=== PATIENT | male | born 1955 | race Caucasian/White ===

== ENCOUNTER → 2022-08-11 | Outpatient (CLI) | payer MEDICARE, MEDICAID, SELFPAY ==
--- NOTE | 2022-08-11 08:33 | CDU_ITS ---
Reason For Study: Bilateral carotid bruit Rt. Velocities/BP Lt. Velocities/BP Prox CCA 81.5/11.6 cm/sec. Prox CCA 86.1/15.7 cm/sec. Mid CCA 77.8/11.6 cm/sec. Mid CCA 67.4/17.9 cm/sec. Dist CCA 60.7/12.6 cm/sec. Dist CCA 61.9/14.6 cm/sec. Prox ICA 70.7/17.9 cm/sec. Prox ICA 70.4/12.6 cm/sec. Mid ICA 75.1/17.9 cm/sec. Mid ICA 70.4/15.1 cm/sec. Dist ICA 90.5/20.1 cm/sec. Dist ICA 64.2/11.4 cm/sec. Rt. ICA/CCA = 1.16. Lt. ICA/CCA = 1.04. Prox ECA 121.1/17 cm/sec. Prox ECA 315/20.8 cm/sec. Rt. Vert. 66.3/8 cm/sec. Lt. Vert. 50.9/9.1 cm/sec. Right Extracranial There is homogeneous, smooth atherosclerotic plaque noted in the right common carotid artery. There is heterogeneous, irregular atherosclerotic plaque noted in the right internal carotid artery. There is intimal thickening but no significant atherosclerotic plaque noted in the right external carotid artery. Antegrade flow is noted in the right vertebral artery. Left Extracranial There is homogeneous, smooth atherosclerotic plaque noted in the left common carotid artery. There is heterogeneous, irregular atherosclerotic plaque noted in the left internal carotid artery. There is heterogeneous, irregular atherosclerotic plaque noted in the left external carotid artery. Antegrade flow is noted in the left vertebral artery. Procedure Carotid Duplex [id number]. This is a Carotid Duplex examination using B-mode, color flow and specral Doppler. Exam performed in department. VL/Carotid Duplex Ultrasound Interpretation Summary Mild (<50%) stenosis right extracranial internal carotid. Mild (<50%) stenosis left extracranial internal carotid. Patent and antegrade vertebrals bilaterally. Ordering Physician: Didier Blake Performed By: Liliane Viveros RVT
== END | disposition home or self-care (01) ==
LOC: CVS 08:32
PROVIDERS: Visit Provider Psychiatry & Neurology Neurology
DX: R09.89 Other specified symptoms and signs involving the circulatory and respiratory systems (principal); Z86.73 Personal history of transient ischemic attack (TIA), and cerebral infarction without residual deficits
CPT/HCPCS: 93880

== ENCOUNTER → 2023-04-20 | Outpatient (CLI) | payer MEDICARE, MEDICAID, SELFPAY ==
--- OUTSIDE RECORDS SUMMARY | 2023-04-20 07:35 | XMS RPT_ITS | CCD ---
Author Name Unknown Address [address] [place] [address] Organization [facility] Care Team Providers Care [employer] Business [employer] Officer Name Role Phone Gayatri Burrell Unavailable Gayatri Burrell Unavailable Jeanna Duff Unavailable SOPHIE CUETO Unavailable JEANNA Corrales Unavailable Unavailab Jeanna Floyd Unavailable Unavailab Jeanna Floyd Unavailable Gayatri Burrell Unavailable Jeanna Duff Primary Care Provider [phone] Melquiades Tanvir Admitting Unavailabl e MelquiadesMildred greena Attending Unavailabl e Melquiades, Tanvir Admitting Unavailabl e Melquiades, Tanvir Attending UnavailElza Stanley Admitting Unavailable Elza Dietrich Attending Unavailable Lara Swan Admitting Unavailable Lara Swan Attending Unavailable Melquiades Tanvir Admitting Unavailabl e Melquiades, Tanvir Attending Unavailabl e Melquiades, Tanvir Admitting Unavailabl e Melquiades, Tanvir Attending UnavailJeanna Tan Admitting Unavailable Jeanna Duff Attending Unavailable Boyd Leonard Attending Unavailable Boyd Leonard Admitting Unavailable Gayatri Burrell Primary Care Provider Jeanna Duff Primary Care Provider [phone] Jeanna Duff Primary Care Provider Omega VARMA, [facility] Primary Care Provider Omega VARMA, [facility] Primary Care Provider Omega VARMA, [facility] Primary Care Provider MEJIA CAMPOVERDE Referring Unavailable CROUCH, [facility] Unavailab MEJIA Espinal Admitting Unavailable CROUCH, [facility] Care Unavailab le Omega VARMA, Gamaliel Primary Care Provider Omega VARMA, [facility] Primary Care Provider Omega VARMA, [facility] Primary Care Provider Mejia Campoverde MD Unavailable ARIZA, WILL Attending Unavailable ARIZA, WILL Referring Unavailable [facility], [facility] Primary Care Unavailable ARIZA, WILL Attending Unavailable ARIZA, WILL Referring Unavailable [facility], [place] Primary Care Unavailable MARSHA WEINER Attending Unavailable ARIZA, WILL Referring Unavailable [facility], [place] Primary Care Unavailable ARIZA, WILL Attending Unavailable ARIZA, WILL Referring Unavailable [facility], [place] Primary Care Unavailable ARIZA, WILL Attending Unavailable ARIZA, WILL Referring Unavailable CROUCH, [place] [facility] Primary Care Unavailable ARIZA, WILL Attending Unavailable ARIZA, WILL Referring Unavailable CROUCH, [place] Primary Care Unavailable ARIZA, WILL Attending Unavailable ARIZA, WILL Referring Unavailable CR[facility], [facility] Primary Care Unavailable ARIZA, WILL Attending Unavailable CROUCH, JEANNA Referring Unavailable CROU[facility], [place] [facility] Primary Care Unavailable MEJIA CAMPOVERDE Referring Unavailable CROUCH, [facility] Care Unavailab MEJIA Espinal Attending Unavailable MEJIA CAMPOVERDE Attending Unavailable MEJIA CAMPOVERDE Referring Unavailable CROUCH, [facility] Care Unavailab le Unavailable Primary Care Provider Unavailabl e CROUCH, [place] Primary Care Unavailable [facility], [place] Primary Care Unavailable KIRBY MARIA Attending Unavailable Charisse Painting CNP Primary Care Provider Naseem VARMA, Gayatri Primary Care Provider Mikayla Rosales Unavailable Unavailable GAYATRI BURRELL Primary Care Unavailable AMRITA OJEDA Attending Unavailable GAYATRI BURRELL Primary Care Unavailable YANG STUBBS Attending Unavailable YANG STUBBS Admitting Unavailable Eric Rosalesuin Unavailable Unavailable Painting CLINICAL AUDIOLOGIST, Charisse Torres Primary Care Provider Garima BOWEN, Charisse Torres Primary Care Provider CHARISSE PAINTING Attending Unavailab le PAINTINGCHARISSE Primary Care Unavailab le CROJEANNA BAPTISTE [facility] Care Unavailab le CROJEANNA BAPTISTE Attending Unavailab le CHARISSE PAINTING Attending Unavailab le PAINTINGCHARISSE Primary Care Unavailab le PAINTINGCHARISSE Primary Care Unavailab le MELQUIADES, TANVIR Attending Unavailabl e CHARISSE PAINTING Attending Unavailab le PAINTINGCHARISSE [facility] Care Unavailab MEJIA Espinal Admitting Unavailable MEJIA CAMPOVERDE Attending Unavailable CHARISSE PAINTING Referring Unavailab le PAINTINGCHARISSE [facility] Care Unavailab MEJIA Espinal Admitting Unavailable MEJIA CAMPOVERDE Attending Unavailable [facility] Unavailab le MELQUIADES, TANVIR Attending Unavailabl e JEANNA DUFF [facility] Unavailab le CROUCH JEANNA EMILY [facility] Unavailab le CROUCH, JEANNA DONALD Attending Unavailab le PAINTINGCHARISSE Primary Care Unavailab le [facility], TANVIR Attending Unavailabl e JEANNA DUFF [facility] Unavailab le CROUCHJEANNA Attending Unavailab le PAINTINGJC Attending Unavailable CROOLIAV [facility] Unavailab le PAINTINGCHARISSE Referring Unavailab le PAINTINGCHARISSE Admitting Unavailab le PAINTINGCHARISSE Primary Care Unavailab le CHARISSE PAINTING Referring Unavailab le PAINTINGCHARISSE Admitting Unavailab le PAINTINGCHARISSE Primary Care Unavailab CONSUELO Roger Attending Unavailable MELQUIADES, TANVIR Referring Unavailabl e MELQUIADES, TANVIR Admitting Unavailabl e CROJEANNA BAPTISTE Primary Care Unavailab le PAINTINGCHARISSE Primary Care Unavailab le MELQUIADES, TANVIR Referring Unavailabl e MELQUIADES, TANVIR Admitting Unavailabl e LAXMI WHITNEY Attending Unavailable MELQUIADES, TANVIR Referring Unavailabl e MELQUIADES, TANVIR Admitting Unavailabl e [facility]av[facility] LAXMI Barlow Attending Unavailable GARIMA [facility] Unavailab le [facility], TANVIR Admitting Unavailabl e LAXMI WHITNEY Attending Unavailable [facility], TANVIR Referring Unavailabl e G[facility]IMA [facility]availab SERGO Small Attending Unavailable LARA SWAN Referring Unavaila ble SOSA, LARA DONALD Admitting Unavaila ble CHARISSE PAINTING [facility] Unavailab le LARA SWAN Referring Unavaila ble BADDOJULIA, LARA DONALD Admitting Unavaila ble NAVEEDBRY ALCANTAR Attending Unavailable NOAH PAINTINGBETH MELISSA [facility] Unavailab LARA Beck Referring Unavaila ble BADDOLARA DUMONT Admitting Unavaila ble NAVEEDBRY Attending Unavailable GARIMA CHARISSE MELISSA [facility] Unavailab LARA Beck Referring Unavaila ble SARAH BETHDOLARA DUMONT Admitting Unavaila ble NAVEEDBRY Attending Unavailable GARIMA [facility]availab CONSUELO Roger Attending Unavailable MELQUIADES, TANVIR Admitting Unavailabl e MELQUIADES, TANVIR Referring Unavailabl e MELQUIADES, TANVIR Admitting Unavailabl e JESSE LEONG Attending Unavailable JEANNA DUFF [facility] Unavailab le [facility], TANVIR Referring Unavailabl e GARIMA [facility] Unavailab le MELQUIADES, TANVIR Admitting Unavailabl JESSE Harvey Attending Unavailable MELQUIADES, TANVIR Referring Unavailabl e JEANNA DUFF Primary Care Unavailab le [facility], TANVIR Admitting Unavailabl LAXMI Song Attending Unavailable JEANNA DUFF Primary Care Unavailab le [facility], ATNVIR Referring Unavailabl e NOAH PAINTINGBETH MELISSA Attending Unavailab CHARISSE Roger Referring Unavailab le [facility] Unavailab le MELQUIADES, TANVIR Attending Unavailabl e OMEGA [facility] Care Unavailab le [facility], TANVIR Referring Unavailabl e CHARISSE PAINTING MELISSA [facility] Care Unavailab JIN Cruz Attending Unavailable JIN SHAIKH Referring Unavailable CHARISSE PAINTING Referring Unavailab le CHARISSE PAINTING Admitting Unavailab le CHARISSE PAINTING Primary Care Unavailab le [facility], TANVIR Referring Unavailabl e GARIMA, CHARISSE MELISSA Primary Care Unavailab MEJIA Espinal Attending Unavailable MEJIA CAMPOVERDE Referring Unavailable OMEGA JEANNADORI DONALD [facility] Unavailab le CHARISSE PAINTING Referring Unavailab le CHARISSE PAINTING Admitting Unavailab le CHARISSE PAINTING Primary Care Unavailab le PAINTING, CHARISSE MELISSA [facility] Care Unavailab le MELQUIADES, TANVIR Referring Unavailabl e MELQUIADES, TANVIR Admitting Unavailabl LAXMI Song Attending Unavailable CHARISSE PAINTING Primary Care Unavailab CONSUELO Roger Attending Unavailable MELQUIADES, TANVIR Admitting Unavailabl e MELQUIADES, TANVIR Referring Unavailabl e CHARISSE PAINTING MELISSA Primary Care Unavailab LARA Beck Admitting Unavaila ble LARA SWAN Referring Unavaila ble BRY LUCIO Attending Unavailable CHARISSE PAINTING MELISSA [facility] Care Unavailab ZEE Rivas Attending Unavailable LARA SWAN Referring Unavaila ble LARA SWAN Admitting Unavaila CONSUELO Marin Attending Unavailable MELQUIADES, TANVIR Referring Unavailabl e MELQUIADES, TANVIR Admitting Unavailabl e OMEGA, JEANNA EMILY Primary Care Unavailab le [facility] Unavailab JIN Cruz Attending Unavailable Allergies Allergy Classification Reported Allergen(s) Allergy Type Date of Onset Reaction(s) Facility (16 sources) Penicillins Propensity to adverse reactions to drug 5 Unknown [facility] Work Phone: Medications Current Medications Medication Drug Class(es) Dates Sig (Normalized) Sig (Original) 8 hr acetaminophen 650 mg extended release oral tablet (2 sources) Start: 10-07-2022 End: 10-07-2022 Acetaminophen (TYLENOL) tablet 650 mg Completed/Discontinued Medications Medication Drug Class(es) Dates Sig (Normalized) Sig (Original) amoxicillin 875 mg / clavulanate 125 mg oral tablet (11 sources) Penicillin-class Antibacterial Start: 07-12-2020 End: 07-22-2020 take 1 tablet by mouth twice daily amoxicillin-clavul anate (Augmentin) 875-125 mg per tablet Take 1 (one) tablet by mouth 2 (two) times a day for 10 days . 20 tablet 0 07/12/2020 07/22/2020 aspirin 81 mg delayed release oral tablet (20 sources) Nonsteroidal Anti-inflammatory Drug End: 01-17-2023 take 1 tablet by mouth once daily aspirin, enteric coated (ASPIRIN, ENTERIC COATED) 81 mg EC tablet Take 81 mg by mouth once daily. 0 01/17/2023 Discontinued (Course of therapy completed) Problems Active Problems Problem Classification Problem Date Documented Date Episodic/Chronic Acute cerebrovascular disease (8 sources) Cerebral infarction, unspecified; Translations: [Cerebrovascular accident] Onset: 3 07-28-2022 Chronic Anal and rectal conditions (2 sources) Anal fissure, unspecified; Translations: [Anal fissure, unspecified] Onset: 8 Episodic Chronic obstructive pulmonary disease and bronchiectasis (20 sources) Pulmonary emphysema; Translations: [Emphysema, unspecified] Onset: 8 10-23-2017 Chronic Chronic obstructive pulmonary disease and bronchiectasis (1 source) Bronchitis Episodic Coagulation and hemorrhagic disorders (20 sources) Hypercoagulability state; Translations: [Other primary thrombophilia] Onset: 8 10-23-2017 Chronic Coronary atherosclerosis and other heart disease (20 sources) Coronary arteriosclerosis; Translations: [Coronary arteriosclerosis in [place] artery] Onset: 6 05-24-2015 Chronic Diabetes mellitus with complications (20 sources) Type 2 diabetes mellitus; Translations: [Type 2 diabetes mellitus with diabetic polyneuropathy] Onset: 7 06-21-2020 Chronic Diabetes mellitus without complication (20 sources) Diabetes mellitus; Translations: [Type 2 diabetes mellitus without complication] Onset: 8 10-23-2017 Chronic Disorders of lipid metabolism (20 sources) Hyperlipidemia; Translations: [Mixed hyperlipidemia] Onset: 7 05-29-2016 Chronic Essential hypertension (20 sources) Hypertensive disorder; Translations: [Essential hypertension] Onset: 7 05-29-2016 Chronic Hemorrhoids (2 sources) Unspecified hemorrhoids; Translations: [Unspecified hemorrhoids] Onset: Episodic Inflammatory conditions of male genital organs (1 source) Abscess of scrotum; Translations: [Scrotal abscess] Episodic Malaise and fatigue (5 sources) Fatigue; Translations: [Other fatigue] Onset: 3 02-06-2023 Episodic Mood disorders (2 sources) Depressive disorder; Translations: [Depression] Onset: 2 06-21-2021 Chronic Occlusion or stenosis of precerebral arteries (20 sources) Occlusion and stenosis of bilateral carotid arteries; Translations: [Carotid artery stenosis] Onset: 7 01-01-2017 Chronic Occlusion or stenosis of precerebral arteries (20 sources) Bilateral carotid artery stenosis; Translations: [Carotid stenosis, bilateral] Onset: 7 01-01-2017 Osteoarthritis (20 sources) Osteoarthritis; Translations: [Unspecified osteoarthritis, unspecified site] Onset: 2 06-01-2021 Chronic Osteoarthritis (1 source) Osteoarthritis of joint of left hand; Translations: [Primary osteoarthritis of left hand] Other aftercare (8 sources) Patient encounter status; Translations: [Encounter for therapeutic drug level monitoring] Episodic Other and ill-defined cerebrovascular disease (8 sources) Intracranial aneurysm; Translations: [Cerebral aneurysm, nonruptured] Onset: 8 01-18-2023 Chronic Other and ill-defined cerebrovascular disease (6 sources) Cerebral arterial aneurysm; Translations: [Cerebral aneurysm, nonruptured] Onset: 9 11-19-2008 Chronic Other and ill-defined cerebrovascular disease (1 source) Cerebral aneurysm, nonruptured; Translations: [Cerebral aneurysm] Onset: 8 Chronic Other bone disease and musculoskeletal deformities (1 source) Degenerative joint disease involving multiple joints; Translations: [Other hypertrophic osteoarthropathy, multiple sites] Chronic Other connective tissue disease (1 source) Myofascial pain; Translations: [Myalgia, other site] Episodic Other connective tissue disease (3 sources) Other symptoms and signs involving the musculoskeletal system; Translations: [Other musculoskeletal symptoms referable to limbs] Onset: 3 03-22-2023 Episodic Other connective tissue disease (1 source) Pain in left lower limb; Translations: [Pain in left leg] 03-22-2023 Episodic Other connective tissue disease (2 sources) Pain in left leg; Translations: [Pain in left leg] Onset: 3 Episodic Other connective tissue disease (2 sources) Pain in finger of left hand; Translations: [Finger pain, left] Other hematologic conditions (1 source) Red blood cell disorder; Translations: [Other abnormality of red blood cells] Episodic Other lower respiratory disease (7 sources) Multiple nodules of lung; Translations: [Other nonspecific abnormal finding of lung field] Episodic Other male genital disorders (20 sources) Male erectile dysfunction, unspecified; Translations: [Impotence of organic origin] Onset: 2 Chronic Other nervous system disorders (2 sources) Chronic pain syndrome; Translations: [Chronic pain syndrome] Onset: 2 Chronic Other nervous system disorders (1 source) Chronic pain syndrome; Translations: [Chronic pain syndrome] Onset: 2 Chronic Other nervous system disorders (6 sources) Vasogenic cerebral edema; Translations: [Cerebral edema] Onset: 8 06-01-2017 Chronic Other non-traumatic joint disorders (1 source) Hip pain; Translations: [Pain in left hip] 03-22-2023 Episodic Other non-traumatic joint disorders (3 sources) Pain in left knee; Translations: [Pain in joint, lower leg] Onset: 3 03-22-2023 Episodic Other non-traumatic joint disorders (2 sources) Pain in left hip; Translations: [Pain in left hip] Onset: 3 Episodic Other upper respiratory infections (2 sources) Upper respiratory infection; Translations: [Acute upper respiratory infection, unspecified] Episodic Patricia-; endo-; and myocarditis; cardiomyopathy (except that caused by tuberculosis or sexually transmitted disease) (20 sources) Heart valve disorder; Translations: [Endocarditis, valve unspecified] Onset: 2 Chronic Peripheral and visceral atherosclerosis (20 sources) Peripheral vascular disease; Translations: [Peripheral vascular disease, unspecified] Onset: 7 03-26-2017 Chronic Residual codes; unclassified (1 source) Pain; Translations: [Pain] Episodic Residual codes; unclassified (1 source) Requires vaccination; Translations: [Need for vaccination] Screening or history of mental health and substance abuse (20 sources) Tobacco user; Translations: [Nicotine dependence, unspecified, uncomplicated] Onset: 7 01-01-2017 Chronic Spondylosis; intervertebral disc disorders; other back problems (20 sources) Degeneration of lumbosacral intervertebral disc; Translations: [Other intervertebral disc degeneration, lumbosacral region] Onset: 1 06-21-2020 Chronic Spondylosis; intervertebral disc disorders; other back problems (20 sources) Lumbosacral radiculopathy; Translations: [Radiculopathy, lumbosacral region] Onset: 3 10-07-2022 Episodic Substance-related disorders (20 sources) Smoker; Translations: [Nicotine dependence, unspecified, uncomplicated] Onset: 7 06-18-2018 Chronic Substance-related disorders (7 sources) H/O: drug dependency; Translations: [Personal history of nicotine dependence] Episodic Unclassified (9 sources) Patient encounter status; Translations: [Anticoagulation management encounter] Unclassified (2 sources) Low back pain, unspecified; Translations: [Low back pain, unspecified] Onset: 3 Past or Other Problems Problem Classification Problem Date Documented Date Episodic/Chronic Immunizations and screening for infectious disease (3 sources) Immunization due; Translations: [Encounter for immunization] Onset: 11-30-2022 12-05-2022 Episodic Influenza (2 sources) Influenza due to other identified influenza virus with other respiratory manifestations; Translations: [Influenza due to other identified influenza virus with other respiratory manifestations] Onset: 04-15-2022 Episodic Other aftercare (20 sources) Long-term current use of anticoagulant; Translations: [shelter (current) use of anticoagulants] Onset: 10-18-2020 Episodic Other aftercare (2 sources) shelter (current) use of opiate analgesic; Translations: [shelter (current) use of opiate analgesic] Onset: 06-21-2021 Episodic Other aftercare (6 sources) Encounter for therapeutic drug level monitoring; Translations: [Encounter for therapeutic drug level monitoring] Onset: 06-21-2021 Episodic Other aftercare (4 sources) 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; Translations: [shelter (current) use of anticoagulants] Onset: 07-17-2022 Episodic Other and ill-defined cerebrovascular disease (20 sources) Cerebrovascular disease; Translations: [Cerebrovascular disease, unspecified] Onset: 06-19-2018 Resolved: 12-22-2020 06-19-2018 Chronic Other circulatory disease (20 sources) History of peripheral vascular angioplasty; Translations: [Peripheral vascular angioplasty status with implants and grafts] Onset: 02-08-2018 Resolved: 12-16-2018 12-16-2018 Chronic Other circulatory disease (20 sources) History of peripheral vascular angioplasty; Translations: [Peripheral vascular angioplasty status] Onset: 01-01-2017 Resolved: 06-18-2019 06-18-2019 Episodic Other circulatory disease (6 sources) History of cerebrovascular accident; Translations: [Personal history of transient ischemic attack (TIA), and cerebral infarction without residual deficits] Onset: 05-25-2017 05-25-2017 Episodic Other connective tissue disease (1 source) Rupture of extensor tendon of finger; Translations: [Rupture of extensor tendon of finger] Episodic Other connective tissue disease (2 sources) Myalgia, other site; Translations: [Myalgia, other site] Onset: 09-27-2021 Episodic Other connective tissue disease (2 sources) Cramp and spasm; Translations: [Cramp and spasm] Onset: 11-30-2022 Episodic Other ear and sense organ disorders (20 sources) Impacted cerumen in right ear; Translations: [Impacted cerumen, right ear] Onset: 11-03-2021 Resolved: 11-29-2021 Episodic Other injuries and conditions due to external causes (20 sources) Injury of left ear; Translations: [Unspecified injury of ear, initial encounter] Onset: 11-03-2021 Resolved: 11-29-2021 Episodic Other lower respiratory disease (20 sources) Paroxysmal nocturnal dyspnea; Translations: [Dyspnea, unspecified] Onset: 04-08-2021 Episodic Other lower respiratory disease (4 sources) Other nonspecific abnormal finding of lung field; Translations: [Other nonspecific abnormal finding of lung field] Onset: 07-17-2022 Episodic Other screening for suspected conditions (not mental disorders or infectious disease) (20 sources) Platelet count below reference range; Translations: [Prostate specific antigen abnormal ] Onset: 06-21-2020 Resolved: 06-01-2021 06-21-2020 Episodic Other upper respiratory disease (20 sources) Bleeding from nose; Translations: [Epistaxis] Onset: 07-12-2020 Resolved: 12-22-2020 07-12-2020 Episodic Residual codes; unclassified (20 sources) H/O: respiratory disease; Translations: [Personal history of other specified conditions] Onset: 08-26-2020 Resolved: 12-22-2020 Episodic Residual codes; unclassified (4 sources) Tobacco use and exposure - finding; Translations: [Tobacco use] Onset: 07-17-2022 Episodic Residual codes; unclassified (1 source) Tobacco use; Translations: [Tobacco use] Onset: 07-17-2022 Episodic Screening and history of mental health and substance abuse codes (5 sources) Personal history of nicotine dependence; Translations: [Personal history of tobacco use] Onset: 07-17-2022 02-06-2023 Episodic Unclassified (20 sources) History of angioplasty; Translations: [History of angioplasty of peripheral vessel] Onset: 01-01-2017 01-01-2017 Episodic Unclassified (20 sources) History of peripheral vascular angioplasty; Translations: [S/P peripheral artery angioplasty with stent placement] Onset: 01-01-2017 Resolved: 06-18-2019 02-08-2018 Unclassified (1 source) Anticoagulation management encounter Unclassified (2 sources) Low back pain, unspecified; Translations: [Low back pain, unspecified] Onset: 03-19-2023 Results Test Name Value Interpretation Reference Range Facil ity Vital Signs Date Time Vital Sign Value Performing Clinician Lani lity 03-30-2023 14:47-0500 Diastolic blood pressure 73 mm[Hg] Mejia Campoverde MD Work Phone: [facility] 03-30-2023 14:47-0500 Heart rate 68 /min Mejia Campoverde MD Work Phone: [facility] 03-30-2023 14:47-0500 Systolic blood pressure 171 mm[Hg] Mejia Campoverde MD Work Phone: [facility] 03-30-2023 14:40-0500 Body height 172.7 cm Mejia Campoverde MD Work Phone: [facility] 03-30-2023 14:40-0500 Body mass index (BMI) [Ratio] 21.74 kg/m2 Mejia Campoverde MD Work Phone: [facility] 03-30-2023 14:40-0500 Body weight 64.86 kg Mejia Campoverde MD Work Phone: [facility] 03-22-2023 13:33-0500 Body height 172.7 cm Tanvir Arnett MD Work Phone: [facility] 03-22-2023 13:33-0500 Body mass index (BMI) [Ratio] 21.76 kg/m2 Tanvir Arnett MD Work Phone: [facility] 03-22-2023 13:33-0500 Body temperature 97.39 [degF] Tanvir Arnett MD Work Phone: [facility] 03-22-2023 13:33-0500 Body weight 64.91 kg Tanvir Arnett MD Work Phone: [facility] 03-22-2023 13:33-0500 Diastolic blood pressure 70 mm[Hg] Tanvir Arnett MD Work Phone: [facility] 03-22-2023 13:33-0500 Heart rate 59 /min Tanvir Arnett MD Work Phone: [facility] 03-22-2023 13:33-0500 SaO2% (BldA) [Mass fraction] 96 % Tanvir Arnett MD Work Phone: [facility] 03-22-2023 13:33-0500 Systolic blood pressure 180 mm[Hg] Tanvir Arnett MD Work Phone: [facility] 03-22-2023 09:00-0500 Diastolic blood pressure 75 mm[Hg] Charissebry Painting CLINICAL AUDIOLOGIST Work Phone: [facility] 03-22-2023 09:00-0500 Heart rate 63 /min Charissedon Painting CLINICAL AUDIOLOGIST Work Phone: [facility] 03-22-2023 09:00-0500 Systolic blood pressure 179 mm[Hg] Charisse Painting CLINICAL AUDIOLOGIST Work Phone: [facility] 03-22-2023 08:48-0500 Body height 172.7 cm Charisse Painting CLINICAL AUDIOLOGIST Work Phone: [facility] 03-22-2023 08:48-0500 Body mass index (BMI) [Ratio] 21.9 kg/m2 Charisse Painting CLINICAL AUDIOLOGIST Work Phone: [facility] [facility] 03-22-2023 08:48-0500 Body temperature 98.1 [degF] Charisse Painting CLINICAL AUDIOLOGIST Work Phone: [facility] 03-22-2023 08:48-0500 Body weight 65.32 kg Charissebry Painting CLINICAL AUDIOLOGIST Work Phone: [facility] 03-22-2023 08:48-0500 SaO2% (BldA) [Mass fraction] 98 % Charisse Painting CLINICAL AUDIOLOGIST Work Phone: [facility] 02-06-2023 14:12-0400 Body height 172.7 cm Tanvir Arnett MD Work Phone: [facility] 02-06-2023 14:12-0400 Body mass index (BMI) [Ratio] 21.7 kg/m2 Tanvir Arnett MD Work Phone: [facility] 02-06-2023 14:12-0400 Body temperature 98.2 [degF] Tanvir Arnett MD Work Phone: [facility] 02-06-2023 14:12-0400 Body weight 64.73 kg Tanvir Arnett MD Work Phone: [facility] 02-06-2023 14:12-0400 Diastolic blood pressure 55 mm[Hg] Tanvir Arnett MD Work Phone: [facility] 02-06-2023 14:12-0400 Heart rate 71 /min Tanvir Arnett MD Work Phone: [facility] 02-06-2023 14:12-0400 SaO2% (BldA) [Mass fraction] 92 % Tanvir Arnett MD Work Phone: [facility] 02-06-2023 14:12-0400 Systolic blood pressure 147 mm[Hg] Tanvir Arnett MD Work Phone: [facility] 01-17-2023 07:53-0400 Diastolic blood pressure 70 mm[Hg] Amrita Jasmeet PA-C Work Phone: [facility] 01-17-2023 07:53-0400 Heart rate 60 /min Amrita Jasmeet PA-C Work Phone: [facility] 01-17-2023 07:53-0400 Systolic blood pressure 165 mm[Hg] Amrita Jasmeet PA-C Work Phone: [facility] 01-17-2023 07:49-0400 Body height 170.2 cm Amrita Jasmeet PA-C Work Phone: [facility] 01-17-2023 07:49-0400 Body temperature 97.5 [degF] Amrita Jasmeet PA-C Work Phone: [facility] 01-17-2023 07:49-0400 Body weight 60.01 kg Amrita Jasmeet PA-C Work Phone: [facility] 01-17-2023 07:49-0400 Respiratory rate 14 /min Amrita Jasmeet PA-C Work Phone: [facility] 01-17-2023 07:49-0400 SaO2% (BldA) [Mass fraction] 99 % Amrita Jasmeet PA-C Work Phone: [facility] 11-30-2022 09:20-0400 Diastolic blood pressure 58 mm[Hg] Charisse Painting CLINICAL AUDIOLOGIST Work Phone: [facility] 11-30-2022 09:20-0400 Heart rate 62 /min Charisse Painting CLINICAL AUDIOLOGIST Work Phone: [facility] 11-30-2022 09:20-0400 Systolic blood pressure 154 mm[Hg] Charisse Painting CLINICAL AUDIOLOGIST Work Phone: [facility] 11-30-2022 09:12-0400 Body height 172.7 cm Charisse Painting CLINICAL AUDIOLOGIST Work Phone: [facility] 11-30-2022 09:12-0400 Body mass index (BMI) [Ratio] 20.62 kg/m2 Charisse Painting CLINICAL AUDIOLOGIST Work Phone: [facility] 11-30-2022 09:12-0400 Body temperature 98.49 [degF] Charisse Painting CLINICAL AUDIOLOGIST Work Phone: [facility] 11-30-2022 09:12-0400 Body weight 61.51 kg Charisse Painting CLINICAL AUDIOLOGIST Work Phone: [facility] 11-30-2022 09:12-0400 SaO2% (BldA) [Mass fraction] 95 % Charisse Painting CLINICAL AUDIOLOGIST Work Phone: [facility] 10-18-2022 14:19-0400 Diastolic blood pressure 69 mm[Hg] Charisse Painting CLINICAL AUDIOLOGIST Work Phone: [facility] 10-18-2022 14:19-0400 Heart rate 62 /min Charisse Painting CLINICAL AUDIOLOGIST Work Phone: [facility] 10-18-2022 14:19-0400 Systolic blood pressure 158 mm[Hg] Charisse Painting CLINICAL AUDIOLOGIST Work Phone: [facility] 10-18-2022 14:14-0400 Body height 172.7 cm Charisse Painting CLINICAL AUDIOLOGIST Work Phone: [facility] 10-18-2022 14:14-0400 Body mass index (BMI) [Ratio] 21.36 kg/m2 Charisse Painting CLINICAL AUDIOLOGIST Work Phone: [facility] 10-18-2022 14:14-0400 Body temperature 98.29 [degF] Charisse Painting CLINICAL AUDIOLOGIST Work Phone: [facility] 10-18-2022 14:14-0400 Body weight 63.73 kg Charisse Painting CLINICAL AUDIOLOGIST Work Phone: [facility] 10-18-2022 14:14-0400 SaO2% (BldA) [Mass fraction] 95 % Charisse Painting CLINICAL AUDIOLOGIST Work Phone: [facility] 10-07-2022 18:46-0400 Diastolic blood pressure 52 mm[Hg] Kirby Maria MD Work Phone: [facility] 10-07-2022 18:46-0400 Heart rate 58 /min Kirby Maria MD Work Phone: [facility] 10-07-2022 18:46-0400 Respiratory rate 16 /min Kirby Maria MD Work Phone: [facility] 10-07-2022 18:46-0400 SaO2% (BldA) [Mass fraction] 99 % Kirby Maria MD Work Phone: [facility] 10-07-2022 18:46-0400 Systolic blood pressure 104 mm[Hg] Kirby Maria MD Work Phone: [facility] 10-07-2022 17:52-0400 Body height 172.7 cm Kirby Maria MD Work Phone: [facility] 10-07-2022 17:51-0400 Body temperature 98.01 [degF] Kirby Maria MD Work Phone: [facility] 07-18-2022 09:06-0400 Body height 172.7 cm Tanvir Arnett MD Work Phone: [facility] 07-18-2022 09:06-0400 Body mass index (BMI) [Ratio] 22.23 kg/m2 Tanvir Arnett MD Work Phone: [facility] 07-18-2022 09:06-0400 Body temperature 97.7 [degF] Tanvir Arnett MD Work Phone: [facility] 07-18-2022 09:06-0400 Body weight 66.32 kg Tanvir Arnett MD Work Phone: [facility] 07-18-2022 09:06-0400 Diastolic blood pressure 70 mm[Hg] Tanvir Arnett MD Work Phone: [facility] 07-18-2022 09:06-0400 Heart rate 54 /min Tanvir Arnett MD Work Phone: [facility] 07-18-2022 09:06-0400 SaO2% (BldA) [Mass fraction] 95 % Tanvir Arnett MD Work Phone: [facility] 07-18-2022 09:06-0400 Systolic blood pressure 144 mm[Hg] Tanvir Arnett MD Work Phone: [facility] 06-01-2022 09:16-0500 Body height 172.7 cm Jeanna Duff MD Work Phone: [facility] 06-01-2022 09:16-0500 Body mass index (BMI) [Ratio] 21.97 kg/m2 Jeanna Duff MD Work Phone: [facility] 06-01-2022 09:16-0500 Body temperature 98.29 [degF] Jeanna Duff MD Work Phone: [facility] 06-01-2022 09:16-0500 Body weight 65.55 kg Jeanna Duff MD Work Phone: [facility] 06-01-2022 09:16-0500 Diastolic blood pressure 64 mm[Hg] Jeanna Duff MD Work Phone: [facility] 06-01-2022 09:16-0500 Heart rate 60 /min Jeanna Duff MD Work Phone: [facility] 06-01-2022 09:16-0500 SaO2% (BldA) [Mass fraction] 94 % Jeanna Duff MD Work Phone: [facility] 06-01-2022 09:16-0500 Systolic blood pressure 137 mm[Hg] Jeanna Duff MD Work Phone: [facility] 04-27-2022 08:13-0500 Body height 172.7 cm Jeanna Duff MD Work Phone: [facility] 04-27-2022 08:13-0500 Body mass index (BMI) [Ratio] 21.62 kg/m2 Jeanna Duff MD Work Phone: [facility] 04-27-2022 08:13-0500 Body temperature 98.71 [degF] Jeanna Duff MD Work Phone: [facility] 04-27-2022 08:13-0500 Body weight 64.5 kg Jeanna Duff MD Work Phone: [facility] 04-27-2022 08:13-0500 Diastolic blood pressure 76 mm[Hg] Jeanna Duff MD Work Phone: [facility] 04-27-2022 08:13-0500 Heart rate 60 /min Jeanna Duff MD Work Phone: [facility] 04-27-2022 08:13-0500 SaO2% (BldA) [Mass fraction] 95 % Jeanna Duff MD Work Phone: [facility] 04-27-2022 08:13-0500 Systolic blood pressure 132 mm[Hg] Jeanna Duff MD Work Phone: [facility] 04-10-2022 08:37-0500 Diastolic blood pressure 72 mm[Hg] Mejia Campoverde MD Work Phone: [facility] 04-10-2022 08:37-0500 Systolic blood pressure 142 mm[Hg] Mejia Campoverde MD Work Phone: [facility] 04-10-2022 08:31-0500 Body height 172.7 cm Mejia Campoverde MD Work Phone: [facility] 04-10-2022 08:31-0500 Body mass index (BMI) [Ratio] 21.74 kg/m2 Mejia Campoverde MD Work Phone: [facility] 04-10-2022 08:31-0500 Body weight 64.86 kg Mejia Campoverde MD Work Phone: [facility] 04-10-2022 08:31-0500 Heart rate 56 /min Mejia Campoverde MD Work Phone: [facility] 04-10-2022 08:31-0500 SaO2% (BldA) [Mass fraction] 95 % Mejia Campoverde MD Work Phone: [facility] 01-17-2022 08:57-0400 Body height 172.7 cm Tanvir Arnett MD Work Phone: [facility] 01-17-2022 08:57-0400 Body mass index (BMI) [Ratio] 20.74 kg/m2 Tanvir Arnett MD Work Phone: [facility] 01-17-2022 08:57-0400 Body temperature 97.7 [degF] Tanvir Arnett MD Work Phone: [facility] 01-17-2022 08:57-0400 Body weight 61.87 kg Tanvir Arnett MD Work Phone: [facility] 01-17-2022 08:57-0400 Diastolic blood pressure 58 mm[Hg] Tanvir Arnett MD Work Phone: [facility] 01-17-2022 08:57-0400 Heart rate 57 /min Tanvir Arnett MD Work Phone: [facility] 01-17-2022 08:57-0400 SaO2% (BldA) [Mass fraction] 97 % Tanvir Arnett MD Work Phone: [facility] 01-17-2022 08:57-0400 Systolic blood pressure 168 mm[Hg] Tanvir Arnett MD Work Phone: [facility] 11-29-2021 08:51-0400 Body height 172.7 cm Jeanna Duff MD Work Phone: [facility] 11-29-2021 08:51-0400 Body mass index (BMI) [Ratio] 20.07 kg/m2 Jeanna Duff MD Work Phone: [facility] 11-29-2021 08:51-0400 Body temperature 98.6 [degF] Jeanna Duff MD Work Phone: [facility] 11-29-2021 08:51-0400 Body weight 59.88 kg Jeanna Duff MD Work Phone: [facility] 11-29-2021 08:51-0400 Diastolic blood pressure 62 mm[Hg] Jeanna Duff MD Work Phone: [facility] 11-29-2021 08:51-0400 Heart rate 64 /min Jeanna Duff MD Work Phone: [facility] 11-29-2021 08:51-0400 SaO2% (BldA) [Mass fraction] 94 % Jeanna Duff MD Work Phone: [facility] 11-29-2021 08:51-0400 Systolic blood pressure 135 mm[Hg] Jeanna Duff MD Work Phone: [facility] 11-03-2021 10:07-0400 Body height 172.7 cm Tha Long DO Work Phone: [facility] 11-03-2021 10:07-0400 Body mass index (BMI) [Ratio] 20.51 kg/m2 Tha Long DO Work Phone: [facility] 11-03-2021 10:07-0400 Body temperature 98.8 [degF] Tha Long DO Work Phone: [facility] 11-03-2021 10:07-0400 Body weight 61.19 kg Tha Long DO Work Phone: [facility] 11-03-2021 10:07-0400 Diastolic blood pressure 67 mm[Hg] Tha Long DO Work Phone: [facility] 11-03-2021 10:07-0400 Heart rate 58 /min Tha Long DO Work Phone: [facility] 11-03-2021 10:07-0400 Systolic blood pressure 129 mm[Hg] Tha Long DO Work Phone: [facility] 09-15-2021 09:07-0400 Body height 172.7 cm Tanvir Arnett MD Work Phone: [facility] 09-15-2021 09:07-0400 Body mass index (BMI) [Ratio] 20.79 kg/m2 Tanvir Arnett MD Work Phone: [facility] 09-15-2021 09:07-0400 Body temperature 97.7 [degF] Tanvir Arnett MD Work Phone: [facility] 09-15-2021 09:07-0400 Body weight 62.01 kg Tanvir Arnett MD Work Phone: [facility] 09-15-2021 09:07-0400 Diastolic blood pressure 77 mm[Hg] Tanvir Arnett MD Work Phone: [facility] 09-15-2021 09:07-0400 Heart rate 64 /min Tanvir Arnett MD Work Phone: [facility] 09-15-2021 09:07-0400 SaO2% (BldA) [Mass fraction] 95 % Tanvir Arnett MD Work Phone: [facility] 09-15-2021 09:07-0400 Systolic blood pressure 162 mm[Hg] Tanvir Arnett MD Work Phone: [facility] 08-16-2021 14:30-0400 Diastolic blood pressure 74 mm[Hg] Jeanna Duff MD Work Phone: [facility] 08-16-2021 14:30-0400 Systolic blood pressure 164 mm[Hg] Jeanna Duff MD Work Phone: [facility] 08-16-2021 14:290400 Body height 172.7 cm Jeanna Duff MD Work Phone: [facility] 08-16-2021 14:29-0400 Body mass index (BMI) [Ratio] 21.32 kg/m2 Jeanna Duff MD Work Phone: [facility] 08-16-2021 14:290400 Body temperature 97.9 [degF] Jeanna Duff MD Work Phone: [facility] 08-16-2021 14:29-0400 Body weight 63.59 kg Jeanna Duff MD Work Phone: [facility] 08-16-2021 14:29-0400 Heart rate 70 /min Jeanna Duff MD Work Phone: [facility] 08-16-2021 14:29-0400 SaO2% (BldA) [Mass fraction] 97 % Jeanna Duff MD Work Phone: [facility] 2021 10:27-0400 Diastolic blood pressure 72 mm[Hg] Charisse Painting CLINICAL AUDIOLOGIST Work Phone: [facility] 2021 10:27-0400 Heart rate 58 /min Charisse Painting CLINICAL AUDIOLOGIST Work Phone: [facility] 2021 10:27-0400 Systolic blood pressure 188 mm[Hg] Charisse Painting CLINICAL AUDIOLOGIST Work Phone: [facility] 2021 10:24-0400 Body height 172.7 cm Charisse Painting CLINICAL AUDIOLOGIST Work Phone: [facility] 2021 10:24-0400 Body mass index (BMI) [Ratio] 20.8 kg/m2 Charisse Painting CLINICAL AUDIOLOGIST Work Phone: [facility] 2021 10:24-0400 Body temperature 97.7 [degF] Charisse Painting CLINICAL AUDIOLOGIST Work Phone: [facility] 2021 10:24-0400 Body weight 62.05 kg Charisse Painting CLINICAL AUDIOLOGIST Work Phone: [facility] 2021 10:24-0400 SaO2% (BldA) [Mass fraction] 95 % Charisse Painting CLINICAL AUDIOLOGIST Work Phone: [facility] 07-21-2021 08:24-0400 Body height 170.2 cm Marsha Clinker MANAGER LAN-CLINICAL AUDIOLOGIST Work Phone: [facility] 07-21-2021 08:24-0400 Body mass index (BMI) [Ratio] 21.61 kg/m2 Marsha Clinker MANAGER LAN-CLINICAL AUDIOLOGIST Work Phone: [facility] 07-21-2021 08:24-0400 Body weight 62.6 kg Marsha Clinker MANAGER LAN-CLINICAL AUDIOLOGIST Work Phone: [facility] 07-21-2021 08:24-0400 Diastolic blood pressure 70 mm[Hg] Marsha Clinker MANAGER LAN-CLINICAL AUDIOLOGIST Work Phone: [facility] 07-21-2021 08:24-0400 Heart rate 63 /min Marsha Clinker MANAGER LAN-CLINICAL AUDIOLOGIST Work Phone: [facility] 07-21-2021 08:24-0400 Respiratory rate 20 /min Marsha Clinker MANAGER LAN-CLINICAL AUDIOLOGIST Work Phone: [facility] 07-21-2021 08:24-0400 SaO2% (BldA) [Mass fraction] 97 % Marsha Clinker MANAGER LAN-CLINICAL AUDIOLOGIST Work Phone: [facility] 07-21-2021 08:24-0400 Systolic blood pressure 163 mm[Hg] Marsha Clinker MANAGER LAN-CLINICAL AUDIOLOGIST Work Phone: [facility] 06-01-2021 08:25-0500 Body height 172.7 cm Jeanna Duff MD Work Phone: [facility] 06-01-2021 08:25-0500 Body mass index (BMI) [Ratio] 21.03 kg/m2 Jeanna Duff MD Work Phone: [facility] 06-01-2021 08:25-0500 Body temperature 98.1 [degF] Jeanna Duff MD Work Phone: [facility] 06-01-2021 08:25-0500 Body weight 62.73 kg Jeanna Duff MD Work Phone: [facility] 06-01-2021 08:25-0500 Diastolic blood pressure 80 mm[Hg] Jeanna Duff MD Work Phone: [facility] 06-01-2021 08:25-0500 Heart rate 62 /min Jeanna Duff MD Work Phone: [facility] 06-01-2021 08:25-0500 SaO2% (BldA) [Mass fraction] 95 % Jeanna Duff MD Work Phone: [facility] 06-01-2021 08:25-0500 Systolic blood pressure 129 mm[Hg] Jeanna Duff MD Work Phone: [facility] 05-19-2021 10:05-0500 Body height 172.7 cm Tanvir Arnett MD Work Phone: [facility] 05-19-2021 10:05-0500 Body mass index (BMI) [Ratio] 20.94 kg/m2 Tanvir Arnett MD Work Phone: [facility] 05-19-2021 10:05-0500 Body temperature 97.59 [degF] Tanvir Arnett MD Work Phone: [facility] 05-19-2021 10:05-0500 Body weight 62.46 kg Tanvir Arnett MD Work Phone: [facility] 05-19-2021 10:05-0500 Diastolic blood pressure 78 mm[Hg] Tanvir Arnett MD Work Phone: [facility] 05-19-2021 10:05-0500 Heart rate 49 /min Tanvir Arnett MD Work Phone: [facility] 05-19-2021 10:05-0500 SaO2% (BldA) [Mass fraction] 97 % Tanvir Arnett MD Work Phone: [facility] 05-19-2021 10:05-0500 Systolic blood pressure 194 mm[Hg] Tanvir Arnett MD Work Phone: [facility] 04-08-2021 09:14-0500 Diastolic blood pressure 69 mm[Hg] Mejia Campoverde MD Work Phone: [facility] 04-08-2021 09:14-0500 Systolic blood pressure 176 mm[Hg] Mejia Campoverde MD Work Phone: [facility] 04-08-2021 09:06-0500 Body height 172.7 cm Mejia Campoverde MD Work Phone: [facility] 04-08-2021 09:06-0500 Body mass index (BMI) [Ratio] 20.83 kg/m2 Mejia Campoverde MD Work Phone: [facility] 04-08-2021 09:06-0500 Body weight 62.14 kg Mejia Campoverde MD Work Phone: [facility] 04-08-2021 09:06-0500 Heart rate 52 /min Mejia Campoverde MD Work Phone: [facility] 12-22-2020 08:19-0400 Diastolic blood pressure 58 mm[Hg] Jeanna Duff MD Work Phone: [facility] 12-22-2020 08:19-0400 Heart rate 53 /min Jeanna Duff MD Work Phone: [facility] 12-22-2020 08:19-0400 SaO2% (BldA) [Mass fraction] 98 % Jeanna Duff MD Work Phone: [facility] 12-22-2020 08:19-0400 Systolic blood pressure 170 mm[Hg] Jeanna Duff MD Work Phone: [facility] 12-22-2020 08:15-0400 Body height 170.2 cm Jeanna Duff MD Work Phone: [facility] 12-22-2020 08:15-0400 Body mass index (BMI) [Ratio] 21.5 kg/m2 Jeanna Duff MD Work Phone: [facility] 12-22-2020 08:15-0400 Body temperature 97.59 [degF] Jeanna Duff MD Work Phone: [facility] 12-22-2020 08:15-0400 Body weight 62.28 kg Jeanna Duff MD Work Phone: [facility] 11-16-2020 10:21-0400 Body height 170.2 cm Tanvir Arnett MD Work Phone: [facility] 11-16-2020 10:21-0400 Body mass index (BMI) [Ratio] 21.14 kg/m2 Tanvir Arnett MD Work Phone: [facility] 11-16-2020 10:21-0400 Body temperature 98.01 [degF] Tanvir Arnett MD Work Phone: [facility] 11-16-2020 10:21-0400 Body weight 61.24 kg Tanvir Arnett MD Work Phone: [facility] 11-16-2020 10:21-0400 Diastolic blood pressure 73 mm[Hg] Tanvir Arnett MD Work Phone: [facility] 11-16-2020 10:21-0400 Heart rate 51 /min Tanvir Arnett MD Work Phone: [facility] 11-16-2020 10:21-0400 SaO2% (BldA) [Mass fraction] 97 % Tanvir Arnett MD Work Phone: [facility] 11-16-2020 10:21-0400 Systolic blood pressure 181 mm[Hg] Tanvir Arnett MD Work Phone: [facility] 10-18-2020 12:42-0400 Body height 170.2 cm Tha Long DO Work Phone: [facility] 10-18-2020 12:42-0400 Body mass index (BMI) [Ratio] 21.14 kg/m2 Tha Barronde DO Work Phone: [facility] 10-18-2020 12:42-0400 Body temperature 99 [degF] Tha Barronde DO Work Phone: [facility] 10-18-2020 12:42-0400 Body weight 61.24 kg Tha Barronde DO Work Phone: [facility] 10-18-2020 12:42-0400 Diastolic blood pressure 71 mm[Hg] Tha Ethan DO Work Phone: [facility] 10-18-2020 12:42-0400 Heart rate 49 /min Tha Barronde DO Work Phone: [facility] 10-18-2020 12:42-0400 Systolic blood pressure 151 mm[Hg] Tha Barronde DO Work Phone: [facility] 08-26-2020 08:24-0400 Body height 170.2 cm Tha Barronde DO Work Phone: [facility] 08-26-2020 08:24-0400 Body mass index (BMI) [Ratio] 22.16 kg/m2 Tha Barronde DO Work Phone: [facility] 08-26-2020 08:24-0400 Body temperature 98.1 [degF] Tha Barronde DO Work Phone: [facility] 08-26-2020 08:24-0400 Body weight 64.18 kg Tha Barronde DO Work Phone: [facility] 08-26-2020 08:24-0400 Diastolic blood pressure 66 mm[Hg] Tha Barronde DO Work Phone: [facility] 08-26-2020 08:24-0400 Heart rate 65 /min Tha Barronde DO Work Phone: [facility] 08-26-2020 08:24-0400 Systolic blood pressure 167 mm[Hg] Tha Barronde DO Work Phone: [facility] 07-20-2020 10:36-0400 BMI (Body Mass Index) 21.72 kg/m2 Tanvir [facility] 07-20-2020 10:36-0400 Body Temperature 97.81 [degF] [facility] 10:36-0400 Body weight 62.91 kg [facility]-20-2020 10:36-0400 BP Diastolic 69 mm[Hg] [facility]-20-2020 10:36-0400 BP Systolic 169 mm[Hg] [facility]-20-2020 10:36-0400 Height 170.2 cm Tanvir [facility] 07-20-2020 10:36-0400 Pulse (Heart Rate) 53 /min Tanvirxiao WoodsMelquiades [facility] 07-20-2020 10:36-0400 Pulse Oximetry 96 % Tanvir [facility] 07-16-2020 15:46-0400 BMI (Body Mass Index) 21.49 kg/m2 Tha [facility] 07-16-2020 15:46-0400 Body Temperature 98.8 [degF] Tha [facility] 07-16-2020 15:46-0400 Body weight 62.23 kg Tha [facility] 07-16-2020 15:46-0400 BP Diastolic 67 mm[Hg] [facility] 07-16-2020 15:46-0400 BP Systolic 135 mm[Hg] Tha [facility] 07-16-2020 15:46-0400 Height 170.2 cm [facility] 07-16-2020 15:46-0400 Pulse (Heart Rate) 90 /min Tha [facility] 07-12-2020 18:11-0400 Body Temperature 97.3 [degF] Tha [facility] 07-12-2020 18:11-0400 BP Diastolic 66 mm[Hg] Tha [facility] 07-12-2020 18:11-0400 BP Systolic 154 mm[Hg] Tha [facility] 07-12-2020 18:11-0400 Pulse Oximetry 98 % [facility] 07-12-2020 18:11-0400 Respiratory Rate 12 /min Tha Long [facility] 07-12-2020 17:40-0400 Pulse (Heart Rate) 54 /min Tha Long [facility] 07-12-2020 15:19-0400 BMI (Body Mass Index) 21.55 kg/m2 Tha Long [facility] 07-12-2020 15:19-0400 Body weight 62.4 kg Tha Long [facility] 07-12-2020 15:19-0400 Height 170.2 cm Tha Long [facility] 07-12-2020 12:59-0400 BMI (Body Mass Index) 21.75 kg/m2 Tha Long [facility] 07-12-2020 12:59-0400 Body Temperature 97.9 [degF] Tha Long [facility] 07-12-2020 12:59-0400 Body weight 63.01 kg Tha Long [facility] 07-12-2020 12:59-0400 BP Diastolic 75 mm[Hg] Tha Long [facility] 07-12-2020 12:59-0400 BP Systolic 172 mm[Hg] Tha Long [facility] 07-12-2020 12:59-0400 Height 170.2 cm Tha Long [facility] 07-12-2020 12:59-0400 Pulse (Heart Rate) 58 /min Tha Long [facility] 07-12-2020 09:08-0400 BMI (Body Mass Index) 22.55 kg/m2 [facility] 07-12-2020 09:08-0400 Body Temperature 96.91 [degF] [facility] 07-12-2020 09:08-0400 Body weight 65.32 kg [facility] 07-12-2020 09:08-0400 BP Diastolic 91 mm[Hg] [facility] 07-12-2020 09:08-0400 BP Systolic 140 mm[Hg] [facility] 07-12-2020 09:08-0400 Height 170.2 cm [facility] 07-12-2020 09:08-0400 Pulse (Heart Rate) 53 /min [facility] 07-12-2020 09:08-0400 Pulse Oximetry 97 % Bonny Camacho [facility] 07-12-2020 09:08-0400 Respiratory Rate 16 /min Bonny Camacho [facility] 06-21-2020 09:03-0500 BMI (Body Mass Index) 21.93 kg/m2 Jeanna Duff [facility] 06-21-2020 09:03-0500 Body Temperature 98.6 [degF] Jeanna Duff [facility] 06-21-2020 09:03-0500 Body weight 63.5 kg Jeannadori Duff [facility] 06-21-2020 09:03-0500 BP Diastolic 60 mm[Hg] Jeanna Duff [facility] 06-21-2020 09:03-0500 BP Systolic 144 mm[Hg] Jeanna Duff [facility] 06-21-2020 09:03-0500 Height 170.2 cm Jeanna [place] [facility] 06-21-2020 09:03-0500 Pulse (Heart Rate) 56 /min Jeanna [place] [facility] 06-21-2020 09:03-0500 Pulse Oximetry 95 % Jeanna Duff [facility] 06-21-2020 09:03-0500 Respiratory Rate 16 /min Jeannadori Duff [facility] 06-07-2020 10:16-0500 BP Diastolic 69 mm[Hg] Jeanna Duff [facility] 06-07-2020 10:16-0500 BP Systolic 163 mm[Hg] Jeanna [place] [facility] 06-07-2020 10:11-0500 BMI (Body Mass Index) 22.74 kg/m2 Jeanna [facility] 06-07-2020 10:11-0500 Body Temperature 97.39 [degF] Jeanna Duff [facility] 06-07-2020 10:11-0500 Body weight 65.86 kg Jeanna [place] [facility] 06-07-2020 10:11-0500 Height 170.2 cm Jeanna [place] [facility] 06-07-2020 10:11-0500 Pulse (Heart Rate) 59 /min Jeanna [facility] 06-07-2020 10:11-0500 Pulse Oximetry 97 % Jeanna Duff [facility] 04-05-2020 12:50-0500 BMI (Body Mass Index) 21.14 kg/m2 Mejia [facility] 04-05-2020 12:50-0500 Body weight 61.24 kg Mejia Campoverde [facility] 04-05-2020 12:50-0500 BP Diastolic 61 mm[Hg] Mejia Campoverde [facility] 04-05-2020 12:50-0500 BP Systolic 151 mm[Hg] Mejia Campoverde [facility] 04-05-2020 12:50-0500 Height 170.2 cm Mejia Campoverde [facility] 04-05-2020 12:50-0500 Pulse (Heart Rate) 54 /min Mejia Campoverde [facility] 04-05-2020 12:50-0500 Pulse Oximetry 95 % Mejia Campoverde [facility] 12-17-2019 06:59-0400 BP Diastolic 85 mm[Hg] Jeanna Duff [facility] 12-17-2019 06:59-0400 BP Systolic 149 mm[Hg] Jeanna Duff [facility] 12-17-2019 06:56-0400 BMI (Body Mass Index) 20.83 kg/m2 Jeanna Duff [facility] 12-17-2019 06:56-0400 Body Temperature 97.5 [degF] Jeanna Duff [facility] 12-17-2019 06:56-0400 Body weight 60.33 kg Jeanna Duff [facility] 12-17-2019 06:56-0400 Height 170.2 cm Jeanna Duff [facility] 12-17-2019 06:56-0400 Pulse (Heart Rate) 55 /min Jeannadori Duff [facility] 12-17-2019 06:56-0400 Pulse Oximetry 97 % Jeanna Duff [facility] 12-17-2019 06:56-0400 Respiratory Rate 16 /min Jeanna Duff [facility] 10-15-2019 15:05-0400 BMI (Body Mass Index) 20.67 kg/m2 Devyn Will [facility] 10-15-2019 15:05-0400 Body weight 59.88 kg Devyn Will [facility] 10-15-2019 15:05-0400 Height 170.2 cm Devyn Will [facility] 07-01-2019 14:55-0400 BMI (Body Mass Index) 20.8 kg/m2 Tanvir Pricenathan [facility] 07-01-2019 14:55-0400 Body Temperature 98.1 [degF] Tanvir Melquiades [facility] 07-01-2019 14:55-0400 Body weight 60.24 kg Tanvir Pricenathan [facility] 07-01-2019 14:55-0400 BP Diastolic 77 mm[Hg] Tanvir Woodswanathan [facility] 07-01-2019 14:55-0400 BP Systolic 151 mm[Hg] Tanvir Woodswanathan [facility] 07-01-2019 14:55-0400 Height 170.2 cm [facility] 07-01-2019 14:55-0400 Pulse (Heart Rate) 70 /min Tanvir Arnett [facility] 07-01-2019 14:55-0400 Pulse Oximetry 95 % Tanvir Woodswanathan [facility] 06-18-2019 07:16-0500 BP Diastolic 62 mm[Hg] Jeannadori Duff [facility] 06-18-2019 07:16-0500 BP Systolic 145 mm[Hg] Jeannadori Duff [facility] 06-18-2019 07:16-0500 Pulse (Heart Rate) 57 /min Jeanna [place] [facility] 06-18-2019 07:16-0500 Pulse Oximetry 96 % Jeannadori Duff [facility] 06-18-2019 07:16-0500 Respiratory Rate 16 /min Jeannadori Duff [facility] 06-18-2019 07:04-0500 BMI (Body Mass Index) 20.86 kg/m2 Jeannadori Duff [facility] 06-18-2019 07:04-0500 Body Temperature 98.01 [degF] Jeannadori Duff [facility] 06-18-2019 07:04-0500 Body weight 60.42 kg Jeannadori Duff [facility] 06-18-2019 07:04-0500 Height 170.2 cm Jeannadori Duff [facility] 05-12-2019 13:54-0500 BP Diastolic 69 mm[Hg] Mejia Campoverde [facility] 05-12-2019 13:54-0500 BP Systolic 148 mm[Hg] Mejia Campoverde [facility] 05-12-2019 13:51-0500 BMI (Body Mass Index) 20.91 kg/m2 Mejia Campoverde [facility] 05-12-2019 13:51-0500 Body weight 60.55 kg Mejia Campoverde [facility] 05-12-2019 13:51-0500 Height 170.2 cm Mejia Campoverde [facility] 05-12-2019 13:51-0500 Pulse (Heart Rate) 58 /min Mejia Campoverde [facility] 05-12-2019 13:51-0500 Pulse Oximetry 96 % Mejia Campoverde [facility] 04-01-2019 13:59-0500 BMI (Body Mass Index) 20.82 kg/m2 Tanvir [facility] 04-01-2019 13:59-0500 Body Temperature 98.29 [degF] Tanvir [facility] 04-01-2019 13:59-0500 Body weight 60.28 kg Tanvir [facility] 04-01-2019 13:59-0500 BP Diastolic 66 mm[Hg] Tanvir [facility] 04-01-2019 13:59-0500 BP Systolic 125 mm[Hg] Tanvir [facility] 04-01-2019 13:59-0500 Height 170.2 cm Tanvir [facility] 04-01-2019 13:59-0500 Pulse (Heart Rate) 56 /min Tanvir [facility] 04-01-2019 13:59-0500 Pulse Oximetry 94 % Tanvir [facility] 12-16-2018 10:16-0400 BMI (Body Mass Index) 21.05 kg/m2 Jeanna [facility] 12-16-2018 10:16-0400 Body Temperature 98.01 [degF] [facility] 12-16-2018 10:16-0400 Body weight 60.96 kg Jeanna [facility] 12-16-2018 10:16-0400 BP Diastolic 70 mm[Hg] [facility] 12-16-2018 10:16-0400 BP Systolic 126 mm[Hg] [facility] 12-16-2018 10:16-0400 Height 170.2 cm [facility] 12-16-2018 10:16-0400 Pulse (Heart Rate) 64 /min [facility] 12-16-2018 10:16-0400 Pulse Oximetry 96 % [facility] 11-28-2018 10:05-0400 BMI (Body Mass Index) 21.81 kg/m2 Tanvir [facility] 11-28-2018 10:05-0400 Body Temperature 97.9 [degF] [facility] [place] 11-28-2018 10:05-0400 Body weight 61.28 kg [facility] [place] 11-28-2018 10:05-0400 BP Diastolic 77 mm[Hg] Tanvir [facility] 11-28-2018 10:05-0400 BP Systolic 135 mm[Hg] Tanvir [facility] 11-28-2018 10:05-0400 Pulse (Heart Rate) 57 /min Tanvir Melquiades [facility] 11-28-2018 10:05-0400 Pulse Oximetry 97 % Tanvir [facility] 07-30-2018 09:05-0400 BMI (Body Mass Index) 22.05 kg/m2 [facility] 07-30-2018 09:05-0400 BP Diastolic 71 mm[Hg] [facility] 07-30-2018 09:05-0400 BP Systolic 136 mm[Hg] [facility] 07-30-2018 09:05-0400 Height 167.6 cm [facility] 07-30-2018 09:05-0400 Pulse (Heart Rate) 59 /min [facility] 07-30-2018 09:05-0400 Pulse Oximetry 96 % [facility] 07-30-2018 09:05-0400 Weight 61.96 kg [facility] 07-08-2018 10:01-0400 BMI (Body Mass Index) 22.56 kg/m2 [facility] 07-08-2018 10:01-0400 BP Diastolic 68 mm[Hg] [facility] 07-08-2018 10:01-0400 BP Systolic 157 mm[Hg] [facility] 07-08-2018 10:01-0400 Pulse (Heart Rate) 61 /min [facility] 07-08-2018 10:01-0400 Pulse Oximetry 94 % [facility] 07-08-2018 10:01-0400 Weight 63.41 kg [facility] 06-18-2018 08:26-0500 BP Diastolic 74 mm[Hg] Jeannadori Duff [facility] 06-18-2018 08:26-0500 BP Systolic 150 mm[Hg] [facility] 06-18-2018 08:22-0500 BMI (Body Mass Index) 22.6 kg/m2 [facility] 06-18-2018 08:22-0500 Body Temperature 98.71 [degF] [facility] 06-18-2018 08:22-0500 Body weight 63.5 kg [facility] 06-18-2018 08:22-0500 Height 167.6 cm [facility] 06-18-2018 08:22-0500 Pulse (Heart Rate) 67 /min [facility] 06-18-2018 08:22-0500 Pulse Oximetry 97 % [facility] 06-12-2018 09:05-0500 BMI (Body Mass Index) 22.27 kg/m2 [facility] 06-12-2018 09:05-0500 BP Diastolic 77 mm[Hg] [facility] 06-12-2018 09:05-0500 BP Systolic 166 mm[Hg] [facility] 06-12-2018 09:05-0500 Height 167.6 cm [facility] 06-12-2018 09:05-0500 Pulse (Heart Rate) 57 /min [facility] 06-12-2018 09:05-0500 Pulse Oximetry 97 % [facility] 06-12-2018 09:05-0500 Weight 62.6 kg [facility] 05-30-2018 12:56-0500 BMI (Body Mass Index) 22.29 kg/m2 Tanvir [facility] 05-30-2018 12:56-0500 Body Temperature 98.01 [degF] Tanvir [facility] 05-30-2018 12:56-0500 BP Diastolic 72 mm[Hg] Tanvir [facility] 05-30-2018 12:56-0500 BP Systolic 125 mm[Hg] Tanvir [facility] 05-30-2018 12:56-0500 Height 167.6 cm Tanvir [facility] 05-30-2018 12:56-0500 Pulse (Heart Rate) 66 /min [facility] 12:56-0500 Pulse Oximetry 93 % Tanvir [facility] 05-30-2018 12:56-0500 Weight 62.64 kg [facility] [place] 04-29-2018 15:17-0500 BMI (Body Mass Index) 21.95 kg/m2 [facility] 04-29-2018 15:17-0500 Body Temperature 98.01 [degF] [facility] 04-29-2018 15:17-0500 BP Diastolic 80 mm[Hg] [facility] 04-29-2018 15:17-0500 BP Systolic 161 mm[Hg] [facility] 04-29-2018 15:17-0500 Height 167.6 cm [facility] 04-29-2018 15:17-0500 Pulse (Heart Rate) 61 /min [facility] 04-29-2018 15:17-0500 Pulse Oximetry 95 % [facility] 04-29-2018 15:17-0500 Respiratory Rate 18 /min [facility] 04-29-2018 15:17-0500 Weight 61.69 kg [facility] 03-28-2018 09:49-0500 BMI (Body Mass Index) 22.81 kg/m2 Tanvir [facility] 03-28-2018 09:49-0500 BP Diastolic 79 mm[Hg] Tanvir [facility] 03-28-2018 09:49-0500 BP Systolic 140 mm[Hg] [facility] [place] 03-28-2018 09:49-0500 Height 167.6 cm Tanvir [facility] 03-28-2018 09:49-0500 Pulse (Heart Rate) 62 /min Tanvir [facility] 03-28-2018 09:49-0500 Pulse Oximetry 96 % Tanvir [facility] 03-28-2018 09:49-0500 Weight 64.09 kg Tanvir [facility] 02-18-2018 13:09-0400 BMI (Body Mass Index) 21.98 kg/m2 [facility] 02-18-2018 13:09-0400 Body Temperature 97.81 [degF] Charisse [facility] 02-18-2018 13:09-0400 BP Diastolic 78 mm[Hg] Charisse [facility] 02-18-2018 13:09-0400 BP Systolic 159 mm[Hg] Charisse [facility] 02-18-2018 13:09-0400 Height 167.6 cm Charisse [facility] 02-18-2018 13:09-0400 Pulse (Heart Rate) 56 /min [facility] 02-18-2018 13:09-0400 Pulse Oximetry 98 % [facility] 02-18-2018 13:09-0400 Respiratory Rate 16 /min [facility] 02-18-2018 13:09-0400 Weight 61.78 kg Charisse [facility] 10-23-2017 08:54-0400 BMI (Body Mass Index) 20.44 kg/m2 [facility] 10-23-2017 08:54-0400 Body Temperature 98.1 [degF] Jeanna [facility] 10-23-2017 08:54-0400 BP Diastolic 62 mm[Hg] [facility] 10-23-2017 08:54-0400 BP Systolic 170 mm[Hg] [facility] 10-23-2017 08:54-0400 Height 172.7 cm [facility] 10-23-2017 08:54-0400 Pulse (Heart Rate) 70 /min [facility] 10-23-2017 08:54-0400 Respiratory Rate 16 /min [facility] 10-23-2017 08:54-0400 Weight 60.96 kg [facility] 07-12-2017 10:35-0400 BMI (Body Mass Index) 20.92 kg/m2 [facility] 10:35-0400 Body Temperature 98.2 [degF] [facility]-12[facility] 10:35-0400 BP Diastolic 70 mm[Hg] [facility] 07-12-2017 10:35-0400 BP Systolic 130 mm[Hg] [facility] 07-12-2017 10:35-0400 Height 172.7 cm Tanvir Arnett [facility] 07-12-2017 10:35-0400 Pulse (Heart Rate) 71 /min Tanvir Arnett [facility] 07-12-2017 10:35-0400 Pulse Oximetry 89 % Tanvirxiao Pricenathan [facility] 07-12-2017 10:35-0400 Weight 62.41 kg Tanvirxiao Pricenathan [facility] 05-16-2017 09:33-0500 BMI (Body Mass Index) 23.42 kg/m2 [facility] 05-16-2017 09:33-0500 BP Diastolic 70 mm[Hg] [facility] 05-16-2017 09:33-0500 BP Systolic 137 mm[Hg] [facility] [place] Work Phone: 05-16-2017 09:33-0500 Height 167.6 cm [facility] [place] Work Phone: 05-16-2017 09:33-0500 Pulse (Heart Rate) 100 /min Tanvirxiao Arnett [facility] Work Phone: 05-16-2017 09:33-0500 Weight 65.82 kg [facility] [place] Work Phone: 05-07-2017 09:47-0500 BMI (Body Mass Index) 22.87 kg/m2 [facility]: 05-07-2017 09:47-0500 BP Diastolic 63 mm[Hg] [facility] [place] Work Phone: 05-07-2017 09:47-0500 BP Systolic 120 mm[Hg] [facility] [place] Work Phone: 05-07-2017 09:47-0500 Height 170.2 cm Tanvir Arnett [facility] Work Phone: 05-07-2017 09:47-0500 Pulse (Heart Rate) 60 /min Tanvir Arnett [facility] Work Phone: 05-07-2017 09:47-0500 Pulse Oximetry 95 % Tanvir Arnett [facility] Work Phone: 05-07-2017 09:47-0500 Weight 66.22 kg Tanvir Arnett [facility] Work Phone: 04-30-2017 09:31-0500 BMI (Body Mass Index) 22.65 kg/m2 Tanvir Arnett [facility] Work Phone: 04-30-2017 09:31-0500 BP Diastolic 72 mm[Hg] Tanvir Arnett [facility] Work Phone: 04-30-2017 09:31-0500 BP Systolic 130 mm[Hg] Tanvir Arnett [facility] Work Phone: 04-30-2017 09:31-0500 Height 170.2 cm Tanvir Arnett [facility] Work Phone: 04-30-2017 09:31-0500 Pulse (Heart Rate) 57 /min Tanvir Arnett [facility] Work Phone: 04-30-2017 09:31-0500 Pulse Oximetry 98 % Tanvir Arnett [facility] Work Phone: 04-30-2017 09:31-0500 Weight 65.59 kg Tanvir Arnett [facility] Work Phone: 03-26-2017 09:41-0500 BMI (Body Mass Index) 22.4 kg/m2 Mejia Campoverde [facility] Work Phone: 03-26-2017 09:41-0500 BP Diastolic 77 mm[Hg] Mejia Campoverde [facility] Work Phone: 03-26-2017 09:41-0500 BP Systolic 184 mm[Hg] Mejia Campoverde [facility] Work Phone: 03-26-2017 09:41-0500 Height 170.2 cm Mejia Campoverde [facility] Work Phone: 03-26-2017 09:41-0500 Pulse (Heart Rate) 61 /min Mejia Campoverde [facility] Work Phone: 03-26-2017 09:41-0500 Weight 64.86 kg Mejia Campoverde [facility] Work Phone: 02-09-2017 10:17-0400 BMI (Body Mass Index) 21.63 kg/m2 Tanvir Pricenathan [facility] Work Phone: 02-09-2017 10:17-0400 BP Diastolic 70 mm[Hg] [facility] [place] Work Phone: 02-09-2017 10:17-0400 BP Systolic 148 mm[Hg] [facility] [place] Work Phone: 02-09-2017 10:17-0400 Height 170.2 cm [facility] [place] Work Phone: 02-09-2017 10:17-0400 Pulse (Heart Rate) 57 /min [facility] Work [facility] 02-09-2017 10:17-0400 Weight 62.64 kg Tanvir Woodswanathan [facility] Work Phone: 01-01-2017 13:50-0400 BP Diastolic 75 mm[Hg] Elza Dietrich [facility] Work Phone: 01-01-2017 13:50-0400 BP Systolic 138 mm[Hg] Elza Dietrich [facility] Work Phone: 01-01-2017 13:49-0400 BMI (Body Mass Index) 21.14 kg/m2 Elzamounika Dietrich [facility] Work Phone: 01-01-2017 [id number] Pulse (Heart Rate) 56 /min Elza Dietrich [facility] Work Phone: 01-01-2017 13:49-0400 Respiratory Rate 16 /min Elza Dietrich [facility] Work Phone: 01-01-2017 13:49-0400 Weight 61.24 kg Elza Dietrich [facility] Work Phone: Encounters Encounter Date Encounter Type Care Provider Facility Start: 04-19-2023 Refill Maria L Gregory [facility] Procedures Date Procedure Procedure Detail Performing Clinician Start: 04-18-2023 Prothrombin time Donald Arnett MD Work Phone: Start: 03-07-2023 Prothrombin time Donald Arnett MD Work Phone: Start: 02-21-2023 Prothrombin time Donald Arnett MD Work Phone: Start: 01-31-2023 Prothrombin time Donald Arnett MD Work Phone: Start: 01-15-2023 Prothrombin time Donald Arnett MD Work Phone: Start: 12-20-2022 Prothrombin time Donald Arnett MD Work Phone: Start: 11-08-2022 Prothrombin time Donald Arnett MD Work Phone: Start: 10-07-2022 Radex spine lumbosac ral 2/3 views Janna Cox PA-C Work Phone: Start: 09-27-2022 Prothrombin time Donald Arnett MD Work Phone: Start: 08-16-2022 Prothrombin time Donald Arnett MD Work Phone: Start: 06-01-2022 3 comp foot exam completed Jeanna Duff MD Work Phone: Start: 06-01-2022 Microalbumin [Mass/v olume] in Urine by Test strip Maria L Gregory [facility] Start: 05-24-2022 Prothrombin time Donald Arnett MD Work Phone: Start: 04-27-2022 Adult depression scr eening assessment Jeanna Duff MD Work Phone: Start: 04-12-2022 Prothrombin time Donald Arnett MD Work Phone: Start: 04-10-2022 Ecg routine ecg w/le ast 12 lds w/i&r Mejia Campoverde MD Work Phone: Start: 03-03-2022 Prothrombin time Donald Arnett MD Work Phone: Start: 01-20-2022 Prothrombin time Donald Arnett MD Work Phone: Start: 12-09-2021 Prothrombin time Donald Arnett MD Work Phone: Start: 11-18-2021 Prothrombin time Donald Arnett MD Work Phone: Start: 11-03-2021 EAR CERUMEN REMOVAL Alexander iel Earnest Ethan DO Work Phone: Start: 10-31-2021 Prothrombin time Donald Arnett MD Work Phone: Start: 08-26-2021 Prothrombin time Donald Arnett MD Work Phone: Start: 07-26-2021 Ophthalmic examinati on and evaluation Jeanna Duff MD Work Phone: Start: 07-15-2021 Prothrombin time Donald Arnett MD Work Phone: Start: 06-20-2021 Prothrombin time Donald Arnett MD Work Phone: Start: 06-01-2021 Hemoglobin glycosyla carlitos a1c Jeanna Duff MD Work Phone: Start: 02-09-2022 Adult depression scr eening assessment Jeanna Duff MD Work Phone: Start: 04-14-2021 Prothrombin time Donald Arnett MD Work Phone: Start: 04-08-2021 Ecg routine ecg w/le ast 12 lds w/i&r Mejia Campoverde MD Work Phone: Start: 03-03-2021 Prothrombin time Donald Arnett MD Work Phone: Start: 12-22-2020 3 comp foot exam completed Jeanna Duff MD Work Phone: Start: 12-14-2020 Microalbumin [Mass/v olume] in Urine by Test strip Jeanna Duff MD Work Phone: Start: 12-09-2020 Prothrombin time Donald Arnett MD Work Phone: Start: 10-28-2020 Prothrombin time Donald Arnett MD Work Phone: Start: 09-16-2020 Prothrombin time Donald Arnett MD Work Phone: Start: 08-05-2020 INR in Blood by Coagulation assay Tanvir Arnett Work Phone: Start: 07-16-2020 Nasal endoscopy diag nostic uni/bi spx Tha Long Work Phone: Start: 07-15-2020 INR in Blood by Coagulation assay Tanvir Arnett Work Phone: Start: 07-14-2020 Carotid artery doppl er assessment Lara Mosqureamyron Work Phone: Start: 07-12-2020 Glucose [Mass/volume ] in Blood Tha Long Work Phone: Start: 07-12-2020 COVID-19/INFLUENZA A ,B MOLECULAR Tha Long Work Phone: Start: 07-12-2020 Control nasal hemorr octavia anterior simple Tha Long Work Phone: Start: 07-12-2020 Basic metabolic 1998 panel - Serum or Plasma Bonny Camacho Work Phone: Start: 07-12-2020 Complete blood count with white cell differential, automated Bonny Camacho Work Phone: Start: 07-12-2020 Complete blood count with white cell differential, manual Bonny Camacho Work Phone: Start: 07-12-2020 INR in Platelet poor plasma by Coagulation assay Bonny Camacho Work Phone: Start: 06-21-2020 Hemoglobin A1c/Hemoglobin.total in Blood Jeanna Duff Work Phone: Start: 06-21-2020 Adult depression scr eening assessment Jeanna Duff Start: 06-03-2020 INR in Blood by Coagulation assay Tanvirnorma Arnett Work Phone: Start: 04-22-2020 INR in Blood by Coagulation assay Tanvirnorma Arnett Work Phone: Start: 04-05-2020 12 lead ECG Mejia colorado Work Phone: Start: 03-11-2020 INR in Blood by Coagulation assay Tanvirnorma Arnett Work Phone: Start: 12-25-2019 INR in Blood by Coagulation assay Tanvirnorma Arnett Work Phone: Start: 12-17-2019 Hemoglobin A1c/Hemoglobin.total in Blood Jeanna Duff Work Phone: Start: 12-17-2019 Adult depression scr eening assessment Jeanna Duff Start: 12-17-2019 Microalbumin [Mass/v olume] in Urine by Test strip Laxmi Whitney Start: 11-13-2019 INR in Blood by Coagulation assay Tanvir Arnett Work Phone: Start: 10-02-2019 INR in Blood by Coagulation assay Tanvirnorma Arnett Work Phone: Start: 08-21-2019 INR in Blood by Coagulation assay Tanvir Arnett Work Phone: Start: 07-10-2019 INR in Blood by Coagulation assay Tanvir Arnett Work Phone: Start: 06-25-2019 Carotid artery doppl er assessment Elza Dietrich Work Phone: Start: 06-18-2019 Hemoglobin A1c/Hemoglobin.total in Blood Jeanna Duff Work Phone: Start: 05-29-2019 INR in Blood by Coagulation assay Tanvir Arnett Work Phone: Start: 05-22-2019 Radex hand minimum 3 views Lara Swan Work Phone: Start: 05-12-2019 12 lead ECG Mejia [place] Work Phone: Start: 04-17-2019 INR in Blood by Coagulation assay Tanvir Arnett Work Phone: Start: 03-06-2019 INR in Blood by Coagulation assay Tanvir Arnett Work Phone: Start: 02-28-2019 Low dose computed tomography of thorax Tanvir Arnett Work Phone: Start: 01-23-2019 INR in Blood by Coagulation assay Tanvir Arnett Work Phone: Start: 12-30-2018 Microalbumin [Mass/v olume] in Urine by Test strip Laxmi Whitney Start: 12-16-2018 Hemoglobin A1c/Hemoglobin.total in Blood Jeanna Duff Work Phone: Start: 12-12-2018 INR in Blood by Coagulation assay Tanvir Melquiades Work Phone: Start: 10-31-2018 INR in Blood by Coagulation assay Tanvir Melquiades Work Phone: Start: 09-12-2018 INR in Blood by Coagulation assay Tanvir Melquiades Work Phone: Start: 08-01-2018 INR in Blood by Coagulation assay Tanvir Arnett Work Phone: Start: 06-18-2018 Hemoglobin A1c/Hemoglobin.total in Blood Jeanna Duff Work Phone: Start: 05-30-2018 Complete blood count with white cell differential, manual Tanvir Arnett Work Phone: Start: 05-30-2018 Ferritin [Mass/volum e] in Serum or Plasma Tanvir Arnett Work Phone: Start: 05-30-2018 Lactate dehydrogenas e [Enzymatic activity/volume] in Serum or Plasma by Lactate to pyruvate reaction Tanvir Arnett Work Phone: Start: 05-30-2018 Reticulocytes panel - Blood Tanvir Arnett Work Phone: Start: 05-08-2018 MHS - PROTHROMBIN TI ME (POC) Tanvir Arnett Work Phone: Start: 04-12-2018 End: 04-12-2018 Carotid artery doppler assessment External Transcribed Start: 12-27-2017 End: 12-27-2017 Blood count complete auto&auto difrntl wbc Tanvir Arnett Work Phone: Start: 12-27-2017 End: 12-27-2017 Comprehensive metabolic 2000 panel - Serum or Plasma Tanvir Arnett Work Phone: Start: 12-27-2017 End: 12-27-2017 INR in Platelet poor plasma by Coagulation assay Tanvir Arnett Work Phone: Start: 01-12-2017 Microalbumin [Mass/v olume] in Urine by Test strip Tanvir Pricenathan Start: 11-18-2015 Jesika frankel Plan of Treatment Date Care Activity Detail Author Start: 12-16-2029 Tetanus vaccination [facility] Start: 12-16-2029 Urine microalbumin profile DTaP,Tdap,Td Vaccine (2 - Td or Tdap) [facility] Start: 11-30-2025 Diabetes Screening Diabetes Screening [facility] Start: 11-17-2025 Screening for malignant neoplasm of colon [facility] Start: 06-01-2024 Prostate specific antigen measurement PSA Level [facility] Start: 12-01-2023 Fall risk assessment Falls Risk Assessment [facility] Start: 10-19-2023 Fall risk assessment Falls Risk Assessment [facility] Start: 07-24-2023 End: 07-24-2023 Patient encounter procedure 07/24/2023 1:30 PM EDT Office Visit [facility] [address] [place] [id number] Tanvir Arnett MD [address] [place] [id number] [facility] Start: 07-21-2023 End: 03-22-2024 Complete blood count with white cell differential, manual CBC and Differential Lab Routine Anticoagulation management encounter Pulmonary nodules Expected: 07/21/2023 (Approximate), Expires: 03/22/2024 [facility] Work Phone: Immunizations Immunization Date Immunization Notes Care Provider [facility] 11-30-2022 Pneumococcal Conjuga te 20-Valent (Prevnar 20) Charisse Painting CNP Work Phone: [facility] 11-30-2022 pneumococcal conj. 20-valent (PREVNAR 20) 0.5 mL vaccine Charisse Painting CNP Work Phone: [facility] 01-09-2022 Influenza, injectabl e, Madin Aleyda Canine Kidney, preservative free, quadrivalent Jeanna Duff MD Work Phone: [facility] 01-09-2022 influenza virus vaccine, unspecified formulation Amrita Ojeda PA-C Work Phone: [facility] 08-12-2021 Moderna SARS-CoV-2 Vaccination Jeanna Duff MD Work Phone: [facility] 12-18-2020 Seasonal, quadrivale nt, recombinant, injectable influenza vaccine, preservative free Jeanna Duff MD Work Phone: [facility] 06-28-2020 COVID-19 vaccine, AD 26, Jennifer 0.5 ML Marsha Clinker MANAGER LAN-CLINICAL AUDIOLOGIST Work Phone: [facility] 12-18-2019 influenza, injectabl e, quadrivalent, preservative free Laxmi Whitney [facility] 12-17-2019 diphtheria, tetanus toxoids and acellular pertussis vaccine, unspecified formulation Jeanna Duff [facility] 12-17-2019 tetanus toxoid, redu candy diphtheria toxoid, and acellular pertussis vaccine, adsorbed [facility] 05-19-2019 zoster vaccine recombinant [facility] 01-09-2019 influenza, injectabl e, quadrivalent, preservative free [facility] 01-09-2019 zoster vaccine recombinant [facility] 11-14-2018 hepatitis A and hepatitis B vaccine [facility] 08-15-2018 hepatitis A and hepatitis B vaccine [facility] 06-18-2018 HEMOGLOBIN A1C Danielle [facility] 01-09-2018 pneumococcal conjuga te vaccine, 13 valent [facility] 01-06-2018 influenza, seasonal, injectable, preservative free [facility] 12-06-2017 Influenza, Injectabl e, Quadrivalent, Preservative Free; Translations: [INFLUENZA IIV4 3YO OR > FLUARIX/FLUZONE/AFLURIA 50124] [facility] 10-23-2017 HEMOGLOBIN A1C [facility] 12-07-2016 influenza, seasonal, injectable, preservative free [facility] 01-05-2016 pneumococcal polysaccharide vaccine, 23 valent [facility] 01-04-2016 influenza, seasonal, injectable, preservative free [facility] 12-11-2014 influenza, seasonal, injectable, preservative free [facility] Payers Date Payer Category Payer Unknown [id number] 2022 Medicare [id number] 2020 Medicaid [id number] [id number] .[id number] 2019 Medicaid [id number] [id number] .2.7.3.312146.315 2019 Medicaid [id number] 1.2.840.715251.1.13.385 .2.7.3.228170.315 2018 Medicare UHC MANAGED MEDI CARE [employer] DUAL COMPLETE (O SNP) xxxxxxxxx 2018-Present xxxxxxxxx 1.2.840.073838.1.13.385 .2.7.3.898291.315 2018 Medicare [id number] 1.2.840.808956.1.13.385 .2.7.3.838588.315 2018 Medicare UHC MANAGED MEDI CARE [employer] DUAL COMPLETE (O SNP) [id number] 2018-Present [id number] 1.2.840.540121.1.13.385 .2.7.3.539487.315 2018 Medicare 1.2.840.549182. 1.13.385 .2.7.3.119717.315 2018 Medicare [id number] 2018 Private Health Insurance [id number] 2015 Unknown 2014 Medicaid [id number] 2010 Medicare [id number] 2.16.840.1.753493.3.249 .13 2010 Medicare [id number] 1957 Unknown [id number] 2.16.840.1.113141.3.579 .2.900 1957 Unknown [id number] 2.16.840.1.429072.3.579 .2.900 1957 Unknown [id number] 2.16.840.1.951582.3.579 .2.983 1957 Unknown [id number] 2.16.840.1.878380.3.579 .2.983 1957 Unknown [id number] 2.16.840.1.788835.3.579 .2.983 1957 Unknown [id number] 2.16.840.1.377961.3.579 .2.98 1957 Unknown [id number] 2.16.840.1.409624.3.579 .2.98 1957 Unknown [id number] 2.16.840.1.706142.3.579 .2.98 1957 Unknown [id number] 2.16840.1.867976.3.579 .2.98 1957 Unknown [id number] 2.16840.1.763530.3.579 .2. 1957 Unknown [id number] 2.16840.1.628688.3.579 .2.2 1957 Unknown [id number] 2.840.1.931008.3.579 .2. 1957 Unknown [id number] 2.16840.1.074989.3.579 .2.98 1957 Unknown [id number] 2.840.1.709677.3.579 .2. 1957 Unknown [id number] 2.16840.1.107101.3.579 .2. 1957 Unknown [id number] 2.840.1.870719.3.579 .2. 1957 Unknown [id number] 2.16840.1.718003.3.579 .2.903 1957 Unknown [id number] 2.16840.1.114096.3.579 .2. 1957 Unknown [id number] 2.16840.1.513145.3.579 .2.90 1957 Unknown [id number] 2.16840.1.020012.3.579 .2. 1957 Unknown [id number] 2.16.840.1.706172.3.579 .2. 1957 Unknown [id number] 2.840.1.462522.3.579 .2 1957 Unknown [id number] 2.840.1.859796.3.579 .2 1957 Unknown [id number] 2.840.1.680582.3.579 .2 1957 Unknown [id number] 2.840.1.480002.3.579 .2 1957 Unknown [id number] 2.840.1.794358.3.579 .2 1957 Unknown [id number] 2.0.1.723213.3.579 .2 1957 Unknown [id number] 2.840.1.560574.3.579 .2 1957 Unknown [id number] 2.840.1.238871.3.579 .2 1957 Unknown [id number] 2.840.1.231359.3.579 .2 1957 Unknown [id number] 2.840.1.708827.3.579 .2 1957 Unknown [id number] 2.840.1.777602.3.579 .2 1957 Unknown [id number] 2.840.1.913323.3.579 .2 1957 Unknown [id number] 2.840.1.962718.3.579 .2 1957 Unknown [id number] 2.840.1.249359.3.579 .2 1957 Unknown [id number] 2.16.840.1.504300.3.579 .2. 1957 Unknown [id number] 2.16.840.1.521500.3.579 .2. 1957 Unknown [id number] 2.16.840.1.938972.3.579 .2. 1957 Unknown [id number] 2.16.840.1.110397.3.579 .2 1957 Unknown [id number] 2.16.840.1.600403.3.579 .2 1957 Unknown [id number] 2.16840.1.966308.3.579 .2 1957 Unknown [id number] 2.840.1.439647.3.579 .2 1957 Unknown [id number] 2.16840.1.527323.3.579 .2 1957 Unknown [id number] 2.840.1.205135.3.579 .2 1957 Unknown [id number] 2.16840.1.770001.3.579 .2 1957 Unknown [id number] 2.840.1.431038.3.579 .2 1957 Unknown [id number] 2.16840.1.800558.3.579 .2 1957 Unknown [id number] 2.16.840.1.314508.3.579 .2 1957 Unknown [id number] 2.16.840.1.125115.3.579 .2 1957 Unknown [id number] 2.16.840.1.428016.3.579 .2 1957 Unknown [id number] 2.16.840.1.089215.3.579 .2.903 1957 Unknown [id number] 2.16.840.1.304913.3.579 .2.903 1957 Unknown [id number] 2.16.840.1.956094.3.579 .2.903 Medicare xxxxxxxxxx 2.16.840.1.295340.3.249 .13 Unknown [id number] 2.16.840.1.863829.3.579 .2.903 Worker's Compensation [phone] 2.16.840.1.825727.3.249 .13 Worker's Compensation 1.2.84 0.411414.1.13.385 .2.7.3.453211.315 Worker's Compensation [employer] [id number] Effective for all dates [id number] 1.2.840.480087.1.13.385 .2.7.3.861862.315 Social History Date Type Detail Facility Start: 07-12-2017 End: 11-30-2022 Tobacco smoking status SDIS Current every day smoker [facility] Start: 07-12-2017 End: 11-30-2022 Cigarettes smoked current (pack per day) - Reported [facility] Start: 1955 Sex Assigned At Not on file [facility] Work Phone: History of tobacco use Cigarette Smoker [facility] Start: 02-18-2018 Tobacco smoking status SDIS Former smoker [facility] Start: 03-25-2018 End: 03-28-2018 Tobacco smoking status NHIS Current some day smoker [facility] Start: 02-18-2018 Tobacco Comment a couple of months now [facility] Start: 11-29-2018 End: 03-30-2023 Alcohol intake Current non-drinker of alcohol (finding) [facility] Start: 05-02-2021 End: 10-07-2022 Exposure to SARS-CoV-2 (event) Not sure [facility] Start: 12-17-2019 End: 11-30-2022 Tobacco use and exposure Never used [facility] Start: 06-21-2020 End: 08-26-2020 History SDOH Social Connections Living 3 [facility] Start: 06-21-2020 End: 08-26-2020 History SDOH Physical Activity DPW 7 [facility] Start: 06-21-2020 End: 08-26-2020 History SDOH Stress 1 [facility] Start: 06-21-2020 History SDOH Education 10 [facility] Start: 06-21-2020 End: 08-26-2020 History SDOH Financial 5 [facility] Start: 06-21-2020 End: 08-26-2020 History SDOH IPV Fear 2 [facility] Start: 09-10-2008 End: 04-15-2022 Tobacco Comment Highest 3 [facility] Start: 07-22-2021 End: 08-01-2021 Exposure to SARS-CoV-2 (event) Unable to assess [facility] Start: 08-26-2020 End: 11-30-2022 Humiliation, Afraid, Rape, and Kick questionnaire [HARK] [facility] Within the last year , have you been afraid of your partner or ex-partner? No [facility] Frequency of Communication with Friends and Family Not on file [facility] Are you now , , , , never or living with a partner? [facility] Do you feel stress - tense, restless, nervous, or anxious, or unable to sleep at night because your mind is troubled all the time - these days [OSQ] Not at all [facility] (I/We) worried wheth er (my/our) food would run out before (I/we) got money to buy more. Never true [facility] Start: 03-28-2018 Gender identity Identifies as male gender (finding) [facility] Start: 03-28-2018 Sexual orientation Heterosexual (finding) [facility] Medical Equipment Procedure Code Equipment Code Equipment Origin al Text Equipment Identifier Dates USE TO CHECK FOR BLOOD SUGAR 2 TIMES A DAY [id number] Start: 03-15-2018 USE TO CHECK FOR BLOOD SUGAR 2 TIMES A DAY [id number] Start: 03-15-2018 Sealant 5ml Hemostatic Matrix Fast Prep Floseal - [id number] Start: 07-12-2020 Clip - Implant-12/30/2008 [id number] Start: 12-30-2008 Clinical Notes 12-30-2019 to 04-19-2023 Telephone Encounter - Gregory, Maria L, RENEWABLE ENERGY ENGINEER - 04/19/2023 12:49 PM ESTTelephone Encounter - Maria L Gregory LPN - 04/19/2023 12:49 PM Jesse Gutierrez [facility],PharmD - 04/18/2023 7:39 AM EST Note Date & Type Note Facility 04-19-2023 Telephone encounter Note ----- Message from Yaima Mann sent at 04/19/2023 12:48 PM EST ----- Regarding: Rx Refill Contact: self MEDICATION REFILL REQUEST: PCP: Charisse Painting CNP Patient called 04/19/23 and is requesting a medication refill for tadalafiL 10 MG tablet This was confirmed from the current medication list found in the patients chart. Supply Requested: # of days: 30 days w/ refills Method of receiving: Send to pharmacy Last set of flowsheet rows for OARRS report: OARRS/NARxCHECK Report Received and Assessed: 04/29/2018 Date controlled substance agreement signed: No data found Date of last drug screen: No data found Functional Assessment: No data found Will this refill be sent to the preferred pharmacy listed below? Yes Preferred pharmacies: [facility] [phone] [place] [phone] Pt Call Back Number Patient call back message sent to the primary care clinical pool. Yaima Mann [facility] 04-19-2023 Miscellaneous Notes ----- Message from Yaima Mann sent at 04/19/2023 12:48 PM EST ----- Regarding: Rx Refill Contact: self MEDICATION REFILL REQUEST: PCP: Charisse Painting CNP Patient called 04/19/23 and is requesting a medication refill for tadalafiL 10 MG tablet This was confirmed from the current medication list found in the patients chart. Supply Requested: # of days: 30 days w/ refills Method of receiving: Send to pharmacy Last set of flowsheet rows for OARRS report: OARRS/ShaiCK Report Received and Assessed: 04/29/2018 Date controlled substance agreement signed: No data found Date of last drug screen: No data found Functional Assessment: No data found Will this refill be sent to the preferred pharmacy listed below? Yes [facility]ies[facility] [phone] [place] [phone] Pt Call Back Number Patient call back message sent to the primary care clinical pool. Yaima Mann documented in this encounter [facility] 04-18-2023 History of Present illness Narrative Images from the original note were not included. Anticoagulation Progress Note Date of Visit: April 18, 2023 Patient Name: Mata Betts : 1955 Age: 67 y.o. Mata Betts is here for an anticoagulation follow-up visit. INR obtained via POC finger stick device. Anticoagulation Summary As of 04/18/2023 INR goal: 2.0-3.0 TTR: 80.2 % (4.7 y) INR used for dosin.1 (04/18/2023) Warfarin maintenance plan: 2.5 mg (5 mg x 0.5) every Tue, Shruti, Sat; 5 mg (5 mg x 1) all other days Weekly warfarin total: 27.5 mg Plan last modified: Laxmi Whitney, MARY LOU,PharmD (11/18/2021) Next INR check: 05/09/2023 Priority: Maintenance Target end date: Indefinite Indications Cerebrovascular disease (Resolved) [I67.9] PAD (peripheral artery disease) (HCC) [I73.9] Lab Results Component Value Date WBC 4.56 02/06/2023 HGB 14.6 02/06/2023 HCT 43.5 02/06/2023 MCV 101.4 (H) 02/06/2023 EXTMCV 100.2 (H) 05/30/2018 PLT 111 (L) 02/06/2023 RBC 4.29 (L) 02/06/2023 Lab Results Component Value Date CREATININE 0.86 02/06/2023 CREATININE 0.73 12/27/2017 Wt Readings from Last 3 Encounters: 03/30/23 64.9 kg (143 lb) 03/22/23 64.9 kg (143 lb 1.6 oz) 03/22/23 65.3 kg (144 lb) Ht Readings from Last 1 Encounters: 03/30/23 5' 8 Encounter Summary: ASSESSMENT: Patient Findings Positives: Change in health (significant back pain for the past 1 month), Change in activity (less active due to back pain), Emergency department visit (03/19 for back/leg pain; INR=1.5), Change in medications (03/22 prednisone taper; taking Flexeril prn, Tylenol 1-2x daily) Negatives: Patient Reported Falls, Signs/symptoms of thrombosis, Signs/symptoms of bleeding, Laboratory test error suspected, Change in alcohol use, Upcoming invasive procedure, Upcoming dental procedure, Missed doses, Extra doses, Change in diet/appetite, Hospital admission, Bruising, Other complaints .Today Mata Betts a 67 y.o. male was seen at the [facility]. He says he is doing well today, though walking with a crutch due to back/leg pain he has had for the past month. He is able to correctly confirm the dose of warfarin, and denies any missed or extra doses. He was in the ED 03/19 for his back pain and INR was 1.5. He was instructed to take 5 mg instead of 2.5 mg the next day which he did. He is taking Tylenol for pain but not more than 1 tablet twice a day. Flexeril as needed for pain. He was on a prednisone taper but that was about a month ago. Warfarin taken in the previous 7 days: 27.5 mg INR is supratherapeutic today at 4.1. This is likely secondary to changes in activity, changes in health. Tylenol could be contributing some but should not be significant at the level he says he is taking. Diet is still the same, no decrease in salads/greens. No alcohol, cranberries or antibiotics. He has been stable on this dose for 1.5 years now. INR was below range last month in the ED. PLAN: Will give a onetime dose of 0 mg today and then continue weekly warfarin dose of 27.5 mg/week. Will check next INR in 3 weeks instead of the usual 6 weeks unless there are any changes before then. Encouraged patient to contact clinic with any changes. Patient was counseled on high INR precautions: Patient was provided written instructions on the AVS and was counseled on the following topics: limit ETOH use, call with medication changes, use a soft toothbrush and electric razor, avoid risky activities to minimize injury, watch for unusual bruising or bleeding, black tarry stools, blood in the urine, vomit or sputum, and if bleeding does not stop, call 911 or go to the nearest ED. Jesse Leong RPh,PharmD [facility] Dept: [phone] documented in this encounter [facility] 04-18-2023 Instructions Jesse Leong RPh,PharmD - 04/18/2023 7:11 AM EST HIGH INR Precautions-Patient Instructions Necessary Precautions: Avoid activities that may cause injury Limit alcohol use Use a soft toothbrush and electric razor Call with any medication changes Keep diet and activity consistent What to look for: Unusual bruising or bleeding such as nosebleeds you cannot stop Red or rust colored urine Red or black tarry stools Blood in spit or vomit Unusual pain or swelling Severe headache or dizziness What to do: Stop bleeding by applying pressure and ice If bleeding is excessive or does not stop, call 911 or go to the nearest ED documented in this encounter [facility] 04-17-2023 Telephone encounter Note Received refill request for furosemide (Lasix) 20 MG tablet . Pt's last OV was 03/30/2023. Follow up is due 1 yr. [facility] 04-17-2023 Miscellaneous Notes Received refill request for furosemide (Lasix) 20 MG tablet . Pt's last OV was 03/30/2023. Follow up is due 1 yr. documented in this encounter [facility] 04-13-2023 History of Present illness Narrative [facility] DAILY TREATMENT NOTE Today's Date 04/13/2023 Patient Name: Mata Betts Date of : 1955 Current Visit #: 6 Authorized Visits: [id number] Case Name: Lumbar radiculopathy History: Pre-Treatment Pain Scale: 5-6 Symptoms: stabilized Functional Diagnosis: 1. Lumbar radiculopathy, chronic Clinical Information: Subjective: Patient reports he is feeling same. Still unable to walk without the crutch but still only using 1 crutch. Pain in same locations and same intensity. Objective Reviewed HEP. Patient to complete without cues from therapist. States he completes at home. No new exercises added today. Patient has made no change in motion or symptoms. Has been instructed to follow up with MD for possible MRI. Patient in agreement. Treatments: Physical Therapy Exercise Log - 04/13/23 [id number] OTHER Notes Lumbar radiculopathy Therapeutic Exercise (86169) Intervention seated forward flexion with saudi arabian ball 10 times - to side 5 times each side Parameters standing back ext at counter x 5 - held Intervention seated back ext with towel roll x 10 (attempted today but increased pain down L LE) Parameters seated HS stretch 5-10 x 5 each side Intervention seated hip abd/add BTB x 10 Parameters seated core brace pushing into ball, 5 x10 Intervention seated SKTC 5 x 5; seated HS stretch nerve glide 5 x 5; seated piriformis stretch 5 x 5 Parameters supine hips 90/90 decompression RSB x 2 min Manual Therapy (01888) Intervention manual distraction with legs on RSB Parameters 5 min - NT PT Treatment Times Therex Total Time 35 Direct Treatment Time 35 Total Treatment Time 35 Goals: Physical Therapy Ortho Goals: The patient will be able to walk without crutches without left leg pain within 2 weeks. The patient will reduce pain with standing by 80% in 2 weeks. The patient will return to normal ADL without pain in 2 weeks. The patient will demonstrate good understanding of home program. Patient Education: Verbal HEP with patient demonstrated understanding. Post-Treatment Pain Scale: no change Assessment: Patient had an expected response to treatment. Skilled Intervention demonstrated by modifications of treatment per exercise log including assessment of patient's response and safety interventions per exercise log. Progress towards goals as expected. Plan for Next Visit: Discharge to [facility]. Patient to follow up with . Bry Lucio PTA STATE LICENSE, [id number] documented in this encounter [facility] 04-11-2023 History of Present illness Narrative [facility] DAILY TREATMENT NOTE Today's Date 04/11/2023 Patient Name: Mata Betts Date of : 1955 Current Visit #: 5 Authorized Visits: 199 Case Name: Lumbar radiculopathy History: Pre-Treatment Pain Scale: 5-6 Symptoms: no change Functional Diagnosis: 1. Lumbar radiculopathy, chronic Clinical Information: Subjective: Patient came today with 1 crutch. States he took a couple steps at home without crutches. Feels he may be a little better today. Objective Patient ambulated in to therapy today with 1 crutch. Had crutch on left side. Adjusted crutch height and instructed in proper use of 1 crutch for improved gait pattern. Continued with exercises as charted. Added decompression with feet on SB followed by distraction for symptom reduction. Treatments: Physical Therapy Exercise Log - 04/11/23 [id number] OTHER Notes Lumbar radiculopathy Therapeutic Exercise (77538) Intervention seated forward flexion with saudi arabian ball 10 times - to side 5 times each side Parameters standing back ext at counter x 5 - held Intervention seated back ext with towel roll x 10 (attempted today but increased pain down L LE) Parameters seated HS stretch 5-10 x 5 each side Intervention seated hip abd/add BTB x 10 Parameters seated core brace pushing into ball, 5 x10 Intervention seated SKTC 5 x 5; seated HS stretch nerve glide 5 x 5; seated piriformis stretch 5 x 5 Parameters supine hips 90/90 decompression RSB x 2 min Manual Therapy (32922) Intervention manual distraction with legs on RSB Parameters 5 min PT Treatment Times Therex Total Time 38 Manual Therapy Total Time 5 Direct Treatment Time 43 Total Treatment Time 43 Goals: Physical Therapy Ortho Goals: The patient will be able to walk without crutches without left leg pain within 2 weeks. The patient will reduce pain with standing by 80% in 2 weeks. The patient will return to normal ADL without pain in 2 weeks. The patient will demonstrate good understanding of home program. Patient Education: Verbal HEP with patient demonstrated understanding. Post-Treatment Pain Scale: better Assessment: Patient had an expected response to treatment. Skilled Intervention demonstrated by modifications of treatment per exercise log including assessment of patient's response and safety interventions per exercise log. Progress towards goals as expected. Plan for Next Visit: Treatment Visit with focus on lumbar stability. Bry Lucio PTA STATE LICENSE, [id number] documented in this encounter [facility] 04-09-2023 History of Present illness Narrative [facility] DAILY TREATMENT NOTE Today's Date 04/09/2023 Patient Name: Mata Betts Date of : 1955 Current Visit #: 4 Authorized Visits: [id number] Case Name: Lumbar radiculopathy History: Pre-Treatment Pain Scale: 6 Symptoms: stabilized Functional Diagnosis: 1. Lumbar radiculopathy, chronic Clinical Information: Subjective: Patient reports he is about the same. Rates his pain today at a 6 or better. States none of the exercises are making this worse and none of them make it feel any better. Any movement of left leg causes pain. Objective Modified program to seated single knee to chest, piriformis stretch and HS stretch with ankle pumps for nerve glide. Also added lateral SB roll outs to go in combination with forward flexion. No change reported in symptoms throughout session. Patient has 2 sessions left. Treatments: Physical Therapy Exercise Log - 04/09/23 3356 OTHER Notes Lumbar radiculopathy [id number] Therapeutic Exercise (57214) Intervention seated forward flexion with sa[place] ball 10 times - to side 5 times each side Parameters standing back ext at counter x 5 - held Intervention seated back ext with towel roll x 10 (attempted today but increased pain down L LE) Parameters seated HS stretch 5-10 x 5 each side Intervention seated hip abd/add BTB x 10 Parameters seated core brace pushing into ball, 5 x10 Intervention seated SKTC 5 x 5; seated HS stretch nerve glide 5 x 5; seated piriformis stretch 5 x 5 PT Treatment Times Therex Total Time 30 Direct Treatment Time 30 Total Treatment Time 30 Goals: Physical Therapy Ortho Goals: The patient will be able to walk without crutches without left leg pain within 2 weeks. The patient will reduce pain with standing by 80% in 2 weeks. The patient will return to normal ADL without pain in 2 weeks. The patient will demonstrate good understanding of home program. Patient Education: Written HEP with patient demonstrated understanding. Post-Treatment Pain Scale: no change Assessment: Patient had an expected response to treatment. Skilled Intervention demonstrated by modifications of treatment per exercise log including assessment of patient's response and safety interventions per exercise log. Progress towards goals as expected. Plan for Next Visit: Treatment Visit with focus on range of motion for symptom reduction. Bry Lucio PTA STATE LICENSE, [id number] documented in this encounter [facility] 04-05-2023 History of Present illness Narrative [facility] DAILY TREATMENT NOTE Today's Date 04/05/2023 Patient Name: Mata Betts Date of : 1955 Current Visit #: 3 Authorized Visits: [id number] Case Name: Lumbar radiculopathy History: Pre-Treatment Pain Scale: 5-6 Symptoms: stabilized Functional Diagnosis: 1. Lumbar radiculopathy, chronic Clinical Information: Subjective: Pt reports he didn't have any increased pain after last visit but states pain is pretty constant. He states sometimes it gets worse and causes pain into leg. Objective Continued exercises per log for improved mobility and hip/core strength. Initiated seated abdominal brace today. Treatments: Physical Therapy Exercise Log - 04/05/23 0815 OTHER Notes Lumbar radiculopathy [id number] Therapeutic Exercise (58825) Intervention seated forward flexion with saudi arab[place] ball 10 times Parameters standing back ext at counter x 5 Intervention seated back ext with towel roll x 10 (attempted today but increased pain down L LE) Parameters seated HS stretch 5-10 x 5 each side Intervention seated hip abd/add BTB x 10 Parameters seated core brace pushing into ball, 5 x10 PT Treatment Times Therex Total Time 28 Direct Treatment Time 28 Total Treatment Time 28 Goals: Physical Therapy Ortho Goals: The patient will be able to walk without crutches without left leg pain within 2 weeks. The patient will reduce pain with standing by 80% in 2 weeks. The patient will return to normal ADL without pain in 2 weeks. The patient will demonstrate good understanding of home program. Patient Education: Quality of movement, Verbal HEP, and HEP Adherence with patient demonstrated understanding and verbalized understanding. Post-Treatment Pain Scale: 7-8 Assessment: Patient had an expected response to treatment. Attempted seated and standing lumbar extension today with pt reporting significant increase in radiating pain down L LE. He presents with fwd flexed posture when ambulating and limited ext throughout session. Pain into L LE with transfers. Skilled Intervention demonstrated by modifications of treatment per exercise log including increased mobility and assessment of patient's response and safety interventions per exercise log. Progress towards goals as expected. Plan for Next Visit: Treatment Visit with focus on improved mobility and hip/core strength. Zee Root PTA STATE LICENSE, [id number] documented in this encounter [facility] 04-02-2023 History of Present illness Narrative [facility] Evaluation Today's Date 04/02/2023 Patient Name: Mata Betts Date of : 1955 Case Name: Lumbar radiculopathy Functional Diagnosis: 1. Lumbar radiculopathy, chronic 2. Low back pain, unspecified back pain laterality, unspecified chronicity, unspecified whether sciatica present 3. Lumbar radiculopathy Clinical Information: Subjective Referring Diagnosis: Lumbar radiculopathy Patient accompanied by: unaccompanied History of Present Illness Date of Onset: 04/02/2020 Subjective History: Patient reports he has been having back and leg pain for 15 days. He was loading sand bags and felt something pop in his left thigh. The next day he went to the ER and had xrays done that didn't show anything. He is hoping to get an MRI of his spine in order to show what the problem is. He is now walking with crutches due to leg pain. He doesn't have any numbness in is leg, just pain. He is unable to sleep in bed due to pain and is sitting on edge of love seat with pillows in front of him. He has less pain when he is leaning forward. Previous Treatment for this condition: No Previous Imaging: X-ray Hand dominance: right Overall rating of health: Good Pain Scale Pain location: lumbar spine Average Pain: 6/10 Pain at highest: 10/10 Aggravating factors: standing, lying down Personal Goals: Reduce back pain or get approved for MRI. Social Support: Anabaptism, social, or cultural considerations to be made aware of before starting treatment: No Home Environment Current Home Environment: unchanged Setup: multi-level house Anticipated Home Environment at Discharge: unchanged Red Flags: None Comments: Barriers to Care: None Fall risk screening Fallen 2 or more times in the last 12 months: No Injured as a result of a fall in the last 12 months: No Anabaptism, social, or cultural considerations to be made aware of before starting treatment: No Lumbar Spine General Observations: Agitated Gait: antalgic Comments: Walking with slow gait pattern with crutches due to left leg giving out on him. Posture: cervical forward head, thoracic kyphosis and reduced lordosis Trunk AROM: Movement Loss % of Loss Description Flexion 0% Extension 50% Side Gliding R Side Gliding L Increase pain with all movements. Unable to get into prone position due to increase pain. Pain with right side lying and SI glide due to possible herniated disc. Dermatomes Sensation: decreased Muscle Strength: Hip Flexion Left: 3+ Knee extension Left: 3+ Ankle DF Left: 3+ Hallux ext Left: 3+ Special Tests Slump Left: no Slump L SIJ dysfunction: SIJ Dysfunction Left SI glide causes increase lumbar pain. Treatments: Physical Therapy Exercise Log - 04/02/23 0738 OTHER Notes Lumbar radiculopathy Therapeutic Exercise (77913) Intervention seated forward flexion 10 times PT Treatment Times Therex Total Time 15 Direct Treatment Time 15 Total Treatment Time 45 Treatment Plan: Frequency of Visits: 3 times per week Duration: 2 weeks Interventions: Therapeutic Exercise (83732), Manual Therapy (61055), and Gait Training (66828) Rehab Potential: good Goals: Physical Therapy Ortho Goals: The patient will be able to walk without crutches without left leg pain within 2 weeks. The patient will reduce pain with standing by 80% in 2 weeks. The patient will return to normal ADL without pain in 2 weeks. The patient will demonstrate good understanding of home program. Patient Education provided: Patient given home program. Clinical Impression: Pt is a 67 y.o. male who presents to PT services with c/o lumbar radiculopathy. Upon assessment, pt has been found with the following impairments: decreased ROM, decreased strength, antalgic gait and swelling. The documented impairments result in the following functional limitations: ADLs/IADLs, functional mobility, walking and quality of life. The pt would benefit from skilled PT services focused on the above listed impairments and limitations in order to safely progress pt to their desired level of function. Pt to be discharged from OP PT services if/when goals are met, if they fail to make progress with conservative management in PT, if their level of progress plateaus, or if they do not maintain compliance with attendance or HEP. At this time, it is my clinical judgment that services are medically necessary. Hollie Kwon, PT State License, [id number] documented in this encounter [facility] 03-30-2023 History of Present illness Narrative Patient Name: Mata Betts [facility] MR #: [id number] General Cardiology Mejia Campoverde MD, [facility] 03/30/23 Dear Charisse Painting, CLINICAL AUDIOLOGIST, Mata Betts was seen in follow up for : Problem Pad (Peripheral Artery Disease) (Hcc) [place] [facility] [place]otids- 1-39% 01/2017--Occluded vertebrals with rodrigue has cerebral aneurysm-- [facility]- carotids-ok vertebral ok also Coronary Artery Disease Involving [place] [facility] Without Angina Pectoris 1987-CABG x 2-[place] and SVG to OM 1987,,,1999 caths ok 2000 stent to SVG-om, later it thrombosed and PTCA,2001 cath ok 2002-proximall svg-om stent, and l main stent 2003- distal svg-om stent 2006-Occluded SVG to om, 2011 cath stable 03/2021 no ischemia on stress Medical Decision Making Coronary artery disease involving [place]-apache heart without angina pectoris No angina, Doing well, Medications reviewed and recommended to continue asa, plavix,atorvastatin Followup 1 year PAD (peripheral artery disease) ([facility]) Reeval of vertebrals were stable-- up at [place] Thank you or allowing me to participate in the care of your patients. No orders of the defined types were placed in this encounter. Return in about 1 year (around 03/30/2024). EKG:not done Subjective: Mata Betts is a 67 y.o. y/o male : hurt his back while carrying a sandbag and is currently on crutches Denies chest discomfort, sob, palpitations, pnd, orthopnea,edema or syncope. Past History and Exam PMH: Past Medical History: Diagnosis Date Aneurysm ([facility]) brain x2 Arteriosclerotic cardiovascular disease direct coronary bypass x 2, 06/23/86 CAD (coronary artery disease) Cerebral aneurysm Cerebral aneurysm Cerebral vascular disease Chronic lung disease Deep vein thrombosis (DVT) ([facility]) leg, date unknown Diabetes mellitus ([facility]) Dyslipidemia Hyperlipidemia Hypertension Ischemic cardiomyopathy Myocardial infarction ([facility]) PAD (peripheral artery disease) ([facility]) PAD (peripheral artery disease) ([facility]) PVD (peripheral vascular disease) ([facility]) Stroke ([facility]) Physical exam: BP (!) 171/73 Pulse 68 Ht 5' 8 Wt 64.9 kg (143 lb) BMI 21.74 kg/m NSR on rhythm strip General: No acute distress, alert, and oriented x3. Cardiovascular: regular rate and rhythm. no murmurs, .No JVD, eriberto Carotid Bruits, no LE edema :Respiratory: Clear to auscultation bilaterally without wheezes, rhonchi, or rales Abdominal: soft, nontender, nondistended,no gross HSM or masses noted. Home Medications: Patient's Medications New Prescriptions No medications on file Previous Medications ALBUTEROL SULFATE (PROAIR RESPICLICK) 90 MCG/ACTUATION AEPB Inhale 1 (one) puff (90 mcg total) every 4 (four) hours as needed (SOB/Wheezing) . AMITRIPTYLINE (ELAVIL) 25 MG TABLET Take 1 (one) tablet (25 mg total) by mouth nightly . ATORVASTATIN (LIPITOR) 40 MG TABLET Take 1 (one) tablet (40 mg total) by mouth daily . CLOPIDOGREL (PLAVIX) 75 MG TABLET Take 1 (one) tablet (75 mg total) by mouth daily . CYCLOBENZAPRINE (FLEXERIL) 10 MG TABLET Take 1 (one) tablet (10 mg total) by mouth 3 (three) times a day . FLUTICASONE PROPION-SALMETEROL (ADVAIR DISKUS) 250-50 MCG/DOSE DISKUS INHALER Inhale 1 (one) puff 2 (two) times a day . FUROSEMIDE (LASIX) 20 MG TABLET Take 1 (one) tablet (20 mg total) by mouth daily . LISINOPRIL (PRINIVIL,ZESTRIL) 20 MG TABLET Take 1 (one) tablet (20 mg total) by mouth daily . MAGNESIUM 30 MG TABLET Take 1 (one) tablet (30 mg total) by mouth 2 (two) times a day . METOPROLOL SUCCINATE (TOPROL-XL) 50 MG 24 HR TABLET Take 1 (one) tablet (50 mg total) by mouth daily . NITROGLYCERIN (NITROSTAT) 0.[address] 1 (one) tablet (0.4 mg total) under the tongue every 5 (five) minutes as needed for chest pain , if no relief after 3 doses call 911 . ONETOUCH DELICA LANCETS 33 GAUGE MISC USE TO CHECK FOR BLOOD SUGAR 2 TIMES A DAY ONETOUCH VERIO FLEX MISC 2 (two) times a day as directed . ONETOUCH VERIO STRIPS USE TO CHECK FOR BLOOD SUGAR 2 TIMES A DAY PREDNISONE (DELTASONE) 10 MG TABLET 60mg PO x3 day, 40mg PO x3 days, 20mg PO x3 days, 10mg Po x3 days. . SODIUM CHLORIDE-ALOE VERA (AYR SALINE) GEL Apply a pea sized amount to both nostrils at bedtime and in a.m. You can use it more often. . TADALAFIL 10 MG TABLET Take 1 (one) tablet (10 mg total) by mouth daily Take prior to sexual activity . TIZANIDINE (ZANAFLEX) 4 MG CAPSULE Take 1 (one) capsule (4 mg total) by mouth 3 (three) times a day . WARFARIN (COUMADIN) 5 MG TABLET Take 1 (one) tablet (5 mg total) by mouth daily On 5 days, and 2.5 mg (0.5 tablet) on 2 days. . Modified Medications No medications on file Discontinued Medications No medications on file documented in this encounter [facility] 03-30-2023 Evaluation + Plan note Associated Problem(s): PAD (peripheral artery disease) (HCC) Reeval of vertebrals were stable-- up at [place] [facility] 03-30-2023 Miscellaneous Notes Associated Problem(s): PAD (peripheral artery disease) (HCC) Reeval of vertebrals were stable-- up at [place] Associated Problem(s): Coronary artery disease involving [place] heart without angina pectoris No angina, Doing well, Medications reviewed and recommended to continue asa, plavix,atorvastatin Followup 1 year documented in this encounter [facility] 03-30-2023 Evaluation + Plan note Associated Problem(s): Coronary artery disease involving [place] heart without angina pectoris No angina, Doing well, Medications reviewed and recommended to continue asa, plavix,atorvastatin Followup 1 year [facility] 03-22-2023 Instructions Brittni Quan RN - 03/22/2023 1:45 PM EST Thank You For Trusting us with your care! The associates caring for you today were: Clinical Team Card Setter: Renetta Liriano MA Clinical Team Nurse, Brittni Liriano RN OCN Our goal is to provide you with exceptional patient care, and we strive to do this for every patient, every visit. Since we are about you and your experience, you can receive a patient satisfaction survey from Dhruv Hernandez. We truly welcome your feedback and ask that you complete the survey to let us know how we are doing. Important Numbers: Dr. Arnett's Nurse: [phone] Infusion Center: [phone] Central [phone] Billing Questions: [phone] Manage your healthcare 13/11 with [employer]. To activate your account, visit [email or web address] documented in this encounter [facility] History of Present illness Narrative Clinic follow up note PATIENT: Mata Betts : 1955 AGE: 67 y.o. SEX: male RACE: [1] PCP: Charisse Painting CNP REFERRAL: No ref. provider found HPI Presents in f/u. Is in a wheelchair today. Reports loading sandbags on Sunday to his truck and suddenly felt discomfort in the his left thigh and has not been able to bear weight since then. Has had falls previously secondary to the left leg giving out. No sphincter incontinence. HEMATOLOGIC HX Pt has a h/o WA at age 31 , CABG at 31 yrs of age, several ministrokes, stroke post aneurysm clipping in 2008 while on aspirin and plavix. Patient has h/o severe PAD. Is a chronic smoker. Admitted to the hospital in August 2011 with symptoms suggestive of subacute cerebrovascular ischemic accident. 09/10/2011, CT of the brain without contrast demonstrates an area along the right posterior parietal lobe that exhibits loss of gonzalez-white matter differentiation, concerning for acute to subacute infarct, left frontal and temporal postsurgical changes without evidence of acute intracranial hemorrhage. Was initially evaluated in 2011 in the hematology clinic and hypercoagulable work up that was negative .prothrombin gene mutation and factor V Leiden mutation was negative on 09/03/2011, protein C,S and lupus anticoagulant testing was negative. Antithrombin level was slightly lower than normal. Given the history, was placed on coumadin in late 2011, since being on coumadin ,has not had any neurologic or cardiovascular event. 04/30/2017 completely normal total white cell count, H&H, MCV is 100.6, platelet count is 106k. Vitamin B12 and folate within normal limits, peripheral smear evaluation demonstrates granulocytes with pelgeroid changes. 05/08/17- Bone marrow biopsy and aspiration -Normocellular marrow (35%) with trilineage hematopoiesis and neutrophils with Pelgeroid change. Thrombocytopenia and macrocytic RBCs. Cytogenetics demonstrates loss of Y chromosome. No clear evidence of MDS at this time. 03/25/18- Low dose ct scan- 1. Stable bilateral solid lung nodules measuring up to 4 mm in mean diameter. No new or enlarging lung nodules. 2. Mild emphysema. 3. Status post coronary artery bypass grafting. 02/28/19- Low dose ct chest- 1. No new or enlarging pulmonary nodules are present. Stable subcentimeter pulmonary nodules are again identified. 2. Mild emphysema. Lung-RADs 2 11/18/2015- Colonoscopy- Diverticulosis and external hemorrhoids. 05/08/2017- Bone marrow biopsy - Normocellular marrow (35%) with trilineage hematopoiesis and neutrophils with Pelgeroid change. Thrombocytopenia and macrocytic RBCs. Note: Other morphologic features of myelodysplasia are not appreciated. Flow cytometric analysis did not detect an abnormal population of cells. The patient has a 45,X,-Y[3]/46,XY[17] karyotype, which is not considered clinically significant. The differential diagnosis includes infection, drug/toxin exposure, reactive/systemic disorders (i.e. enteritis, hypothyroidism, SLE), and Pelger-Huet anomaly. Diagnosis A. Normocellular marrow (35%) with trilineage hematopoiesis. Decreased iron stores. B. Marrow with trilineage hematopoiesis and neutrophils with Pelgeroid change. Decreased iron stores. C. Adequate leukocyte count. Neutrophils with Pelgeroid changes present. Otherwise unremarkable leukocyte morphology. Macrocytic RBCs with 1+ anisocytosis.Thrombocytopenia. Unremarkable platelet morphology. ALLERGIES No Known Allergies MEDS has a current medication list which includes the following prescription(s): proair respiclick, amitriptyline, atorvastatin, clopidogrel, fluticasone propion-salmeterol, furosemide, lisinopril, magnesium, metoprolol succinate, nitroglycerin, onetouch delica lancets, onetouch verio flex meter, onetouch verio test strips, prednisone, ayr saline, tadalafil, tizanidine, and warfarin. PMH/PSH Past Medical History: Diagnosis Date Aneurysm (HCC) brain x2 Arteriosclerotic cardiovascular disease direct coronary bypass x 2, 06/23/86 CAD (coronary artery disease) Cerebral aneurysm Cerebral aneurysm Cerebral vascular disease Chronic lung disease Deep vein thrombosis (DVT) (HCC) leg, date unknown Diabetes mellitus (HCC) Dyslipidemia Hyperlipidemia Hypertension Ischemic cardiomyopathy Myocardial infarction (HCC) PAD (peripheral artery disease) ([facility]) PAD (peripheral artery disease) ([facility]) PVD (peripheral vascular disease) ([facility]) Stroke ([facility]) Past Surgical History: Procedure Laterality Date abd angio r/o eriberto newborn hearing screener 2006 L common & external iliac art abd angio r/o newborn hearing screener stent eriberto iliac art 2006 ARTERIAL ANEURYSM REPAIR Lt sideof brain CARDIAC CATHETERIZATION 07/20/2010 EF 35% CARDIAC CATHETERIZATION 11/22/2006 EF 45% CARDIAC CATHETERIZATION 05/11/2004 EF 55% CARDIAC CATHETERIZATION 08/14/2003 EF 55% CARDIAC CATHETERIZATION 07/09/2003 CARDIAC CATHETERIZATION 02/16/2003 CARDIAC CATHETERIZATION 10/03/2002 CARDIAC CATHETERIZATION 11/05/2001 CARDIAC CATHETERIZATION 07/04/2001 CARDIAC CATHETERIZATION 09/19/2000 CARDIAC CATHETERIZATION 05/10/2000 CARDIAC CATHETERIZATION 12/23/1999 CARDIAC CATHETERIZATION 12/06/1995 CARDIAC CATHETERIZATION 12/27/1990 CARDIAC CATHETERIZATION 04/27/1987 CARDIAC CATHETERIZATION 06/16/1986 CARDIAC CATHETERIZATION 11/13/2002 CATARACT EXTRACTION, BILATERAL Bilateral CEREBRAL ANEURYSM REPAIR 2017 bilateral CEREBRAL ANGIOGRAM CORONARY ANGIOPLASTY 02/16/2003 SVG to Marginal Proximal CORONARY ANGIOPLASTY 08/23/2000 SVG to Proximal CX CORONARY ANGIOPLASTY 05/10/2000 Proximal SVG to CX-OM CORONARY ANGIOPLASTY WITH STENT PLACEMENT 05/11/2004 RACHELL SVG to CX-OM, SVG to SHARAN, Ostial SVG to OM CORONARY ANGIOPLASTY WITH STENT PLACEMENT 07/09/2003 RACHELL SVG to OM, SVG to CX-OM CORONARY ANGIOPLASTY WITH STENT PLACEMENT 11/13/2002 PTCA/Stent of SVG TO CX Proximal CORONARY ANGIOPLASTY WITH STENT PLACEMENT 10/03/2002 RACHELL Distal LMCA CORONARY ARTERY BYPASS GRAFT 06/23/1986 x2 EPISTAXIS N/A 07/12/2020 Procedure: CONTROL OF EPISTAXIS; Surgeon: Tha Long DO; Location: Main OR; Service: Otolaryngology HEMORRHOIDECTOMY HERNIA REPAIR 1977 ROTATOR CUFF REPAIR Left 2002 Family History Problem Relation Age of Onset Heart disease Mother Stroke Mother Hyperlipidemia Mother Hypertension Mother Coronary artery disease Mother Heart attack Father Stroke Father Heart disease Father Coronary artery disease Father Hyperlipidemia Father Hypertension Father Heart disease Sister 8 sisters Coronary artery disease Sister Heart disease Brother 4 brothers Cancer Brother lung 1 brother COPD Brother Heart disease Son Cancer Brother Cancer Brother Lug Early Brother Early Brother Mental illness Son SH Social History Socioeconomic History Marital status: Spouse name: [place] Number of children: 5 Highest education level: 10th grade Occupational History Employer: DISABLED Tobacco Use Smoking status: Every Day Packs/day: 0.50 Years: 45.00 Additional pack years: 0.00 Total pack years: 22.50 Types: Cigarettes Smokeless tobacco: Never Vaping Use Vaping Use: Never used Substance and Sexual Activity Alcohol use: No Drug use: No Sexual activity: Not Currently Partners: Female Social Determinants of Health Financial Resource Strain: Low Risk (11/30/2022) Overall Financial Resource Strain (CARDIA) Difficulty of Paying Living Expenses: Not hard at all Food Insecurity: No Food Insecurity (11/30/2022) Hunger Vital Sign Worried About Running Out of Food in the Last Year: Never true Ran Out of Food in the Last Year: Never true Transportation Needs: No Transportation Needs (11/30/2022) PRAPARE - Transportation Lack of Transportation (Medical): No Lack of Transportation (Non-Medical): No Physical Activity: Sufficiently Active (08/26/2020) Exercise Vital Sign Days of Exercise per Week: 7 days Minutes of Exercise per Session: 30 min Stress: No Stress Concern Present (08/26/2020) [employer] [place] [employer] - Occupational Stress Questionnaire Feeling of Stress : Not at all Social Connections: Unknown (08/26/2020) Social Connection and Isolation Panel [NHANES] Marital Status: Housing Stability: Unknown (11/30/2022) Housing Stability Vital Sign Unable to Pay for Housing in the Last Year: No Unstable Housing in the Last Year: No ROS Review of Systems Constitutional: Negative. HENT: Negative. Eyes: Negative. Respiratory: Negative. Cardiovascular: Negative. Gastrointestinal: Negative. Endocrine: Negative. Genitourinary: Negative. Musculoskeletal: Negative. Skin: Negative. Neurological: Negative. Severe left leg pain. Unable to ambulate. Hematological: Negative. Psychiatric/Behavioral: Negative. EXAM BP (!) 180/70 (BP Location: Right arm) Pulse (!) 59 Temp 97.4 F (36.3 C) (Oral) Ht 5' 8 Wt 64.9 kg (143 lb 1.6 oz) SpO2 96% BMI 21.76 kg/m Physical Exam Constitutional: Appearance: He is well-developed. Comments: Does not able to lift the left leg. He experiences severe pain in the left thigh, radiating to the knee. There is no spine tenderness. Unable to test strength, he was seated in a field wheelchair hence unable to perform straight leg raising test however even raising the left leg seated in the wheelchair elicited severe pain along the left lower extremity. HENT: Head: Normocephalic and atraumatic. Eyes: Conjunctiva/sclera: Conjunctivae normal. Pupils: Pupils are equal, round, and reactive to light. Cardiovascular: Rate and Rhythm: Normal rate and regular rhythm. Pulmonary: Effort: Pulmonary effort is normal. Breath sounds: Normal breath sounds. Abdominal: General: Bowel sounds are normal. Palpations: Abdomen is soft. Musculoskeletal: General: Normal range of motion. Cervical back: Normal range of motion and neck supple. Skin: General: Skin is warm and dry. Neurological: Mental Status: He is alert and oriented to person, place, and time. Deep Tendon Reflexes: Reflexes are normal and symmetric. Psychiatric: Behavior: Behavior normal. Thought Content: Thought content normal. Judgment: Judgment normal. 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 02/06/2023 - Patient is scheduled for diagnostic cerebral angiogram on 02/16/2023 at [facility]. May hold coumadin from 02/11/2023, reinitiate coumadin with lovenox bridging post procedure , at the clearance from proceduralist 2. Thrombocytopenia and macrocytosis -MDs ruled out , prior bone marrow biopsy in 2018 , discussed the findings, potential evolution in future, obtained after the visit demonstrate resolution of the macrocytosis, mild improvement in platelet count, will reevaluate with counts in 6 months. 05/19/2021 - Reviewed recent counts - h&h improved, mild macrocytosis , iron stores much improved. May discontinue iron supplementation 09/15/2021 noted the hematologic abnormalities of macrocytic features with leukopenia and thrombocytopenia, H&H is within normal limits, patient is a chronic smoker, suspect the hematologic abnormalities to be secondary to medications versus evolving bone marrow disorder. Since patient continues to be asymptomatic, recommend ongoing monitoring of blood counts. 01/17/2022 - Noted the hematologic abnormalities of macrocytosis and thrombocytopenia. Reviewed work up - no evidence of nutritional deficiencies, denies use of alcohol. D.d includes MDS . However given normal h&h , recommend monitoring counts and if progressive cytopenias are noted , consider BM biopsy. 07/18/2022 - Chronic hematologic abnormalities , stable findings. 3. Tobacco use disorder- continues to smoke few cigarettes a day, completed low dose ct chest on 07/16/2020 - noted stability in the pulmonary nodules 05/19/2021 - Low dose ct due in june 2021, continues to make efforts at smoking cessation 09/15/2021, reviewed CT imaging from June 2021, noted stability in the nodules, encourage smoking cessation, reevaluate with low-dose CT in June 2022. 01/17/2022 return to clinic in 6 months with low-dose CT in June 2022 07/18/2022 - Low dose ct completed on 07/17/2022, also obtained after the visit demonstrate bilateral noncalcified stable pulmonary nodules 02/06/2023 -macrocytosis without anemia , thrombocytopenia, reviewed prior work-up as noted above-no evidence of obvious nutritional deficiencies, thyroid stimulating hormone within normal limits. Reviewed plan for angiogram on 02/16/2023, may follow directions per [facility] for foundation to hold anticoagulation for 5 days prior to procedure, may reinitiate therapy with Lovenox at 1 mg/kg body weight twice daily while awaiting therapeutic anticoagulation with warfarin. To follow-up with anticoagulation clinic closely History of chronic smoking, due for annual low-dose CT lung imaging in June 2023. 03/22/2023 history of recurrent thrombosis, leading to multiple episodes of stroke, on chronic anticoagulation Thrombocytopenia and macrocytosis, rule out drug-induced thrombocytopenia, etiology of macrocytosis is unclear reviewed all the prior workup that has ruled out reversible causes, rule out evolving myelodysplastic syndrome, will continue to monitor. Acute onset left lower extremity pain, impairing mobility, reviewed Doppler to be negative for thrombosis, is undergoing further evaluation through primary care physician with x-rays of the left hip and knee, x-ray of the lumbar spine performed on 03 19 2023 was 6 significant for mild degenerative disc disease otherwise unremarkable. He has been prescribed a dose of steroids. Advised to keep us updated on status, he would need further imaging with MRI of the lumbar spine if symptoms do not resolve. Thank you for the privilege of allowing me to participate in the care of Mata Betts. TANVIR ARNETT MD Template Design P[place] documented in this encounter [facility] 03-22-2023 Instructions Charisse Painting CNP - 03/22/2023 1:02 PM EST 1. Weakness of left lower extremity XR Hip Left With Pelvis 2-3 Views (Routine) XR Knee Left 2 Views (Standard) Ambulatory referral to Neurology Ambulatory Ref to Uli/Wilda (PT/OT/ST) complete EMG and xrays 2. Pain of left hip XR Hip Left With Pelvis 2-3 Views (Routine) Ambulatory referral to Neurology Ambulatory Ref to Uli/Wilda (PT/OT/ST) start muscle relaxer as needed for spasms. complete xray 3. Acute pain of left knee XR Knee Left 2 Views (Standard) Ambulatory referral to Neurology Ambulatory Ref to Uli/Wilda (PT/OT/ST) start prednisone taper dose as prescribed. complete xray documented in this encounter [facility] 03-22-2023 History of Present illness Narrative OFFICE VISIT PROGRESS NOTE HPI Back pain/leg weakness/knee pain- started Sunday in the morning after loading sand bags in the back of his truck. He states lifting the last back caused a pop in the thigh. Weakness and leg will give out at times. He reports severe pain in his LT thigh- he reports pain is the worse to anterior mid thigh. Can not lay flat , or roll to left leg. ER completed doppler US to R/O DVT- blood thinners daily. Lumbar back pain as well. Patient was taking aleve for pain - patient instructed to not take medication while on blood thinner. Tylenol only for pain Pain control- patient requested a pain medication shot in office and to be put on Soma daily. Declined request at this time. The following portions of the patient's history were reviewed and updated as appropriate: allergies, current medications and problem list. Family History Problem Relation Age of Onset Heart disease Mother Stroke Mother Hyperlipidemia Mother Hypertension Mother Coronary artery disease Mother Heart attack Father Stroke Father Heart disease Father Coronary artery disease Father Hyperlipidemia Father Hypertension Father Heart disease Sister 8 sisters Coronary artery disease Sister Heart disease Brother 4 brothers Cancer Brother lung 1 brother COPD Brother Heart disease Son Cancer Brother Cancer Brother Lug Early Brother Early Brother Mental illness Son Social History Socioeconomic History Marital status: Spouse name: [place] Number of children: 5 Highest education level: 10th grade Occupational History Employer: [employer] Tobacco Use Smoking status: Every Day Packs/day: 0.50 Years: 45.00 Additional pack years: 0.00 Total pack years: 22.50 Types: Cigarettes Smokeless tobacco: Never Vaping Use Vaping Use: Never used Substance and Sexual Activity Alcohol use: No Drug use: No Sexual activity: Not Currently Partners: Female Social Determinants of Health Financial Resource Strain: Low Risk (11/30/2022) Overall Financial Resource Strain (CARDIA) Difficulty of Paying Living Expenses: Not hard at all Food Insecurity: No Food Insecurity (11/30/2022) Hunger Vital Sign Worried About Running Out of Food in the Last Year: Never true Ran Out of Food in the Last Year: Never true Transportation Needs: No Transportation Needs (11/30/2022) PRAPARE - Transportation Lack of Transportation (Medical): No Lack of Transportation (Non-Medical): No Physical Activity: Sufficiently Active (08/26/2020) Exercise Vital Sign Days of Exercise per Week: 7 days Minutes of Exercise per Session: 30 min Stress: No Stress Concern Present (08/26/2020) [employer] [place] [employer] - Occupational Stress Questionnaire Feeling of Stress : Not at all Social Connections: Unknown (08/26/2020) Social Connection and Isolation Panel [NHANES] Marital Status: Housing Stability: Unknown (11/30/2022) Housing Stability Vital Sign Unable to Pay for Housing in the Last Year: No Unstable Housing in the Last Year: No Past Surgical History: Procedure Laterality Date abd angio r/o eriberto newborn hearing screener 2007 L common & external iliac art abd angio r/o newborn hearing screener stent eriberto iliac art 2006 ARTERIAL ANEURYSM REPAIR Lt sideof brain CARDIAC CATHETERIZATION 07/20/2010 EF 35% CARDIAC CATHETERIZATION 11/22/2006 EF 45% CARDIAC CATHETERIZATION 05/11/2004 EF 55% CARDIAC CATHETERIZATION 08/14/2003 EF 55% CARDIAC CATHETERIZATION 07/09/2003 CARDIAC CATHETERIZATION 02/16/2003 CARDIAC CATHETERIZATION 10/03/2002 CARDIAC CATHETERIZATION 11/05/2001 CARDIAC CATHETERIZATION 07/04/2001 CARDIAC CATHETERIZATION 09/19/2000 CARDIAC CATHETERIZATION 05/10/2000 CARDIAC CATHETERIZATION 12/23/1999 CARDIAC CATHETERIZATION 12/06/1995 CARDIAC CATHETERIZATION 12/27/1990 CARDIAC CATHETERIZATION 04/27/1987 CARDIAC CATHETERIZATION 06/16/1986 CARDIAC CATHETERIZATION 11/13/2002 CATARACT EXTRACTION, BILATERAL Bilateral CEREBRAL ANEURYSM REPAIR 2008, 2017 bilateral CEREBRAL ANGIOGRAM CORONARY ANGIOPLASTY 02/16/2003 SVG to Marginal Proximal CORONARY ANGIOPLASTY 08/23/2000 SVG to Proximal CX CORONARY ANGIOPLASTY 05/10/2000 Proximal SVG to CX-OM CORONARY ANGIOPLASTY WITH STENT PLACEMENT 05/11/2004 RACHELL SVG to CX-OM, SVG to SHARAN, Ostial SVG to OM CORONARY ANGIOPLASTY WITH STENT PLACEMENT 07/09/2003 RACHELL SVG to OM, SVG to CX-OM CORONARY ANGIOPLASTY WITH STENT PLACEMENT 11/13/2002 PTCA/Stent of SVG TO CX Proximal CORONARY ANGIOPLASTY WITH STENT PLACEMENT 10/03/2002 RACHELL Distal LMCA CORONARY ARTERY BYPASS GRAFT 06/23/1986 x2 EPISTAXIS N/A 07/12/2020 Procedure: CONTROL OF EPISTAXIS; Surgeon: Tha Long DO; Location: Main OR; Service: Otolaryngology HEMORRHOIDECTOMY HERNIA REPAIR 1978 ROTATOR CUFF REPAIR Left 2002 No Known Allergies Review of Systems Review of Systems Constitutional: Negative. HENT: Negative. Eyes: Negative. Respiratory: Negative. Cardiovascular: Negative. Gastrointestinal: Negative. Endocrine: Negative. Genitourinary: Negative. Musculoskeletal: Positive for arthralgias, gait problem and myalgias. Skin: Negative. Neurological: Positive for weakness. Psychiatric/Behavioral: Negative. Vitals: 03/22/23 0848 03/22/23 0900 BP: (!) 178/73 (!) 179/75 BP Location: Left arm Patient Position: Sitting BP Cuff Size: Adult Pulse: 63 63 Temp: 98.1 F (36.7 C) TempSrc: Temporal SpO2: 98% Weight: 65.3 kg (144 lb) Height: 5' 8 Body mass index is 21.9 kg/m . Physical Exam Physical Exam Vitals and nursing note reviewed. Constitutional: General: He is not in acute distress. Appearance: Normal appearance. He is not ill-appearing. HENT: Head: Normocephalic. Cardiovascular: Rate and Rhythm: Normal rate and regular rhythm. Pulses: Normal pulses. Heart sounds: Normal heart sounds. No murmur heard. Pulmonary: Effort: Pulmonary effort is normal. No respiratory distress. Breath sounds: Normal breath sounds. Abdominal: General: Bowel sounds are normal. There is no distension. Palpations: Abdomen is soft. There is no mass. Tenderness: There is no abdominal tenderness. Hernia: No hernia is present. Musculoskeletal: General: Tenderness and signs of injury present. Normal range of motion. Cervical back: Normal range of motion. Skin: General: Skin is warm. Capillary Refill: Capillary refill takes less than 2 seconds. Neurological: General: No focal deficit present. Mental Status: He is alert and oriented to person, place, and time. Cranial Nerves: No cranial nerve deficit. Sensory: Sensory deficit present. Motor: Weakness present. Coordination: Coordination normal. Gait: Gait abnormal. Psychiatric: Mood and Affect: Mood normal. Behavior: Behavior normal. Thought Content: Thought content normal. Judgment: Judgment normal. OARRS/NARxCHECK Report Received and Assessed: 04/29/2018 Date controlled substance agreement signed: No data found Date of last drug screen: No data found Functional Assessment: No data found Assessment/Plan Problem List Items Addressed This Visit None Visit Diagnoses Weakness of left lower extremity - Primary Relevant Orders XR Hip Left With Pelvis 2-3 Views (Routine) XR Knee Left 2 Views (Standard) Pain of left hip Relevant Orders XR Hip Left With Pelvis 2-3 Views (Routine) Acute pain of left knee Relevant Orders XR Knee Left 2 Views (Standard) Goals None If any referrals were placed at today's visit the patient was instructed to call the office if they havn't heard anything about the referral within 2 weeks of today's visit. For any new medications prescribed today, patient was educated about indications for the medication, how to take the medication and potential side effects of the medications. documented in this encounter [facility] 03-07-2023 History of Present illness Narrative Anticoagulation Progress Note Date of Visit: March 07, 2023 Patient Name: Mata Betts : 1955 Age: 67 y.o. Mata Betts is here for an anticoagulation follow-up visit. INR obtained via POC finger stick device. Anticoagulation Summary As of 03/07/2023 INR goal: 2.0-3.0 TTR: 81.2 % (4.6 y) INR used for dosin.3 (03/07/2023) Warfarin maintenance plan: 2.5 mg (5 mg x 0.5) every Tue, Shruti, Sat; 5 mg (5 mg x 1) all other days Weekly warfarin total: 27.5 mg Plan last modified: Laxmi Whitney, [facility],PharmD (11/18/2021) Next INR check: 04/18/2023 Priority: Maintenance Target end date: Indefinite Indications Cerebrovascular disease (Resolved) [I67.9] PAD (peripheral artery disease) (HCC) [I73.9] Lab Results Component Value Date WBC 4.56 02/06/2023 HGB 14.6 02/06/2023 HCT 43.5 02/06/2023 MCV 101.4 (H) 02/06/2023 EXTMCV 100.2 (H) 05/30/2018 PLT 111 (L) 02/06/2023 RBC 4.29 (L) 02/06/2023 Lab Results Component Value Date CREATININE 0.86 02/06/2023 CREATININE 0.73 12/27/2017 Wt Readings from Last 3 Encounters: 02/06/23 64.7 kg (142 lb 11.2 oz) 11/30/22 61.5 kg (135 lb 9.6 oz) 10/18/22 63.7 kg (140 lb 8 oz) Ht Readings from Last 1 Encounters: 02/06/23 5' 8 Encounter Summary: ASSESSMENT: Patient Findings Negatives: Patient Reported Falls, Signs/symptoms of thrombosis, Signs/symptoms of bleeding, Laboratory test error suspected, Change in health, Change in alcohol use, Change in activity, Upcoming invasive procedure, Emergency department visit, Upcoming dental procedure, Missed doses, Extra doses, Change in medications, Change in diet/appetite, Hospital admission, Bruising, Other complaints Warfarin taken in the previous 7 days: 27.5 mg INR is therapeutic today. Patient is feeling well today. He denies any changes or concerns at this time. The patient recites the correct warfarin doses and denies any missed or extra warfarin doses. The patient denies any medication changes, diet changes, health changes, or activity level changes. There are no noted changes in clinical status or labs or any known procedures or hospitalizations. The patient denies any alcohol, Tylenol, or cranberry intake. Therefore I recommend no change to the patient's current warfarin dosing regimen. PLAN: Will continue weekly warfarin dose of 27.5 mg/week. Will check next INR in 6+ weeks unless there are any changes before then. Encouraged patient to contact clinic with any changes. Laxmi Whitney RPh,PharmD [facility] Dept: [phone] documented in this encounter [facility] 02-26-2023 Miscellaneous Notes Spoke with patient re: angio results with Dr. Gillis's recommendations. Dr. Gillis recommends patient should establish with stroke neurology now and have CTA brain in 5 years. Will pend consult order for stroke neurology and have scheduling reach out to help schedule. Pt. Verbalized understanding and agrees with plan. documented in this encounter [facility] 02-21-2023 History of Present illness Narrative Images from the original note were not included. Anticoagulation Progress Note Date of Visit: February 21, 2023 Patient Name: Mata Betts : 1955 Age: 67 y.o. Mata Betts is here for an anticoagulation follow-up visit. INR obtained via POC finger stick device. Anticoagulation Summary As of 02/21/2023 INR goal: 2.0-3.0 TTR: 81.6 % (4.6 y) INR used for dosin.4 (02/21/2023) Warfarin maintenance plan: 2.5 mg (5 mg x 0.5) every Tue, Shruti, Sat; 5 mg (5 mg x 1) all other days Weekly warfarin total: 27.5 mg Plan last modified: Laxmi Whitney RPh,PharmD (11/18/2021) Next INR check: 03/07/2023 Priority: Maintenance Target end date: Indefinite Indications Cerebrovascular disease (Resolved) [I67.9] PAD (peripheral artery disease) (HCC) [I73.9] Lab Results Component Value Date WBC 4.56 02/06/2023 HGB 14.6 02/06/2023 HCT 43.5 02/06/2023 MCV 101.4 (H) 02/06/2023 EXTMCV 100.2 (H) 05/30/2018 PLT 111 (L) 02/06/2023 RBC 4.29 (L) 02/06/2023 Lab Results Component Value Date CREATININE 0.86 02/06/2023 CREATININE 0.73 12/27/2017 Wt Readings from Last 3 Encounters: 02/06/23 64.7 kg (142 lb 11.2 oz) 11/30/22 61.5 kg (135 lb 9.6 oz) 10/18/22 63.7 kg (140 lb 8 oz) Ht Readings from Last 1 Encounters: 02/06/23 5' 8 Encounter Summary: ASSESSMENT: Patient Findings Positives: Missed doses (held for surgery last week) Negatives: Patient Reported Falls, Signs/symptoms of thrombosis, Signs/symptoms of bleeding, Laboratory test error suspected, Change in health, Change in alcohol use, Change in activity, Upcoming invasive procedure, Emergency department visit, Upcoming dental procedure, Extra doses, Change in medications, Change in diet/appetite, Hospital admission, Bruising, Other complaints Warfarin taken in the previous 7 days: 17.5 mg. Patient usually takes 27.5 mg/week, but held warfarin for a total of 6 days last week for a procedure. He restarted warfarin on Sunday, and boosted his dose to 5 mg that night as instructed. He did not boost any other doses. He used Lovenox for a total of [address] Hernandez's instructions. INR is subtherapeutic today. This is secondary to recently restarting warfarin post procedure. PLAN: Will boost today's dose to 7.5 mg and tomorrow's dose to 5 mg, then resume usual dosing regimen. Will check next INR in 2 weeks unless there are any changes before then. Encouraged patient to contact clinic with any changes. Laxmi Whitney RPh,PharmD [facility] Dept: [phone] documented in this encounter [facility] 02-06-2023 Instructions Brittni Quan RN - 02/06/2023 2:45 PM EDT Thank You For Trusting us with your care! The associates caring for you today were: Clinical Team Card Setter: Renetta Liriano MA Clinical Team Nurse, Brittni Liriano RN OCN Our goal is to provide you with exceptional patient care, and we strive to do this for every patient, every visit. Since we are about you and your experience, you can receive a patient satisfaction survey from [employer]. We truly welcome your feedback and ask that you complete the survey to let us know how we are doing. Important Numbers: Dr. Arnett's Nurse: [phone] Infusion Center: [phone] Central [phone] Billing Questions: [phone] Manage your healthcare 13/11 with [employer]. To activate your account, visit [email or web address] The following attachments cannot be sent through Care Everywhere.Enoxaparin (Lovenox) (Bulgarian)documented in this encounter [facility] 02-06-2023 History of Present illness Narrative Clinic follow up note PATIENT: Mata Betts : 1955 AGE: 67 y.o. SEX: male RACE: [1] PCP: Charisse Painting CNP REFERRAL: No ref. provider found HPI Presents in f/u. Reports feeling exhausted, for months now. Has not contracted covid recently. No headaches. Has chronic shortness of breath and intermittent cough , productive at time. Is scheduled for cerebral angiogram on February 16 HEMATOLOGIC HX Pt has a h/o [place] at age 31 , CABG at 31 yrs of age, several ministrokes, stroke post aneurysm clipping in 2008 while on aspirin and plavix. Patient has h/o severe PAD. Is a chronic smoker. Admitted to the hospital in August 2011 with symptoms suggestive of subacute cerebrovascular ischemic accident. 09/10/2011, CT of the brain without contrast demonstrates an area along the right posterior parietal lobe that exhibits loss of gonzalez-white matter differentiation, concerning for acute to subacute infarct, left frontal and temporal postsurgical changes without evidence of acute intracranial hemorrhage. Was initially evaluated in 2011 in the hematology clinic and hypercoagulable work up that was negative .prothrombin gene mutation and factor V Leiden mutation was negative on 09/03/2011, protein C,S and lupus anticoagulant testing was negative. Antithrombin level was slightly lower than normal. Given the history, was placed on coumadin in late 2011, since being on coumadin ,has not had any neurologic or cardiovascular event. 04/30/2017 completely normal total white cell count, H&H, MCV is 100.6, platelet count is 106k. Vitamin B12 and folate within normal limits, peripheral smear evaluation demonstrates granulocytes with pelgeroid changes. 05/08/17- Bone marrow biopsy and aspiration -Normocellular marrow (35%) with trilineage hematopoiesis and neutrophils with Pelgeroid change. Thrombocytopenia and macrocytic RBCs. Cytogenetics demonstrates loss of Y chromosome. No clear evidence of MDS at this time. 03/25/18- Low dose ct scan- 1. Stable bilateral solid lung nodules measuring up to 4 mm in mean diameter. No new or enlarging lung nodules. 2. Mild emphysema. 3. Status post coronary artery bypass grafting. 02/28/19- Low dose ct chest- 1. No new or enlarging pulmonary nodules are present. Stable subcentimeter pulmonary nodules are again identified. 2. Mild emphysema. Lung-RADs 2 11/18/2015- Colonoscopy- Diverticulosis and external hemorrhoids. 05/08/2017- Bone marrow biopsy - Normocellular marrow (35%) with trilineage hematopoiesis and neutrophils with Pelgeroid change. Thrombocytopenia and macrocytic RBCs. Note: Other morphologic features of myelodysplasia are not appreciated. Flow cytometric analysis did not detect an abnormal population of cells. The patient has a 45,X,-Y[3]/46,XY[17] karyotype, which is not considered clinically significant. The differential diagnosis includes infection, drug/toxin exposure, reactive/systemic disorders (i.e. enteritis, hypothyroidism, SLE), and Pelger-Huet anomaly. Diagnosis A. Normocellular marrow (35%) with trilineage hematopoiesis. Decreased iron stores. B. Marrow with trilineage hematopoiesis and neutrophils with Pelgeroid change. Decreased iron stores. C. Adequate leukocyte count. Neutrophils with Pelgeroid changes present. Otherwise unremarkable leukocyte morphology. Macrocytic RBCs with 1+ anisocytosis.Thrombocytopenia. Unremarkable platelet morphology. ALLERGIES No Known Allergies MEDS has a current medication list which includes the following prescription(s): proair respiclick, amitriptyline, atorvastatin, clopidogrel, fluticasone propion-salmeterol, furosemide, lisinopril, magnesium, metoprolol succinate, nitroglycerin, onetouch delica lancets, onetouch verio flex meter, onetouch verio test strips, ayr saline, tadalafil, warfarin, and prednisone. PMH/PSH Past Medical History: Diagnosis Date Aneurysm (HCC) brain x2 Arteriosclerotic cardiovascular disease direct coronary bypass x 2, 06/23/86 CAD (coronary artery disease) Cerebral aneurysm Cerebral aneurysm Cerebral vascular disease Chronic lung disease Deep vein thrombosis (DVT) ([facility]) leg, date unknown Diabetes mellitus ([facility]) Dyslipidemia Hyperlipidemia Hypertension Ischemic cardiomyopathy Myocardial infarction ([facility]) PAD (peripheral artery disease) ([facility]) PAD (peripheral artery disease) ([facility]) PVD (peripheral vascular disease) ([facility]) Stroke ([facility]) Past Surgical History: Procedure Laterality Date abd angio r/o eriberto newborn hearing screener 2006 L common & external iliac art abd angio r/o newborn hearing screener stent eriberto iliac art 2005 ARTERIAL ANEURYSM REPAIR Lt sideof brain CARDIAC CATHETERIZATION 07/20/2010 EF 35% CARDIAC CATHETERIZATION 11/22/2006 EF 45% CARDIAC CATHETERIZATION 05/11/2004 EF 55% CARDIAC CATHETERIZATION 08/14/2003 EF 55% CARDIAC CATHETERIZATION 07/09/2003 CARDIAC CATHETERIZATION 02/16/2003 CARDIAC CATHETERIZATION 10/03/2002 CARDIAC CATHETERIZATION 11/05/2001 CARDIAC CATHETERIZATION 07/04/2001 CARDIAC CATHETERIZATION 09/19/2000 CARDIAC CATHETERIZATION 05/10/2000 CARDIAC CATHETERIZATION 12/23/1999 CARDIAC CATHETERIZATION 12/06/1995 CARDIAC CATHETERIZATION 12/27/1990 CARDIAC CATHETERIZATION 04/27/1987 CARDIAC CATHETERIZATION 06/16/1986 CARDIAC CATHETERIZATION 11/13/2002 CATARACT EXTRACTION, BILATERAL Bilateral CEREBRAL ANEURYSM REPAIR 2017 bilateral CEREBRAL ANGIOGRAM CORONARY ANGIOPLASTY 02/16/2003 SVG to Marginal Proximal CORONARY ANGIOPLASTY 08/23/2000 SVG to Proximal CX CORONARY ANGIOPLASTY 05/10/2000 Proximal SVG to CX-OM CORONARY ANGIOPLASTY WITH STENT PLACEMENT 05/11/2004 RACHELL SVG to CX-OM, SVG to SHARAN, Ostial SVG to OM CORONARY ANGIOPLASTY WITH STENT PLACEMENT 07/09/2003 RACHELL SVG to OM, SVG to CX-OM CORONARY ANGIOPLASTY WITH STENT PLACEMENT 11/13/2002 PTCA/Stent of SVG TO CX Proximal CORONARY ANGIOPLASTY WITH STENT PLACEMENT 10/03/2002 RACHELL Distal LMCA CORONARY ARTERY BYPASS GRAFT 06/23/1986 x2 EPISTAXIS N/A 07/12/2020 Procedure: CONTROL OF EPISTAXIS; Surgeon: Tha Long DO; Location: Main OR; Service: Otolaryngology HEMORRHOIDECTOMY HERNIA REPAIR 1977 ROTATOR CUFF REPAIR Left 2002 FH Family History Problem Relation Age of Onset Heart disease Mother Stroke Mother Hyperlipidemia Mother Hypertension Mother Coronary artery disease Mother Heart attack Father Stroke Father Heart disease Father Coronary artery disease Father Hyperlipidemia Father Hypertension Father Heart disease Sister 8 sisters Coronary artery disease Sister Heart disease Brother 4 brothers Cancer Brother lung 1 brother COPD Brother Heart disease Son Cancer Brother Cancer Brother Lug Early Brother Early Brother Mental illness Son SH Social History Socioeconomic History Marital status: Spouse name: [place] Number of children: 5 Highest education level: 10th grade Occupational History Employer: [employer] Tobacco Use Smoking status: Every Day Packs/day: 0.50 Years: 45.00 Additional pack years: 0.00 Total pack years: 22.50 Types: Cigarettes Smokeless tobacco: Never Vaping Use Vaping Use: Never used Substance and Sexual Activity Alcohol use: No Drug use: No Sexual activity: Not Currently Partners: Female Social Determinants of Health Financial Resource Strain: Low Risk (11/30/2022) Overall Financial Resource Strain (CARDIA) Difficulty of Paying Living Expenses: Not hard at all Food Insecurity: No Food Insecurity (11/30/2022) Hunger Vital Sign Worried About Running Out of Food in the Last Year: Never true Ran Out of Food in the Last Year: Never true Transportation Needs: No Transportation Needs (11/30/2022) PRAPARE - Transportation Lack of Transportation (Medical): No Lack of Transportation (Non-Medical): No Physical Activity: Sufficiently Active (08/26/2020) Exercise Vital Sign Days of Exercise per Week: 7 days Minutes of Exercise per Session: 30 min Stress: No Stress Concern Present (08/26/2020) [employer] [place] [employer] - Occupational Stress Questionnaire Feeling of Stress : Not at all Social Connections: Unknown (08/26/2020) Social Connection and Isolation Panel [NHANES] Marital Status: Housing Stability: Unknown (11/30/2022) Housing Stability Vital Sign Unable to Pay for Housing in the Last Year: No Unstable Housing in the Last Year: No ROS Review of Systems Constitutional: Negative. HENT: Negative. Eyes: Negative. Respiratory: Negative. Cardiovascular: Negative. Gastrointestinal: Negative. Endocrine: Negative. Genitourinary: Negative. Musculoskeletal: Negative. Skin: Negative. Neurological: Negative. Hematological: Negative. Psychiatric/Behavioral: Negative. EXAM BP (!) 147/55 (BP Location: Right arm) Pulse 71 Temp 98.2 F (36.8 C) (Oral) Ht 5' 8 Wt 64.7 kg (142 lb 11.2 oz) SpO2 92% BMI 21.70 kg/m Physical Exam Constitutional: Appearance: He is well-developed. HENT: Head: Normocephalic and atraumatic. Eyes: Conjunctiva/sclera: Conjunctivae normal. Pupils: Pupils are equal, round, and reactive to light. Cardiovascular: Rate and Rhythm: Normal rate and regular rhythm. Pulmonary: Effort: Pulmonary effort is normal. Breath sounds: Normal breath sounds. Abdominal: General: Bowel sounds are normal. Palpations: Abdomen is soft. Musculoskeletal: General: Normal range of motion. Cervical back: Normal range of motion and neck supple. Skin: General: Skin is warm and dry. Neurological: Mental Status: He is alert and oriented to person, place, and time. Deep Tendon Reflexes: Reflexes are normal and symmetric. Psychiatric: Behavior: Behavior normal. Thought Content: Thought content normal. Judgment: Judgment normal. 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 Hypercoagulable condition with recurrent episodes of cva, on halfway anticoagulation, continue Coumadin. 02/06/2023 - Patient is scheduled for diagnostic cerebral angiogram on 02/16/2023 at [facility]. May hold coumadin from 02/11/2023, reinitiate coumadin with lovenox bridging post procedure , at the clearance from proceduralist 2. Thrombocytopenia and macrocytosis -MDs ruled out , prior bone marrow biopsy in 2017 , discussed the findings, potential evolution in future, obtained after the visit demonstrate resolution of the macrocytosis, mild improvement in platelet count, will reevaluate with counts in 6 months. 05/19/2021 - Reviewed recent counts - h&h improved, mild macrocytosis , iron stores much improved. May discontinue iron supplementation 09/15/2021 noted the hematologic abnormalities of macrocytic features with leukopenia and thrombocytopenia, H&H is within normal limits, patient is a chronic smoker, suspect the hematologic abnormalities to be secondary to medications versus evolving bone marrow disorder. Since patient continues to be asymptomatic, recommend ongoing monitoring of blood counts. 01/17/2022 - Noted the hematologic abnormalities of macrocytosis and thrombocytopenia. Reviewed work up - no evidence of nutritional deficiencies, denies use of alcohol. D.d includes MDS . However given normal h&h , recommend monitoring counts and if progressive cytopenias are noted , consider BM biopsy. 07/18/2022 - Chronic hematologic abnormalities , stable findings. 3. Tobacco use disorder- continues to smoke few cigarettes a day, completed low dose ct chest on 07/16/2020 - noted stability in the pulmonary nodules 05/19/2021 - Low dose ct due in june 2021, continues to make efforts at smoking cessation 09/15/2021, reviewed CT imaging from June 2021, noted stability in the nodules, encourage smoking cessation, reevaluate with low-dose CT in June 2022. 01/17/2022 return to clinic in 6 months with low-dose CT in June 2022 07/18/2022 - Low dose ct completed on 07/17/2022, also obtained after the visit demonstrate bilateral noncalcified stable pulmonary nodules 02/06/2023 -macrocytosis without anemia , thrombocytopenia, reviewed prior work-up as noted above-no evidence of obvious nutritional deficiencies, thyroid stimulating hormone within normal limits. Reviewed plan for angiogram on 02/16/2023, may follow directions per [facility] for foundation to hold anticoagulation for 5 days prior to procedure, may reinitiate therapy with Lovenox at 1 mg/kg body weight twice daily while awaiting therapeutic anticoagulation with warfarin. To follow-up with anticoagulation clinic closely History of chronic smoking, due for annual low-dose CT lung imaging in June 2023. Thank you for the privilege of allowing me to participate in the care of Mata Mary AlstonBetts. TANVIR ARNETT MD Template Design [employer] documented in this encounter [facility] 02-05-2023 Note HNO ID: [id number] Author: Estella Crawford, DRACI Service: ? Author Type: Registered Nurse Type: Progress Notes Filed: 02/05/2023 1:04 PM Note Text: Overnight mailed general angiogram information with instructions specific to pt: Patient Angiogram Instructions 02/16/23 Dr. Stubbs You will be called with arrival time Procedure will be completed at desk [address] ([facility]) [facility]. Feel free to dairy worker or park at the [address] located on the corner of [facility] in between [address] and [address] Prior to Procedure Complete Labs as ordered-CBC, BMP, PT, PTT (faxed to Dr. Purcell [phone]) - You do not need to fast before your labs --if completed outside [facility], results to be faxed to [phone] Set-up a reliable bulk driver to bring you and take you home after your procedure. No eating any solid food after midnight - This includes gum, mints, or smoking Morning of Procedure Do not wear any jewelry, fake nails, hair extensions, or makeup If you have inhalers for a respiratory condition, please bring them with you to your appointment Avoid applying any hair products What you should bring to the hospital - ID, Insurance Card You may drink up to 12oz or 1 ? cups of water up to 2 hours prior to your scheduled arrival time. Medications If you are are taking anticoagulation (blood thinners) please consult with your doctor prior to angiogram. You may take your Plavix as ordered including on day of procedure ? Please HOLD Coumadin starting on 02/11-lovenox bridging to be discussed with ? Please Hold Lisinopril and Lasix on the morning of procedure(you may take these after procedure) ? Please Hold Cialis prior to procedure Estella Crawford RN [facility] 02-05-2023 Miscellaneous Notes Images from the original note were not included. Fed-X patient instructions to patient. documented in this encounter [facility] 02-05-2023 Note Education ([facility]) MATA BETTS ([id number]) 1955 M Date Time Provider Department 02/05/23 HUMA GILLIS [facility] Reason for Visit: Procedure [88] Cmt: Dx angiogram instructions During your visit today, we recorded the following information about you: Allergies As of Date: 02/05/2023 (No Known Allergies) Date Reviewed: 02/05/2023 Reviewed by: Estella Crawford, DARCI - Fully Assessed Prescriptions as of 02/07/2023 - furosemide (LASIX) 20 mg tablet - metoprolol succinate ER (TOPROL XL) 50 mg 24 hr tablet - Tadalafil (CIALIS) 10 mg tablet Take 10 mg by mouth. - warfarin (COUMADIN) 5 mg tablet Take 1 tablet by mouth daily as directed. Takes 5mg Mon-Sat. Takes 2.5mg Sunday - docusate sodium (COLACE) 100 mg capsule Take 1 capsule by mouth twice daily as needed. - clopidogrel (PLAVIX) 75 mg tablet Take 1 tablet by mouth once daily. - lidocaine-prilocaine (EMLA) cream Apply as directed then remove after four(4) hours. Apply around the incisoin and not directly on the incision. - albuterol sulfate 90 mcg/actuation aepb Inhale 2 Puffs as instructed every 6 hours as needed. - prazosin (MINIPRESS) 1 mg cap Take 1 mg by mouth daily at bedtime. - lisinopril (ZESTRIL, PRINIVIL) 10 mg tablet Take 10 mg by mouth once daily. - ferrous sulfate 325 mg (65 mg iron) tablet Take 325 mg by mouth daily with breakfast. - pregabalin (LYRICA) 75 mg capsule Take 75 mg by mouth once daily. - Diclofenac Sodium (VOLTAREN) 1 % gel Apply to affected area. - fluticasone-salmeterol (ADVAIR DISKUS) 250-50 mcg/dose DsDv Inhale 1 Puff as instructed twice daily as needed. Rinse and gargle mouth with water after each use. - ATENOLOL 50 MG TAB Take one(1) tablet daily. - atorvastatin calcium(LIPITOR 80 MG TAB) Take 40 mg by mouth once daily. Encounter Status:Closed by ESTELLA CRAWFORD on 02/05/23 [facility] 02-05-2023 Note HNO ID: [id number] Author: Estella Crawford RN Service: ? Author Type: Registered Nurse Type: Progress Notes Filed: 02/05/2023 11:58 AM Note Text: Called pt to schedule 5 year follow-up angiogram. He has had many angiograms and is reluctant, but did talk this through with Amrita Ojeda. He states in past they have had some difficulty with Right femoral access. He is on Coumadin. Instructed to hold Coumadin starting 02/11. He has an appointment with tomorrow. He will discuss bridging with Georgina and have all bloodwork drawn tomorrow. Fax # provided, but labs are also viewable in care everywhere. Instructed to take plavix as ordered including on day of procedure. Instructed to hold lasix, lisinopril and cialis on morning of procedure(he may take lasix and lisinopril after procedure) and to bring inhaler with him to procedure. Will overnight mail written instructions. Estella Crawford RN [facility] 02-05-2023 History of Present illness Narrative Overnight mailed general angiogram information with instructions specific to pt: Patient Angiogram Instructions 02/16/23 Dr. Stubbs You will be called with arrival time Procedure will be completed at desk [address] ([facility]) [facility]. Feel free to dairy worker or park at the [address] located on the corner of [address] [facility] [address] in between [address] and [address] Prior to Procedure Complete Labs as ordered-CBC, BMP, PT, PTT (faxed to Dr. Mary henley [phone]) - You do not need to fast before your labs --if completed outside [facility], results to be faxed to [phone] Set-up a reliable bulk driver to bring you and take you home after your procedure. No eating any solid food after midnight - This includes gum, mints, or smoking Morning of Procedure Do not wear any jewelry, fake nails, hair extensions, or makeup If you have inhalers for a respiratory condition, please bring them with you to your appointment Avoid applying any hair products What you should bring to the hospital - ID, Insurance Card You may drink up to 12oz or 1 cups of water up to 2 hours prior to your scheduled arrival time. Medications If you are are taking anticoagulation (blood thinners) please consult with your doctor prior to angiogram. You may take your Plavix as ordered including on day of procedure Please HOLD Coumadin starting on 02/11-lovenox bridging to be discussed with Please Hold Lisinopril and Lasix on the morning of procedure(you may take these after procedure) Please Hold Cialis prior to procedure Estella Crawford RN documented in this encounter [facility] 02-05-2023 History of Present illness Narrative Called pt to schedule 5 year follow-up angiogram. He has had many angiograms and is reluctant, but did talk this through with Amrita Ojeda. He states in past they have had some difficulty with Right femoral access. He is on Coumadin. Instructed to hold Coumadin starting 02/11. He has an appointment with tomorrow. He will discuss bridging with Lovenox and have all bloodwork drawn tomorrow. Fax # provided, but labs are also viewable in care everywhere. Instructed to take plavix as ordered including on day of procedure. Instructed to hold lasix, lisinopril and cialis on morning of procedure(he may take lasix and lisinopril after procedure) and to bring inhaler with him to procedure. Will overnight mail written instructions. Estella Crawford RN documented in this encounter [facility] 01-31-2023 History of Present illness Narrative Anticoagulation Progress Note Date of Visit: January 31, 2023 Patient Name: Mata Betts : 1955 Age: 67 y.o. Mata Betts is here for an anticoagulation follow-up visit. INR obtained via POC finger stick device. Anticoagulation Summary As of 01/31/2023 INR goal: 2.0-3.0 TTR: 82.2 % (4.5 y) INR used for dosin.3 (01/31/2023) Warfarin maintenance plan: 2.5 mg (5 mg x 0.5) every e, Shruti, Sat; 5 mg (5 mg x 1) all other days Weekly warfarin total: 27.5 mg Plan last modified: Laxmi Whitney, [facility],PharmD (11/18/2021) Next INR check: 02/28/2023 Priority: Maintenance Target end date: Indefinite Indications Cerebrovascular disease (Resolved) [I67.9] PAD (peripheral artery disease) (HCC) [I73.9] Lab Results Component Value Date WBC 5.21 01/29/2023 HGB 15.4 01/29/2023 HCT 46.4 01/29/2023 MCV 101.3 (H) 01/29/2023 EXTMCV 100.2 (H) 05/30/2018 PLT 107 (L) 01/29/2023 RBC 4.58 01/29/2023 Lab Results Component Value Date CREATININE 0.80 11/30/2022 CREATININE 0.73 12/27/2017 Wt Readings from Last 3 Encounters: 11/30/22 61.5 kg (135 lb 9.6 oz) 10/18/22 63.7 kg (140 lb 8 oz) 07/19/22 66 kg (145 lb 8.1 oz) Ht Readings from Last 1 Encounters: 11/30/22 5' 8 Encounter Summary: ASSESSMENT: Patient Findings Positives: Upcoming invasive procedure (a procedure to check his head - no details are known yet. Will be bridging with Lovenox) Negatives: Patient Reported Falls, Signs/symptoms of thrombosis, Signs/symptoms of bleeding, Laboratory test error suspected, Change in health, Change in alcohol use, Change in activity, Emergency department visit, Upcoming dental procedure, Missed doses, Extra doses, Change in medications, Change in diet/appetite, Hospital admission, Bruising, Other complaints Comments: It should be noted that patient has used Lovenox in the past and is familiar with it. Today Mata Betts a 67 y.o. male was seen at the [facility]. Patient is able to correctly confirm the dose of warfarin, and denies any changes in medication,diet,or lifestyle. Warfarin taken in the previous 7 days: 27.5 mg INR is therapeutic today at 2.3. Patient reports upcoming procedure to check his head , but is unsure of date of procedure. Patient was instructed to contact our office prior to procedure to formulate a plan for bridging before procedure.Patient agreed to this request. PLAN: Will continue weekly warfarin dose of 27.5 mg/week. Will check next INR in 4 weeks unless there are any changes before then. Increased dosing interval appropriate due to patient's level in therapeutic range, and establishment on this dose. Encouraged patient to contact clinic with any changes. [facility] Dept: [phone] Associated attestation - Consuelo Painting RPh,PharmD - 01/31/2023 7:26 AM EDT I, Consuelo Painting, attest that I was present during the patient encounter. I agree with the documentation, assessment, and plan outlined in the below documentation. documented in this encounter [facility] 01-31-2023 Instructions Consuelo Painting RPh,Neda - 01/31/2023 7:07 AM EDT If you experience any of the following symptoms within 24 hours of your next appointment, or you have been in close contact with anyone confirmed or suspected to have coronavirus/COVID-19 in the past 10 days please call us to reschedule at Dept: [phone]. Fever Cough Shortness of breath Difficulty breathing Chills Repeated shaking with chills Muscle pain Headache Sore throat Any loss of taste or smell Nausea, vomiting or diarrhea If you are screened positive for any of the above upon entering the building, please call us at Dept: [phone] for further instructions before you proceed to the clinic. Thank you for adhering to our precautions to keep our patients and providers safe! documented in this encounter [facility] 01-17-2023 Note HNO ID: [id number] Author: Amrita Ojeda PA-C Service: ? Author Type: Physician [employer] Type: Progress Notes Filed: 01/18/2023 4:06 PM Note Text: [facility] Established Visit Mata Betts [facility]#: [id number] Date of Service: 01/17/2023 Primary Care Provider: Gayatri Burrell MD FOLLOW UP VISIT Mata Betts is a 67 year old male, who presents for neurologic evaluation following RIGHT craniotomy for clipping of RIGHT MCA aneurysm 05/31/[address] Gillis This is 5 year PCP: Gayatri Burrell MD Collaborating Physician: Dr. Gillis Reason for visit: History of Event: Mr. Betts is a very nice 67M, PMH significant for cardiac disease, PAD, DM controlled by diet, who presents today in follow up regarding RIGHT MCA aneurysm s/p clipping 05/31/[address] Gillis. This was preceded by LEFT MCA aneurysm clipping in 2007 (OSH). The patient presents today to discuss his 5 year follow up angiogram. LUIS: 06/28/17 with Bry Restrepo CNP. Symptoms: -The patient relays he is doing well - Notes, DM is controlled by diet. He has discontinued his Metformin and Insulin. Additionally, no longer take ASA. -Continues to smoke 1/2 ppd -Significant family history of cerebral aneurysms. Mother- due to ruptured aneurysm Brother-treated aneurysm, non-rupture Niece (sister daughter)- treated aneurysm, non-rupture -Coumadin and Plavix managed by Dr. Arnett. Will need to confirm lovenox bridge and approval to hold coumadin prior to procedure. BP-Well controlled on medication, did not take this morning, BP today 165/70 AP/AC-Coumadin and Plavix Tobacco-1/2 ppd Family history Aneurysms: mother-ruptured, brother-surgical treatement , sister daughter -treatment Hypertension Y Coronary Artery Disease Y Diabetes Y Obesity NA Dyslipidemia NA Tobacco Use (Please Update Smoking History) Y Stroke Y Intracranial Aneurysm Y Past Medical History: ACTIVE PROBLEM LIST Cerebral Aneurysm, Nonruptured Thrombocytopenia (Hcc) Pvd (Peripheral Vascular Disease) (Hcc) Coronary Artery Disease Involving [place] Heart Without Angina Pectoris Essential Hypertension History of Cva (Cerebrovascular Accident) Pulmonary Emphysema (Hcc) Cerebral Aneurysm Vasogenic Cerebral Edema (Hcc) PAST SURGICAL HISTORY Procedure Laterality Date PAST SURGICAL HISTORY OF angioplasty - 3/4 stents PAST SURGICAL HISTORY OF 1986 cabg- 2 vessels PAST SURGICAL HISTORY OF 2004 stent on legs PAST SURGICAL HISTORY OF left rotator cuff PAST SURGICAL HISTORY OF 2008 left MCA aneurysm repair Allergies: Patient has no known allergies. Medications: Current Outpatient Medications Medication Sig furosemide (LASIX) 20 mg tablet Tadalafil (CIALIS) 10 mg tablet Take 10 mg by mouth. warfarin (COUMADIN) 5 mg tablet Take 1 tablet by mouth daily as directed. Takes 5mg Sun-Sun. Takes 2.5mg Sunday docusate sodium (COLACE) 100 mg capsule Take 1 capsule by mouth twice daily as needed. clopidogrel (PLAVIX) 75 mg tablet Take 1 tablet by mouth once daily. lidocaine-prilocaine (EMLA) cream Apply as directed then remove after four(4) hours. Apply around the incisoin and not directly on the incision. albuterol sulfate 90 mcg/actuation aepb Inhale 2 Puffs as instructed every 6 hours as needed. prazosin (MINIPRESS) 1 mg cap Take 1 mg by mouth daily at bedtime. lisinopril (ZESTRIL, PRINIVIL) 10 mg tablet Take 10 mg by mouth once daily. ferrous sulfate 325 mg (65 mg iron) tablet Take 325 mg by mouth daily with breakfast. Diclofenac Sodium (VOLTAREN) 1 % gel Apply to affected area. fluticasone-salmeterol (ADVAIR DISKUS) 250-50 mcg/dose DsDv Inhale 1 Puff as instructed twice daily as needed. Rinse and gargle mouth with water after each use. ATENOLOL 50 MG TAB Take one(1) tablet daily. atorvastatin calcium(LIPITOR 80 MG TAB) Take 40 mg by mouth once daily. metoprolol succinate ER (TOPROL XL) 50 mg 24 hr tablet aspirin, enteric coated (ASPIRIN, ENTERIC COATED) 81 mg EC tablet Take 81 mg by mouth once daily. insulin detemir (LEVEMIR) 100 unit/mL (3 mL) inpn injection Inject 35 Units subcutaneously twice daily as needed. As needed when sugar not controlled metFORMIN (GLUCOPHAGE) 500 mg tablet Take 1 tablet by mouth twice daily. pregabalin (LYRICA) 75 mg capsule Take 75 mg by mouth once daily. No current facility-administered medications for this visit. Social History Tobacco Use Smoking status: Every Day Packs/day: 1.00 Years: 45.00 Additional pack years: 0.00 Total pack years: 45.00 Types: Cigarettes Smokeless tobacco: Never Substance Use Topics Alcohol use: No Drug use: No Review of Systems Eyes: Negative for blurred vision, double vision and vision loss. Neurological: Negative for aphasia, dizziness, headaches, memory difficulty, numbness/tingling, slurred speech and weakness. See HPI. Patient Entered Questionnaires PROMIS/NeuroQoL Score (more content not included)... [facility] 01-17-2023 History of Present illness Narrative [facility] Established Visit Mata Betts [facility]#: [id number] Date of Service: 01/17/2023 Primary Care Provider: Gayatri Burrell MD FOLLOW UP VISIT Mata Betts is a 67 year old male, who presents for neurologic evaluation following RIGHT craniotomy for clipping of RIGHT MCA aneurysm 05/31/[address] Gillis This is 5 year PCP: Gayatri Burrell MD Collaborating Physician: Dr. Gillis Reason for visit: History of Event: Mr. Betts is a very nice 67M, PMH significant for cardiac disease, PAD, DM controlled by diet, who presents today in follow up regarding RIGHT MCA aneurysm s/p clipping 05/31/[address] Gillis. This was preceded by LEFT MCA aneurysm clipping in 2007 (OSH). The patient presents today to discuss his 5 year follow up angiogram. LUIS: 06/28/17 with Bry Restrepo CNP. Symptoms: -The patient relays he is doing well - Notes, DM is controlled by diet. He has discontinued his Metformin and Insulin. Additionally, no longer take ASA. -Continues to smoke 1/2 ppd -Significant family history of cerebral aneurysms. Mother- due to ruptured aneurysm Brother-treated aneurysm, non-rupture Niece (sister daughter)- treated aneurysm, non-rupture -Coumadin and Plavix managed by Dr. Arnett. Will need to confirm lovenox bridge and approval to hold coumadin prior to procedure. BP-Well controlled on medication, did not take this morning, BP today 165/70 AP/AC-Coumadin and Plavix Tobacco-1/2 ppd Family history Aneurysms: mother-ruptured, brother-surgical treatement , sister daughter -treatment Hypertension Y Coronary Artery Disease Y Diabetes Y Obesity NA Dyslipidemia NA Tobacco Use (Please Update Smoking History) Y Stroke Y Intracranial Aneurysm Y Past Medical History: ACTIVE PROBLEM LIST Cerebral Aneurysm, Nonruptured Thrombocytopenia (Hcc) Pvd (Peripheral Vascular Disease) (Hcc) Coronary Artery Disease Involving [place] Heart Without Angina Pectoris Essential Hypertension History of Cva (Cerebrovascular Accident) Pulmonary Emphysema (Hcc) Cerebral Aneurysm Vasogenic Cerebral Edema (Hcc) PAST SURGICAL HISTORY Procedure Laterality Date PAST SURGICAL HISTORY OF angioplasty - 3/4 stents PAST SURGICAL HISTORY OF 1986 cabg- 2 vessels PAST SURGICAL HISTORY OF 2004 stent on legs PAST SURGICAL HISTORY OF left rotator cuff PAST SURGICAL HISTORY OF 2008 left MCA aneurysm repair Allergies: Patient has no known allergies. Medications: Current Outpatient Medications Medication Sig furosemide (LASIX) 20 mg tablet Tadalafil (CIALIS) 10 mg tablet Take 10 mg by mouth. warfarin (COUMADIN) 5 mg tablet Take 1 tablet by mouth daily as directed. Takes 5mg Sun-Sun. Takes 2.5mg Sunday docusate sodium (COLACE) 100 mg capsule Take 1 capsule by mouth twice daily as needed. clopidogrel (PLAVIX) 75 mg tablet Take 1 tablet by mouth once daily. lidocaine-prilocaine (EMLA) cream Apply as directed then remove after four(4) hours. Apply around the incisoin and not directly on the incision. albuterol sulfate 90 mcg/actuation aepb Inhale 2 Puffs as instructed every 6 hours as needed. prazosin (MINIPRESS) 1 mg cap Take 1 mg by mouth daily at bedtime. lisinopril (ZESTRIL, PRINIVIL) 10 mg tablet Take 10 mg by mouth once daily. ferrous sulfate 325 mg (65 mg iron) tablet Take 325 mg by mouth daily with breakfast. Diclofenac Sodium (VOLTAREN) 1 % gel Apply to affected area. fluticasone-salmeterol (ADVAIR DISKUS) 250-50 mcg/dose DsDv Inhale 1 Puff as instructed twice daily as needed. Rinse and gargle mouth with water after each use. ATENOLOL 50 MG TAB Take one(1) tablet daily. atorvastatin calcium(LIPITOR 80 MG TAB) Take 40 mg by mouth once daily. metoprolol succinate ER (TOPROL XL) 50 mg 24 hr tablet aspirin, enteric coated (ASPIRIN, ENTERIC COATED) 81 mg EC tablet Take 81 mg by mouth once daily. insulin detemir (LEVEMIR) 100 unit/mL (3 mL) inpn injection Inject 35 Units subcutaneously twice daily as needed. As needed when sugar not controlled metFORMIN (GLUCOPHAGE) 500 mg tablet Take 1 tablet by mouth twice daily. pregabalin (LYRICA) 75 mg capsule Take 75 mg by mouth once daily. No current facility-administered medications for this visit. Social History Tobacco Use Smoking status: Every Day Packs/day: 1.00 Years: 45.00 Additional pack years: 0.00 Total pack years: 45.00 Types: Cigarettes Smokeless tobacco: Never Substance Use Topics Alcohol use: No Drug use: No Review of Systems Eyes: Negative for blurred vision, double vision and vision loss. Neurological: Negative for aphasia, dizziness, headaches, memory difficulty, numbness/tingling, slurred speech and weakness. See HPI. Patient Entered Questionnaires PROMIS/NeuroQoL Score Percentiles PROMIS Global Health Scale 02/07/2017 Physical Health Percentile 22* Mental Health Percentile 43 Percentiles provide an indication of how a patient's score ranks in relation to the [place] general population. > 31st percentile is within normal limits or better * < 31st percentile is at least SD worse than population, which may be clinically relevant < 16th percentile is at least 1 SD worse than population and warrants attention Depression Screening: PHQ-9 04/11/2017 02/07/2017 11/18/2008 Score 15 5 25 Self-Harm Response 0 Not at all 2 PHQ-9 Scores: PHQ-9 Self-Harm (Item 9) Response: 0 - 9 No to Mild depression 0 - Not at all 10 - 14 Moderate depression 1 - Several Days > 15 Severe depression 2 - More than half the days 3 - Nearly every day PHYSICAL EXAMINATION BP 165/70 (BP Site: Left Arm, BP Position: Sitting, BP Cuff Size: Regular Adult) Pulse 60 Temp 36.4 C (97.5 F) (Temporal) Resp 14 Ht 170.2 cm (5' 7 ) Wt 60 kg (132 lb 4.8 oz) SpO2 99% BMI 20.72 kg/m General: Well-developed, well-nourished, in no acute distress. HEENT: Normocephalic, atraumatic. Sclerae anicteric. Lungs: Respirations even and unlabored, on room air. Extremities: No edema, cyanosis, or clubbing. Skin: No rash or ecchymoses. Neurological: Awake, alert, oriented to person, place, and time. Speech fluent, no dysarthria. Good attention and insight into illness. Cranial Nerves: PERRL, extraocular movements intact without nystagmus. Visual carter grossly intact. Facial sensation and movements normal and symmetric. Tongue midline. Shoulder shrug symmetric. Motor: Normal bulk and tone. Strength 5/5 throughout. No pronator drift or tremor. Sensation: Grossly intact light touch. Coordination: [id number] and [id number] without dysmetria bilaterally. Gait: Ambulates easily into the office without assistance. IMAGING No up to date imaging to review today LABS N/A IMPRESSION This is a very nice 67M who underwent RIGHT craniotomy for RIGHT MCA aneurysm clipping 05/31/[address] Gillis.This was preceded by LEFT MCA aneurysm clipping in 2007 (OSH). The patient is doing well with no new neurologic s/s. PLAN - Discussed 5 year follow up angiogram. Reviewed the risks and benefits of the procedure. After careful consideration, the patient wishes to proceed. -Will request clearance for Lovenox bridge for Coumadin -Discussed importance of smoking cessation as well as good BP control Goal blood pressure is less than 140/90. Notify your PCP with any elevated blood pressure readings. -Reviewed s/s for which to present to the ED All questions/concerns addressed and patient is agreeable to this plan. I spent a total of 20 minutes on the date of the service which included preparing to see the patient, [id number] patient care, completing clinical documentation, obtaining and/or reviewing separately obtained history, performing a medically appropriate examination, counseling and educating the patient/family/caregiver, ordering medications, tests, or procedures, communicating with other HCPs (not separately reported), and care coordination (not separately reported). SIGNATURE Amrita Ojeda PA-C January 18, 2023 documented in this encounter [facility] 01-15-2023 History of Present illness Narrative Images from the original note were not included. Anticoagulation Progress Note Date of Visit: January 15, 2023 Patient Name: Mata Betts : 1955 Age: 67 y.o. Mata Betts is here for an anticoagulation follow-up visit. INR obtained via POC finger stick device. Anticoagulation Summary As of 01/15/2023 INR goal: 2.0-3.0 TTR: 82.2 % (4.5 y) INR used for dosin.9 (01/15/2023) Warfarin maintenance plan: 2.5 mg (5 mg x 0.5) every Tue, Shruti, Sat; 5 mg (5 mg x 1) all other days Weekly warfarin total: 27.5 mg Plan last modified: Laxmi Whitney, [facility],PharmD (11/18/2021) Next INR check: 01/31/2023 Priority: Maintenance Target end date: Indefinite Indications Cerebrovascular disease (Resolved) [I67.9] PAD (peripheral artery disease) (HCC) [I73.9] Lab Results Component Value Date WBC 6.17 11/30/2022 HGB 15.4 11/30/2022 HCT 45.5 11/30/2022 MCV 101.3 (H) 11/30/2022 EXTMCV 100.2 (H) 05/30/2018 PLT 132 (L) 11/30/2022 RBC 4.49 (L) 11/30/2022 Lab Results Component Value Date CREATININE 0.80 11/30/2022 CREATININE 0.73 12/27/2017 Wt Readings from Last 3 Encounters: 11/30/22 61.5 kg (135 lb 9.6 oz) 10/18/22 63.7 kg (140 lb 8 oz) 07/19/22 66 kg (145 lb 8.1 oz) Ht Readings from Last 1 Encounters: 11/30/22 5' 8 Encounter Summary: ASSESSMENT: Patient Findings Negatives: Patient Reported Falls, Signs/symptoms of thrombosis, Signs/symptoms of bleeding, Laboratory test error suspected, Change in health, Change in alcohol use, Change in activity, Upcoming invasive procedure, Emergency department visit, Upcoming dental procedure, Missed doses, Extra doses, Change in medications, Change in diet/appetite, Hospital admission, Bruising, Other complaints Comments: Patient denies any changes or concerns. Warfarin taken in the previous 7 days: 27.5 mg INR has increased and is slightly subtherapeutic at 1.9 today. There is no clear reason why INR is below the range. He denies any missed doses, changes in vitamin K intake, changes in MVI, or start of any protein or nutrition shakes such as Boost or Ensure. Today Mata Betts a 67 y.o. male was seen at the [facility]. He is able to correctly confirm the dose of warfarin, and denies any changes or concerns. INR has increased and is just slightly below the range. Hesitant to increase the dose of warfarin as patient has been stable on this dose for over a year. Patient is due for higher dose today. Will continue with the same dose of warfarin. Will recheck in 2 weeks, instead of 4, to ensure INR continues to increase into range. PLAN: Will continue weekly warfarin dose of 27.5 mg/week. Will check next INR in 2 weeks unless there are any changes before then. Encouraged patient to contact clinic with any changes. Consuelo Painting RPh,PharmD [facility] Dept: [phone] documented in this encounter [facility] 01-15-2023 Instructions Consuelo Painting RPh,PharmD - 01/15/2023 7:08 AM EDT If you experience any of the following symptoms within 24 hours of your next appointment, or you have been in close contact with anyone confirmed or suspected to have coronavirus/COVID-19 in the past 10 days please call us to reschedule at Dept: [phone]. Fever Cough Shortness of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 hyperlipidemia associated with type 2 diabetes mellitus (HCC) Chronic, stable, Continue meds as prescribed, watch diet, and increase activity as able to tolerate. Relevant Orders Lipid Panel Diabetic peripheral neuropathy (HCC) Chronic, stable, will monitor and follow. Diabetes mellitus (HCC) - Primary Chronic, Stable, continue meds, watch diet, increase activity as can tolerate. Monitor BS as instructed. Bring blood sugar log to next visit. Get A1C drawn today. Relevant Orders Lipid Panel Hemoglobin A1c Microalbumin/Creatinine Ratio, UR Random Cardiovascular and Mediastinum Benign essential hypertension Chronic, Stable, continue meds, increase activity as can tolerate, limit salt, and watch diet. Continue to monitor BP at home as instructed. Bring blood pressure log and cuff to next visit. Relevant Orders CBC and Differential Comprehensive Metabolic Panel TSH with Reflex Free T4 Microalbumin/Creatinine Ratio, UR Random PAD (peripheral artery disease) (HCC) Chronic, stable, continue work-up with Dr. Sim, will follow. Other Visit Diagnoses Abnormal PSA Relevant Orders PSA, Total and Free If any referrals were placed at the time of your visit please allow 2 weeks for processing. If you haven't heard from anyone within 2 weeks please contact my office so we can look into the status of your referral. If you were given any labs today please ensure they are completed according to the directions given. Once labs are completed please allow 1-2 weeks for us to receive the results, review them, and let you know what steps, if any, are needed next. If you haven't heard from us after that please call to inquire. If labs were ordered to be done PRIOR to your next visit we will discuss the results at the time of your office visit. If any procedures or imaging studies were ordered that must be prior authorized please give us 2 weeks to get them approved. Once approved someone should call you to schedule them or give you a date and time that they were scheduled for. If you haven't heard anything within 2 weeks of the office visit please call the office so we can look into their status. documented in this encounter [facility] 06-01-2022 Evaluation + Plan note Associated Problem(s): Diabetic peripheral neuropathy (HCC) Chronic, stable, will monitor and follow. [facility] 06-01-2022 Miscellaneous Notes Associated Problem(s): Diabetic peripheral neuropathy (HCC) Chronic, stable, will monitor and follow. Associated Problem(s): PAD (peripheral artery disease) (HCC) Chronic, stable, continue work-up with Dr. Sim, will follow. Associated Problem(s): Benign essential hypertension Chronic, Stable, continue meds, increase activity as can tolerate, limit salt, and watch diet. Continue to monitor BP at home as instructed. Bring blood pressure log and cuff to next visit. Associated Problem(s): Mixed diabetic hyperlipidemia associated with type 2 diabetes mellitus (HCC) Chronic, stable, Continue meds as prescribed, watch diet, and increase activity as able to tolerate. Associated Problem(s): Diabetes mellitus (HCC) Chronic, Stable, continue meds, watch diet, increase activity as can tolerate. Monitor BS as instructed. Bring blood sugar log to next visit. Get A1C drawn today. documented in this encounter [facility] 06-01-2022 Evaluation + Plan note Associated Problem(s): PAD (peripheral artery disease) (HCC) Chronic, stable, continue work-up with Dr. Sim, will follow. [facility] 06-01-2022 Evaluation + Plan note Associated Problem(s): Benign essential hypertension Chronic, Stable, continue meds, increase activity as can tolerate, limit salt, and watch diet. Continue to monitor BP at home as instructed. Bring blood pressure log and cuff to next visit. [facility] 06-01-2022 Evaluation + Plan note Associated Problem(s): Mixed diabetic hyperlipidemia associated with type 2 diabetes mellitus (HCC) Chronic, stable, Continue meds as prescribed, watch diet, and increase activity as able to tolerate. [facility] 06-01-2022 Evaluation + Plan note Associated Problem(s): Diabetes mellitus (HCC) Chronic, Stable, continue meds, watch diet, increase activity as can tolerate. Monitor BS as instructed. Bring blood sugar log to next visit. Get A1C drawn today. [facility] 06-01-2022 History of Present illness Narrative OFFICE VISIT PROGRESS NOTE HPI HTN - No log, but says BP around 120-130 over 70-75 range. Taking meds, seeing Cardio, no new issues or concerns. DM/HLD/Neuropathy - BS says around 100-120, no log, taking and tolerating meds. PAD - Says that seeing Dr. Hsieh, says not sure if this is related to blood flow or not. Says intrudes on sleep and activity. Has caused him to change QOL. No change to meds, no new injuries. The following portions of the patient's history were reviewed and updated as appropriate: allergies, current medications and problem list. The patient's surgical, family, and social history was reviewed and updated as appropriate. Review of Systems Review of Systems Constitutional: Negative for activity change and fatigue. Respiratory: Negative for chest tightness, shortness of breath and wheezing. Cardiovascular: Negative for chest pain and palpitations. Psychiatric/Behavioral: Negative for agitation and dysphoric mood. Vitals: 06/01/22 0916 BP: 137/64 BP Location: Right arm Patient Position: Sitting BP Cuff Size: Adult Pulse: 60 Temp: 98.3 F (36.8 C) TempSrc: Temporal SpO2: 94% Weight: 65.5 kg (144 lb 8 oz) Height: 5' 8 Body mass index is 21.97 kg/m . Physical Exam Physical Exam Vitals and nursing note reviewed. Constitutional: Appearance: Normal appearance. He is well-developed. HENT: Head: Normocephalic and atraumatic. Cardiovascular: Rate and Rhythm: Normal rate and regular rhythm. Heart sounds: No murmur heard. Pulmonary: Effort: Pulmonary effort is normal. No respiratory distress. Breath sounds: Normal breath sounds. No wheezing. Skin: General: Skin is warm and dry. Neurological: Mental Status: He is alert and oriented to person, place, and time. Cranial Nerves: No cranial nerve deficit. Psychiatric: Mood and Affect: Mood normal. Behavior: Behavior normal. OARRS/NARxCHECK Report Received and Assessed: 04/29/2018 Date controlled substance agreement signed: No data found Date of last drug screen: No data found Functional Assessment: No data found Assessment/Plan Problem List Items Addressed This Visit Endocrine Mixed diabetic hyperlipidemia associated with type 2 diabetes mellitus (HCC) Chronic, stable, Continue meds as prescribed, watch diet, and increase activity as able to tolerate. Relevant Orders Lipid Panel Diabetic peripheral neuropathy (HCC) Chronic, stable, will monitor and follow. Diabetes mellitus (HCC) - Primary Chronic, Stable, continue meds, watch diet, increase activity as can tolerate. Monitor BS as instructed. Bring blood sugar log to next visit. Get A1C drawn today. Relevant Orders Lipid Panel Hemoglobin A1c Microalbumin/Creatinine Ratio, UR Random Cardiovascular and Mediastinum Benign essential hypertension Chronic, Stable, continue meds, increase activity as can tolerate, limit salt, and watch diet. Continue to monitor BP at home as instructed. Bring blood pressure log and cuff to next visit. Relevant Orders CBC and Differential Comprehensive Metabolic Panel TSH with Reflex Free T4 Microalbumin/Creatinine Ratio, UR Random PAD (peripheral artery disease) (HCC) Chronic, stable, continue work-up with Dr. Sim, will follow. Other Visit Diagnoses Abnormal PSA Relevant Orders PSA, Total and Free Goals None If any referrals were placed at today's visit the patient was instructed to call the office if they havn't heard anything about the referral within 2 weeks of today's visit. For any new medications prescribed today, patient was educated about indications for the medication, how to take the medication and potential side effects of the medications. documented in this encounter [facility] 05-24-2022 History of Present illness Narrative Anticoagulation Progress Note Date of Visit: May 24, 2022 Patient Name: Maat Betts : 1955 Age: 66 y.o. Mata Betts is here for an anticoagulation follow-up visit. INR obtained via POC finger stick device. Anticoagulation Summary As of 05/24/2022 INR goal: 2.0-3.0 TTR: 82.5 % (3.8 y) INR used for dosin.0 (05/24/2022) Warfarin maintenance plan: 2.5 mg (5 mg x 0.5) every Tue, Shruti, Sat; 5 mg (5 mg x 1) all other days; Starting 05/24/2022 Weekly warfarin total: 27.5 mg Plan last modified: Laxmi Whitney RPh,PharmD (11/18/2021) Next INR check: 07/05/2022 Priority: Maintenance Target end date: Indefinite Indications Cerebrovascular disease (Resolved) [I67.9] PAD (peripheral artery disease) (HCC) [I73.9] Lab Results Component Value Date WBC 5.49 01/09/2022 HGB 15.4 01/09/2022 HCT 45.7 01/09/2022 MCV 102.0 (H) 01/09/2022 EXTMCV 100.2 (H) 05/30/2018 PLT 119 (L) 01/09/2022 RBC 4.48 (L) 01/09/2022 Lab Results Component Value Date CREATININE 0.84 01/09/2022 CREATININE 0.73 12/27/2017 Wt Readings from Last 3 Encounters: 04/27/22 64.5 kg (142 lb 3.2 oz) 04/10/22 64.9 kg (143 lb) 01/17/22 61.9 kg (136 lb 6.4 oz) Ht Readings from Last 1 Encounters: 04/27/22 5' 8 Encounter Summary: ASSESSMENT: Patient Findings Positives: Change in health (influenza, COPD exacerbation about a month ago), Emergency department visit (04/15 at [facility] for influenza), Missed doses (missed 2.5 mg dose 8 days ago on 05/16), Change in medications (04/27 Z-pack, prednisone taper x 12 days), Change in diet/appetite (eating less while sick, back to normal now) Negatives: Patient Reported Falls, Signs/symptoms of thrombosis, Signs/symptoms of bleeding, Laboratory test error suspected, Change in alcohol use, Change in activity, Upcoming invasive procedure, Upcoming dental procedure, Extra doses, Hospital admission, Bruising, Other complaints Patient is doing well today, has recovered from illness last month. Confirmed dose, missed 2.5 mg dose just over a week ago. Was on a Z=pack and prednisone taper early last month, finished about 2 weeks ago. Eating less during that time but back to normal now. Warfarin taken in the previous 7 days: 27.5 mg INR is therapeutic today, at low end of range likely due to missed dose just over a week ago. Has been very stable on this dose. PLAN: Will continue weekly warfarin dose of 27.5 mg/week. Will check next INR in 6 weeks again unless there are any changes before then. Encouraged patient to contact clinic with any changes. Jesse Leong RPh,PharmD [facility] Dept: [phone] documented in this encounter [facility] 05-11-2022 Telephone encounter Note Pharmacy also requesting Atorvastatin 80 mg daily, also for 90 days with 3 refills. [facility] 05-11-2022 Miscellaneous Notes Pharmacy also requesting Atorvastatin 80 mg daily, also for 90 days with 3 refills. Received fax from [facility] for refill on Clopidogrel 75 mg daily qty of 90 with 3 refills. Patient was last seen 04/10/22 and is on recall for follow up. documented in this encounter [facility] 05-11-2022 Telephone encounter Note Received fax from [facility] for refill on Clopidogrel 75 mg daily qty of 90 with 3 refills. Patient was last seen 04/10/22 and is on recall for follow up. [facility] 04-27-2022 Instructions Jeanna Duff MD - 04/27/2022 8:20 AM EST Problem List Items Addressed This Visit Other Erectile dysfunction Relevant Medications tadalafiL 10 MG tablet Other Visit Diagnoses Acute exacerbation of chronic obstructive pulmonary disease (COPD) (HCC) - Primary Acute, worsening, will do steroids and antibiotic, f/u as scheduled. Relevant Medications predniSONE (DELTASONE) 10 MG tablet azithromycin (Z-WENDY) 5 day dose pack If any referrals were placed at the time of your visit please allow 2 weeks for processing. If you haven't heard from anyone within 2 weeks please contact my office so we can look into the status of your referral. If you were given any labs today please ensure they are completed according to the directions given. Once labs are completed please allow 1-2 weeks for us to receive the results, review them, and let you know what steps, if any, are needed next. If you haven't heard from us after that please call to inquire. If labs were ordered to be done PRIOR to your next visit we will discuss the results at the time of your office visit. If any procedures or imaging studies were ordered that must be prior authorized please give us 2 weeks to get them approved. Once approved someone should call you to schedule them or give you a date and time that they were scheduled for. If you haven't heard anything within 2 weeks of the office visit please call the office so we can look into their status. documented in this encounter [facility] 04-27-2022 History of Present illness Narrative OFFICE VISIT PROGRESS NOTE HPI ER f/u Flu - Went to [facility] and was diagnosed with Flu. Says now on going for 1 month. Says had been sick since early March. Still having problems with cough, mucus, phlegm, and drainage. Worse with laying down. No treatment from ER. Some SOB with doing activity, worse than normal. Using rescue inhaler and other treatments more often. The following portions of the patient's history were reviewed and updated as appropriate: allergies, current medications and problem list. The patient's surgical, family, and social history was reviewed and updated as appropriate. Review of Systems Review of Systems Constitutional: Positive for activity change and chills. Negative for fatigue. Respiratory: Positive for cough, shortness of breath and wheezing. Negative for chest tightness. Cardiovascular: Negative for chest pain and palpitations. Psychiatric/Behavioral: Negative for agitation and dysphoric mood. Vitals: 04/27/22 0813 BP: 132/76 BP Location: Right arm Patient Position: Sitting BP Cuff Size: Adult Pulse: 60 Temp: 98.7 F (37.1 C) TempSrc: Temporal SpO2: 95% Weight: 64.5 kg (142 lb 3.2 oz) Height: 5' 8 Body mass index is 21.62 kg/m . Physical Exam Physical Exam Vitals and nursing note reviewed. Constitutional: Appearance: Normal appearance. He is well-developed. HENT: Head: Normocephalic and atraumatic. Cardiovascular: Rate and Rhythm: Normal rate and regular rhythm. Heart sounds: No murmur heard. Pulmonary: Effort: Pulmonary effort is normal. No respiratory distress. Breath sounds: Wheezing and rhonchi present. Skin: General: Skin is warm and dry. Neurological: Mental Status: He is alert and oriented to person, place, and time. Cranial Nerves: No cranial nerve deficit. Psychiatric: Mood and Affect: Mood normal. Behavior: Behavior normal. OARRS/NARxCHECK Report Received and Assessed: 04/29/2018 Date controlled substance agreement signed: No data found Date of last drug screen: No data found Functional Assessment: No data found Assessment/Plan Problem List Items Addressed This Visit Other Erectile dysfunction Relevant Medications tadalafiL 10 MG tablet Other Visit Diagnoses Acute exacerbation of chronic obstructive pulmonary disease (COPD) ([facility]) - Primary Acute, worsening, will do steroids and antibiotic, f/u as scheduled. Relevant Medications predniSONE (DELTASONE) 10 MG tablet azithromycin (Z-WENDY) 5 day dose pack Goals None If any referrals were placed at today's visit the patient was instructed to call the office if they havn't heard anything about the referral within 2 weeks of today's visit. For any new medications prescribed today, patient was educated about indications for the medication, how to take the medication and potential side effects of the medications. Depression Screening 12/17/2019 06/21/2020 06/01/2021 04/27/2022 Little interest or pleasure in doing things 0 0 0 0 Feeling down, depressed, or hopeless 0 0 0 0 PHQ-2 Total Score 0 0 0 0 Trouble falling or staying asleep, or sleeping too much 0 0 - - Feeling tired or having little energy 0 3 - - Poor appetite or overeating 0 0 - - Feeling bad about yourself - or that you are a failure or have let yourself or your family down 0 0 - - Trouble concentrating on things, such as reading the newspaper or watching television 0 0 - - Moving or speaking so slowly that other people could have noticed. Or the opposite - being so fidgety or restless that you have been moving around a lot more than usual 0 0 - - Thoughts that you would be better off , or of hurting yourself in some way 0 0 - - PHQ-9 Total Score 0 3 - - If you checked off any problems, how difficult have these problems made it for you to do your work, take care of things at home, or get along with other people? Not difficult at all Not difficult at all - - documented in this encounter [facility] 04-25-2022 Telephone encounter Note Mata Hernandez Betts called LM on VM asking for a refill. [facility] 04-25-2022 Miscellaneous Notes Mata V Alpesh called LM on VM asking for a refill. documented in this encounter [facility] 04-12-2022 History of Present illness Narrative Anticoagulation Progress Note Date of Visit: April 12, 2022 Patient Name: Mata Betts : 1955 Age: 66 y.o. Mata Betts is here for an anticoagulation follow-up visit. INR obtained via POC finger stick device. Anticoagulation Summary As of 04/12/2022 INR goal: 2.0-3.0 TTR: 81.9 % (3.7 y) INR used for dosin.6 (04/12/2022) Warfarin maintenance plan: 2.5 mg (5 mg x 0.5) every Tue, Shruti, Sat; 5 mg (5 mg x 1) all other days; Starting 04/12/2022 Weekly warfarin total: 27.5 mg Plan last modified: Laxmi Whitney RPh,PharmD (11/18/2021) Next INR check: 05/24/2022 Priority: Maintenance Target end date: Indefinite Indications Cerebrovascular disease (Resolved) [I67.9] PAD (peripheral artery disease) (HCC) [I73.9] Lab Results Component Value Date WBC 5.49 01/09/2022 HGB 15.4 01/09/2022 HCT 45.7 01/09/2022 MCV 102.0 (H) 01/09/2022 EXTMCV 100.2 (H) 05/30/2018 PLT 119 (L) 01/09/2022 RBC 4.48 (L) 01/09/2022 Lab Results Component Value Date CREATININE 0.84 01/09/2022 CREATININE 0.73 12/27/2017 Wt Readings from Last 3 Encounters: 04/10/22 64.9 kg (143 lb) 01/17/22 61.9 kg (136 lb 6.4 oz) 11/29/21 59.9 kg (132 lb) Ht Readings from Last 1 Encounters: 04/10/22 5' 8 Encounter Summary: ASSESSMENT: Patient Findings Negatives: Patient Reported Falls, Signs/symptoms of thrombosis, Signs/symptoms of bleeding, Laboratory test error suspected, Change in health, Change in alcohol use, Change in activity, Upcoming invasive procedure, Emergency department visit, Upcoming dental procedure, Missed doses, Extra doses, Change in medications, Change in diet/appetite, Hospital admission, Bruising, Other complaints Warfarin taken in the previous 7 days: 27.5 mg INR is therapeutic today. PLAN: Will continue weekly warfarin dose of 27.5 mg/week. Will check next INR in 6+ weeks unless there are any changes before then. Encouraged patient to contact clinic with any changes. Laxmi Whitney RPh,PharmD [facility] Dept: [phone] documented in this encounter [facility] 04-10-2022 History of Present illness Narrative Patient Name: Mata Betts MR #: [id number] Interventional Cardiology Mejia Campoverde MD, [facility] 04/10/22 Dear Jeanna Duff MD, Mata Betts was seen in follow up for : Problem Ischemic Cardiomyopathy 03/2021 - 40 % ef Valvular Heart Disease March 2021 echo showed moderate aortic insufficiency and moderate to severe mitral regurgitation Coronary Artery Disease Involving [place] Heart Without Angina Pectoris 1987-CABG x 2-[place] and SVG to OM 1987,,,1999 caths ok 2000 stent to SVG-om, later it thrombosed and PTCA,2001 cath ok 2002-proximall svg-om stent, and l main stent 2003- distal svg-om stent 2006-Occluded SVG to om, 2010 cath stable 03/2021 no ischemia on stree Assessment and Plan Coronary artery disease involving [place] heart without angina pectoris Doing well, Medications reviewed and recommended to continue plavix, atorvastin Followup 1 year Ischemic cardiomyopathy Doing well, Medications reviewed and recommended to continue lisinopril/toprol Followup 1 year C/o sleepy tired-- may need a sleep study per pcp Valvular heart disease Testing then on physical examination I can hear no cardiac murmurs. We will repeat an echo this year and see Thank you or allowing me to participate in the care of your patients. Orders Placed This Encounter Procedures Echocardiogram complete Return in about 1 year (around 04/10/2023). EKG:Normal sinus rhythm., Old ASMI, LVH, and Non specific st-t wave changes Subjective: Mata Betts is a 66 y.o. y/o male : Does complain of having to take sleeping breaks during the day but otherwise no PND orthopnea fatigue. 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 CAD (coronary artery disease) Cerebral aneurysm Cerebral aneurysm Cerebral vascular disease Chronic lung disease Deep vein thrombosis (DVT) ([facility]) leg, date unknown Diabetes mellitus (HCC) Dyslipidemia Hyperlipidemia Hypertension Ischemic cardiomyopathy Myocardial infarction (HCC) PAD (peripheral artery disease) ([facility]) PAD (peripheral artery disease) ([facility]) PVD (peripheral vascular disease) (HCC) Stroke (HCC) Physical exam: BP (!) 142/72 Pulse (!) 56 Ht 5' 8 Wt 64.9 kg (143 lb) SpO2 95% BMI 21.74 kg/m General: No acute distress, alert, and oriented x3. HEENT: Normocephalic, Neck: Supple, no gross thyromegaly,no palpable neck adenopathy Cardiovascular: regular rate and rhythm. no murmurs, .No JVD, No Carotid Bruits, no LE edema :Respiratory: Clear to auscultation bilaterally without wheezes, rhonchi, or rales Abdominal: soft, nontender, nondistended,no gross HSM or masses noted. Home Medications: Patient's Medications New Prescriptions No medications on file Previous Medications ALBUTEROL SULFATE (PROAIR RESPICLICK) 90 MCG/ACTUATION AEPB Inhale 1 (one) puff (90 mcg total) every 4 (four) hours as needed (SOB/Wheezing) . AMITRIPTYLINE (ELAVIL) 25 MG TABLET Take 1 (one) tablet (25 mg total) by mouth nightly . ATORVASTATIN (LIPITOR) 80 MG TABLET TAKE ONE TABLET BY MOUTH DAILY CLOPIDOGREL (PLAVIX) 75 MG TABLET TAKE ONE TABLET BY MOUTH DAILY FLUTICASONE PROPION-SALMETEROL (ADVAIR DISKUS) 250-50 MCG/DOSE DISKUS INHALER Inhale 1 (one) puff 2 (two) times a day . FUROSEMIDE (LASIX) 20 MG TABLET Take 1 (one) tablet (20 mg total) by mouth daily . LISINOPRIL (PRINIVIL,ZESTRIL) 20 MG TABLET Take 1 (one) tablet (20 mg total) by mouth daily . METOPROLOL SUCCINATE (TOPROL XL) 50 MG 24 HR TABLET Take 1 (one) tablet (50 mg total) by mouth daily . NITROGLYCERIN (NITROSTAT) 0.[address] 1 (one) tablet (0.4 mg total) under the tongue every 5 (five) minutes as needed for chest pain , if no relief after 3 doses call 911 . [employer] DELICA LANCETS 33 GAUGE MISC USE TO CHECK FOR BLOOD SUGAR 2 TIMES A DAY ONETOUCH VERIO FLEX MISC 2 (two) times a day as directed . ONETOUCH VERIO STRIPS USE TO CHECK FOR BLOOD SUGAR 2 TIMES A DAY SODIUM CHLORIDE-ALOE VERA (AYR SALINE) GEL Apply a pea sized amount to both nostrils at bedtime and in a.m. You can use it more often. . TADALAFIL 10 MG TABLET Take 1 (one) tablet (10 mg total) by mouth daily Take prior to sexual activity . WARFARIN (COUMADIN) 5 MG TABLET Take 1 (one) tablet (5 mg total) by mouth daily On 5 days, and 2.5 mg (0.5 tablet) on 2 days. . Modified Medications No medications on file Discontinued Medications No medications on file documented in this encounter [facility] 04-10-2022 Evaluation + Plan note Associated Problem(s): Valvular heart disease Testing then on physical examination I can hear no cardiac murmurs. We will repeat an echo this year and see [facility] 04-10-2022 Miscellaneous Notes Associated Problem(s): Valvular heart disease Testing then on physical examination I can hear no cardiac murmurs. We will repeat an echo this year and see Associated Problem(s): Ischemic cardiomyopathy Doing well, Medications reviewed and recommended to continue lisinopril/toprol Followup 1 year C/o sleepy tired-- may need a sleep study per pcp Associated Problem(s): Coronary artery disease involving [place] heart without angina pectoris Doing well, Medications reviewed and recommended to continue plavix, atorvastin Followup 1 year documented in this encounter [facility] 04-10-2022 Evaluation + Plan note Associated Problem(s): Ischemic cardiomyopathy Doing well, Medications reviewed and recommended to continue lisinopril/toprol Followup 1 year C/o sleepy tired-- may need a sleep study per pcp [facility] 04-10-2022 Evaluation + Plan note Associated Problem(s): Coronary artery disease involving [place] heart without angina pectoris Doing well, Medications reviewed and recommended to continue plavix, atorvastin Followup 1 year [facility] 03-03-2022 History of Present illness Narrative Anticoagulation Progress Note Date of Visit: March 03, 2022 Patient Name: Mata Betts : 1955 Age: 66 y.o. Mata Betts is here for an anticoagulation follow-up visit. INR obtained via POC finger stick device. Anticoagulation Summary As of 03/03/2022 INR goal: 2.0-3.0 TTR: 81.4 % (3.6 y) INR used for dosin.9 (03/03/2022) Warfarin maintenance plan: 2.5 mg (5 mg x 0.5) every Tue, Shruti, Sat; 5 mg (5 mg x 1) all other days Weekly warfarin total: 27.5 mg Plan last modified: Laxmi Whitney [facility],PharmD (11/18/2021) Next INR check: 04/14/2022 Priority: Maintenance Target end date: Indefinite Indications Cerebrovascular disease (Resolved) [I67.9] PAD (peripheral artery disease) (HCC) [I73.9] Lab Results Component Value Date WBC 5.49 01/09/2022 HGB 15.4 01/09/2022 HCT 45.7 01/09/2022 MCV 102.0 (H) 01/09/2022 EXTMCV 100.2 (H) 05/30/2018 PLT 119 (L) 01/09/2022 RBC 4.48 (L) 01/09/2022 Lab Results Component Value Date CREATININE 0.84 01/09/2022 CREATININE 0.73 12/27/2017 Wt Readings from Last 3 Encounters: 01/17/22 61.9 kg (136 lb 6.4 oz) 11/29/21 59.9 kg (132 lb) 11/03/21 61.2 kg (134 lb 14.4 oz) Ht Readings from Last 1 Encounters: 01/17/22 5' 8 Encounter Summary: ASSESSMENT: Patient Findings Positives: Change in medications (steroid injection on Sunday. Started Magnesium OTC) Negatives: Patient Reported Falls, Signs/symptoms of thrombosis, Signs/symptoms of bleeding, Laboratory test error suspected, Change in health, Change in alcohol use, Change in activity, Upcoming invasive procedure, Emergency department visit, Upcoming dental procedure, Missed doses, Extra doses, Change in diet/appetite, Hospital admission, Bruising, Other complaints Warfarin taken in the previous 7 days: 27.5 mg INR is therapeutic at 2.9 today. Today Mata Betts a 66 y.o. male was seen at the [facility]. He confirmed the dose of warfarin. He did received 1 steroid injection in his back. He has also started Magnesium. Both should be ok with warfarin. INR is in range. Will continue with the same dose of warfarin for now. PLAN: Will continue weekly warfarin dose of 27.5 mg/week. Will check next INR in 6+ weeks unless there are any changes before then. Encouraged patient to contact clinic with any changes. Consuelo Painting RPh,PharmD [facility] Dept: [phone] documented in this encounter [facility] 03-03-2022 Instructions Consuelo Painting RPh,PharmD - 03/03/2022 7:42 AM EST If you experience any of the following symptoms within 24 hours of your next appointment, or you have been in close contact with anyone confirmed or suspected to have coronavirus/COVID-19 in the past 10 days please call us to reschedule at Dept: [phone]. Fever Cough Shortness of breath Difficulty breathing Chills Repeated shaking with chills Muscle pain Headache Sore throat Any loss of taste or smell Nausea, vomiting or diarrhea If you are screened positive for any of the above upon entering the building, please call us at Dept: [phone] for further instructions before you proceed to the clinic. Thank you for adhering to our precautions to keep our patients and providers safe! documented in this encounter [facility] 01-20-2022 History of Present illness Narrative Anticoagulation Progress Note Date of Visit: January 20, 2022 Patient Name: Mata Betts : 1955 Age: 66 y.o. Mata Betts is here for an anticoagulation follow-up visit. INR obtained via POC finger stick device. Anticoagulation Summary As of 01/20/2022 INR goal: 2.0-3.0 TTR: 80.8 % (3.5 y) INR used for dosin.3 (01/20/2022) Warfarin maintenance plan: 2.5 mg (5 mg x 0.5) every Tue, Shruti, Sat; 5 mg (5 mg x 1) all other days Weekly warfarin total: 27.5 mg Plan last modified: Laxmi Whitney RPh,PharmD (11/18/2021) Next INR check: 03/03/2022 Priority: Maintenance Target end date: Indefinite Indications Cerebrovascular disease (Resolved) [I67.9] PAD (peripheral artery disease) (HCC) [I73.9] Lab Results Component Value Date WBC 5.49 01/09/2022 HGB 15.4 01/09/2022 HCT 45.7 01/09/2022 MCV 102.0 (H) 01/09/2022 EXTMCV 100.2 (H) 05/30/2018 PLT 119 (L) 01/09/2022 RBC 4.48 (L) 01/09/2022 Lab Results Component Value Date CREATININE 0.84 01/09/2022 CREATININE 0.73 12/27/2017 Wt Readings from Last 3 Encounters: 01/17/22 61.9 kg (136 lb 6.4 oz) 11/29/21 59.9 kg (132 lb) 11/03/21 61.2 kg (134 lb 14.4 oz) Ht Readings from Last 1 Encounters: 01/17/22 5' 8 Encounter Summary: ASSESSMENT: Patient Findings Negatives: Patient Reported Falls, Signs/symptoms of thrombosis, Signs/symptoms of bleeding, Laboratory test error suspected, Change in health, Change in alcohol use, Change in activity, Upcoming invasive procedure, Emergency department visit, Upcoming dental procedure, Missed doses, Extra doses, Change in medications, Change in diet/appetite, Hospital admission, Bruising, Other complaints Confirmed dose. No changes in medication or diet. Warfarin taken in the previous 7 days: 27.5 mg INR is therapeutic today. PLAN: Will continue weekly warfarin dose of 27.5 mg/week. Will check next INR in 6 weeks again unless there are any changes before then. Encouraged patient to contact clinic with any changes. Jesse Leong RPh,PharmD [facility] Dept: [phone] documented in this encounter [facility] 01-17-2022 History of Present illness Narrative Clinic follow up note PATIENT: Mata Betts : 1955 AGE: 66 y.o. SEX: male RACE: [1] PCP: Jeanna Duff MD REFERRAL: No ref. provider found HPI Presents in f/u. Has not had any major nosebleed since October. Feels well for the most part. Bp reading noted to be elevated this morning, attributed to coffee and smoking. Has chronic pain in the left shoulder and lower back, no worsening - has been off pain meds and shots. HEMATOLOGIC HX Pt has a h/o [place] at age 31 , CABG at 31 yrs of age, several ministrokes, stroke post aneurysm clipping in 2008 while on aspirin and plavix. Patient has h/o severe PAD. Is a chronic smoker. Admitted to the hospital in August 2011 with symptoms suggestive of subacute cerebrovascular ischemic accident. 09/10/2011, CT of the brain without contrast demonstrates an area along the right posterior parietal lobe that exhibits loss of gonzalez-white matter differentiation, concerning for acute to subacute infarct, left frontal and temporal postsurgical changes without evidence of acute intracranial hemorrhage. Was initially evaluated in 2011 in the hematology clinic and hypercoagulable work up that was negative .prothrombin gene mutation and factor V Leiden mutation was negative on 09/03/2011, protein C,S and lupus anticoagulant testing was negative. Antithrombin level was slightly lower than normal. Given the history, was placed on coumadin in late 2011, since being on coumadin ,has not had any neurologic or cardiovascular event. 04/30/2017 completely normal total white cell count, H&H, MCV is 100.6, platelet count is 106k. Vitamin B12 and folate within normal limits, peripheral smear evaluation demonstrates granulocytes with pelgeroid changes. 05/08/17- Bone marrow biopsy and aspiration -Normocellular marrow (35%) with trilineage hematopoiesis and neutrophils with Pelgeroid change. Thrombocytopenia and macrocytic RBCs. Cytogenetics demonstrates loss of Y chromosome. No clear evidence of MDS at this time. 03/25/18- Low dose ct scan- 1. Stable bilateral solid lung nodules measuring up to 4 mm in mean diameter. No new or enlarging lung nodules. 2. Mild emphysema. 3. Status post coronary artery bypass grafting. 02/28/19- Low dose ct chest- 1. No new or enlarging pulmonary nodules are present. Stable subcentimeter pulmonary nodules are again identified. 2. Mild emphysema. Lung-RADs 2 11/18/2015- Colonoscopy- Diverticulosis and external hemorrhoids. 05/08/2017- Bone marrow biopsy - Normocellular marrow (35%) with trilineage hematopoiesis and neutrophils with Pelgeroid change. Thrombocytopenia and macrocytic RBCs. Note: Other morphologic features of myelodysplasia are not appreciated. Flow cytometric analysis did not detect an abnormal population of cells. The patient has a 45,X,-Y[3]/46,XY[17] karyotype, which is not considered clinically significant. The differential diagnosis includes infection, drug/toxin exposure, reactive/systemic disorders (i.e. enteritis, hypothyroidism, SLE), and Pelger-Huet anomaly. Diagnosis A. Normocellular marrow (35%) with trilineage hematopoiesis. Decreased iron stores. B. Marrow with trilineage hematopoiesis and neutrophils with Pelgeroid change. Decreased iron stores. C. Adequate leukocyte count. Neutrophils with Pelgeroid changes present. Otherwise unremarkable leukocyte morphology. Macrocytic RBCs with 1+ anisocytosis.Thrombocytopenia. Unremarkable platelet morphology. ALLERGIES No Known Allergies [facility] has a current medication list which includes the following prescription(s): proair respiclick, amitriptyline, atorvastatin, clopidogrel, fluticasone propion-salmeterol, furosemide, lisinopril, metoprolol succinate, nitroglycerin, onetouch delica lancets, onetouch verio flex meter, onetouch verio test strips, ayr saline, tadalafil, and warfarin. PMH/PSH Past Medical History: Diagnosis Date Aneurysm (HCC) brain x2 Arteriosclerotic cardiovascular disease direct coronary bypass x 2, 06/23/86 CAD (coronary artery disease) Cerebral aneurysm Cerebral aneurysm Cerebral vascular disease Chronic lung disease Deep vein thrombosis (DVT) (HCC) leg, date unknown Diabetes mellitus (HCC) Dyslipidemia Hyperlipidemia Hypertension Ischemic cardiomyopathy Myocardial infarction (HCC) PAD (peripheral artery disease) (HCC) PAD (peripheral artery disease) (HCC) PVD (peripheral vascular disease) (HCC) Stroke (HCC) Past Surgical History: Procedure Laterality Date abd angio r/o eriberto newborn hearing screener 2006 L common & external iliac art abd angio r/o newborn hearing screener stent eriberto iliac art 2005 ARTERIAL ANEURYSM REPAIR Lt sideof brain CARDIAC CATHETERIZATION 07/20/2010 EF 35% CARDIAC CATHETERIZATION 11/22/2006 EF 45% CARDIAC CATHETERIZATION 05/11/2004 EF 55% CARDIAC CATHETERIZATION 08/14/2003 EF 55% CARDIAC CATHETERIZATION 07/09/2003 CARDIAC CATHETERIZATION 02/16/2003 CARDIAC CATHETERIZATION 10/03/2002 CARDIAC CATHETERIZATION 11/05/2001 CARDIAC CATHETERIZATION 07/04/2001 CARDIAC CATHETERIZATION 09/19/2000 CARDIAC CATHETERIZATION 05/10/2000 CARDIAC CATHETERIZATION 12/23/1999 CARDIAC CATHETERIZATION 12/06/1995 CARDIAC CATHETERIZATION 12/27/1990 CARDIAC CATHETERIZATION 04/27/1987 CARDIAC CATHETERIZATION 06/16/1986 CARDIAC CATHETERIZATION 11/13/2002 CATARACT EXTRACTION, BILATERAL Bilateral CEREBRAL ANEURYSM REPAIR 2017 bilateral CEREBRAL ANGIOGRAM CORONARY ANGIOPLASTY 02/16/2003 SVG to Marginal Proximal CORONARY ANGIOPLASTY 08/23/2000 SVG to Proximal CX CORONARY ANGIOPLASTY 05/10/2000 Proximal SVG to CX-OM CORONARY ANGIOPLASTY WITH STENT PLACEMENT 05/11/2004 RACHELL SVG to CX-OM, SVG to SHARAN, Ostial SVG to OM CORONARY ANGIOPLASTY WITH STENT PLACEMENT 07/09/2003 RACHELL SVG to OM, SVG to CX-OM CORONARY ANGIOPLASTY WITH STENT PLACEMENT 11/13/2002 PTCA/Stent of SVG TO CX Proximal CORONARY ANGIOPLASTY WITH STENT PLACEMENT 10/03/2002 RACHELL Distal LMCA CORONARY ARTERY BYPASS GRAFT 06/23/1986 x2 EPISTAXIS N/A 07/12/2020 Procedure: CONTROL OF EPISTAXIS; Surgeon: Tha Long DO; Location: Main OR; Service: Otolaryngology HEMORRHOIDECTOMY HERNIA REPAIR 1978 ROTATOR CUFF REPAIR Left 2002 FH Family History Problem Relation Age of Onset Heart disease Mother Stroke Mother Hyperlipidemia Mother Hypertension Mother Coronary artery disease Mother Heart attack Father Stroke Father Heart disease Father Coronary artery disease Father Hyperlipidemia Father Hypertension Father Heart disease Sister 8 sisters Coronary artery disease Sister Heart disease Brother 4 brothers Cancer Brother lung 1 brother COPD Brother Heart disease Son Cancer Brother Cancer Brother Lug Early Brother Early Brother Mental illness Son SH Social History Socioeconomic History Marital status: Spouse name: [place] Number of children: 5 Highest education level: 10th grade Occupational History Employer: [employer] Tobacco Use Smoking status: Every Day Packs/day: 0.25 Years: 45.00 Pack years: 11.25 Types: Cigarettes Smokeless tobacco: Never Vaping Use Vaping Use: Never used Substance and Sexual Activity Alcohol use: No Drug use: No Sexual activity: Not Currently Partners: Female ROS Review of Systems Constitutional: Negative. HENT: Negative. Eyes: Negative. Respiratory: Negative. Cardiovascular: Negative. Gastrointestinal: Negative. Endocrine: Negative. Genitourinary: Negative. Musculoskeletal: Negative. Skin: Negative. Neurological: Negative. Hematological: Negative. Psychiatric/Behavioral: Negative. EXAM BP (!) 168/58 (BP Location: Right arm) Pulse (!) 57 Temp 97.7 F (36.5 C) (Oral) Ht 5' 8 Wt 61.9 kg (136 lb 6.4 oz) SpO2 97% BMI 20.74 kg/m Physical Exam Constitutional: Appearance: He is well-developed. HENT: Head: Normocephalic and atraumatic. Eyes: Conjunctiva/sclera: Conjunctivae normal. Pupils: Pupils are equal, round, and reactive to light. Cardiovascular: Rate and Rhythm: Normal rate and regular rhythm. Pulmonary: Effort: Pulmonary effort is normal. Breath sounds: Normal breath sounds. Abdominal: General: Bowel sounds are normal. Palpations: Abdomen is soft. Musculoskeletal: General: Normal range of motion. Cervical back: Normal range of motion and neck supple. Skin: General: Skin is warm and dry. Neurological: Mental Status: He is alert and oriented to person, place, and time. Deep Tendon Reflexes: Reflexes are normal and symmetric. Psychiatric: Behavior: Behavior normal. Thought Content: Thought content normal. Judgment: Judgment normal. 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 Hypercoagulable condition with recurrent episodes of cva, on halfway anticoagulation, continue Coumadin. 2. Thrombocytopenia and macrocytosis -MDs ruled out , prior bone marrow biopsy in 2018 , discussed the findings, potential evolution in future, obtained after the visit demonstrate resolution of the macrocytosis, mild improvement in platelet count, will reevaluate with counts in 6 months. 05/19/2021 - Reviewed recent counts - h&h improved, mild macrocytosis , iron stores much improved. May discontinue iron supplementation 09/15/2021 noted the hematologic abnormalities of macrocytic features with leukopenia and thrombocytopenia, H&H is within normal limits, patient is a chronic smoker, suspect the hematologic abnormalities to be secondary to medications versus evolving bone marrow disorder. Since patient continues to be asymptomatic, recommend ongoing monitoring of blood counts. 01/17/2022 - Noted the hematologic abnormalities of macrocytosis and thrombocytopenia. Reviewed work up - no evidence of nutritional deficiencies, denies use of alcohol. D.d includes MDS . However given normal h&h , recommend monitoring counts and if progressive cytopenias are noted , consider BM biopsy. 3. Tobacco use disorder- continues to smoke few cigarettes a day, completed low dose ct chest on 07/16/2020 - noted stability in the pulmonary nodules 05/19/2021 - Low dose ct due in june 2021, continues to make efforts at smoking cessation 09/15/2021, reviewed CT imaging from June 2021, noted stability in the nodules, encourage smoking cessation, reevaluate with low-dose CT in June 2022. 01/17/2022 return to clinic in 6 months with low-dose CT in June 2022 Thank you for the privilege of allowing me to participate in the care of Mata Betts. TANVIR ARNETT MD [employer] [place] documented in this encounter [facility] 12-09-2021 History of Present illness Narrative Anticoagulation Progress Note Date of Visit: December 09, 2021 Patient Name: Mata Betts : 1955 Age: 66 y.o. Mata Betts is here for an anticoagulation follow-up visit. INR obtained via POC finger stick device. Anticoagulation Summary As of 12/09/2021 INR goal: 2.0-3.0 TTR: 80.1 % (3.4 y) INR used for dosin.7 (12/09/2021) Warfarin maintenance plan: 2.5 mg (5 mg x 0.5) every e, Shruti, Sat; 5 mg (5 mg x 1) all other days Weekly warfarin total: 27.5 mg Plan last modified: Laxmi Whitney RPh,PharmD (11/18/2021) Next INR check: 01/20/2022 Priority: Maintenance Target end date: Indefinite Indications Cerebrovascular disease (Resolved) [I67.9] PAD (peripheral artery disease) (HCC) [I73.9] Lab Results Component Value Date WBC 4.00 (L) 09/13/2021 HGB 15.1 09/13/2021 HCT 45.5 09/13/2021 MCV 102.9 (H) 09/13/2021 EXTMCV 100.2 (H) 05/30/2018 PLT 127 (L) 09/13/2021 RBC 4.42 (L) 09/13/2021 Lab Results Component Value Date CREATININE 0.85 05/16/2021 CREATININE 0.73 12/27/2017 Wt Readings from Last 3 Encounters: 11/29/21 59.9 kg (132 lb) 11/03/21 61.2 kg (134 lb 14.4 oz) 10/29/21 63.5 kg (140 lb) Ht Readings from Last 1 Encounters: 11/29/21 5' 8 Encounter Summary: ASSESSMENT: Patient Findings Negatives: Patient Reported Falls, Signs/symptoms of thrombosis, Signs/symptoms of bleeding, Laboratory test error suspected, Change in health, Change in alcohol use, Change in activity, Upcoming invasive procedure, Emergency department visit, Upcoming dental procedure, Missed doses, Extra doses, Change in medications, Change in diet/appetite, Hospital admission, Bruising, Other complaints Warfarin taken in the previous 7 days: 27.5 mg INR is therapeutic today. PLAN: Will continue weekly warfarin dose of 27.5 mg/week. Will check next INR in 6+ weeks unless there are any changes before then. Encouraged patient to contact clinic with any changes. Laxmi Whitney RPh,PharmD [facility] Dept: [phone] documented in this encounter [facility] 11-29-2021 Instructions Jeanna Duff MD - 11/29/2021 9:14 AM EDT Problem List Items Addressed This Visit Endocrine Mixed diabetic hyperlipidemia associated with type 2 diabetes mellitus (HCC) Chronic, stable, Continue meds as prescribed, watch diet, and increase activity as able to tolerate. Diabetes mellitus (HCC) - Primary Chronic, Stable, continue meds, watch diet, increase activity as can tolerate. Monitor BS as instructed. Bring blood sugar log to next visit. Get A1C drawn today. Relevant Orders Hemoglobin A1c Respiratory Pulmonary emphysema (HCC) Relevant Medications fluticasone propion-salmeteroL (ADVAIR DISKUS) 250-50 mcg/dose diskus inhaler albuterol sulfate (ProAir RespiClick) 90 mcg/actuation AePB Cardiovascular and Mediastinum Benign essential hypertension Chronic, Stable, continue meds, increase activity as can tolerate, limit salt, and watch diet. Continue to monitor BP at home as instructed. Bring blood pressure log and cuff to next visit. PAD (peripheral artery disease) (HCC) Chronic, stable, asymptomatic, see Vascular as prescribed. Musculoskeletal and Integument DDD (degenerative disc disease), lumbosacral Chronic, stable, off meds, monitor condition, if worsens let me know. Other Erectile dysfunction Chronic, will have call [facility] to find out the dosing and what he is getting. If any referrals were placed at the time of your visit please allow 2 weeks for processing. If you haven't heard from anyone within 2 weeks please contact my office so we can look into the status of your referral. If you were given any labs today please ensure they are completed according to the directions given. Once labs are completed please allow 1-2 weeks for us to receive the results, review them, and let you know what steps, if any, are needed next. If you haven't heard from us after that please call to inquire. If labs were ordered to be done PRIOR to your next visit we will discuss the results at the time of your office visit. If any procedures or imaging studies were ordered that must be prior authorized please give us 2 weeks to get them approved. Once approved someone should call you to schedule them or give you a date and time that they were scheduled for. If you haven't heard anything within 2 weeks of the office visit please call the office so we can look into their status. documented in this encounter [facility] 11-29-2021 Evaluation + Plan note Associated Problem(s): Erectile dysfunction Chronic, will have call [facility] to find out the dosing and what he is getting. [facility] 11-29-2021 Miscellaneous Notes Associated Problem(s): Erectile dysfunction Chronic, will have call [employer] to find out the dosing and what he is getting. Associated Problem(s): DDD (degenerative disc disease), lumbosacral Chronic, stable, off meds, monitor condition, if worsens let me know. Associated Problem(s): PAD (peripheral artery disease) (HCC) Chronic, stable, asymptomatic, see Vascular as prescribed. Associated Problem(s): Benign essential hypertension Chronic, Stable, continue meds, increase activity as can tolerate, limit salt, and watch diet. Continue to monitor BP at home as instructed. Bring blood pressure log and cuff to next visit. Associated Problem(s): Mixed diabetic hyperlipidemia associated with type 2 diabetes mellitus (HCC) Chronic, stable, Continue meds as prescribed, watch diet, and increase activity as able to tolerate. Associated Problem(s): Diabetes mellitus (HCC) Chronic, Stable, continue meds, watch diet, increase activity as can tolerate. Monitor BS as instructed. Bring blood sugar log to next visit. Get A1C drawn today. documented in this encounter [facility] 11-29-2021 Evaluation + Plan note Associated Problem(s): DDD (degenerative disc disease), lumbosacral Chronic, stable, off meds, monitor condition, if worsens let me know. [facility] 11-29-2021 Evaluation + Plan note Associated Problem(s): PAD (peripheral artery disease) ([facility]) Chronic, stable, asymptomatic, see Vascular as prescribed. [facility] 11-29-2021 Evaluation + Plan note Associated Problem(s): Benign essential hypertension Chronic, Stable, continue meds, increase activity as can tolerate, limit salt, and watch diet. Continue to monitor BP at home as instructed. Bring blood pressure log and cuff to next visit. [facility] 11-29-2021 Evaluation + Plan note Associated Problem(s): Mixed diabetic hyperlipidemia associated with type 2 diabetes mellitus (HCC) Chronic, stable, Continue meds as prescribed, watch diet, and increase activity as able to tolerate. [facility] 11-29-2021 Evaluation + Plan note Associated Problem(s): Diabetes mellitus (HCC) Chronic, Stable, continue meds, watch diet, increase activity as can tolerate. Monitor BS as instructed. Bring blood sugar log to next visit. Get A1C drawn today. [facility] 11-29-2021 History of Present illness Narrative OFFICE VISIT PROGRESS NOTE HPI DM/HLD - Says at home Bs in the 95-110 range, Taking meds, no complaints, tolerating well. Says doing activity as tolerates. HTN/PAD - Says not watching BP regularly, says does fluctuate, but usually returns to normal with rest. Tolerating meds. Back Pain - Says that off the pain meds, just decided to quit. Says is seeing pain management. Back hurts but its tolerable. Says trying to moderate his activity. The following portions of the patient's history were reviewed and updated as appropriate: allergies, current medications and problem list. The patient's surgical, family, and social history was reviewed and updated as appropriate. Review of Systems Review of Systems Constitutional: Negative for activity change and fatigue. Respiratory: Negative for chest tightness, shortness of breath and wheezing. Cardiovascular: Negative for chest pain and palpitations. Musculoskeletal: Positive for arthralgias, back pain and myalgias. Psychiatric/Behavioral: Negative for agitation and dysphoric mood. Vitals: 11/29/21 0851 BP: 135/62 BP Location: Left arm Patient Position: Sitting BP Cuff Size: Adult Pulse: 64 Temp: 98.6 F (37 C) TempSrc: Oral SpO2: 94% Weight: 59.9 kg (132 lb) Height: 5' 8 Body mass index is 20.07 kg/m . Physical Exam Physical Exam Vitals and nursing note reviewed. Constitutional: Appearance: Normal appearance. He is well-developed. HENT: Head: Normocephalic and atraumatic. Cardiovascular: Rate and Rhythm: Normal rate and regular rhythm. Heart sounds: No murmur heard. Pulmonary: Effort: Pulmonary effort is normal. No respiratory distress. Breath sounds: Normal breath sounds. No wheezing. Skin: General: Skin is warm and dry. Neurological: Mental Status: He is alert and oriented to person, place, and time. Cranial Nerves: No cranial nerve deficit. Psychiatric: Mood and Affect: Mood normal. Behavior: Behavior normal. OARRS/NARxCHECK Report Received and Assessed: 04/29/2018 Date controlled substance agreement signed: No data found Date of last drug screen: No data found Functional Assessment: No data found Assessment/Plan Problem List Items Addressed This Visit Endocrine Mixed diabetic hyperlipidemia associated with type 2 diabetes mellitus (HCC) Chronic, stable, Continue meds as prescribed, watch diet, and increase activity as able to tolerate. Diabetes mellitus (HCC) - Primary Chronic, Stable, continue meds, watch diet, increase activity as can tolerate. Monitor BS as instructed. Bring blood sugar log to next visit. Get A1C drawn today. Relevant Orders Hemoglobin A1c Respiratory Pulmonary emphysema ([facility]) Relevant Medications fluticasone propion-salmeteroL (ADVAIR DISKUS) 250-50 mcg/dose diskus inhaler albuterol sulfate (ProAir RespiClick) 90 mcg/actuation AePB Cardiovascular and Mediastinum Benign essential hypertension Chronic, Stable, continue meds, increase activity as can tolerate, limit salt, and watch diet. Continue to monitor BP at home as instructed. Bring blood pressure log and cuff to next visit. PAD (peripheral artery disease) ([facility]) Chronic, stable, asymptomatic, see Vascular as prescribed. Musculoskeletal and Integument DDD (degenerative disc disease), lumbosacral Chronic, stable, off meds, monitor condition, if worsens let me know. Other Erectile dysfunction Chronic, will have call [facility] to find out the dosing and what he is getting. Goals None If any referrals were placed at today's visit the patient was instructed to call the office if they havn't heard anything about the referral within 2 weeks of today's visit. For any new medications prescribed today, patient was educated about indications for the medication, how to take the medication and potential side effects of the medications. documented in this encounter [facility] 11-18-2021 History of Present illness Narrative Images from the original note were not included. Anticoagulation Progress Note Date of Visit: November 18, 2021 Patient Name: Mata Betts : 1955 Age: 66 y.o. Mata Betts is here for an anticoagulation follow-up visit. INR obtained via POC finger stick device. Anticoagulation Summary As of 11/18/2021 INR goal: 2.0-3.0 TTR: 80.5 % (3.3 y) INR used for dosin.2 (11/18/2021) Warfarin maintenance plan: 2.5 mg (5 mg x 0.5) every e, Shruti, Sat; 5 mg (5 mg x 1) all other days Weekly warfarin total: 27.5 mg Plan last modified: Laxmi Whitney RPh,PharmD (11/18/2021) Next INR check: 12/09/2021 Priority: Maintenance Target end date: Indefinite Indications Cerebrovascular disease (Resolved) [I67.9] PAD (peripheral artery disease) (HCC) [I73.9] Lab Results Component Value Date WBC 4.00 (L) 09/13/2021 HGB 15.1 09/13/2021 HCT 45.5 09/13/2021 MCV 102.9 (H) 09/13/2021 EXTMCV 100.2 (H) 05/30/2018 PLT 127 (L) 09/13/2021 RBC 4.42 (L) 09/13/2021 Lab Results Component Value Date CREATININE 0.85 05/16/2021 CREATININE 0.73 12/27/2017 Wt Readings from Last 3 Encounters: 11/03/21 61.2 kg (134 lb 14.4 oz) 10/29/21 63.5 kg (140 lb) 09/15/21 62 kg (136 lb 11.2 oz) Ht Readings from Last 1 Encounters: 11/03/21 5' 8 Encounter Summary: ASSESSMENT: Patient Findings Positives: Other complaints (cutting back on smoking) Negatives: Patient Reported Falls, Signs/symptoms of thrombosis, Signs/symptoms of bleeding, Laboratory test error suspected, Change in health, Change in alcohol use, Change in activity, Upcoming invasive procedure, Emergency department visit, Upcoming dental procedure, Missed doses, Extra doses, Change in medications, Change in diet/appetite, Hospital admission, Bruising Warfarin taken in the previous 7 days: 30 mg INR is supratherapeutic today. This is secondary to changes in smoking. Patient reports that he is currently trying to cut back on smoking, which could explain the recent high INR's. PLAN: Will decrease weekly warfarin dose to 27.5 mg/week. This is an approximate 8% change from previous maintenance dosing regimen. Will check next INR in 3 weeks instead of usual 6 weeks unless there are any changes before then. Encouraged patient to contact clinic with any changes. Laxmi Whitney RPh,PharmD [facility] Dept: [phone] documented in this encounter [facility] 11-03-2021 History of Present illness Narrative Associated Order(s): Ear cerumen removal Post-Procedure Diagnose(s): Impacted cerumen of right ear Ear cerumen removal Date/Time: 11/03/2021 10:33 AM Performed by: Tha Long DO Authorized by: Tha Long DO Verbal consent: obtained Consent given by: patient Anesthesia: Local Anesthetic: none Location details: right ear Procedure Type: curette no residual material in ear post cerumen removal Patient sedated: no Patient tolerance: patient tolerated the procedure well with no immediate complications Comments: Patient required cerumen disimpaction by physician due to the consistency of the wax and external ear canal shape. With the patient in a slightly reclained position and head steady on the chair rest, utilizing the microscope, cerumen was found to be completely blocking the external earcanal and obscuring the tympanic membrane. Impacted cerumen then was removed from the ear canal on right using ear loop, alligator forceps and #5 suction tip. The canals and tympanic membranes then were visualized and found to be without acute/chronic pathology, laceration, ear drum perforation, or translucent middle ear pathology. Patient tolerated procedure well. Images from the original note were not included. Subjective Patient ID: Mata Betts is a 66 y.o. male. Patient is here for 10/29/2021 ED follow up of left ear bleeding. He reports it started on Sunday10/28/21. Pt reports no bleeding for the last two days. No pain. He illness or injury at onset. He is on Coumadin and Plavix. He states they noticed an abrasion in the ED. He does use q-tips. The following portions of the patient's history were reviewed and updated as appropriate: allergies, current medications, past family history, past medical history, past social history, past surgical history, and problem list. Review of Systems Constitutional: Negative for chills and diaphoresis. HENT: Negative for ear discharge and ear pain. Ear bleeding Eyes: Negative for discharge and redness. Respiratory: Negative for apnea and cough. Cardiovascular: Negative for chest pain and palpitations. Musculoskeletal: Negative for neck pain and neck stiffness. Skin: Negative for color change and pallor. Allergic/Immunologic: Negative for immunocompromised state. Neurological: Negative for facial asymmetry and numbness. Hematological: Does not bruise/bleed easily. Psychiatric/Behavioral: Negative for agitation and confusion. Objective Physical Exam Vitals and nursing note reviewed. Constitutional: Appearance: Normal appearance. He is well-developed. He is not ill-appearing. HENT: Head: Normocephalic and atraumatic. Right Ear: Tympanic membrane, ear canal and external ear normal. No drainage or swelling. Left Ear: Tympanic membrane, ear canal and external ear normal. No drainage or swelling. Ears: Comments: 4o'clock position left with cue tip use. Nose: Nose normal. No mucosal edema. Mouth/Throat: Lips: [place]. Mouth: Mucous membranes are moist. Dentition: Normal dentition. Pharynx: Uvula midline. No oropharyngeal exudate or posterior oropharyngeal erythema. Eyes: General: Lids are normal. Left eye: No discharge. Conjunctiva/sclera: Conjunctivae normal. Left eye: No chemosis. Pupils: Pupils are equal, round, and reactive to light. Neck: Thyroid: No thyroid mass or thyromegaly. Pulmonary: Breath sounds: No stridor. Musculoskeletal: Cervical back: Normal range of motion and neck supple. No edema. Normal range of motion. Neurological: Mental Status: He is alert. Psychiatric: Behavior: Behavior is cooperative. Assessment/Plan: Diagnoses and all orders for this visit: Anticoagulant long-term use Injury of left ear, initial encounter Discussed with patient the effects of using cue tips in their ears as it relates to itching and the purpose of wax in the canals. I have encourage the patient to stop using cue tips in their ear canals and, to help with ear canal itch, to use sweet oil (extra virgin olive oil) to the opening of the ear canals. This will help condition the ear canal skin and decrease the itch response. Cerumen impaction right I debrided the patient ear on right using the microscope and instrumentation including but not limited to alligator forceps, angled pick, and suction. The patient was in a reclined seated position and a #3 speculum was inserted in the external auditory canal to both protect the canal and provide visualization. The microcope was then utilized to provide visualization of the impaction and aid in removal. The patient tolerated the procedure well without injury to the external auditory canal or tympanic membrane. I will see them back as needed. documented in this encounter [facility] 11-03-2021 Instructions Tha Long DO - 11/03/2021 10:32 AM EDT Assessment/Plan: Diagnoses and all orders for this visit: Anticoagulant long-term use Injury of left ear, initial encounter Discussed with patient the effects of using cue tips in their ears as it relates to itching and the purpose of wax in the canals. I have encourage the patient to stop using cue tips in their ear canals and, to help with ear canal itch, to use sweet oil (extra virgin olive oil) to the opening of the ear canals. This will help condition the ear canal skin and decrease the itch response. Cerumen impaction right I debrided the patient ear on right using the microscope and instrumentation including but not limited to alligator forceps, angled pick, and suction. The patient was in a reclined seated position and a #3 speculum was inserted in the external auditory canal to both protect the canal and provide visualization. The microcope was then utilized to provide visualization of the impaction and aid in removal. The patient tolerated the procedure well without injury to the external auditory canal or tympanic membrane. I will see them back as needed. documented in this encounter [facility] 10-31-2021 History of Present illness Narrative Images from the original note were not included. Anticoagulation Progress Note Date of Visit: October 31, 2021 Patient Name: Mata Betts : 1955 Age: 66 y.o. Mata Betts is here for an anticoagulation follow-up visit. INR obtained via POC finger stick device. Anticoagulation Summary As of 10/31/2021 INR goal: 2.0-3.0 TTR: 81.7 % (3.3 y) INR used for dosin.2 (10/31/2021) Warfarin maintenance plan: 2.5 mg (5 mg x 0.5) every Tue, Sat; 5 mg (5 mg x 1) all other days Weekly warfarin total: 30 mg Plan last modified: Laxmi Whitney RPh,PharmD (08/01/2018) Next INR check: 11/18/2021 Priority: Maintenance Target end date: Indefinite Indications Cerebrovascular disease (Resolved) [I67.9] PAD (peripheral artery disease) (HCC) [I73.9] Lab Results Component Value Date WBC 4.00 (L) 09/13/2021 HGB 15.1 09/13/2021 HCT 45.5 09/13/2021 MCV 102.9 (H) 09/13/2021 EXTMCV 100.2 (H) 05/30/2018 PLT 127 (L) 09/13/2021 RBC 4.42 (L) 09/13/2021 Lab Results Component Value Date CREATININE 0.85 05/16/2021 CREATININE 0.73 12/27/2017 Wt Readings from Last 3 Encounters: 10/29/21 63.5 kg (140 lb) 09/15/21 62 kg (136 lb 11.2 oz) 08/16/21 63.6 kg (140 lb 3.2 oz) Ht Readings from Last 1 Encounters: 10/29/21 5' 8 Encounter Summary: ASSESSMENT: Patient Findings Positives: Signs/symptoms of bleeding (slight bleeding from ear for past few days), Emergency department visit (10/29 for bleeding from ear) Negatives: Patient Reported Falls, Signs/symptoms of thrombosis, Laboratory test error suspected, Change in health, Change in alcohol use, Change in activity, Upcoming invasive procedure, Upcoming dental procedure, Missed doses, Extra doses, Change in medications, Change in diet/appetite, Hospital admission, Bruising, Other complaints Patient in a few weeks early due to bleeding from his ear. Was seen in the ED 10/29 but no INR done. Sees ENT Dr. Long later this week. Warfarin taken in the previous 7 days: 30 mg INR is supratherapeutic today, slightly above range at 3.2 for no apparent reason. No changes in medication or diet. No alcohol. Has been stable on this dose with occasional fluctuations. PLAN: Will give a onetime dose of 0 mg today and then continue weekly warfarin dose of 30 mg/week. Will check next INR in 2.5 weeks at his previously scheduled appt unless there are any changes before then. Encouraged patient to contact clinic with any changes. Jesse Leong RPh,PharmD [facility] Dept: [phone] documented in this encounter [facility] 09-15-2021 History of Present illness Narrative Clinic follow up note PATIENT: Mata Betts : 1955 AGE: 66 y.o. SEX: male RACE: [1] PCP: Jeanna Duff MD REFERRAL: No ref. provider found HPI Presents in f/u. Has not had any major nosebleed since October. Feels well for the most part. Anti hypetensives have been adjusted recently. HEMATOLOGIC HX Pt has a h/o WA at age 31 , CABG at 31 yrs of age, several ministrokes, stroke post aneurysm clipping in 2008 while on aspirin and plavix. Patient has h/o severe PAD. Is a chronic smoker. Admitted to the hospital in August 2011 with symptoms suggestive of subacute cerebrovascular ischemic accident. 09/10/2011, CT of the brain without contrast demonstrates an area along the right posterior parietal lobe that exhibits loss of gonzalez-white matter differentiation, concerning for acute to subacute infarct, left frontal and temporal postsurgical changes without evidence of acute intracranial hemorrhage. Was initially evaluated in 2011 in the hematology clinic and hypercoagulable work up that was negative .prothrombin gene mutation and factor V Leiden mutation was negative on 09/03/2011, protein C,S and lupus anticoagulant testing was negative. Antithrombin level was slightly lower than normal. Given the history, was placed on coumadin in late 2011, since being on coumadin ,has not had any neurologic or cardiovascular event. 04/30/2017 completely normal total white cell count, H&H, MCV is 100.6, platelet count is 106k. Vitamin B12 and folate within normal limits, peripheral smear evaluation demonstrates granulocytes with pelgeroid changes. 05/08/17- Bone marrow biopsy and aspiration -Normocellular marrow (35%) with trilineage hematopoiesis and neutrophils with Pelgeroid change. Thrombocytopenia and macrocytic RBCs. Cytogenetics demonstrates loss of Y chromosome. No clear evidence of MDS at this time. 03/25/18- Low dose ct scan- 1. Stable bilateral solid lung nodules measuring up to 4 mm in mean diameter. No new or enlarging lung nodules. 2. Mild emphysema. 3. Status post coronary artery bypass grafting. 02/28/19- Low dose ct chest- 1. No new or enlarging pulmonary nodules are present. Stable subcentimeter pulmonary nodules are again identified. 2. Mild emphysema. Lung-RADs 2 11/18/2015- Colonoscopy- Diverticulosis and external hemorrhoids. ALLERGIES No Known Allergies [facility] has a current medication list which includes the following prescription(s): amitriptyline, atorvastatin, breo ellipta, clopidogrel, fluticasone propion-salmeterol, furosemide, lisinopril, metoprolol succinate, naloxone, nitroglycerin, onetouch delica lancets, onetouch verio flex meter, onetouch verio test strips, oxycodone, ayr saline, tadalafil, ventolin hfa, and warfarin. PMH/PSH Past Medical History: Diagnosis Date Aneurysm (HCC) brain x2 Arteriosclerotic cardiovascular disease direct coronary bypass x 2, 06/23/86 CAD (coronary artery disease) Cerebral aneurysm Cerebral aneurysm Cerebral vascular disease Chronic lung disease Deep vein thrombosis (DVT) (HCC) leg, date unknown Diabetes mellitus (HCC) Dyslipidemia Hyperlipidemia Hypertension Ischemic cardiomyopathy Myocardial infarction (HCC) PAD (peripheral artery disease) (HCC) PAD (peripheral artery disease) (HCC) PVD (peripheral vascular disease) ([facility]) Stroke ([facility]) Past Surgical History: Procedure Laterality Date abd angio r/o eriberto newborn hearing screener 2006 L common & external iliac art abd angio r/o newborn hearing screener stent eriberto iliac art 2006 ARTERIAL ANEURYSM REPAIR Lt sideof brain CARDIAC CATHETERIZATION 07/20/2010 EF 35% CARDIAC CATHETERIZATION 11/22/2006 EF 45% CARDIAC CATHETERIZATION 05/11/2004 EF 55% CARDIAC CATHETERIZATION 08/14/2003 EF 55% CARDIAC CATHETERIZATION 07/09/2003 CARDIAC CATHETERIZATION 02/16/2003 CARDIAC CATHETERIZATION 10/03/2002 CARDIAC CATHETERIZATION 11/05/2001 CARDIAC CATHETERIZATION 07/04/2001 CARDIAC CATHETERIZATION 09/19/2000 CARDIAC CATHETERIZATION 05/10/2000 CARDIAC CATHETERIZATION 12/23/1999 CARDIAC CATHETERIZATION 12/06/1995 CARDIAC CATHETERIZATION 12/27/1990 CARDIAC CATHETERIZATION 04/27/1987 CARDIAC CATHETERIZATION 06/16/1986 CARDIAC CATHETERIZATION 11/13/2002 CATARACT EXTRACTION, BILATERAL Bilateral CEREBRAL ANEURYSM REPAIR 2017 bilateral CEREBRAL ANGIOGRAM CORONARY ANGIOPLASTY 02/16/2003 SVG to Marginal Proximal CORONARY ANGIOPLASTY 08/23/2000 SVG to Proximal CX CORONARY ANGIOPLASTY 05/10/2000 Proximal SVG to CX-OM CORONARY ANGIOPLASTY WITH STENT PLACEMENT 05/11/2004 RACHELL SVG to CX-OM, SVG to SHARAN, Ostial SVG to OM CORONARY ANGIOPLASTY WITH STENT PLACEMENT 07/09/2003 RACHELL SVG to OM, SVG to CX-OM CORONARY ANGIOPLASTY WITH STENT PLACEMENT 11/13/2002 PTCA/Stent of SVG TO CX Proximal CORONARY ANGIOPLASTY WITH STENT PLACEMENT 10/03/2002 RACHELL Distal LMCA CORONARY ARTERY BYPASS GRAFT 06/23/1986 x2 EPISTAXIS N/A 07/12/2020 Procedure: CONTROL OF EPISTAXIS; Surgeon: Tha Long DO; Location: Main OR; Service: Otolaryngology HEMORRHOIDECTOMY HERNIA REPAIR 1977 ROTATOR CUFF REPAIR Left 2002 Family History Problem Relation Age of Onset Heart disease Mother Stroke Mother Hyperlipidemia Mother Hypertension Mother Coronary artery disease Mother Heart attack Father Stroke Father Heart disease Father Coronary artery disease Father Hyperlipidemia Father Hypertension Father Heart disease Sister 8 sisters Coronary artery disease Sister Heart disease Brother 4 brothers Cancer Brother lung 1 brother COPD Brother Heart disease Son Cancer Brother Cancer Brother Lug Early Brother Early Brother Mental illness Son SH Social History Socioeconomic History Marital status: Spouse name: [place] Number of children: 5 Highest education level: 10th grade Occupational History Employer: [employer] Tobacco Use Smoking status: Every Day Packs/day: 0.25 Years: 45.00 Pack years: 11.25 Types: Cigarettes Smokeless tobacco: Never Vaping Use Vaping Use: Never used Substance and Sexual Activity Alcohol use: No Drug use: No Sexual activity: Not Currently Partners: Female ROS Review of Systems Constitutional: Negative. HENT: Negative. Eyes: Negative. Respiratory: Negative. Cardiovascular: Negative. Gastrointestinal: Negative. Endocrine: Negative. Genitourinary: Negative. Musculoskeletal: Negative. Skin: Negative. Neurological: Negative. Hematological: Negative. Psychiatric/Behavioral: Negative. EXAM BP (!) 162/77 (BP Location: Right arm) Pulse 64 Temp 97.7 F (36.5 C) (Oral) Ht 5' 8 Wt 62 kg (136 lb 11.2 oz) SpO2 95% BMI 20.79 kg/m Physical Exam Constitutional: Appearance: He is well-developed. HENT: Head: Normocephalic and atraumatic. Eyes: Conjunctiva/sclera: Conjunctivae normal. Pupils: Pupils are equal, round, and reactive to light. Cardiovascular: Rate and Rhythm: Normal rate and regular rhythm. Pulmonary: Effort: Pulmonary effort is normal. Breath sounds: Normal breath sounds. Abdominal: General: Bowel sounds are normal. Palpations: Abdomen is soft. Musculoskeletal: General: Normal range of motion. Cervical back: Normal range of motion and neck supple. Skin: General: Skin is warm and dry. Neurological: Mental Status: He is alert and oriented to person, place, and time. Deep Tendon Reflexes: Reflexes are normal and symmetric. Psychiatric: Behavior: Behavior normal. Thought Content: Thought content normal. Judgment: Judgment normal. LABS / IMAGING Reviewed prior labs IMPRESSION 65 year-old chronic smoker, history of cerebral aneurysm status post clipping in 2008, with recent increase in size of the aneurysm, plan for an angiogram, on chronic anticoagulation secondary to history of recurrent stroke, felt to be embolic , noted to have chronic thrombocytopenia with pelgeroid changes in the granulocytes, bm biopsy and aspiration unremarkable ,s/p aneurysmal clipping, on halfway anticoagulation ASSESSMENT / PLAN 1. Hypercoagulable condition with recurrent episodes of cva, on halfway anticoagulation, continue Coumadin. 2. Thrombocytopenia and macrocytosis -MDs ruled out , prior bone marrow biopsy in 2018 , discussed the findings, potential evolution in future, obtained after the visit demonstrate resolution of the macrocytosis, mild improvement in platelet count, will reevaluate with counts in 6 months. 05/19/2021 - Reviewed recent counts - h&h improved, mild macrocytosis , iron stores much improved. May discontinue iron supplementation 09/15/2021 noted the hematologic abnormalities of macrocytic features with leukopenia and thrombocytopenia, H&H is within normal limits, patient is a chronic smoker, suspect the hematologic abnormalities to be secondary to medications versus evolving bone marrow disorder. Since patient continues to be asymptomatic, recommend ongoing monitoring of blood counts. 3. Tobacco use disorder- continues to smoke few cigarettes a day, completed low dose ct chest on 07/16/2020 - noted stability in the pulmonary nodules 05/19/2021 - Low dose ct due in june 2021, continues to make efforts at smoking cessation 09/15/2021, reviewed CT imaging from June 2021, noted stability in the nodules, encourage smoking cessation, reevaluate with low-dose CT in June 2022. Thank you for the privilege of allowing me to participate in the care of Mata Betts. TANVIR ARNETT MD [employer] [place] documented in this encounter [facility] 08-26-2021 History of Present illness Narrative Anticoagulation Progress Note Date of Visit: August 26, 2021 Patient Name: Mata Betts : 1955 Age: 66 y.o. Mata Betts is here for an anticoagulation follow-up visit. INR obtained via POC finger stick device. Anticoagulation Summary As of 08/26/2021 INR goal: 2.0-3.0 TTR: 81.1 % (3.1 y) INR used for dosin.0 (08/26/2021) Warfarin maintenance plan: 2.5 mg (5 mg x 0.5) every Tue, Sat; 5 mg (5 mg x 1) all other days Weekly warfarin total: 30 mg Plan last modified: Laxmi Whitney [facility],PharmD (08/01/2018) Next INR check: 10/07/2021 Priority: Maintenance Target end date: Indefinite Indications Cerebrovascular disease (Resolved) [I67.9] PAD (peripheral artery disease) (HCC) [I73.9] Lab Results Component Value Date WBC 6.43 05/16/2021 HGB 16.6 05/16/2021 HCT 49.0 05/16/2021 MCV 100.2 (H) 05/16/2021 EXTMCV 100.2 (H) 05/30/2018 PLT 120 (L) 05/16/2021 RBC 4.89 05/16/2021 Lab Results Component Value Date CREATININE 0.85 05/16/2021 CREATININE 0.73 12/27/2017 Wt Readings from Last 3 Encounters: 08/16/21 63.6 kg (140 lb 3.2 oz) 07/25/21 62.1 kg (136 lb 12.8 oz) 06/01/21 62.7 kg (138 lb 4.8 oz) Ht Readings from Last 1 Encounters: 08/16/21 5' 8 Encounter Summary: ASSESSMENT: Patient Findings Positives: Change in medications (antibiotics and steroids - guessing levaquin and prednisone) Negatives: Patient Reported Falls, Signs/symptoms of thrombosis, Signs/symptoms of bleeding, Laboratory test error suspected, Change in health, Change in alcohol use, Change in activity, Upcoming invasive procedure, Emergency department visit, Upcoming dental procedure, Missed doses, Extra doses, Change in diet/appetite, Hospital admission, Bruising, Other complaints Warfarin taken in the previous 7 days: 30 mg INR is therapeutic at 3 today. Today Mata Betts a 66 y.o. male was seen at the [facility]. He confirmed the dose of warfarin. He said since 08/16 he has been taking an antibiotic and a steroid. He has 2 more days remaining on them. He was unsure of the antibiotic, but looking in his chart, it appears that he was taking Levaquin and a prednisone taper. INR is in range. Will continue with the same dose of warfarin for now. Patient has stable on this dose since July 2018. PLAN: 1. Will continue weekly warfarin dose of 30 mg/week. 2. Will check next INR in another 6+ weeks unless there are any changes before then. 3. Encouraged patient to contact clinic with any changes. Consuelo Painting RPh,PharmD [facility] Dept: [phone] documented in this encounter [facility] 08-26-2021 Instructions Consuelo Painting RPh,PharmD - 08/26/2021 7:44 AM EDT If you experience any of the following symptoms within 24 hours of your next appointment, or you have been in close contact with anyone confirmed or suspected to have coronavirus/COVID-19 in the past 10 days please call us to reschedule at Dept: [phone]. Fever Cough Shortness of breath Difficulty breathing Chills Repeated shaking with chills Muscle pain Headache Sore throat Any loss of taste or smell Nausea, vomiting or diarrhea If you are screened positive for any of the above upon entering the building, please call us at Dept: [phone] for further instructions before you proceed to the clinic. Thank you for adhering to our precautions to keep our patients and providers safe! documented in this encounter [facility] 08-16-2021 Instructions Jeanna Duff MD - 08/16/2021 2:34 PM EDT Problem List Items Addressed This Visit None Visit Diagnoses COPD with acute exacerbation (HCC) - Primary Acute flare, take steroids and levaquin, if not ebtter let me know. Relevant Medications Breo Ellipta 100-25 mcg/dose DsDv predniSONE (DELTASONE) 10 MG tablet levoFLOXacin (LEVAQUIN) 500 MG tablet If any referrals were placed at the time of your visit please allow 2 weeks for processing. If you haven't heard from anyone within 2 weeks please contact my office so we can look into the status of your referral. If you were given any labs today please ensure they are completed according to the directions given. Once labs are completed please allow 1-2 weeks for us to receive the results, review them, and let you know what steps, if any, are needed next. If you haven't heard from us after that please call to inquire. If labs were ordered to be done PRIOR to your next visit we will discuss the results at the time of your office visit. If any procedures or imaging studies were ordered that must be prior authorized please give us 2 weeks to get them approved. Once approved someone should call you to schedule them or give you a date and time that they were scheduled for. If you haven't heard anything within 2 weeks of the office visit please call the office so we can look into their status. documented in this encounter [facility] 08-16-2021 History of Present illness Narrative OFFICE VISIT PROGRESS NOTE HPI Cough - Says tried z-wendy as of 07/25, says still with issues around SOB, mucus production, cough. No fevers, chills, nausea or vomiting. Using neb and rescue inhaler 4x daily which is abnormal. The following portions of the patient's history were reviewed and updated as appropriate: allergies, current medications and problem list. The patient's surgical, family, and social history was reviewed and updated as appropriate. Review of Systems Review of Systems Constitutional: Negative for activity change and fatigue. Respiratory: Negative for chest tightness, shortness of breath and wheezing. Cardiovascular: Negative for chest pain and palpitations. Psychiatric/Behavioral: Negative for agitation and dysphoric mood. Vitals: 08/16/21 1429 08/16/21 1430 BP: (!) 154/72 (!) 164/74 BP Location: Right arm Left arm Patient Position: Sitting Sitting BP Cuff Size: Adult Adult Pulse: 70 Temp: 97.9 F (36.6 C) TempSrc: Oral SpO2: 97% Weight: 63.6 kg (140 lb 3.2 oz) Height: 5' 8 Body mass index is 21.32 kg/m . Physical Exam Physical Exam Vitals and nursing note reviewed. Constitutional: Appearance: He is well-developed. HENT: Head: Normocephalic and atraumatic. Cardiovascular: Rate and Rhythm: Normal rate and regular rhythm. Heart sounds: No murmur heard. Pulmonary: Effort: Pulmonary effort is normal. No respiratory distress. Breath sounds: Normal breath sounds. No wheezing. Skin: General: Skin is warm and dry. Neurological: Mental Status: He is alert and oriented to person, place, and time. Cranial Nerves: No cranial nerve deficit. Psychiatric: Behavior: Behavior normal. OARRS/NARxCHECK Report Received and Assessed: 04/29/2018 Date controlled substance agreement signed: No data found Date of last drug screen: No data found Functional Assessment: No data found Assessment/Plan Problem List Items Addressed This Visit None Visit Diagnoses COPD with acute exacerbation (HCC) - Primary Acute flare, take steroids and levaquin, if not ebtter let me know. Relevant Medications Breo Ellipta 100-25 mcg/dose DsDv predniSONE (DELTASONE) 10 MG tablet levoFLOXacin (LEVAQUIN) 500 MG tablet Goals None If any referrals were placed at today's visit the patient was instructed to call the office if they havn't heard anything about the referral within 2 weeks of today's visit. For any new medications prescribed today, patient was educated about indications for the medication, how to take the medication and potential side effects of the medications. documented in this encounter [facility] 08-01-2021 Instructions Charisse Painting CNP - 08/01/2021 12:02 PM EDT 1. Upper respiratory tract infection, unspecified type azithromycin (Z-WENDY) 5 day dose pack predniSONE (DELTASONE) 20 MG tablet stop cold medication. Start Z Wendy x5 days. Start claritin or steven and flonase OTC to help with congestions. The following attachments cannot be sent through Care Everywhere.URI (Upper Respiratory Infection) (Bulgarian)Hypertension: General Info (Bulgarian)documented in this encounter [facility] 2021 History of Present illness Narrative OFFICE VISIT PROGRESS NOTE HPI Sinus congestion- 4-5 days of symptoms. No fever. Post nasal drainage . Clear sputum HTN- he reports his BP is always all over place. He states he has not had his BP medication yet today. He takes medication when he eats- usually at lunch. The following portions of the patient's history were reviewed and updated as appropriate: allergies, current medications and problem list. Family History Problem Relation Age of Onset Heart disease Mother Stroke Mother Hyperlipidemia Mother Hypertension Mother Coronary artery disease Mother Heart attack Father Stroke Father Heart disease Father Coronary artery disease Father Hyperlipidemia Father Hypertension Father Heart disease Sister 8 sisters Coronary artery disease Sister Heart disease Brother 4 brothers Cancer Brother lung 1 brother COPD Brother Heart disease Son Cancer Brother Cancer Brother Lug Early Brother Early Brother Mental illness Son Social History Socioeconomic History Marital status: Spouse name: [place] Number of children: 5 Highest education level: 10th grade Occupational History Employer: [employer] Tobacco Use Smoking status: Current Every Day Smoker Packs/day: 0.25 Years: 45.00 Pack years: 11.25 Types: Cigarettes Smokeless tobacco: Never Used Vaping Use Vaping Use: Never used Substance and Sexual Activity Alcohol use: No Drug use: No Sexual activity: Not Currently Partners: Female Social Determinants of Health Financial Resource Strain: Low Risk Difficulty of Paying Living Expenses: Not hard at all Food Insecurity: No Food Insecurity Worried About Running Out of Food in the Last Year: Never true Ran Out of Food in the Last Year: Never true Transportation Needs: No Transportation Needs Lack of Transportation (Medical): No Lack of Transportation (Non-Medical): No Physical Activity: Sufficiently Active Days of Exercise per Week: 7 days Minutes of Exercise per Session: 30 min Stress: No Stress Concern Present Feeling of Stress : Not at all Social Connections: Unknown Marital Status: Past Surgical History: Procedure Laterality Date abd angio r/o eriberto newborn hearing screener 2007 L common & external iliac art abd angio r/o newborn hearing screener stent eriberto iliac art 2006 ARTERIAL ANEURYSM REPAIR Lt sideof brain CARDIAC CATHETERIZATION 07/20/2010 EF 35% CARDIAC CATHETERIZATION 11/22/2006 EF 45% CARDIAC CATHETERIZATION 05/11/2004 EF 55% CARDIAC CATHETERIZATION 08/14/2003 EF 55% CARDIAC CATHETERIZATION 07/09/2003 CARDIAC CATHETERIZATION 02/16/2003 CARDIAC CATHETERIZATION 10/03/2002 CARDIAC CATHETERIZATION 11/05/2001 CARDIAC CATHETERIZATION 07/04/2001 CARDIAC CATHETERIZATION 09/19/2000 CARDIAC CATHETERIZATION 05/10/2000 CARDIAC CATHETERIZATION 12/23/1999 CARDIAC CATHETERIZATION 12/06/1995 CARDIAC CATHETERIZATION 12/27/1990 CARDIAC CATHETERIZATION 04/27/1987 CARDIAC CATHETERIZATION 06/16/1986 CARDIAC CATHETERIZATION 11/13/2002 CATARACT EXTRACTION, BILATERAL Bilateral CEREBRAL ANEURYSM REPAIR 2017 bilateral CEREBRAL ANGIOGRAM CORONARY ANGIOPLASTY 02/16/2003 SVG to Marginal Proximal CORONARY ANGIOPLASTY 08/23/2000 SVG to Proximal CX CORONARY ANGIOPLASTY 05/10/2000 Proximal SVG to CX-OM CORONARY ANGIOPLASTY WITH STENT PLACEMENT 05/11/2004 RACHELL SVG to CX-OM, SVG to SHARAN, Ostial SVG to OM CORONARY ANGIOPLASTY WITH STENT PLACEMENT 07/09/2003 RACHELL SVG to OM, SVG to CX-OM CORONARY ANGIOPLASTY WITH STENT PLACEMENT 11/13/2002 PTCA/Stent of SVG TO CX Proximal CORONARY ANGIOPLASTY WITH STENT PLACEMENT 10/03/2002 RACHELL Distal LMCA CORONARY ARTERY BYPASS GRAFT 06/23/1986 x2 EPISTAXIS N/A 07/12/2020 Procedure: CONTROL OF EPISTAXIS; Surgeon: Tha Long DO; Location: Main OR; Service: Otolaryngology HEMORRHOIDECTOMY HERNIA REPAIR 1977 ROTATOR CUFF REPAIR Left 2002 No Known Allergies Review of Systems Review of Systems Constitutional: Negative. HENT: Positive for congestion, postnasal drip and rhinorrhea. Respiratory: Negative. Cardiovascular: Negative. Gastrointestinal: Negative. Genitourinary: Negative. Musculoskeletal: Negative. Skin: Negative. Psychiatric/Behavioral: Negative. Vitals: 07/25/21 1024 07/25/21 1027 BP: (!) 170/71 (!) 188/72 BP Location: Left arm Left arm Patient Position: Sitting Sitting BP Cuff Size: Adult Adult Pulse: (!) 52 (!) 58 Temp: 97.7 F (36.5 C) TempSrc: Oral SpO2: 95% Weight: 62.1 kg (136 lb 12.8 oz) Height: 5' 8 Body mass index is 20.8 kg/m . Physical Exam Physical Exam Vitals and nursing note reviewed. Constitutional: General: He is not in acute distress. Appearance: Normal appearance. He is not ill-appearing. HENT: Head: Normocephalic. Right Ear: Ear canal and external ear normal. A middle ear effusion is present. Left Ear: Ear canal and external ear normal. A middle ear effusion is present. Nose: Mucosal edema, congestion and rhinorrhea present. Mouth/Throat: Mouth: Mucous membranes are moist. Pharynx: Oropharynx is clear. Eyes: Extraocular Movements: Extraocular movements intact. Conjunctiva/sclera: Conjunctivae normal. Pupils: Pupils are equal, round, and reactive to light. Cardiovascular: Rate and Rhythm: Normal rate and regular rhythm. Pulses: Normal pulses. Heart sounds: Normal heart sounds. Pulmonary: Effort: Pulmonary effort is normal. No respiratory distress. Breath sounds: Normal breath sounds. Abdominal: General: Bowel sounds are normal. There is no distension. Palpations: Abdomen is soft. There is no mass. Tenderness: There is no abdominal tenderness. Hernia: No hernia is present. Musculoskeletal: General: Normal range of motion. Cervical back: Normal range of motion. Skin: General: Skin is warm and dry. Capillary Refill: Capillary refill takes less than 2 seconds. Neurological: General: No focal deficit present. Mental Status: He is alert and oriented to person, place, and time. Cranial Nerves: No cranial nerve deficit. Sensory: No sensory deficit. Motor: No weakness. Coordination: Coordination normal. Gait: Gait normal. Psychiatric: Mood and Affect: Mood normal. Behavior: Behavior normal. Thought Content: Thought content normal. Judgment: Judgment normal. OARRS/NARxCHECK Report Received and Assessed: 04/29/2018 Date controlled substance agreement signed: No data found Date of last drug screen: No data found Functional Assessment: No data found Assessment/Plan Problem List Items Addressed This Visit None Visit Diagnoses Upper respiratory tract infection, unspecified type - Primary stop cold medication. Start Z Wendy x5 days. Start claritin or steven and flonase OTC to help with congestions. Relevant Medications azithromycin (Z-WENDY) 5 day dose pack Goals None If any referrals were placed at today's visit the patient was instructed to call the office if they havn't heard anything about the referral within 2 weeks of today's visit. For any new medications prescribed today, patient was educated about indications for the medication, how to take the medication and potential side effects of the medications. PHQ-9: HARPREET-7: SDoH: [place]: Colonoscopy: Mammo: PAP: COVID Vaccine: Done Flu Vaccine: Done documented in this encounter [facility] 07-21-2021 History of Present illness Narrative HPI: Mata V Betts Presents for evaluation and treatment of low back pain. Pain is described as Aching, Throbbing, Shooting and Stabbing and is rated 5/10. Pain is increased with walking and lifting and is relieved by pain medication, ice, lying down, heating pad and TENS unit. The patient denies numbness/tingling . he denies weakness . The patient denies bowel/bladder incontinence. The patient has not had Bilateral L4-5 L5-S1 FB #1 patient is scheduled on 08/01/21. Patient admits to having tobacco use. Audit-C Questionnaire 1. How often do you have a drink containing alcohol? (0) never 2. How many standard drinks containing alcohol do you have on a typical day? (0) 1 or 2 3. How often do you have six or more drinks on one occasion? (0) never *A score of 3 or more in women or 4 or more in men is a positive score that requires education. Current Outpatient Medications Medication Sig albuterol (PROAIR HFA) 108 (90 BASE) MCG/ACT IN AERS take 1 Puff by inhalation As needed for Wheezing. amitriptyline 25 MG tablet Take 25 mg by mouth Every night. atorvastatin 40 MG tablet Take 40 mg by mouth daily. clopidogrel (PLAVIX) 75 MG PO TABS take 1 Tab by mouth Every morning. furOSEmide 20 MG tablet Take 20 mg by mouth daily. lisinopril 20 MG tablet Take 20 mg by mouth daily. metoprolol succinate 50 MG tablet XL Take 50 mg by mouth daily. oxycodone (PERCOLONE) 5 MG PO TABS take 1 Tab by mouth 2 times daily. oxyCODONE 5 MG tablet Take 1 tablet by mouth 4 times daily as needed. tadalafil 10 MG tablet Take 10 mg by mouth Twice daily. warfarin 5 MG tablet Take 5 mg by mouth daily. Review of Systems: General: Denies fevers, chills, or night sweats Abdominal: Denies nausea, vomiting, diarrhea Respiratory: Denies cough, sputum production Genitourinary: Denies dysuria or frequency HPI: Mata Mary Betts Presents for evaluation and treatment of low back pain. Pain is described as Aching, Throbbing, Shooting and Stabbing and is rated 5/10. Pain is increased with walking and lifting and is relieved by pain medication, ice, lying down, heating pad and TENS unit. The patient denies numbness/tingling . he denies weakness . The patient denies bowel/bladder incontinence. The patient has not had Bilateral L4-5 L5-S1 FB #1 patient is scheduled on 08/01/21. Patient admits to having tobacco use. Audit-C Questionnaire 1. How often do you have a drink containing alcohol? (0) never 2. How many standard drinks containing alcohol do you have on a typical day? (0) 1 or 2 3. How often do you have six or more drinks on one occasion? (0) never *A score of 3 or more in women or 4 or more in men is a positive score that requires education. Current Outpatient Medications Medication Sig albuterol (PROAIR HFA) 108 (90 BASE) MCG/ACT IN AERS take 1 Puff by inhalation As needed for Wheezing. amitriptyline 25 MG tablet Take 25 mg by mouth Every night. atorvastatin 40 MG tablet Take 40 mg by mouth daily. clopidogrel (PLAVIX) 75 MG PO TABS take 1 Tab by mouth Every morning. furOSEmide 20 MG tablet Take 20 mg by mouth daily. lisinopril 20 MG tablet Take 20 mg by mouth daily. metoprolol succinate 50 MG tablet XL Take 50 mg by mouth daily. oxycodone (PERCOLONE) 5 MG PO TABS take 1 Tab by mouth 2 times daily. oxyCODONE 5 MG tablet Take 1 tablet by mouth 4 times daily as needed. tadalafil 10 MG tablet Take 10 mg by mouth Twice daily. warfarin 5 MG tablet Take 5 mg by mouth daily. 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 Has had multipe ANGIOPLASTY stent lower extremities HERNIA REPAIR ROTATOR CUFF REPAIR Psychological/Psychiatric History: The patient has not been evaluated by a psychiatrist or psychologist. Social History: Social History Socioeconomic History Marital status: Tobacco Use Smoking status: Current Every Day Smoker Packs/day: 0.50 Years: 35.00 Pack years: 17.50 Types: Cigarettes Tobacco comment: Highest 3 ppd Substance and Sexual Activity Alcohol use: No Drug use: No Family History: The patient denies any family history of autoimmune or connective tissue disorders. Physical Examination: Vitals: 07/21/21823 BP: 163/70 Pulse: 63 Resp: 20 Physical exam: Vitals: 07/21/21823 BP: 163/70 Pulse: 63 Resp: 20 Constitutional The patient is awake, alert, well developed, well nourished and well groomed. The patient is pleasant and cooperative. The patient is a good historian and is very helpful with the history and physical examination. Head The skull is normocephalic, atraumatic and without masses. The patient's facial expression and facial contours are normal; the parotid glands are not enlarged. The sinuses are non-tender. Palpation of the temporal and masseter muscles reveals normal strength of muscle contraction. There is symmetry of the nasolabial folds. There is no facial droop. Eyes The eyelids are without lesions. The sclera is white and the conjunctiva pink. No tearing noted at baseline. No scarring noted. ENT External inspection of ears and nose is without scars, lesions or masses. Hearing appears to be grossly intact. The nasal mucosa is pink and without discharge. The septum is midline. The turbinates are not enlarged. The buccal mucosa is pink; there is no cyanosis. The lips are normal color; there are no ulcers, masses or lesions. The mucosa of the oropharynx is moist, The tongue is midline, The pharynx is without exudates. The tonsils are not enlarged. Neck The neck is supple and the trachea is midline. No masses palpable. No erythema or visible venous distension. No scaring noted. Respiratory The patient is relaxed and breathes without effort. The patient is not cyanotic and does not use the accessory muscles of respiration. The chest expands symmetrically upon inspiration. Upon palpation of the chest wall there is no tenderness or masses. Cardiovascular Upon palpation of the chest wall there are no heaves, lifts, or thrills. There is no pitting edema of the lower extremities. There are no bruits. The peripheral artery pulses are equal and brisk. Extremities are warm Gastrointestinal The abdomen is soft and nontender; there is no guarding or rigidity. There are no palpable masses. There is no hepatosplenomegaly. There is no costovertebral angle (CVA) tenderness. Neurologic Cranial Nerves 2-12 are grossly intact. The deep tendon reflexes of the in bilateral lower extremities are symmetrical;. Plantar reflexes (Babinski): toes are downgoing. Cerebellar function is normal; Romberg's test is negative. The gait is normal. Sensory testing for pain (pinprick), light touch, and proprioception is diminished in L lower extremities in medial ankle. No ankle or wrist clonus present. Negative Varghese's sign. Motor in bilateral lower extremities is 5/5. Psychiatric The patient is oriented to person, place, and time. Speech is fluent and words are clear. Thought processes are coherent, insight is good. There are no obsessive, compulsive, phobic or delusional thoughts; there are no illusions or hallucinations. The patient's fund of knowledge: awareness of current events and past history is appropriate for age. The patient's higher cognitive functions are intact. The patient's mood is neutral and the affect appropriate MSK The patient has moderate difficulty transitioning from sitting to standing. The patient has a(n) antalgic gait. The lumbar spine demonstrates a flexion biased curve. There is no deformity to the lumbar spine. There is no abnormality in muscle tone in the lumbar spine. There is limitation with range of motion in the lumbar spine. Extension, rotation, and lateral bending are moderate limited. bilateral lumbar paraspinal tenderness, ESHA, thigh thrust, Gaenslen's, and Shamika's positive bilaterally, Tender to palpation over PSIS bilaterally and trigger points were noted in lumbar erector spinae muscles. Lumbar facet loading positive bilaterally, tender to palpation over bilateral facet joints. Empty can, lift off, and resistance to external rotation positive on left and cross arm test negative. Assessment: ICD-10-CM 1. Lumbar spondylosis M47.816 2. Sacroiliitis, not elsewhere classified M46.1 3. Myofascial pain M79.18 65 y/o M w/ PMHx of COPD, DM II with neuropathy, CAD and carotid stenosis on coumadin who presents for evaluation of whole body pain. We focused on his low back and left shoulder today. Previous patient of Dr. Swan, and I reviewed the notes from 2019 to 2020 today. Meds: oxycodone 5mg PO QID, has tried gabapentin, Lyrica, cymbalta, methocarbamol, NSAIDs (PO contrainidicated on plavix and coumadin), tizanidine, chlorzoxazone, doxepin Imaging: none recently PT: patient has tried in the past and refuses to do more now. The patient has had over 3 months of moderate to severe low back and left shoulder pain with functional impairment and inadequate response to conservative care including NSAIDS and home exercise program/physical therapy. Plan: 1. He is scheduled for bilateral lumbar facet blocks. He had to cancel the injections which are now rescheduled 2. They deny any new medical conditions or new medical diagnoses. They deny any side effects of their medication as in nausea, vomiting, constipation, injuries, or falls. Denies any loss of bowel or bladder. 3. If he does not have relief after the lumbar blocks and RFA, we may look to do bilateral SI joint injections/TPI's 4. Lumbar x-rays reviewed 5. The patient is using their controlled substance medication appropriately to increase activity and functional capacity. There are no signs of addiction or diversion. There are no significant side effects reported. OARRS report was reviewed and no abnormalities were identified. Medications were refilled as below: Requested Prescriptions Pending Prescriptions Disp Refills naloxone (Narcan) 4 MG/0.1ML 1 Each 0 Si spray by Nasal route once for 1 dose. 1 spray in nostril for opioid overdose. May repeat every 2-3 minutes as needed. oxyCODONE 5 MG tablet 120 tablet 0 Sig: Take 1 tablet by mouth 4 times daily as needed. oxyCODONE 5 MG tablet 120 tablet 0 Sig: Take 1 tablet by mouth 4 times daily as needed. I have discussed with the patient the risks of opioid pain medication including, respiratory depression, dependence, tolerance, addiction, brain dysfunction, immune dysfunction, increased risk of cancer, decreased steroid hormone production, and depression among others. The patient voices understanding. OARRS - The patient has been advised of the risks and benefits of these medications. OARRS report was reviewed with no advert or drug-seeking behaviors. Medication effectiveness and an evaluation of possible addiction are assessed on a regular basis by this provider. Pt denies any side effects of the medication. COMM, SOAPP, pain agreement, UDS, and Depression score are all available in Epic for review and are updated yearly. This medication affords the patient the ability to perform ADL's and recreational activities with less pain. 6. The patients narcan medication was sent to the pharmacy. The patient was prescribed Narcan due to combination of sedating medications with opioid medication. The patient was educated on the narcan medication and has no questions. 7. The patient identified through screening process as a tobacco user, this generated a brief counseling of less than 3 minutes between the provider and the patient about the benefits of ceasing tobacco use. Educational handout was provided following discussion 8. RTC for injections documented in this encounter [facility] 07-15-2021 History of Present illness Narrative Anticoagulation Progress Note Date of Visit: July 15, 2021 Patient Name: Mata Betts : 1955 Age: 65 y.o. Mata Betts is here for an anticoagulation follow-up visit. INR obtained via POC finger stick device. Anticoagulation Summary As of 07/15/2021 INR goal: 2.0-3.0 TTR: 80.3 % (3 y) INR used for dosin.8 (07/15/2021) Warfarin maintenance plan: 2.5 mg (5 mg x 0.5) every Tu, Sat; 5 mg (5 mg x 1) all other days Weekly warfarin total: 30 mg Plan last modified: Laxmi Whitney RPh,PharmD (08/01/2018) Next INR check: 08/26/2021 Priority: Maintenance Target end date: Indefinite Indications Cerebrovascular disease (Resolved) [I67.9] PAD (peripheral artery disease) (HCC) [I73.9] Lab Results Component Value Date WBC 6.43 05/16/2021 HGB 16.6 05/16/2021 HCT 49.0 05/16/2021 MCV 100.2 (H) 05/16/2021 EXTMCV 100.2 (H) 05/30/2018 PLT 120 (L) 05/16/2021 RBC 4.89 05/16/2021 Lab Results Component Value Date CREATININE 0.85 05/16/2021 CREATININE 0.73 12/27/2017 Wt Readings from Last 3 Encounters: 06/01/21 62.7 kg (138 lb 4.8 oz) 05/19/21 62.5 kg (137 lb 11.2 oz) 05/13/21 64.4 kg (142 lb) Ht Readings from Last 1 Encounters: 06/01/21 5' 8 Encounter Summary: ASSESSMENT: Patient Findings Positives: Upcoming invasive procedure (cataract surgery on 07/18) Negatives: Patient Reported Falls, Signs/symptoms of thrombosis, Signs/symptoms of bleeding, Laboratory test error suspected, Change in health, Change in alcohol use, Change in activity, Emergency department visit, Upcoming dental procedure, Missed doses, Extra doses, Change in medications, Change in diet/appetite, Hospital admission, Bruising, Other complaints Mata Betts is doing well today. Patient denies any changes in Medications or diet. Patient denies any bleeding or bruising issues. Patient denies any missed/extra doses. Patient is able to state his warfarin dosing regimen. Patient is having cataract surgery on 07/08/2021 but no warfarin therapy interruption is needed. Patient's INR is therapeutic today at 2.8 . We will have patient continue his current regimen of warfarin which is 5 mg everyday, except 2.5 mg on Tuesdays and Saturdays . Patient will return to clinic in 6 weeks to ensure INR is in therapeutic range. PLAN: 1. Will continue weekly warfarin dose of 30 mg/week. 2. Will check next INR in 6+ weeks unless there are any changes before then. 3. Encouraged patient to contact clinic with any changes. Deya Spicer RPh,PharmD [facility] Dept: [phone] documented in this encounter [facility] 07-01-2021 Telephone encounter Note Received refill request for atorvastatin 80 mg every day 90/3 plavix 75 mg every day /3. Pt's last OV was 04/08/21. Follow up is due yearly . [facility] 07-01-2021 Miscellaneous Notes Received refill request for atorvastatin 80 mg every day 90/3 plavix 75 mg every day 90/3. Pt's last OV was 04/08/21. Follow up is due yearly . documented in this encounter [facility] 06-20-2021 History of Present illness Narrative Anticoagulation Progress Note Date of Visit: June 20, 2021 Patient Name: Mata Betts : 1955 Age: 65 y.o. Mata Betts is here for an anticoagulation follow-up visit. INR obtained via POC finger stick device. Anticoagulation Summary As of 06/20/2021 INR goal: 2.0-3.0 TTR: 79.9 % (2.9 y) INR used for dosin.1 (06/20/2021) Warfarin maintenance plan: 2.5 mg (5 mg x 0.5) every Tue, Sat; 5 mg (5 mg x 1) all other days Weekly warfarin total: 30 mg Plan last modified: Laxmi Whitney [facility],PharmD (08/01/2018) Next INR check: 08/01/2021 Priority: Maintenance Target end date: Indefinite Indications Cerebrovascular disease (Resolved) [I67.9] PAD (peripheral artery disease) (HCC) [I73.9] Lab Results Component Value Date WBC 6.43 05/16/2021 HGB 16.6 05/16/2021 HCT 49.0 05/16/2021 MCV 100.2 (H) 05/16/2021 EXTMCV 100.2 (H) 05/30/2018 PLT 120 (L) 05/16/2021 RBC 4.89 05/16/2021 Lab Results Component Value Date CREATININE 0.85 05/16/2021 CREATININE 0.73 12/27/2017 Wt Readings from Last 3 Encounters: 06/01/21 62.7 kg (138 lb 4.8 oz) 05/19/21 62.5 kg (137 lb 11.2 oz) 05/13/21 64.4 kg (142 lb) Ht Readings from Last 1 Encounters: 06/01/21 5' 8 Encounter Summary: ASSESSMENT: Patient Findings Positives: Upcoming invasive procedure (cataract surgery 06/22, needs INR today) Negatives: Patient Reported Falls, Signs/symptoms of thrombosis, Signs/symptoms of bleeding, Laboratory test error suspected, Change in health, Change in alcohol use, Change in activity, Emergency department visit, Upcoming dental procedure, Missed doses, Extra doses, Change in medications, Change in diet/appetite, Hospital admission, Bruising, Other complaints Warfarin taken in the previous 7 days: 30 mg INR is therapeutic today. Patient having cataract procedure on one eye this week 06/[address] Cee at [facility], needed INR checked today. Did not have to stop warfarin. Likely will have procedure on other eye in several weeks but nothing scheduled yet. PLAN: 1. Will continue weekly warfarin dose of 30 mg/week. 2. Will check next INR in 6 weeks unless there are any changes before then. Has been very stable on this this dose. Patient will call for earlier appointment if needs INR checked just prior to next procedure. 3. Encouraged patient to contact clinic with any changes. Jesse Leong RPh,PharmD [facility] Dept: [phone] documented in this encounter [facility] 06-14-2021 Telephone encounter Note Patient states breathing meds need sent to [facility] of [facility]. Mata called for a refill Pending Prescriptions: Disp Refills Ventolin HFA 90 mcg/actuation inhaler 18 g 11 Sig: Inhale 2 (two) puffs every 6 (six) hours as needed for wheezing . fluticasone propion-salmeteroL (ADVAIR DI*60 each11 Sig: Inhale 1 (one) puff 2 (two) times a day . Last refill was 12/22/20 Last appt 12/22/20 Upcoming appt 11/29/21 Please send to [facility] [place] [phone] Please advise [facility] 06-14-2021 Miscellaneous Notes Patient states breathing meds need sent to [facility] of [facility]. Mata called for a refill Pending Prescriptions: Disp Refills Ventolin HFA 90 mcg/actuation inhaler 18 g 11 Sig: Inhale 2 (two) puffs every 6 (six) hours as needed for wheezing . fluticasone propion-salmeteroL (ADVAIR DI*60 each11 Sig: Inhale 1 (one) puff 2 (two) times a day . Last refill was 12/22/20 Last appt 12/22/20 Upcoming appt 11/29/21 Please send to [facility] [place] [phone] Please advise documented in this encounter [facility] 06-01-2021 Miscellaneous Notes Associated Problem(s): Osteoarthritis Chronic, stable, due to taking Percocet 3-4x daily and needing new doctor will send to pain management for further care and evaluation. Associated Problem(s): Pulmonary emphysema (HCC) Chronic, stable, continue inhalers, will monitor and follow, no exacerbation today. Associated Problem(s): Thrombocytopenia (HCC) Chronic, stable, asymptomatic, will monitor and follow. Associated Problem(s): PAD (peripheral artery disease) (HCC) Chronic, stable, asymptomatic, no new issues, continue meds, will monitor and follow. Associated Problem(s): Benign essential hypertension Chronic, Stable, continue meds, increase activity as can tolerate, limit salt, and watch diet. Continue to monitor BP at home as instructed. Bring blood pressure log and cuff to next visit. Associated Problem(s): Diabetes mellitus (HCC) Chronic, Stable, continue meds, watch diet, increase activity as can tolerate. Monitor BS as instructed. Bring blood sugar log to next visit. Get A1C drawn 1 week prior to next visit. Associated Problem(s): Type 2 diabetes mellitus with diabetic polyneuropathy, without long-term current use of insulin (HCC) Chronic, stable, controlled, continue meds, will monitor and follow. Associated Problem(s): Mixed diabetic hyperlipidemia associated with type 2 diabetes mellitus (HCC) Chronic, stable, Continue meds as prescribed, watch diet, and increase activity as able to tolerate. documented in this encounter [facility] 06-01-2021 Instructions Jeanna Duff MD - 06/01/2021 8:27 AM EST Problem List Items Addressed This Visit Endocrine Mixed diabetic hyperlipidemia associated with type 2 diabetes mellitus (HCC) Chronic, stable, Continue meds as prescribed, watch diet, and increase activity as able to tolerate. Type 2 diabetes mellitus with diabetic polyneuropathy, without long-term current use of insulin (HCC) Chronic, stable, controlled, continue meds, will monitor and follow. Relevant Orders POC Glycosylated Hemoglobin (Hb A1C) (Completed) Diabetes mellitus (HCC) Chronic, Stable, continue meds, watch diet, increase activity as can tolerate. Monitor BS as instructed. Bring blood sugar log to next visit. Get A1C drawn 1 week prior to next visit. Relevant Orders POC Glycosylated Hemoglobin (Hb A1C) (Completed) Hemoglobin A1c Respiratory Pulmonary emphysema (HCC) Chronic, stable, continue inhalers, will monitor and follow, no exacerbation today. Cardiovascular and Mediastinum Benign essential hypertension Chronic, Stable, continue meds, increase activity as can tolerate, limit salt, and watch diet. Continue to monitor BP at home as instructed. Bring blood pressure log and cuff to next visit. Relevant Orders CBC and Differential Comprehensive Metabolic Panel Lipid Panel Microalbumin/Creatinine Ratio, UR Random TSH with Reflex Free T4 PAD (peripheral artery disease) (HCC) Chronic, stable, asymptomatic, no new issues, continue meds, will monitor and follow. Musculoskeletal and Integument Osteoarthritis Chronic, stable, due to taking Percocet 3-4x daily and needing new doctor will send to pain management for further care and evaluation. Relevant Orders Ambulatory referral to Pain Medicine Other Thrombocytopenia (HCC) Chronic, stable, asymptomatic, will monitor and follow. Other Visit Diagnoses General medical exam - Primary Relevant Orders PSA, Total and Free Erectile dysfunction, unspecified erectile dysfunction type Relevant Medications tadalafiL (CIALIS) 10 MG tablet If any referrals were placed at the time of your visit please allow 2 weeks for processing. If you haven't heard from anyone within 2 weeks please contact my office so we can look into the status of your referral. If you were given any labs today please ensure they are completed according to the directions given. Once labs are completed please allow 1-2 weeks for us to receive the results, review them, and let you know what steps, if any, are needed next. If you haven't heard from us after that please call to inquire. If labs were ordered to be done PRIOR to your next visit we will discuss the results at the time of your office visit. If any procedures or imaging studies were ordered that must be prior authorized please give us 2 weeks to get them approved. Once approved someone should call you to schedule them or give you a date and time that they were scheduled for. If you haven't heard anything within 2 weeks of the office visit please call the office so we can look into their status. documented in this encounter [facility] 06-01-2021 History of Present illness Narrative OFFICE VISIT PROGRESS NOTE HPI HTN/PAD - Says not really checking at home. A little more stress due to getting twin grand-daughters custody. Intermittently checks BP. Still smoking. Says BP does go up and down. Sees Cardio regularly. Recent testing was ok. DM/HLD/Neuropathy - Not checking at home, taking nomeds, no new issues or concerns. Trying to watch diet. Some increase in stress. Sees [facility]. COPD - Using inhalers, no complaints, no new cough or SOB. Still smoking. Trouble to quit. OA - Says that has various aches and pains in his shoulder, ankle, back, and has been doing the injections and imaging to monitor those over the years with Dr. Swan. Says that he gets 3-4 pills of Oxycodone 5 daily. The following portions of the patient's history were reviewed and updated as appropriate: allergies, current medications and problem list. The patient's surgical, family, and social history was reviewed and updated as appropriate. Review of Systems Review of Systems Constitutional: Negative for activity change and fatigue. Respiratory: Negative for chest tightness, shortness of breath and wheezing. Cardiovascular: Negative for chest pain and palpitations. Genitourinary: ED Musculoskeletal: Positive for arthralgias and myalgias. Psychiatric/Behavioral: Negative for agitation and dysphoric mood. Vitals: 06/01/21 0825 BP: 129/80 BP Location: Left arm Patient Position: Sitting BP Cuff Size: Adult Pulse: 62 Temp: 98.1 F (36.7 C) TempSrc: Oral SpO2: 95% Weight: 62.7 kg (138 lb 4.8 oz) Height: 5' 8 Body mass index is 21.03 kg/m . Physical Exam Physical Exam Vitals and nursing note reviewed. Constitutional: Appearance: He is well-developed and well-nourished. HENT: Head: Normocephalic and atraumatic. Cardiovascular: Rate and Rhythm: Normal rate and regular rhythm. Pulses: Intact distal pulses. Heart sounds: No murmur heard. Pulmonary: Effort: Pulmonary effort is normal. No respiratory distress. Breath sounds: Normal breath sounds. No wheezing. Skin: General: Skin is warm and dry. Neurological: Mental Status: He is alert and oriented to person, place, and time. Cranial Nerves: No cranial nerve deficit. Psychiatric: Mood and Affect: Mood and affect normal. Behavior: Behavior normal. OARRS/NARxCHECK Report Received and Assessed: 04/29/2018 Date controlled substance agreement signed: No data found Date of last drug screen: No data found Functional Assessment: No data found Assessment/Plan Problem List Items Addressed This Visit Endocrine Mixed diabetic hyperlipidemia associated with type 2 diabetes mellitus ([facility]) Chronic, stable, Continue meds as prescribed, watch diet, and increase activity as able to tolerate. Type 2 diabetes mellitus with diabetic polyneuropathy, without long-term current use of insulin ([facility]) Chronic, stable, controlled, continue meds, will monitor and follow. Relevant Orders POC Glycosylated Hemoglobin (Hb A1C) (Completed) Diabetes mellitus ([facility]) Chronic, Stable, continue meds, watch diet, increase activity as can tolerate. Monitor BS as instructed. Bring blood sugar log to next visit. Get A1C drawn 1 week prior to next visit. Relevant Orders POC Glycosylated Hemoglobin (Hb A1C) (Completed) Hemoglobin A1c Respiratory Pulmonary emphysema ([facility]) Chronic, stable, continue inhalers, will monitor and follow, no exacerbation today. Cardiovascular and Mediastinum Benign essential hypertension Chronic, Stable, continue meds, increase activity as can tolerate, limit salt, and watch diet. Continue to monitor BP at home as instructed. Bring blood pressure log and cuff to next visit. Relevant Orders CBC and Differential Comprehensive Metabolic Panel Lipid Panel Microalbumin/Creatinine Ratio, UR Random TSH with Reflex Free T4 PAD (peripheral artery disease) ([facility]) Chronic, stable, asymptomatic, no new issues, continue meds, will monitor and follow. Musculoskeletal and Integument Osteoarthritis Chronic, stable, due to taking Percocet 3-4x daily and needing new doctor will send to pain management for further care and evaluation. Relevant Orders Ambulatory referral to Pain Medicine Other Thrombocytopenia ([facility]) Chronic, stable, asymptomatic, will monitor and follow. Other Visit Diagnoses General medical exam - Primary Relevant Orders PSA, Total and Free Erectile dysfunction, unspecified erectile dysfunction type Relevant Medications tadalafiL (CIALIS) 10 MG tablet Goals None If any referrals were placed at today's visit the patient was instructed to call the office if they havn't heard anything about the referral within 2 weeks of today's visit. For any new medications prescribed today, patient was educated about indications for the medication, how to take the medication and potential side effects of the medications. Depression Screening 12/17/2019 06/21/2020 06/01/2021 Little interest or pleasure in doing things 0 0 0 Feeling down, depressed, or hopeless 0 0 0 PHQ-2 Total Score 0 0 0 Trouble falling or staying asleep, or sleeping too much 0 0 - Feeling tired or having little energy 0 3 - Poor appetite or overeating 0 0 - Feeling bad about yourself - or that you are a failure or have let yourself or your family down 0 0 - Trouble concentrating on things, such as reading the newspaper or watching television 0 0 - Moving or speaking so slowly that other people could have noticed. Or the opposite - being so fidgety or restless that you have been moving around a lot more than usual 0 0 - Thoughts that you would be better off , or of hurting yourself in some way 0 0 - PHQ-9 Total Score 0 3 - If you checked off any problems, how difficult have these problems made it for you to do your work, take care of things at home, or get along with other people? Not difficult at all Not difficult at all - Yo Betts is a 65 y.o. male who presents for a Medicare Wellness Visit. Medicare Risk Assessment Do you have an Advanced Directive (Living Will and/or Durable Power of Hse Manager for Health Care)?: No - I would like more info What is your exercise level?: Occasional What is your diet?: Regular Can you prepare your own meals?: Yes Do you have trouble with finding transportation?: No Because of any health problems, do you need the help of another person with your personal care needs? (For example, eating, bathing, dressing, or getting around the house.): No Does your home have throw rugs, poor lighting or slippery bathtub or shower?: No Does your home have grab bars in bathrooms or handrails on stairs and steps?: Yes During the past four weeks, how would you rate your health in general?: Good Whether or not you use a hearing aid, do you think you have a hearing problem or do others think you have a hearing problem?: No Whether or not you use glasses or contacts, do you have difficulty driving, watching television, reading, or doing any of your daily activities because of your eyesight?: No In the past six months, have you had an unexplained weight loss of 10 pounds or more?: No How often do you have trouble taking medicines the way you have been told to take them?: I always take as prescribed During the past four weeks, how much have you been bothered by emotional problems such as feeling anxious, depressed, irritable, sad, or downhearted and blue?: Not at all During the past four weeks, has your physical and emotional health limited your social activites with family, friends, neighbors, or groups? : Not at all Provider/Supplier Name and Specialty: [employer]. Falls Risk Assessment Is Patient Ambulatory?: Yes Fell in past year: No How many falls in the past year?: 0 Did any of these falls result in an injury?: No Unsteady when walks: No Worried about falling: No Advised to use cane/walker?: No Holds onto furniture/solano: No Uses hands to stand up from a chair: No Trouble stepping onto curb: No Rushes to toilet: No Lost feeling in feet: No Medicine makes me light-headed: No Medicine for sleep or mood: No Often feel sad/depressed: No Patient Self Risk Assessment Score: 0 Medicare Mini Cog Step 1: Three Word Registration Version Used: Version 1: Scotty Vela Chair Step 2: Clock Drawing Step 2 score: (!) Inability or refusal to draw a clock - 0 points Step 3: Three Word Recall Say: What were the three words I asked you to remember? : scotty vela chair Record patient's answers to the right: chair dane Step 3: Three Word Recall Score: 2 Words Recalled Total score = Word Recall score + Clock Draw score A cut point of <3 on the Mini-Cog has been validated for dementia screening, but many individuals with clinically meaningful cognitive impairment will score higher. A cut point of <4 may indicate a need for further evaluation of cognitive status.: (!) 2 Comprehensive Medical and Social History: Patient Active Problem List Diagnosis Coronary artery disease involving [place] heart without angina pectoris Benign essential hypertension PAD (peripheral artery disease) ([facility]) Mixed diabetic hyperlipidemia associated with type 2 diabetes mellitus ([facility]) Current smoker Carotid stenosis, bilateral Pulmonary emphysema ([facility]) Hypercoagulable state ([facility]) Type 2 diabetes mellitus with diabetic polyneuropathy, without long-term current use of insulin ([facility]) DDD (degenerative disc disease), lumbosacral Thrombocytopenia ([facility]) Anticoagulant long-term use Diabetes mellitus ([facility]) PND (paroxysmal nocturnal dyspnea) Past Medical History: Diagnosis Date Aneurysm ([facility]) brain x2 Arteriosclerotic cardiovascular disease direct coronary bypass x 2, 06/23/86 CAD (coronary artery disease) Cerebral aneurysm Cerebral aneurysm Cerebral vascular disease Chronic lung disease Deep vein thrombosis (DVT) ([facility]) leg, date unknown Diabetes mellitus ([facility]) Dyslipidemia Hyperlipidemia Hypertension Ischemic cardiomyopathy Myocardial infarction ([facility]) PAD (peripheral artery disease) ([facility]) PAD (peripheral artery disease) ([facility]) PVD (peripheral vascular disease) ([facility]) Stroke ([facility]) Past Surgical History: Procedure Laterality Date abd angio r/o eriberto newborn hearing screener 2006 L common & external iliac art abd angio r/o newborn hearing screener stent eriberto iliac art 2006 ARTERIAL ANEURYSM REPAIR Lt sideof brain CARDIAC CATHETERIZATION 07/20/2010 EF 35% CARDIAC CATHETERIZATION 11/22/2006 EF 45% CARDIAC CATHETERIZATION 05/11/2004 EF 55% CARDIAC CATHETERIZATION 08/14/2003 EF 55% CARDIAC CATHETERIZATION 07/09/2003 CARDIAC CATHETERIZATION 02/16/2003 CARDIAC CATHETERIZATION 10/03/2002 CARDIAC CATHETERIZATION 11/05/2001 CARDIAC CATHETERIZATION 07/04/2001 CARDIAC CATHETERIZATION 09/19/2000 CARDIAC CATHETERIZATION 05/10/2000 CARDIAC CATHETERIZATION 12/23/1999 CARDIAC CATHETERIZATION 12/06/1995 CARDIAC CATHETERIZATION 12/27/1990 CARDIAC CATHETERIZATION 04/27/1987 CARDIAC CATHETERIZATION 06/16/1986 CARDIAC CATHETERIZATION 11/13/2002 CEREBRAL ANEURYSM REPAIR 2008, 2018 bilateral CEREBRAL ANGIOGRAM CORONARY ANGIOPLASTY 02/16/2003 SVG to Marginal Proximal CORONARY ANGIOPLASTY 08/23/2000 SVG to Proximal CX CORONARY ANGIOPLASTY 05/10/2000 Proximal SVG to CX-OM CORONARY ANGIOPLASTY WITH STENT PLACEMENT 05/11/2004 RACHELL SVG to CX-OM, SVG to SHARAN, Ostial SVG to OM CORONARY ANGIOPLASTY WITH STENT PLACEMENT 07/09/2003 RACHELL SVG to OM, SVG to CX-OM CORONARY ANGIOPLASTY WITH STENT PLACEMENT 11/13/02 PTCA/Stent of SVG TO CX Proximal CORONARY ANGIOPLASTY WITH STENT PLACEMENT 10/03/2002 RACHELL Distal LMCA CORONARY ARTERY BYPASS GRAFT 06/23/1986 x2 EPISTAXIS N/A 07/12/2020 Procedure: CONTROL OF EPISTAXIS; Surgeon: Tha Long DO; Location: Main OR; Service: Otolaryngology HEMORRHOIDECTOMY HERNIA REPAIR 1977 ROTATOR CUFF REPAIR Left 2002 Current Outpatient Medications Medication Sig Dispense Refill amitriptyline (ELAVIL) 25 MG tablet Take 25 mg by mouth nightly . atorvastatin (LIPITOR) 80 MG tablet Take 1 (one) tablet (80 mg total) by mouth daily . 90 tablet 3 clopidogreL (PLAVIX) 75 mg tablet Take 1 (one) tablet (75 mg total) by mouth daily . 90 tablet 3 fluticasone furoate-vilanteroL (Breo Ellipta) 100-25 mcg/dose DsDv 1 (one) puff by Oral Inhalation route daily . 30 each 11 fluticasone propion-salmeteroL (ADVAIR DISKUS) 250-50 mcg/dose diskus inhaler Inhale 1 (one) puff 2 (two) times a day . 60 each 11 furosemide (Lasix) 20 MG tablet Take 1 (one) tablet (20 mg total) by mouth daily . 30 tablet 11 lisinopriL (PRINIVIL,ZESTRIL) 20 MG tablet Take 1 (one) tablet (20 mg total) by mouth daily . 90 tablet 3 metoprolol succinate (Toprol XL) 50 MG 24 hr tablet Take 1 (one) tablet (50 mg total) by mouth daily . 30 tablet 11 nitroGLYCERIN (Nitrostat) 0.[address] 1 (one) tablet (0.4 mg total) under the tongue every 5 (five) minutes as needed for chest pain , if no relief after 3 doses call 911 . 25 tablet 3 ONETOUCH DELICA LANCETS 33 gauge Misc USE TO CHECK FOR BLOOD SUGAR 2 TIMES A DAY 0 ONETOUCH VERIO FLEX Misc 2 (two) times a day as directed . 0 ONETOUCH VERIO strips USE TO CHECK FOR BLOOD SUGAR 2 TIMES A DAY 0 oxyCODONE (ROXICODONE) 5 MG immediate release tablet take 1 and 1/2 tablets by mouth three times a day if needed 0 sodium chloride (Saline Mist) 0.65 % nasal spray Instill 1 (one) spray into each nostril as needed for congestion . 15 mL 12 sodium chloride-aloe vera (Bybee Saline) Gel Apply a pea sized amount to both nostrils at bedtime and in a.m. You can use it more often. . 1 g 12 tadalafiL (CIALIS) 10 MG tablet Take 10 mg by mouth 2 (two) times a day . Ventolin HFA 90 mcg/actuation inhaler Inhale 2 (two) puffs every 6 (six) hours as needed for wheezing . 18 g 11 warfarin (COUMADIN) 5 MG tablet Take 1 (one) tablet (5 mg total) by mouth daily On 5 days, and 2.5 mg (0.5 tablet) on 2 days. . 30 tablet 6 No current facility-administered medications for this visit. Social History Socioeconomic History Marital status: Spouse name: [place] Number of children: 5 Highest education level: 10th grade Occupational History Employer: [employer] Tobacco Use Smoking status: Current Every Day Smoker Packs/day: 0.25 Years: 45.00 Pack years: 11.25 Types: Cigarettes Smokeless tobacco: Never Used Vaping Use Vaping Use: Never used Substance and Sexual Activity Alcohol use: No Drug use: No Sexual activity: Not Currently Partners: Female Social Determinants of Health Financial Resource Strain: Low Risk Difficulty of Paying Living Expenses: Not hard at all Food Insecurity: No Food Insecurity Worried About Running Out of Food in the Last Year: Never true Ran Out of Food in the Last Year: Never true Transportation Needs: No Transportation Needs Lack of Transportation (Medical): No Lack of Transportation (Non-Medical): No Physical Activity: Sufficiently Active Days of Exercise per Week: 7 days Minutes of Exercise per Session: 30 min Stress: No Stress Concern Present Feeling of Stress : Not at all Social Connections: Unknown Marital Status: Allergies: No Known Allergies Care Team Patient Care Team: Jeanna Duff MD as PCP - General (Family Medicine) Pharmacy [facility] Equipment [facility] (DME) [facility] [address] [address] Objective Blood pressure 129/80, pulse 62, temperature 98.1 F (36.7 C), temperature source Oral, height 5' 8 , weight 62.7 kg (138 lb 4.8 oz), SpO2 95 %. Body mass index is 21.03 kg/m . Vitals: PACU Vitals 06/01/21 0825 BP: 129/80 Pulse: 62 Temp: 98.1 F (36.7 C) SpO2: 95% PainSc: 0-No pain Vision and Hearing Screen: No exam data present Assessment: The primary encounter diagnosis was General medical exam. Diagnoses of Benign essential hypertension, PAD (peripheral artery disease) (HCC), Type 2 diabetes mellitus with other specified complication, without long-term current use of insulin (HCC), Type 2 diabetes mellitus with diabetic polyneuropathy, without long-term current use of insulin (HCC), Panlobular emphysema (HCC), Mixed diabetic hyperlipidemia associated with type 2 diabetes mellitus (HCC), and Thrombocytopenia (HCC) were also pertinent to this visit. Plan: During the course of the visit the patient was educated and counseled about appropriate screening and preventive services includin-Year Plan: Health Maintenance Topic Date Due Ophthalmology Exam Never done Wellness Visit 06/21/2021 A1C 11/29/2021 Urine Microalbumin 12/14/2021 Foot Exam 12/22/2021 Depression Screening (PHQ-2/9) 06/01/2022 PSA Level 12/14/2022 Pneumococcal Vaccine: Ped or At-Risk (2 of 2 - PPSV23) 01/09/2023 Colorectal Cancer Screening 11/17/2025 Tetanus: Every 10yrs 12/16/2029 Hepatitis C Screening Completed Zoster Vaccines Completed Sequential Influenza Vaccine Completed COVID-19 Vaccine Completed HIV Screening Discontinued Patient Instructions (the written plan) was given to the patient. PHQ-9: 0 HARPREET-7: SDoH: [place]: 0 Colonoscopy: Mammo: PAP: COVID Vaccine: fully vaccinated Flu Vaccine: 12/18/20 documented in this encounter [facility] 05-19-2021 History of Present illness Narrative Clinic follow up note PATIENT: Mata Betts : 1955 AGE: 65 y.o. SEX: male RACE: [1] PCP: Jeanna Duff MD REFERRAL: No ref. provider found HPI Presents in f/u. Has not had any major nosebleed since October. Feels well for the most part. Anti hypetensives have been adjusted recently. HEMATOLOGIC HX Pt has a h/o [place] at age 31 , CABG at 31 yrs of age, several ministrokes, stroke post aneurysm clipping in 2008 while on aspirin and plavix. Patient has h/o severe PAD. Is a chronic smoker. Admitted to the hospital in August 2011 with symptoms suggestive of subacute cerebrovascular ischemic accident. 09/10/2011, CT of the brain without contrast demonstrates an area along the right posterior parietal lobe that exhibits loss of gonzalez-white matter differentiation, concerning for acute to subacute infarct, left frontal and temporal postsurgical changes without evidence of acute intracranial hemorrhage. Was initially evaluated in 2011 in the hematology clinic and hypercoagulable work up that was negative .prothrombin gene mutation and factor V Leiden mutation was negative on 09/03/2011, protein C,S and lupus anticoagulant testing was negative. Antithrombin level was slightly lower than normal. Given the history, was placed on coumadin in late 2011, since being on coumadin ,has not had any neurologic or cardiovascular event. 04/30/2017 completely normal total white cell count, H&H, MCV is 100.6, platelet count is 106k. Vitamin B12 and folate within normal limits, peripheral smear evaluation demonstrates granulocytes with pelgeroid changes. 05/08/17- Bone marrow biopsy and aspiration -Normocellular marrow (35%) with trilineage hematopoiesis and neutrophils with Pelgeroid change. Thrombocytopenia and macrocytic RBCs. Cytogenetics demonstrates loss of Y chromosome. No clear evidence of MDS at this time. 03/25/18- Low dose ct scan- 1. Stable bilateral solid lung nodules measuring up to 4 mm in mean diameter. No new or enlarging lung nodules. 2. Mild emphysema. 3. Status post coronary artery bypass grafting. 02/28/19- Low dose ct chest- 1. No new or enlarging pulmonary nodules are present. Stable subcentimeter pulmonary nodules are again identified. 2. Mild emphysema. Lung-RADs 2 11/18/2015- Colonoscopy- Diverticulosis and external hemorrhoids. ALLERGIES No Known Allergies [facility] has a current medication list which includes the following prescription(s): amitriptyline, atorvastatin, clopidogrel, ferrous sulfate, breo ellipta, fluticasone propion-salmeterol, furosemide, lisinopril, metoprolol succinate, nitroglycerin, onetouch delica lancets, onetouch verio flex meter, onetouch verio test strips, oxycodone, saline mist, ayr saline, tadalafil, ventolin hfa, and warfarin. PMH/PSH Past Medical History: Diagnosis Date Aneurysm ([facility]) brain x2 Arteriosclerotic cardiovascular disease direct coronary bypass x 2, 06/23/86 CAD (coronary artery disease) Cerebral aneurysm Cerebral aneurysm Cerebral vascular disease Chronic lung disease Deep vein thrombosis (DVT) ([facility]) leg, date unknown Diabetes mellitus ([facility]) Dyslipidemia Hyperlipidemia Hypertension Ischemic cardiomyopathy Myocardial infarction ([facility]) PAD (peripheral artery disease) ([facility]) PAD (peripheral artery disease) ([facility]) PVD (peripheral vascular disease) ([facility]) Stroke ([facility]) Past Surgical History: Procedure Laterality Date abd angio r/o eriberto newborn hearing screener 2006 L common & external iliac art abd angio r/o newborn hearing screener stent eriberto iliac art 2006 ARTERIAL ANEURYSM REPAIR Lt sideof brain CARDIAC CATHETERIZATION 07/20/2010 EF 35% CARDIAC CATHETERIZATION 11/22/2006 EF 45% CARDIAC CATHETERIZATION 05/11/2004 EF 55% CARDIAC CATHETERIZATION 08/14/2003 EF 55% CARDIAC CATHETERIZATION 07/09/2003 CARDIAC CATHETERIZATION 02/16/2003 CARDIAC CATHETERIZATION 10/03/2002 CARDIAC CATHETERIZATION 11/05/2001 CARDIAC CATHETERIZATION 07/04/2001 CARDIAC CATHETERIZATION 09/19/2000 CARDIAC CATHETERIZATION 05/10/2000 CARDIAC CATHETERIZATION 12/23/1999 CARDIAC CATHETERIZATION 12/06/1995 CARDIAC CATHETERIZATION 12/27/1990 CARDIAC CATHETERIZATION 04/27/1987 CARDIAC CATHETERIZATION 06/16/1986 CARDIAC CATHETERIZATION 11/13/2002 CEREBRAL ANEURYSM REPAIR 2008, 2018 bilateral CEREBRAL ANGIOGRAM CORONARY ANGIOPLASTY 02/16/2003 SVG to Marginal Proximal CORONARY ANGIOPLASTY 08/23/2000 SVG to Proximal CX CORONARY ANGIOPLASTY 05/10/2000 Proximal SVG to CX-OM CORONARY ANGIOPLASTY WITH STENT PLACEMENT 05/11/2004 RACHELL SVG to CX-OM, SVG to SHARAN, Ostial SVG to OM CORONARY ANGIOPLASTY WITH STENT PLACEMENT 07/09/2003 RACHELL SVG to OM, SVG to CX-OM CORONARY ANGIOPLASTY WITH STENT PLACEMENT 11/13/02 PTCA/Stent of SVG TO CX Proximal CORONARY ANGIOPLASTY WITH STENT PLACEMENT 10/03/2002 RACHELL Distal LMCA CORONARY ARTERY BYPASS GRAFT 06/23/1986 x2 EPISTAXIS N/A 07/12/2020 Procedure: CONTROL OF EPISTAXIS; Surgeon: Tha Long DO; Location: Main OR; Service: Otolaryngology HEMORRHOIDECTOMY HERNIA REPAIR 1977 ROTATOR CUFF REPAIR Left 2002 FH Family History Problem Relation Age of Onset Heart disease Mother Stroke Mother Hyperlipidemia Mother Hypertension Mother Coronary artery disease Mother Heart attack Father Stroke Father Heart disease Father Coronary artery disease Father Hyperlipidemia Father Hypertension Father Heart disease Sister 8 sisters Coronary artery disease Sister Heart disease Brother 4 brothers Cancer Brother lung 1 brother COPD Brother Heart disease Son Cancer Brother Cancer Brother Lug Early Brother Early Brother Mental illness Son SH Social History Socioeconomic History Marital status: Spouse name: [place] Number of children: 5 Highest education level: 10th grade Occupational History Employer: [employer] Tobacco Use Smoking status: Current Every Day Smoker Packs/day: 0.25 Years: 45.00 Pack years: 11.25 Types: Cigarettes Smokeless tobacco: Never Used Vaping Use Vaping Use: Never used Substance and Sexual Activity Alcohol use: No Drug use: No Sexual activity: Not Currently Partners: Female Social Determinants of Health Financial Resource Strain: Low Risk Difficulty of Paying Living Expenses: Not hard at all Food Insecurity: No Food Insecurity Worried About Running Out of Food in the Last Year: Never true Ran Out of Food in the Last Year: Never true Transportation Needs: No Transportation Needs Lack of Transportation (Medical): No Lack of Transportation (Non-Medical): No Physical Activity: Sufficiently Active Days of Exercise per Week: 7 days Minutes of Exercise per Session: 30 min Stress: No Stress Concern Present Feeling of Stress : Not at all Social Connections: Unknown Marital Status: ROS Review of Systems Constitutional: Negative. HENT: Negative. Eyes: Negative. Respiratory: Negative. Cardiovascular: Negative. Gastrointestinal: Negative. Endocrine: Negative. Genitourinary: Negative. Musculoskeletal: Negative. Skin: Negative. Neurological: Negative. Hematological: Negative. Psychiatric/Behavioral: Negative. EXAM BP (!) 194/78 (BP Location: Right arm) Pulse (!) 49 Temp 97.6 F (36.4 C) (Oral) Ht 5' 8 Wt 62.5 kg (137 lb 11.2 oz) SpO2 97% BMI 20.94 kg/m Physical Exam Constitutional: Appearance: He is well-developed. HENT: Head: Normocephalic and atraumatic. Eyes: Conjunctiva/sclera: Conjunctivae normal. Pupils: Pupils are equal, round, and reactive to light. Cardiovascular: Rate and Rhythm: Normal rate and regular rhythm. Pulmonary: Effort: Pulmonary effort is normal. Breath sounds: Normal breath sounds. Abdominal: General: Bowel sounds are normal. Palpations: Abdomen is soft. Musculoskeletal: General: Normal range of motion. Cervical back: Normal range of motion and neck supple. Skin: General: Skin is warm and dry. Neurological: Mental Status: He is alert and oriented to person, place, and time. Deep Tendon Reflexes: Reflexes are normal and symmetric. Psychiatric: Behavior: Behavior normal. Thought Content: Thought content normal. Judgment: Judgment normal. 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 Hypercoagulable condition with recurrent episodes of cva, on halfway anticoagulation, continue Coumadin. 2. Thrombocytopenia and macrocytosis -MDs ruled out , prior bone marrow biopsy in 2018 , discussed the findings, potential evolution in future, obtained after the visit demonstrate resolution of the macrocytosis, mild improvement in platelet count, will reevaluate with counts in 6 months. 05/19/2021 - Reviewed recent counts - h&h improved, mild macrocytosis , iron stores much improved. May discontinue iron supplementation 3. Tobacco use disorder- continues to smoke few cigarettes a day, completed low dose ct chest on 07/16/2020 - noted stability in the pulmonary nodules 05/19/2021 - Low dose ct due in june 2021, continues to make efforts at smoking cessation Thank you for the privilege of allowing me to participate in the care of Mata Betts. TANVIR ARNETT MD [employer] [place] documented in this encounter [facility] 04-14-2021 History of Present illness Narrative Anticoagulation Progress Note Date of Visit: April 14, 2021 Patient Name: Mata Betts : 1955 Age: 65 y.o. Mata Betts is here for an anticoagulation follow-up visit. INR obtained via POC finger stick device. Anticoagulation Summary As of 04/14/2021 INR goal: 2.0-3.0 TTR: 78.5 % (2.7 y) INR used for dosin.5 (04/14/2021) Warfarin maintenance plan: 2.5 mg (5 mg x 0.5) every Tue, Sat; 5 mg (5 mg x 1) all other days Weekly warfarin total: 30 mg Plan last modified: Laxmi Whitney RPh,PharmD (08/01/2018) Next INR check: 05/26/2021 Priority: Maintenance Target end date: Indefinite Indications Cerebrovascular disease (Resolved) [I67.9] PAD (peripheral artery disease) (HCC) [I73.9] Lab Results Component Value Date WBC 5.28 12/14/2020 HGB 14.4 12/14/2020 HCT 42.9 12/14/2020 MCV 100.2 (H) 12/14/2020 EXTMCV 100.2 (H) 05/30/2018 PLT 108 (L) 12/14/2020 RBC 4.28 (L) 12/14/2020 Lab Results Component Value Date CREATININE 0.83 12/14/2020 CREATININE 0.73 12/27/2017 Wt Readings from Last 3 Encounters: 04/08/21 62.1 kg (137 lb) 12/22/20 62.3 kg (137 lb 4.8 oz) 11/16/20 61.2 kg (135 lb) Ht Readings from Last 1 Encounters: 04/08/21 5' 8 Encounter Summary: ASSESSMENT: Patient Findings Negatives: Patient Reported Falls, Signs/symptoms of thrombosis, Signs/symptoms of bleeding, Laboratory test error suspected, Change in health, Change in alcohol use, Change in activity, Upcoming invasive procedure, Emergency department visit, Upcoming dental procedure, Missed doses, Extra doses, Change in medications, Change in diet/appetite, Hospital admission, Bruising, Other complaints Warfarin taken in the previous 7 days: 30 mg INR is therapeutic today. PLAN: 1. Will continue weekly warfarin dose of 30 mg/week. 2. Will check next INR in 6+ weeks unless there are any changes before then. 3. Encouraged patient to contact clinic with any changes. Laxmi Whitney RPh,PharmD [facility] Dept: [phone] documented in this encounter [facility] 04-08-2021 History of Present illness Narrative Patient Name: Mata Betts MR #: [id number] Interventional Cardiology Mejia Campoverde MD, [facility] 04/08/21 Dear Jeanna Duff MD, Mata Betts was seen in follow up for : Problem Pnd (Paroxysmal Nocturnal Dyspnea) Abnormal Ekg Known LVH with repol--inferolateral changes Hypertension Coronary Artery Disease Involving [place] Heart Without Angina Pectoris 1987-CABG x 2-[place] and SVG to OM 1987,,91,1999 caths ok 2000 stent to SVG-om, later it thrombosed and PTCA,2001 cath ok 2002-proximall svg-om stent, and l main stent 2003- distal svg-om stent 2006-Occluded SVG to om, 2010 cath stable Assessment and Plan Coronary artery disease involving [place] heart without angina pectoris No angina Doing well, Medications reviewed and recommended to continue plavix Followup 1 year PND (paroxysmal nocturnal dyspnea) Has had a few episodes of waking up gasping shortness of breath and diaphoresis Concerning symptoms-Sounds like PND and will check 2 D cardiac echocardiogram to start may need to do stress also Hypertension BP is up will wait to adjust medications after 2 D cardiac echocardiogram continue lisinopril/atenolol for now Thank you or allowing me to participate in the care of your patients. Orders Placed This Encounter Procedures Echocardiogram complete Return in about 1 year (around 04/08/2022). EKG:Normal sinus rhythm., LVH and Non specific st-t wave changes Subjective: Mata Betts is a 65 y.o. Denies chest discomfort, sob, palpitations, orthopnea,edema or syncope. 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 CAD (coronary artery disease) Cerebral aneurysm Cerebral aneurysm Cerebral vascular disease Chronic lung disease Deep vein thrombosis (DVT) (HCC) leg, date unknown Diabetes mellitus (HCC) Dyslipidemia Hyperlipidemia Hypertension Ischemic cardiomyopathy Myocardial infarction (HCC) PAD (peripheral artery disease) (HCC) PAD (peripheral artery disease) (HCC) PVD (peripheral vascular disease) (HCC) Stroke (HCC) Physical exam: BP (!) 176/69 Pulse (!) 52 Ht 5' 8 Wt 62.1 kg (137 lb) BMI 20.83 kg/m General: No acute distress, alert, and oriented x3. HEENT: Normocephalic, Neck: Supple, no gross thyromegaly,no palpable neck adenopathy Cardiovascular: regular rate and rhythm. 1-2/6 sys at apex murmurs, .No JVD, No Carotid Bruits, no LE edema :Respiratory: Clear to auscultation bilaterally without wheezes, rhonchi, or rales Abdominal: soft, nontender, nondistended,no gross HSM or masses noted. Home Medications: Patient's Medications New Prescriptions NITROGLYCERIN (NITROSTAT) 0.[address] 1 (one) tablet (0.4 mg total) under the tongue every 5 (five) minutes as needed for chest pain , if no relief after 3 doses call 911 . Previous Medications AMITRIPTYLINE (ELAVIL) 25 MG TABLET Take 25 mg by mouth nightly . ATENOLOL (TENORMIN) 50 MG TABLET Take 1 (one) tablet (50 mg total) by mouth daily . ATORVASTATIN (LIPITOR) 80 MG TABLET Take 1 (one) tablet (80 mg total) by mouth daily . CLOPIDOGREL (PLAVIX) 75 MG TABLET Take 1 (one) tablet (75 mg total) by mouth daily . FERROUS SULFATE 325 (65 FE) MG TABLET Take 1 (one) tablet (325 mg total) by mouth daily. FLUTICASONE FUROATE-VILANTEROL (BREO ELLIPTA) 100-25 MCG/DOSE DSDV 1 (one) puff by Oral Inhalation route daily . FLUTICASONE PROPION-SALMETEROL (ADVAIR DISKUS) 250-50 MCG/DOSE DISKUS INHALER Inhale 1 (one) puff 2 (two) times a day . LISINOPRIL (PRINIVIL,ZESTRIL) 20 MG TABLET Take 1 (one) tablet (20 mg total) by mouth daily . ONETOUCH DELICA LANCETS 33 GAUGE MISC USE TO CHECK FOR BLOOD SUGAR 2 TIMES A DAY ONETOUCH VERIO FLEX MISC 2 (two) times a day as directed . ONETOUCH VERIO STRIPS USE TO CHECK FOR BLOOD SUGAR 2 TIMES A DAY OXYCODONE (ROXICODONE) 5 MG IMMEDIATE RELEASE TABLET take 1 and 1/2 tablets by mouth three times a day if needed SODIUM CHLORIDE (SALINE MIST) 0.65 % NASAL SPRAY Instill 1 (one) spray into each nostril as needed for congestion . SODIUM CHLORIDE-ALOE VERA (AYR SALINE) GEL Apply a pea sized amount to both nostrils at bedtime and in a.m. You can use it more often. . TADALAFIL (CIALIS) 10 MG TABLET Take 10 mg by mouth 2 (two) times a day . VENTOLIN HFA 90 MCG/ACTUATION INHALER Inhale 2 (two) puffs every 6 (six) hours as needed for wheezing . WARFARIN (COUMADIN) 5 MG TABLET Take 1 (one) tablet (5 mg total) by mouth daily On 5 days, and 2.5 mg (0.5 tablet) on 2 days. . Modified Medications No medications on file Discontinued Medications ASPIRIN 81 MG EC TABLET Take 81 mg by mouth daily. documented in this encounter [facility] 04-08-2021 Miscellaneous Notes Associated Problem(s): Hypertension BP is up will wait to adjust medications after 2 D cardiac echocardiogram continue lisinopril/atenolol for now Associated Problem(s): PND (paroxysmal nocturnal dyspnea) Has had a few episodes of waking up gasping shortness of breath and diaphoresis Concerning symptoms-Sounds like PND and will check 2 D cardiac echocardiogram to start may need to do stress also Associated Problem(s): Coronary artery disease involving [place] heart without angina pectoris No angina Doing well, Medications reviewed and recommended to continue plavix Followup 1 year documented in this encounter [facility] 03-03-2021 History of Present illness Narrative Images from the original note were not included. Anticoagulation Progress Note Date of Visit: March 03, 2021 Patient Name: Mata Betts : 1955 Age: 65 y.o. Mata Betts is here for an anticoagulation follow-up visit. INR obtained via POC finger stick device. Anticoagulation Summary As of 03/03/2021 INR goal: 2.0-3.0 TTR: 79.2 % (2.6 y) INR used for dosin.7 (03/03/2021) Warfarin maintenance plan: 2.5 mg (5 mg x 0.5) every Tue, Sat; 5 mg (5 mg x 1) all other days Weekly warfarin total: 30 mg Plan last modified: Laxmi Whitney [facility],PharmD (08/01/2018) Next INR check: 04/14/2021 Priority: Maintenance Target end date: Indefinite Indications Cerebrovascular disease (Resolved) [I67.9] PAD (peripheral artery disease) (HCC) [I73.9] Lab Results Component Value Date WBC 5.28 12/14/2020 HGB 14.4 12/14/2020 HCT 42.9 12/14/2020 MCV 100.2 (H) 12/14/2020 EXTMCV 100.2 (H) 05/30/2018 PLT 108 (L) 12/14/2020 RBC 4.28 (L) 12/14/2020 Lab Results Component Value Date CREATININE 0.83 12/14/2020 CREATININE 0.73 12/27/2017 Wt Readings from Last 3 Encounters: 12/22/20 62.3 kg (137 lb 4.8 oz) 11/16/20 61.2 kg (135 lb) 10/18/20 61.2 kg (135 lb) Ht Readings from Last 1 Encounters: 12/22/20 5' 7 Encounter Summary: ASSESSMENT: Patient Findings Positives: Change in diet/appetite (Started drinking Ensure about 2 weeks ago, plans to stop drinking it) Negatives: Patient Reported Falls, Signs/symptoms of thrombosis, Signs/symptoms of bleeding, Laboratory test error suspected, Change in health, Change in alcohol use, Change in activity, Upcoming invasive procedure, Emergency department visit, Upcoming dental procedure, Missed doses, Extra doses, Change in medications, Hospital admission, Bruising, Other complaints Warfarin taken in the previous 7 days: 30 mg INR is subtherapeutic today. This is secondary to increased vitamin K intake by starting to drink Ensure about 2 weeks ago. Patient reported not drinking a lot of it each time, but that he has been drinking it relatively consistently over the past two weeks. He explained that he didn't think to check whether or not it contained Vitamin K, but he related it back to when he had to switch over the vitamins he was taking to ones that didn't contain vitamin K. We discussed how increasing your Vitamin K intake similar to when you eat green leafy vegetables and other vitamin K containing foods will lower your INR. I asked if he would like to continue drinking the Ensure, and he said he would prefer to simply stop drinking it altogether. We talked through the importance of checking the label on these types of products, and he plans to find an alternative that does not contain Vit K. Because his INR has been within range on this dose of 30 mg weekly for quite some time now, opted to keep his weekly regimen the same since he plans to stop drinking the Ensure supplements. PLAN: 1. Will continue weekly warfarin dose of 30 mg/week. 2. Will check next INR in 6 weeks again unless there are any changes before then. 3. Encouraged patient to contact clinic with any changes. Hamilton Christine RPh,PharmD [facility] Dept: [phone] documented in this encounter [facility] 12-22-2020 Instructions Jeanna Duff MD - 12/22/2020 8:45 AM EDT Problem List Items Addressed This Visit Endocrine Type 2 diabetes mellitus with diabetic polyneuropathy, without long-term current use of insulin (HCC) Chronic, stable, continue meds, will follow, no new tests today. Diabetes mellitus (HCC) Chronic, Stable, continue meds, watch diet, increase activity as can tolerate. Monitor BS as instructed. Bring blood sugar log to next visit. Respiratory Pulmonary emphysema (HCC) Chronic, stable, continue meds and inhalers, no flare today, will follow. Relevant Medications Ventolin HFA 90 mcg/actuation inhaler fluticasone furoate-vilanteroL (Breo Ellipta) 100-25 mcg/dose DsDv fluticasone propion-salmeteroL (ADVAIR DISKUS) 250-50 mcg/dose diskus inhaler Cardiovascular and Mediastinum Coronary artery disease involving [place] heart without angina pectoris Chronic, stable, asymptomatic, will follow with Cardio. Essential hypertension - Primary Chronic, not quite controlled, double up on the lisinopril to 20mg daily, increase activity as can tolerate, limit salt, and watch diet. Continue to monitor BP at home as instructed. Bring blood pressure log and cuff to next visit. Please check BP at home, in the evening before bed. Have sit in a chair, back flat against chair back, feet flat on the floor, legs uncrossed, arm at the level of your heart. Make sure use the same arm every time for the check. Put the cuff or machine on your arm/wrist and then wait 5-10 minutes before having it take your pressure. IF remains high then wait another 5 minutes before checking. If high after 3 checks spaced 5 minutes apart then please average numbers and right that down as your value. Do this 3 nights a week and bring log to next visit with your machine. Other Mixed hyperlipidemia Chronic, stable, Continue meds as prescribed, watch diet, and increase activity as able to tolerate. Current smoker Chronic, stable, Continue efforts to cut back and quit. If any referrals were placed at the time of your visit please allow 2 weeks for processing. If you haven't heard from anyone within 2 weeks please contact my office so we can look into the status of your referral. If you were given any labs today please ensure they are completed according to the directions given. Once labs are completed please allow 1-2 weeks for us to receive the results, review them, and let you know what steps, if any, are needed next. If you haven't heard from us after that please call to inquire. If labs were ordered to be done PRIOR to your next visit we will discuss the results at the time of your office visit. If any procedures or imaging studies were ordered that must be prior authorized please give us 2 weeks to get them approved. Once approved someone should call you to schedule them or give you a date and time that they were scheduled for. If you haven't heard anything within 2 weeks of the office visit please call the office so we can look into their status. documented in this encounter [facility] 12-22-2020 Miscellaneous Notes Associated Problem(s): Current smoker Chronic, stable, Continue efforts to cut back and quit. Associated Problem(s): Mixed hyperlipidemia Chronic, stable, Continue meds as prescribed, watch diet, and increase activity as able to tolerate. Associated Problem(s): Coronary artery disease involving [place] heart without angina pectoris Chronic, stable, asymptomatic, will follow with Cardio. Associated Problem(s): Pulmonary emphysema (HCC) Chronic, stable, continue meds and inhalers, no flare today, will follow. Associated Problem(s): Type 2 diabetes mellitus with diabetic polyneuropathy, without long-term current use of insulin (HCC) Chronic, stable, continue meds, will follow, no new tests today. Associated Problem(s): Diabetes mellitus (HCC) Chronic, Stable, continue meds, watch diet, increase activity as can tolerate. Monitor BS as instructed. Bring blood sugar log to next visit. Associated Problem(s): Essential hypertension Chronic, not quite controlled, double up on the lisinopril to 20mg daily, increase activity as can tolerate, limit salt, and watch diet. Continue to monitor BP at home as instructed. Bring blood pressure log and cuff to next visit. Please check BP at home, in the evening before bed. Have sit in a chair, back flat against chair back, feet flat on the floor, legs uncrossed, arm at the level of your heart. Make sure use the same arm every time for the check. Put the cuff or machine on your arm/wrist and then wait 5-10 minutes before having it take your pressure. IF remains high then wait another 5 minutes before checking. If high after 3 checks spaced 5 minutes apart then please average numbers and right that down as your value. Do this 3 nights a week and bring log to next visit with your machine. documented in this encounter [facility] 12-22-2020 History of Present illness Narrative OFFICE VISIT PROGRESS NOTE HPI HTN/HLD/CAD - Says at home will vary but says around 130-150 over 70-90 range. Taking meds, no complaints, tolerating well. No change to diet or activity. COPD - Says does well as long as has his inhaler. No SOB or cough. DM/Neuropathy - Not checking, watches diet, no complaints, not on meds. Eye exams through [employer]. The following portions of the patient's history were reviewed and updated as appropriate: allergies, current medications and problem list. The patient's surgical, family, and social history was reviewed and updated as appropriate. Review of Systems Review of Systems Constitutional: Negative for activity change and fatigue. Respiratory: Negative for chest tightness, shortness of breath and wheezing. Cardiovascular: Negative for chest pain and palpitations. Psychiatric/Behavioral: Negative for agitation and dysphoric mood. Vitals: 12/22/20 0815 12/22/20 0819 BP: (!) 158/60 (!) 170/58 BP Location: Right arm Patient Position: Sitting BP Cuff Size: Adult Pulse: (!) 52 (!) 53 Temp: 97.6 F (36.4 C) TempSrc: Oral SpO2: 97% 98% Weight: 62.3 kg (137 lb 4.8 oz) Height: 5' 7 Body mass index is 21.5 kg/m . Physical Exam Physical Exam Vitals and nursing note reviewed. Constitutional: Appearance: He is well-developed. HENT: Head: Normocephalic and atraumatic. Cardiovascular: Rate and Rhythm: Normal rate and regular rhythm. Heart sounds: No murmur heard. Pulmonary: Effort: Pulmonary effort is normal. No respiratory distress. Breath sounds: Normal breath sounds. No wheezing. Skin: General: Skin is warm and dry. Neurological: Mental Status: He is alert and oriented to person, place, and time. Cranial Nerves: No cranial nerve deficit. Psychiatric: Behavior: Behavior normal. OARRS/NARxCHECK Report Received and Assessed: 04/29/2018 Date controlled substance agreement signed: No data found Date of last drug screen: No data found Functional Assessment: No data found Assessment/Plan Problem List Items Addressed This Visit Endocrine Type 2 diabetes mellitus with diabetic polyneuropathy, without long-term current use of insulin (HCC) Chronic, stable, continue meds, will follow, no new tests today. Diabetes mellitus (HCC) Chronic, Stable, continue meds, watch diet, increase activity as can tolerate. Monitor BS as instructed. Bring blood sugar log to next visit. Respiratory Pulmonary emphysema (HCC) Chronic, stable, continue meds and inhalers, no flare today, will follow. Relevant Medications Ventolin HFA 90 mcg/actuation inhaler fluticasone furoate-vilanteroL (Breo Ellipta) 100-25 mcg/dose DsDv fluticasone propion-salmeteroL (ADVAIR DISKUS) 250-50 mcg/dose diskus inhaler Cardiovascular and Mediastinum Coronary artery disease involving [place] heart without angina pectoris Chronic, stable, asymptomatic, will follow with Cardio. Essential hypertension - Primary Chronic, not quite controlled, double up on the lisinopril to 20mg daily, increase activity as can tolerate, limit salt, and watch diet. Continue to monitor BP at home as instructed. Bring blood pressure log and cuff to next visit. Please check BP at home, in the evening before bed. Have sit in a chair, back flat against chair back, feet flat on the floor, legs uncrossed, arm at the level of your heart. Make sure use the same arm every time for the check. Put the cuff or machine on your arm/wrist and then wait 5-10 minutes before having it take your pressure. IF remains high then wait another 5 minutes before checking. If high after 3 checks spaced 5 minutes apart then please average numbers and right that down as your value. Do this 3 nights a week and bring log to next visit with your machine. Other Mixed hyperlipidemia Chronic, stable, Continue meds as prescribed, watch diet, and increase activity as able to tolerate. Current smoker Chronic, stable, Continue efforts to cut back and quit. Goals None If any referrals were placed at today's visit the patient was instructed to call the office if they havn't heard anything about the referral within 2 weeks of today's visit. For any new medications prescribed today, patient was educated about indications for the medication, how to take the medication and potential side effects of the medications. documented in this encounter [facility] 12-09-2020 History of Present illness Narrative Anticoagulation Progress Note Date of Visit: December 09, 2020 Patient Name: Mata Betts : 1955 Age: 65 y.o. Mata Betts is here for an anticoagulation follow-up visit. INR obtained via POC finger stick device. Anticoagulation Summary As of 12/09/2020 INR goal: 2.0-3.0 TTR: 78.8 % (2.4 y) INR used for dosin.7 (12/09/2020) Warfarin maintenance plan: 2.5 mg (5 mg x 0.5) every Tue, Sat; 5 mg (5 mg x 1) all other days Weekly warfarin total: 30 mg Plan last modified: Laxmi Whitney RPh,PharmD (08/01/2018) Next INR check: 01/20/2021 Priority: Maintenance Target end date: Indefinite Indications Cerebrovascular disease [I67.9] PAD (peripheral artery disease) (HCC) [I73.9] Lab Results Component Value Date WBC 6.60 11/16/2020 HGB 15.7 11/16/2020 HCT 47.7 11/16/2020 MCV 100.0 11/16/2020 EXTMCV 100.2 (H) 05/30/2018 PLT 131 (L) 11/16/2020 RBC 4.77 11/16/2020 Lab Results Component Value Date CREATININE 0.81 07/12/2020 CREATININE 0.73 12/27/2017 Wt Readings from Last 3 Encounters: 11/16/20 61.2 kg (135 lb) 10/18/20 61.2 kg (135 lb) 08/26/20 64.2 kg (141 lb 8 oz) Ht Readings from Last 1 Encounters: 11/16/20 5' 7 Encounter Summary: ASSESSMENT: Patient Findings Negatives: Patient Reported Falls, Signs/symptoms of thrombosis, Signs/symptoms of bleeding, Laboratory test error suspected, Change in health, Change in alcohol use, Change in activity, Upcoming invasive procedure, Emergency department visit, Upcoming dental procedure, Missed doses, Extra doses, Change in medications, Change in diet/appetite, Hospital admission, Bruising, Other complaints Warfarin taken in the previous 7 days: 30 mg INR is therapeutic today.. PLAN: 1. Will continue weekly warfarin dose of 30 mg/week. 2. Will check next INR in 6 weeks again unless there are any changes before then. 3. Encouraged patient to contact clinic with any changes. Jesse Leong RPh,PharmD [facility] Dept: [phone] documented in this encounter [facility] 11-16-2020 History of Present illness Narrative Clinic follow up note PATIENT: Mata Betts : 1955 AGE: 65 y.o. SEX: male RACE: [1] PCP: Jeanna Duff MD REFERRAL: No ref. provider found HPI Presents in f/u. Has had intermittent nosebleeds, has been using nasal drops and has had no further nosebleeds. HEMATOLOGIC HX Pt has a h/o [place] at age 31 , CABG at 31 yrs of age, several ministrokes, stroke post aneurysm clipping in 2008 while on aspirin and plavix. Patient has h/o severe PAD. Is a chronic smoker. Admitted to the hospital in August 2011 with symptoms suggestive of subacute cerebrovascular ischemic accident. 09/10/2011, CT of the brain without contrast demonstrates an area along the right posterior parietal lobe that exhibits loss of gonzalez-white matter differentiation, concerning for acute to subacute infarct, left frontal and temporal postsurgical changes without evidence of acute intracranial hemorrhage. Was initially evaluated in 2011 in the hematology clinic and hypercoagulable work up that was negative .prothrombin gene mutation and factor V Leiden mutation was negative on 09/03/2011, protein C,S and lupus anticoagulant testing was negative. Antithrombin level was slightly lower than normal. Given the history, was placed on coumadin in late 2011, since being on coumadin ,has not had any neurologic or cardiovascular event. 04/30/2017 completely normal total white cell count, H&H, MCV is 100.6, platelet count is 106k. Vitamin B12 and folate within normal limits, peripheral smear evaluation demonstrates granulocytes with pelgeroid changes. 05/08/17- Bone marrow biopsy and aspiration -Normocellular marrow (35%) with trilineage hematopoiesis and neutrophils with Pelgeroid change. Thrombocytopenia and macrocytic RBCs. Cytogenetics demonstrates loss of Y chromosome. No clear evidence of MDS at this time. 03/25/18- Low dose ct scan- 1. Stable bilateral solid lung nodules measuring up to 4 mm in mean diameter. No new or enlarging lung nodules. 2. Mild emphysema. 3. Status post coronary artery bypass grafting. 02/28/19- Low dose ct chest- 1. No new or enlarging pulmonary nodules are present. Stable subcentimeter pulmonary nodules are again identified. 2. Mild emphysema. Lung-RADs 2 11/18/2015- Colonoscopy- Diverticulosis and external hemorrhoids. ALLERGIES No Known Allergies [facility] has a current medication list which includes the following prescription(s): amitriptyline, aspirin, atenolol, atorvastatin, clopidogrel, ferrous sulfate, breo ellipta, fluticasone propion-salmeterol, lisinopril, onetouch delica lancets, onetouch verio flex meter, onetouch verio test strips, oxycodone, saline mist, ayr saline, tadalafil, ventolin hfa, and warfarin. PMH/PSH Past Medical History: Diagnosis Date Aneurysm (HCC) brain x2 Arteriosclerotic cardiovascular disease direct coronary bypass x 2, 06/23/86 CAD (coronary artery disease) Cerebral aneurysm Cerebral aneurysm Cerebral vascular disease Chronic lung disease Deep vein thrombosis (DVT) (HCC) leg, date unknown Diabetes mellitus (HCC) Dyslipidemia Hyperlipidemia Hypertension Ischemic cardiomyopathy Myocardial infarction (HCC) PAD (peripheral artery disease) (HCC) PAD (peripheral artery disease) (HCC) PVD (peripheral vascular disease) (HCC) Stroke (HCC) Past Surgical History: Procedure Laterality Date abd angio r/o eriberto newborn hearing screener 2006 L common & external iliac art abd angio r/o newborn hearing screener stent eriberto iliac art 2006 ARTERIAL ANEURYSM REPAIR Lt sideof brain CARDIAC CATHETERIZATION 07/20/2010 EF 35% CARDIAC CATHETERIZATION 11/22/2006 EF 45% CARDIAC CATHETERIZATION 05/11/2004 EF 55% CARDIAC CATHETERIZATION 08/14/2003 EF 55% CARDIAC CATHETERIZATION 07/09/2003 CARDIAC CATHETERIZATION 02/16/2003 CARDIAC CATHETERIZATION 10/03/2002 CARDIAC CATHETERIZATION 11/05/2001 CARDIAC CATHETERIZATION 07/04/2001 CARDIAC CATHETERIZATION 09/19/2000 CARDIAC CATHETERIZATION 05/10/2000 CARDIAC CATHETERIZATION 12/23/1999 CARDIAC CATHETERIZATION 12/06/1995 CARDIAC CATHETERIZATION 12/27/1990 CARDIAC CATHETERIZATION 04/27/1987 CARDIAC CATHETERIZATION 06/16/1986 CARDIAC CATHETERIZATION 11/13/2002 CEREBRAL ANEURYSM REPAIR 2008, 2018 bilateral CEREBRAL ANGIOGRAM CORONARY ANGIOPLASTY 02/16/2003 SVG to Marginal Proximal CORONARY ANGIOPLASTY 08/23/2000 SVG to Proximal CX CORONARY ANGIOPLASTY 05/10/2000 Proximal SVG to CX-OM CORONARY ANGIOPLASTY WITH STENT PLACEMENT 05/11/2004 RACHELL SVG to CX-OM, SVG to SHARAN, Ostial SVG to OM CORONARY ANGIOPLASTY WITH STENT PLACEMENT 07/09/2003 RACHELL SVG to OM, SVG to CX-OM CORONARY ANGIOPLASTY WITH STENT PLACEMENT 11/13/02 PTCA/Stent of SVG TO CX Proximal CORONARY ANGIOPLASTY WITH STENT PLACEMENT 10/03/2002 RACHELL Distal LMCA CORONARY ARTERY BYPASS GRAFT 06/23/1986 x2 EPISTAXIS N/A 07/12/2020 Procedure: CONTROL OF EPISTAXIS; Surgeon: Tha Long DO; Location: Main OR; Service: Otolaryngology HEMORRHOIDECTOMY HERNIA REPAIR 1977 ROTATOR CUFF REPAIR Left 2002 FH Family History Problem Relation Age of Onset Heart disease Mother Stroke Mother Hyperlipidemia Mother Hypertension Mother Coronary artery disease Mother Heart attack Father Stroke Father Heart disease Father Coronary artery disease Father Hyperlipidemia Father Hypertension Father Heart disease Sister 8 sisters Coronary artery disease Sister Heart disease Brother 4 brothers Cancer Brother lung 1 brother COPD Brother Heart disease Son Cancer Brother Cancer Brother Lug Early Brother Early Brother Mental illness Son SH Social History Socioeconomic History Marital status: Spouse name: [place] Number of children: 5 Years of education: Not on file Highest education level: 10th grade Occupational History Not on file Tobacco Use Smoking status: Current Every Day Smoker Packs/day: 0.25 Years: 45.00 Pack years: 11.25 Types: Cigarettes Smokeless tobacco: Never Used Vaping Use Vaping Use: Never used Substance and Sexual Activity Alcohol use: No Drug use: No Sexual activity: Not Currently Partners: Female Other Topics Concern Not on file Social History Narrative Not on file Social Determinants of Health Financial Resource Strain: Low Risk Difficulty of Paying Living Expenses: Not hard at all Food Insecurity: No Food Insecurity Worried About Running Out of Food in the Last Year: Never true Ran Out of Food in the Last Year: Never true Transportation Needs: No Transportation Needs Lack of Transportation (Medical): No Lack of Transportation (Non-Medical): No Physical Activity: Sufficiently Active Days of Exercise per Week: 7 days Minutes of Exercise per Session: 30 min Stress: No Stress Concern Present Feeling of Stress : Not at all Social Connections: Unknown Frequency of Communication with Friends and Family: Not on file Frequency of Social Gatherings with Friends and Family: Not on file Attends Anabaptism Services: Not on file Active Member of Clubs or Organizations: Not on file Attends Club or Organization Meetings: Not on file Marital Status: ROS Review of Systems Constitutional: Negative. HENT: Negative. Eyes: Negative. Respiratory: Negative. Cardiovascular: Negative. Gastrointestinal: Negative. Endocrine: Negative. Genitourinary: Negative. Musculoskeletal: Negative. Skin: Negative. Neurological: Negative. Hematological: Negative. Psychiatric/Behavioral: Negative. EXAM BP (!) 181/73 (BP Location: Right arm) Pulse (!) 51 Temp 98 F (36.7 C) (Oral) Ht 5' 7 Wt 61.2 kg (135 lb) SpO2 97% BMI 21.14 kg/m Physical Exam Constitutional: Appearance: He is well-developed. HENT: Head: Normocephalic and atraumatic. Eyes: Conjunctiva/sclera: Conjunctivae normal. Pupils: Pupils are equal, round, and reactive to light. Cardiovascular: Rate and Rhythm: Normal rate and regular rhythm. Pulmonary: Effort: Pulmonary effort is normal. Breath sounds: Normal breath sounds. Abdominal: General: Bowel sounds are normal. Palpations: Abdomen is soft. Musculoskeletal: General: Normal range of motion. Cervical back: Normal range of motion and neck supple. Skin: General: Skin is warm and dry. Neurological: Mental Status: He is alert and oriented to person, place, and time. Deep Tendon Reflexes: Reflexes are normal and symmetric. Psychiatric: Behavior: Behavior normal. Thought Content: Thought content normal. Judgment: Judgment normal. 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 Hypercoagulable condition with recurrent episodes of cva, on halfway anticoagulation, continue Coumadin. 2. Thrombocytopenia and macrocytosis -MDs ruled out , prior bone marrow biopsy in 2017 , discussed the findings, potential evolution in future, obtained after the visit demonstrate resolution of the macrocytosis, mild improvement in platelet count, will reevaluate with counts in 6 months. 3. Tobacco use disorder- continues to smoke few cigarettes a day, completed low dose ct chest on 07/16/2020 - noted stability in the pulmonary nodules Thank you for the privilege of allowing me to participate in the care of Mata Betts. TANVIR ARNETT MD [employer] [place] documented in this encounter [facility] 10-28-2020 History of Present illness Narrative Images from the original note were not included. Anticoagulation Progress Note Date of Visit: October 28, 2020 Patient Name: Mata Betts : 1955 Age: 65 y.o. Mata Betts is here for an anticoagulation follow-up visit. INR obtained via POC finger stick device. Anticoagulation Summary As of 10/28/2020 INR goal: 2.0-3.0 TTR: 80.2 % (2.2 y) INR used for dosin.3 (10/28/2020) Warfarin maintenance plan: 2.5 mg (5 mg x 0.5) every Tue, Sat; 5 mg (5 mg x 1) all other days Weekly warfarin total: 30 mg Plan last modified: Laxmi Whitney RPh,PharmD (08/01/2018) Next INR check: 12/09/2020 Priority: Maintenance Target end date: Indefinite Indications Cerebrovascular disease [I67.9] PAD (peripheral artery disease) (HCC) [I73.9] Lab Results Component Value Date WBC 5.11 07/12/2020 HGB 14.3 07/12/2020 HCT 42.5 07/12/2020 MCV 98.8 07/12/2020 EXTMCV 100.2 (H) 05/30/2018 PLT 109 (L) 07/12/2020 RBC 4.30 (L) 07/12/2020 Lab Results Component Value Date CREATININE 0.81 07/12/2020 CREATININE 0.73 12/27/2017 Wt Readings from Last 3 Encounters: 10/18/20 61.2 kg (135 lb) 08/26/20 64.2 kg (141 lb 8 oz) 07/20/20 62.9 kg (138 lb 11.2 oz) Ht Readings from Last 1 Encounters: 10/18/20 5' 7 Encounter Summary: ASSESSMENT: Patient Findings Positives: Signs/symptoms of bleeding (significant nosebleeds several weeks ago), Missed doses (off warfarin 10 days due to nosebleeds, resumed after cauterization 10/18 ) Negatives: Patient Reported Falls, Signs/symptoms of thrombosis, Laboratory test error suspected, Change in health, Change in alcohol use, Change in activity, Upcoming invasive procedure, Emergency department visit, Upcoming dental procedure, Extra doses, Change in medications, Change in diet/appetite, Hospital admission, Bruising, Other complaints Warfarin taken in the previous 7 days: 30 mg INR is subtherapeutic today. This is secondary to held warfarin doses 1.5-2 weeks ago. PLAN: 1. Will continue weekly warfarin dose of 30 mg/week. 2. Will check next INR in 6 weeks as has been doing unless there are any changes before then. Patient has been very stable on this dose when taken correctly. 3. Encouraged patient to contact clinic with any changes. Jesse Leong RPh,PharmD [facility] Dept: [phone] documented in this encounter [facility] 10-18-2020 Instructions Tha Long DO - 10/18/2020 12:56 PM EDT Assessment/Plan: Diagnoses and all orders for this visit: Epistaxis Nose is stable at this time. I have reinforced the need to stay on ayr saline gel at least twice daily. We have discussed nosebleed prevention. Follow up as needed. He is encouraged to call with any issues. Anticoagulant long-term use documented in this encounter [facility] 10-18-2020 History of Present illness Narrative Subjective Patient ID: Mata Betts is a 65 y.o. male. Patient is here today for epistaxis that started October 13 after being in [place] for two weeks without the Bybee gel. Patient states it was heavy on Sunday. Patient states he restarted the Bybee gel. Finally stopped bleeding on Sunday . Patient stopped his coumadin on Sunday. The following portions of the patient's history were reviewed and updated as appropriate: allergies, current medications, past family history, past medical history, past social history, past surgical history and problem list. Review of Systems Constitutional: Negative for chills and diaphoresis. HENT: Positive for nosebleeds. Negative for ear discharge and ear pain. Eyes: Negative for discharge and redness. Respiratory: Negative for apnea and cough. Cardiovascular: Negative for chest pain and palpitations. Musculoskeletal: Negative for neck pain and neck stiffness. Skin: Negative for color change and pallor. Allergic/Immunologic: Negative for immunocompromised state. Neurological: Negative for facial asymmetry and numbness. Hematological: Does not bruise/bleed easily. Psychiatric/Behavioral: Negative for agitation and confusion. Objective Physical Exam Vitals and nursing note reviewed. Constitutional: Appearance: Normal appearance. He is well-developed. He is not ill-appearing. HENT: Head: Normocephalic and atraumatic. Right Ear: Tympanic membrane, ear canal and external ear normal. No drainage or swelling. Left Ear: Tympanic membrane, ear canal and external ear normal. No drainage or swelling. Nose: No mucosal edema. Mouth/Throat: Lips: [place]. Dentition: Normal dentition. Pharynx: Uvula midline. No oropharyngeal exudate or posterior oropharyngeal erythema. Eyes: General: Lids are normal. Left eye: No discharge. Conjunctiva/sclera: Conjunctivae normal. Left eye: No chemosis. Pupils: Pupils are equal, round, and reactive to light. Neck: Thyroid: No thyroid mass or thyromegaly. Pulmonary: Breath sounds: No stridor. Musculoskeletal: Cervical back: Normal range of motion and neck supple. No edema. Normal range of motion. Neurological: Mental Status: He is alert. Psychiatric: Behavior: Behavior is cooperative. Assessment/Plan: Diagnoses and all orders for this visit: Epistaxis Nose is stable at this time. I have reinforced the need to stay on ayr saline gel at least twice daily. We have discussed nosebleed prevention. Follow up as needed. He is encouraged to call with any issues. Anticoagulant long-term use documented in this encounter [facility] 09-16-2020 History of Present illness Narrative Anticoagulation Progress Note Date of Visit: September 16, 2020 Patient Name: Mata Betts : 1955 Age: 65 y.o. Mata Betts is here for an anticoagulation follow-up visit. INR obtained via POC finger stick device. Anticoagulation Summary As of 09/16/2020 INR goal: 2.0-3.0 TTR: 82.3 % (2.1 y) INR used for dosin.5 (09/16/2020) Warfarin maintenance plan: 2.5 mg (5 mg x 0.5) every Tue, Sat; 5 mg (5 mg x 1) all other days Weekly warfarin total: 30 mg Plan last modified: Laxmi Whitney RPh,PharmD (08/01/2018) Next INR check: 10/28/2020 Priority: Maintenance Target end date: Indefinite Indications Cerebrovascular disease [I67.9] PAD (peripheral artery disease) (HCC) [I73.9] Lab Results Component Value Date WBC 5.11 07/12/2020 HGB 14.3 07/12/2020 HCT 42.5 07/12/2020 MCV 98.8 07/12/2020 EXTMCV 100.2 (H) 05/30/2018 PLT 109 (L) 07/12/2020 RBC 4.30 (L) 07/12/2020 Encounter Summary: ASSESSMENT: Patient Findings Negatives: Patient Reported Falls, Signs/symptoms of thrombosis, Signs/symptoms of bleeding, Laboratory test error suspected, Change in health, Change in alcohol use, Change in activity, Upcoming invasive procedure, Emergency department visit, Upcoming dental procedure, Missed doses, Extra doses, Change in medications, Change in diet/appetite, Hospital admission, Bruising, Other complaints Warfarin taken in the previous 7 days: 30 mg INR is therapeutic today. PLAN: 1. Will continue weekly warfarin dose of 30 mg/week. 2. Will check next INR in 6+ weeks unless there are any changes before then. 3. Encouraged patient to contact clinic with any changes. Laxmi Whitney RPh,PharmD [facility] Dept: [phone] documented in this encounter [facility] 08-26-2020 Instructions Tha Long DO - 08/26/2020 8:27 AM EDT Assessment/Plan: Diagnoses and all orders for this visit: History of epistaxis The patient presents 6 weeks following nasal cauterization. They are doing well and have had no further significant episodes since cauterization. I will see them back as needed. They are encouraged to continue ayr saline gel to maintain nasal moisture. documented in this encounter [facility] 08-26-2020 History of Present illness Narrative Subjective Patient ID: Mata Betts is a 65 y.o. male. 07/12/20 epistaxis control in the OR. right side. patient has not had any nosebleedsl. He is doing well. Using Bybee gel daily. Timin weeks location: right nares, posterior Severity: low associated symptoms: none The following portions of the patient's history were reviewed and updated as appropriate: allergies, current medications, past family history, past medical history, past social history, past surgical history and problem list. Review of Systems Constitutional: Negative for chills and diaphoresis. HENT: Negative for ear discharge, ear pain and nosebleeds. Eyes: Negative for discharge and redness. Respiratory: Negative for apnea and cough. Cardiovascular: Negative for chest pain and palpitations. Musculoskeletal: Negative for neck pain and neck stiffness. Skin: Negative for color change and pallor. Allergic/Immunologic: Negative for immunocompromised state. Neurological: Negative for facial asymmetry and numbness. Hematological: Does not bruise/bleed easily. Psychiatric/Behavioral: Negative for agitation and confusion. Objective Physical Exam Vitals signs and nursing note reviewed. Constitutional: Appearance: Normal appearance. He is well-developed. He is not ill-appearing. HENT: Head: Normocephalic and atraumatic. Right Ear: Tympanic membrane, ear canal and external ear normal. No drainage or swelling. Left Ear: Tympanic membrane, ear canal and external ear normal. No drainage or swelling. Nose: No mucosal edema. Mouth/Throat: Lips: [place]. Mouth: Mucous membranes are moist. Dentition: Normal dentition. Pharynx: Uvula midline. No oropharyngeal exudate or posterior oropharyngeal erythema. Eyes: General: Lids are normal. Left eye: No discharge. Conjunctiva/sclera: Conjunctivae normal. Left eye: No chemosis. Pupils: Pupils are equal, round, and reactive to light. Neck: Musculoskeletal: Normal range of motion and neck supple. Normal range of motion. No edema. Thyroid: No thyroid mass or thyromegaly. Pulmonary: Breath sounds: No stridor. Neurological: Mental Status: He is alert. Psychiatric: Behavior: Behavior is cooperative. Assessment/Plan: Diagnoses and all orders for this visit: History of epistaxis The patient presents 6 weeks following nasal cauterization. They are doing well and have had no further significant episodes since cauterization. I will see them back as needed. They are encouraged to continue ayr saline gel to maintain nasal moisture. documented in this encounter [facility] 12-30-2019 Telephone encounter Note Mata called for a refill Pending Prescriptions: Disp Refills metFORMIN (GLUCOPHAGE) 500 MG tablet [Pha*180 ta*3 Sig: take 1 tablet by mouth twice a day with meals Last refill was Patient is no longer taking medication Last appt 12/17/2019 Upcoming appt 06/21/2020 Please send to [id number] - [place], [place] - [address] AT [place] [id number] [facility] [phone] [id number] - [place] [address] [facility] [address] [facility] [id number] [phone] Wt Readings from Last 3 Encounters: 12/17/19 : 60.3 kg (133 lb) 10/15/19 : 59.9 kg (132 lb) 07/01/19 : 60.2 kg (132 lb 12.8 oz) BP Readings from Last 3 Encounters: 12/17/19 : 149/85 07/01/19 : (!) 151/77 06/18/19 : 145/62 Please advise [facility] 12-30-2019 Miscellaneous Notes Mata called for a refill Pending Prescriptions: Disp Refills metFORMIN (GLUCOPHAGE) 500 MG tablet [Pha*180 ta*3 Sig: take 1 tablet by mouth twice a day with meals Last refill was Patient is no longer taking medication Last appt 12/17/2019 Upcoming appt 06/21/2020 Please send to [facility] #[id number] - [place], [place] - [address] AT [facility] [address] [facility] [phone] [id number] - [place] - [address] [facility] [address] [facility] [phone] [facility] [facility] [place], [place] - [address] [address] Wt Readings from Last 3 Encounters: 12/17/19 : 60.3 kg (133 lb) 10/15/19 : 59.9 kg (132 lb) 07/01/19 : 60.2 kg (132 lb 12.8 oz) BP Readings from Last 3 Encounters: 12/17/19 : 149/85 07/01/19 : (!) 151/77 06/18/19 : 145/62 Please advise documented in this encounter [facility] Diagnosis Cerebrovascular disease- Primary Unspecified cerebrovascular disease PAD (peripheral artery disease) (HCC) Unspecified peripheral vascular disease [facility] Diagnosis Epistaxis- Primary Anticoagulant long-term use Encounter for long-term (current) use of anticoagulants [facility]* Diagnosis Thrombocytopenia (HCC) Unspecified thrombocytopenia PVD (peripheral vascular disease) (HCC) Unspecified peripheral vascular disease [facility]* Diagnosis Anticoagulation management encounter- Primary Encounter for therapeutic drug monitoring Other specified abnormal findings of blood chemistry Thrombocytopenia (HCC) Unspecified thrombocytopenia Personal history of nicotine dependence [facility] Diagnosis Cerebrovascular disease- Primary Unspecified cerebrovascular disease PAD (peripheral artery disease) (HCC) Unspecified peripheral vascular disease [facility] Diagnosis Essential hypertension- Primary Unspecified essential hypertension Mixed hyperlipidemia Coronary artery disease involving [place]ap[place]-apache coronary artery of [place]-apache heart without angina pectoris Panlobular emphysema (HCC) Other emphysema Pulmonary emphysema, unspecified emphysema type (HCC) Type 2 diabetes mellitus with other specified complication, without long-term current use of insulin (HCC) Current smoker [facility] Diagnosis PAD (peripheral artery disease) (HCC)- Primary Unspecified peripheral vascular disease [facility] Diagnosis Essential hypertension Unspecified essential hypertension Coronary artery disease involving [place]apai-apache coronary artery of [place]-apache heart without angina pectoris PND (paroxysmal nocturnal dyspnea) Other dyspnea and respiratory abnormality Abnormal EKG Nonspecific abnormal electrocardiogram (ECG) (EKG) [facility] Diagnosis Essential hypertension- Primary Unspecified essential hypertension [facility] Diagnosis PAD (peripheral artery disease) (HCC)- Primary Unspecified peripheral vascular disease [facility] Diagnosis Coronary artery disease involving [place]ap[place]-apache coronary artery of [place]-apache heart without angina pectoris- Primary Mixed hyperlipidemia Primary hypertension Unspecified essential hypertension Abnormal EKG Nonspecific abnormal electrocardiogram (ECG) (EKG) [facility]* Diagnosis Pre-procedure lab exam- Primary Pre-procedural laboratory examination [facility] Diagnosis Anticoagulation management encounter- Primary Encounter for therapeutic drug monitoring Personal history of nicotine dependence Pulmonary nodules Other diseases of lung, not elsewhere classified Tobacco use Other specified abnormal findings of blood chemistry [facility] Diagnosis General medical exam- Primary Unspecified general medical examination Benign essential hypertension Essential hypertension, benign PAD (peripheral artery disease) (HCC) Unspecified peripheral vascular disease Type 2 diabetes mellitus with other specified complication, without long-term current use of insulin (HCC) Panlobular emphysema (HCC) Other emphysema Mixed diabetic hyperlipidemia associated with type 2 diabetes mellitus (HCC) Thrombocytopenia (HCC) Unspecified thrombocytopenia Primary osteoarthritis involving multiple joints Erectile dysfunction, unspecified erectile dysfunction type [facility]* Diagnosis Pulmonary emphysema, unspecified emphysema type (HCC) [facility]* Diagnosis Chronic pain syndrome- Primary Lumbar spondylosis Lumbosacral spondylosis without myelopathy Myofascial pain Mylagia and myositis, unspecified documented in this encounter [facility] note* Diagnosis Upper respiratory tract infection, unspecified type- Primary [facility]* Diagnosis COPD with acute exacerbation (HCC)- Primary [facility]* Diagnosis PAD (peripheral artery disease) (HCC)- Primary Unspecified peripheral vascular disease [facility]* Diagnosis Anticoagulation management encounter- Primary Encounter for therapeutic drug monitoring Pulmonary nodules Other diseases of lung, not elsewhere classified Thrombocytopenia (HCC) Unspecified thrombocytopenia [facility] Diagnosis Anticoagulant long-term use- Primary Encounter for long-term (current) use of anticoagulants Injury of left ear, initial encounter Impacted cerumen of right ear Impacted cerumen [facility]* Diagnosis PAD (peripheral artery disease) (HCC)- Primary Unspecified peripheral vascular disease [facility]* Diagnosis Type 2 diabetes mellitus with other specified complication, without long-term current use of insulin (HCC)- Primary Mixed diabetic hyperlipidemia associated with type 2 diabetes mellitus (HCC) Benign essential hypertension Essential hypertension, benign PAD (peripheral artery disease) (HCC) Unspecified peripheral vascular disease DDD (degenerative disc disease), lumbosacral Degeneration of lumbar or lumbosacral intervertebral disc Pulmonary emphysema, unspecified emphysema type ([facility]) Erectile dysfunction, unspecified erectile dysfunction type [facility]* Diagnosis Anticoagulation management encounter- Primary Encounter for therapeutic drug monitoring Pulmonary nodules Other diseases of lung, not elsewhere classified Personal history of nicotine dependence Tobacco use Tobacco use disorder Screening for malignant neoplasm of respiratory organ Special screening for malignant neoplasm of the respiratory organs Other abnormality of red blood cells [facility] Diagnosis PAD (peripheral artery disease) (HCC)- Primary Unspecified peripheral vascular disease [facility]* Diagnosis PAD (peripheral artery disease) (HCC)- Primary Unspecified peripheral vascular disease [facility]* Diagnosis Thrombocytopenia (HCC) Unspecified thrombocytopenia PVD (peripheral vascular disease) (HCC) Unspecified peripheral vascular disease [facility] Diagnosis Benign essential hypertension Essential hypertension, benign Coronary artery disease involving [place]ap[place]-apache coronary artery of [place]-apache heart without angina pectoris Ischemic cardiomyopathy Other specified forms of chronic ischemic heart disease Valvular heart disease Endocarditis, valve unspecified, unspecified cause [facility]* Diagnosis PAD (peripheral artery disease) (HCC)- Primary Unspecified peripheral vascular disease [facility]* Diagnosis Benign essential hypertension- Primary Essential hypertension, benign [facility]* Diagnosis Acute exacerbation of chronic obstructive pulmonary disease (COPD) ([facility])- Primary Obstructive chronic bronchitis with exacerbation Erectile dysfunction, unspecified erectile dysfunction type [facility]* Diagnosis Type 2 diabetes mellitus without complication, with long-term current use of insulin ([facility]) documented in this encounter [facility]* Diagnosis Valvular heart disease- Primary Endocarditis, valve unspecified, unspecified cause [facility]* Diagnosis PAD (peripheral artery disease) ([facility])- Primary Unspecified peripheral vascular disease [facility]* Diagnosis Type 2 diabetes mellitus with other specified complication, without long-term current use of insulin ([facility])- Primary Mixed diabetic hyperlipidemia associated with type 2 diabetes mellitus ([facility]) Diabetic peripheral neuropathy ([facility]) Type II or unspecified type diabetes mellitus with neurological manifestations, not stated as uncontrolled PAD (peripheral artery disease) ([facility]) Unspecified peripheral vascular disease Benign essential hypertension Essential hypertension, benign Abnormal PSA Elevated prostate specific antigen (PSA) [facility]* Diagnosis Pulmonary emphysema, unspecified emphysema type ([facility]) [facility]* Diagnosis Anticoagulation management encounter- Primary Encounter for therapeutic drug monitoring Recurrent cerebrovascular accidents (CVAs) ([facility]) Other specified abnormal findings of blood chemistry Pulmonary nodules Other diseases of lung, not elsewhere classified documented in this encounter [facility]* Diagnosis PAD (peripheral artery disease) (HCC)- Primary Unspecified peripheral vascular disease [facility]* Diagnosis PAD (peripheral artery disease) (HCC)- Primary Unspecified peripheral vascular disease [facility]* Diagnosis Lumbosacral radiculopathy- Primary Thoracic or lumbosacral neuritis or radiculitis, unspecified [facility]* Diagnosis Pulmonary emphysema, unspecified emphysema type ([facility]) documented in this encounter [facility]* Diagnosis Acute midline low back pain with right-sided sciatica- Primary documented in this [facility]* Diagnosis Screening for abdominal aortic aneurysm- Primary Screening for other and unspecified cardiovascular conditions documented in this encounter [facility]* Diagnosis General medical exam- Primary Unspecified general medical examination Personal history of tobacco use Personal history of tobacco use, presenting hazards to health Hyperlipidemia, unspecified hyperlipidemia type Primary hypertension Unspecified essential hypertension Type 2 diabetes mellitus with other circulatory complication, without long-term current use of insulin (HCC) Immunization due Acute midline low back pain with bilateral sciatica documented in this encounter [facility] note* Diagnosis PAD (peripheral artery disease) (HCC)- Primary Unspecified peripheral vascular disease documented in this encounter [facility]* Diagnosis PAD (peripheral artery disease) (HCC)- Primary Unspecified peripheral vascular disease documented in this encounter [facility]* Diagnosis Cerebral aneurysm- Primary Cerebral aneurysm, nonruptured documented in this encounter [facility] note* Diagnosis Cerebral aneurysm- Primary Cerebral aneurysm, nonruptured documented in this encounter [facility] note* Diagnosis Anticoagulation management encounter- Primary Encounter for therapeutic drug monitoring documented in this encounter [facility]* Diagnosis Anticoagulation management encounter- Primary Encounter for therapeutic drug monitoring Other specified abnormal findings of blood chemistry Pulmonary nodules Other diseases of lung, not elsewhere classified Personal history of nicotine dependence Recurrent cerebrovascular accidents (CVAs) ([facility]) Fatigue, unspecified type documented in this encounter [facility]* Diagnosis PAD (peripheral artery disease) ([facility])- Primary Unspecified peripheral vascular disease documented in this [facility]* Diagnosis Intracranial vascular stenosis- Primary Cerebrovascular disease, unspecified documented in this encounter [facility] note* Diagnosis Intracranial vascular stenosis- Primary Cerebrovascular disease, unspecified documented in this encounter [facility] note* Diagnosis Weakness of left lower extremity- Primary Pain of left hip Acute pain of left knee documented in this encounter [facility]* Diagnosis Anticoagulation management encounter- Primary Encounter for therapeutic drug monitoring Pulmonary nodules Other diseases of lung, not elsewhere classified Other specified abnormal findings of blood chemistry Leg pain, anterior, left documented in this encounter [facility]* Diagnosis Low back pain, unspecified back pain laterality, unspecified chronicity, unspecified whether sciatica present- Primary Lumbar radiculopathy Thoracic or lumbosacral neuritis or radiculitis, unspecified [facility]* Diagnosis Coronary artery disease involving yavapai-apache coronary artery of yavap[place]-apache heart without angina pectoris- Primary PAD (peripheral artery disease) ([facility]) Unspecified peripheral vascular disease [facility]* Diagnosis Lumbar radiculopathy, chronic- Primary Low back pain, unspecified back pain laterality, unspecified chronicity, unspecified whether sciatica present Lumbar radiculopathy Thoracic or lumbosacral neuritis or radiculitis, unspecified [facility]* Diagnosis Lumbar radiculopathy, chronic- Primary [facility]* Diagnosis Lumbar radiculopathy, chronic- Primary [facility]* Diagnosis Lumbar radiculopathy, chronic- Primary documented in this encounter [facility]* Diagnosis Lumbar radiculopathy, chronic- Primary documented in this encounter [facility]* Diagnosis PAD (peripheral artery disease) ([facility])- Primary Unspecified peripheral vascular disease documented in this encounter [facility]* Diagnosis Erectile dysfunction, unspecified erectile dysfunction type [facility]* Attachments The following attachments cannot be sent through Care Everywhere. * Back [facility] (Bulgarian) [facility] * Patient Instructions - Brittni Marroquin RN - 07/12/2017 10:55 AM EDT RTC 6 mo in this encounter* Patient Instructions - Elza Dietrich PA-C - 01/01/2017 2:07 PM EDT Stopping Smoking: Care Instructions Your Care Instructions Cigarette smokers crave the nicotine in cigarettes. Giving it up is much harder than simply changing a habit. Your body has to stop craving the nicotine. It is hard to quit, but you can do it. There are many tools that people use to quit smoking. You may find that combining tools works best for you. There are several steps to quitting. First you get ready to quit. Then you get support to help you.After that, you learn new skills and behaviors to become a nonsmoker. For many people, a necessary step is getting and using medicine. Your doctor will help you set up the plan that best meets your needs. You may want to attend a smoking cessation program to help you quit smoking. When you choose a program, look for one that has proven success. Ask your doctor for ideas. You will greatly increase your chances of success if you take medicine as well as get counseling or join a cessation program. Some of the changes you feel when you first quit tobacco are uncomfortable. Your body will miss thenicotine at first, and you may feel short-tempered and grumpy. You may have trouble sleeping or concentrating. Medicine can help you deal with these symptoms. You may struggle with changing your smoking habits and rituals. The last step is the tricky one: Be prepared for the smoking urge to continue for a time. This is a lot to deal with, but keep at it. You will feel better. Follow-up care is a garcia part of your treatment and safety. Be sure to make and go to all appointments, and call your doctor if you are having problems. It s also a good idea to know your test resultsand keep a list of the medicines you take. How can you care for yourself at home? Ask your family, friends, and coworkers for support. You have a better chance of quitting if you have help and support. Join a support group, such as Nicotine Anonymous, for people who are trying to quit smoking. Consider signing up for a smoking cessation program, such as the [place]'s [place] from Smoking program. Set a quit date. Pick your date carefully so that it is not right in the middle of a big deadline or stressful time. Once you quit, do not even take a puff. Get rid of all ashtrays and lighters afteryour last cigarette. Clean your house and your clothes so that they do not smell of smoke. Learn how to be a nonsmoker. Think about ways you can avoid those things that make you reach for a cigarette. Avoid situations that put you at greatest risk for smoking. For some people, it is hard to have a drink with friends without smoking. For others, they might skip a coffee break with coworkers who smoke. Change your daily routine. Take a different route to work or eat a meal in a different place. Cut down on stress. Calm yourself or release tension by doing an activity you enjoy, such as reading a book, taking a hot bath, or gardening. Talk to your doctor or pharmacist about nicotine replacement therapy, which replaces the nicotine in your body. You still get nicotine but you do not use tobacco. Nicotine replacement products help you slowly reduce the amount of nicotine you need. These products come in several forms, many of themavailable [id number]: Nicotine patches Nicotine gum and lozenges Nicotine inhaler Ask your doctor about bupropion (Wellbutrin) or varenicline (Chantix), which are prescription medicines. They do not contain nicotine. They help you by reducing withdrawal symptoms, such as stress and anxiety. Some people find hypnosis, acupuncture, and massage helpful for ending the smoking habit. Eat a healthy diet and get regular exercise. Having healthy habits will help your body move past its craving for nicotine. Be prepared to keep trying. Most people are not successful the first few times they try to quit. Donot get mad at yourself if you smoke again. Make a list of things you learned and think about when you want to try again, such as next week, next month, or next year. Where can you learn more? Log into your personal health record on https://[employer] and enter Y522 in the Education box to learn more about Stopping Smoking: Care Instructions. Current as of: September 16, 2015 Content Version: 11.2 7008-6496 [employer]. Care instructions adapted under license by your healthcare professional. If you have questions about a medical condition or this instruction, always ask your healthcare professional. [employer] disclaims any warranty or liability for your use of this information. in this encounter* Patient Instructions - Liliane Banerjee MA - 05/07/2017 10:07 AM EST Next Sunday (05/16/17) in this encounter* Patient Instructions - Jeanna Duff MD - 10/23/2017 9:29 AM EDT Formatting of this note may be different from the original. 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 Relevant Medications aspirin 81 MG EC tablet prazosin (MINIPRESS) 1 MG capsule Essential hypertension - Primary Not Stable, continue meds restart minipres. increase activity as can tolerate, limit salt, and watch diet. Continue to monitor BP at home as instructed. Bring blood pressure log and cuff to next visit. Relevant Medications prazosin (MINIPRESS) 1 MG capsule Mixed hyperlipidemia Continue meds as prescribed, watch diet, and increase activity as able to tolerate. Tobacco Abuse Continue efforts to cut back and quit. Hypercoagulable state (HCC) Continue meds as prescribed per Dr. Hernandez. Diabetes mellitus (HCC) Not sure whether Stable, continue meds, STOP INSULIN, watch diet, increase activity as can tolerate. Monitor BS as instructed. Bring blood sugar log to next visit. Get A1C drawn 1 week prior to next visit. Relevant Orders Hemoglobin A1c Hemoglobin A1c in this encounter* Patient Instructions - Charisse Painting, JESSI - 02/18/2018 1:34 PM EDT Formatting of this note may be different from the original. SNOMED CT(R) 1. Bronchitis BRONCHITIS azithromycin (Z-WENDY) 5 day dose pack Start the Z-Wendy x5 days. Mucinex OTC to thin the secretions. Delsym cough syrup OTC for cough control twice daily as needed. Use inhaler for wheezing. Bronchitis: Care Instructions Your Care Instructions Bronchitis is inflammation of the bronchial tubes, which carry air to the lungs. The tubes swell and produce mucus, or phlegm. The mucus and inflamed bronchial tubes make you cough. You may have trouble breathing. Most cases of bronchitis are caused by viruses like those that cause colds. Antibiotics usually do not help and they may be harmful. Bronchitis usually develops rapidly and lasts about 2 to 3 weeks in otherwise healthy people. Follow-up care is a garcia part of your treatment and safety. Be sure to make and go to all appointments, and call your doctor if you are having problems. It's also a good idea to know your test resultsand keep a list of the medicines you take. How can you care for yourself at home? Take all medicines exactly as prescribed. Call your doctor if you think you are having a problem with your medicine. Get some extra rest. Take an ghzo-pui-zpbxvto pain medicine, such as acetaminophen (Tylenol), ibuprofen (Advil, Motrin),or naproxen (Aleve) to reduce fever and relieve body aches. Read and follow all instructions on thelabel. Do not take two or more pain medicines at the same time unless the doctor told you to. Many pain medicines have acetaminophen, which is Tylenol. Too much acetaminophen (Tylenol) can be harmful. Take an rgem-ima-ivmebnk cough medicine that contains dextromethorphan to help quiet a dry, hackingcough so that you can sleep. Avoid cough medicines that have more than one active ingredient. Read and follow all instructions on the label. Breathe moist air from a humidifier, hot shower, or sink filled with hot water. The heat and moisture will thin mucus so you can cough it out. Do not smoke. Smoking can make bronchitis worse. If you need help quitting, talk to your doctor about stop-smoking programs and medicines. These can increase your chances of quitting for good. When should you call for help? Call 911 anytime you think you may need emergency care. For example, call if: ? You have severe trouble breathing. ?Call your doctor now or seek immediate medical care if: ? You have new or worse trouble breathing. ? You cough up dark brown or bloody mucus (sputum). ? You have a new or higher fever. ? You have a new rash. ?Watch closely for changes in your health, and be sure to contact your doctor if: ? You cough more deeply or more often, especially if you notice more mucus or a change in the colorof your mucus. ? You are not getting better as expected. Where can you learn more? Log into your personal health record on https://[employer] and enter H333 in the Education box to learn more about Bronchitis: Care Instructions. Current as of: March 28, 2017 Content Version: 11.6 1536-7884 [employer]. Care instructions adapted under license by your healthcare professional. If you have questions about a medical condition or this instruction, always ask your healthcare professional. [employer] disclaims any warranty or liability for your use of this information. in this encounter* Patient Instructions - Tanvir Arnett MD - 02/09/2017 10:41 AM EDT RTC 3 mo in this encounter* Patient Instructions - Brittni Marroquin RN - 03/28/2018 10:26 AM EST Anticoagulation options include: Pradaxa, Eliquis, and Xarelto Obtain labs and RTC 2 months in this encounter* Patient Instructions - Charisse Painting CNP - 04/29/2018 3:29 PM EST Formatting of this note may be different from the original. SNOMED CT(R) 1. Upper respiratory tract infection, unspecified type UPPER RESPIRATORY INFECTION azithromycin (Z-WENDY) 5 day dose pack cont. using sinus rinse bottle/netti pot x5 days to help with congestion. Mucinex and Delsym cough syrup OTC for cough and congestion. Upper Respiratory Infection (Cold): Care Instructions Your Care Instructions An upper respiratory infection, or URI, is an infection of the nose, sinuses, or throat. URIs are spread by coughs, sneezes, and direct contact. The common cold is the most frequent kind of URI. The flu and sinus infections are other kinds of URIs. Almost all URIs are caused by viruses. Antibiotics won't cure them. But you can treat most infections with home care. This may include drinking lots of fluids and taking nglb-gjd-lysclpr pain medicine. You will probably feel better in 4 to 10 days. The doctor has checked you carefully, but problems can develop later. If you notice any problems ornew symptoms, get medical treatment right away. Follow-up care is a garcia part of your treatment and safety. Be sure to make and go to all appointments, and call your doctor if you are having problems. It's also a good idea to know your test resultsand keep a list of the medicines you take. How can you care for yourself at home? To prevent dehydration, drink plenty of fluids, enough so that your urine is light yellow or clear like water. Choose water and other caffeine-free clear liquids until you feel better. If you have kidney, heart, or liver disease and have to limit fluids, talk with your doctor before you increase the amount of fluids you drink. Take an ejkp-xvr-ebtxlid pain medicine, such as acetaminophen (Tylenol), ibuprofen (Advil, Motrin),or naproxen (Aleve). Read and follow all instructions on the label. Before you use cough and cold medicines, check the label. These medicines may not be safe for youngchildren or for people with certain health problems. Be careful when taking liwe-qhz-nczvvnn cold or flu medicines and Tylenol at the same time. Many ofthese medicines have acetaminophen, which is Tylenol. Read the labels to make sure that you are nottaking more than the recommended dose. Too much acetaminophen (Tylenol) can be harmful. Get plenty of rest. Do not smoke or allow others to smoke around you. If you need help quitting, talk to your doctor about stop-smoking programs and medicines. These can increase your chances of quitting for good. When should you call for help? Call 911 anytime you think you may need emergency care. For example, call if: You have severe trouble breathing. Call your doctor now or seek immediate medical care if: You seem to be getting much sicker. You have new or worse trouble breathing. You have a new or higher fever. You have a new rash. Watch closely for changes in your health, and be sure to contact your doctor if: You have a new symptom, such as a sore throat, an earache, or sinus pain. You cough more deeply or more often, especially if you notice more mucus or a change in the color of your mucus. You do not get better as expected. Where can you learn more? Log into your personal health record on https://[employer] and enter K520 in the Education box to learn more about Upper Respiratory Infection (Cold): Care Instructions. Current as of: December 26, 2017 Content Version: 11.20053229-1100 [employer]. Care instructions adapted under license by your healthcare professional. If you have questions about a medical condition or this instruction, always ask your healthcare professional. [employer] disclaims any warranty or liability for your use of this information. Saline Nasal Washes: Care Instructions Your Care Instructions Saline nasal washes help keep the nasal passages open by washing out thick or dried mucus. This simple remedy can help relieve symptoms of allergies, sinusitis, and colds. It also can make the nose feel more comfortable by keeping the mucous membranes moist. You may notice a little burning sensation in your nose the first few times you use the solution, but this usually gets better in a few days. Follow-up care is a garcia part of your treatment and safety. Be sure to make and go to all appointments, and call your doctor if you are having problems. It's also a good idea to know your test resultsand keep a list of the medicines you take. How can you care for yourself at home? You can buy premixed saline solution in a squeeze bottle or other sinus rinse products at a drugstore. Read and follow the instructions on the label. You also can make your own saline solution by adding 1 teaspoon of salt and 1 teaspoon of baking soda to 2 cups of distilled water. If you use a homemade solution, pour a small amount into a clean bowl. Using a rubber bulb syringe,squeeze the syringe and place the tip in the salt water. Pull a small amount of the salt water intothe syringe by relaxing your hand. Sit down with your head tilted slightly back. Do not lie down. Put the tip of the bulb syringe or the squeeze bottle a little way into one of your nostrils. Gently drip or squirt a few drops into thenostril. Repeat with the other nostril. Some sneezing and gagging are normal at first. Gently blow your nose. Wipe the syringe or bottle tip clean after each use. Repeat this 2 or 3 times a day. Use nasal washes gently if you have nosebleeds often. When should you call for help? Watch closely for changes in your health, and be sure to contact your doctor if: You often get nosebleeds. You have problems doing the nasal washes. Where can you learn more? Log into your personal health record on https://[employer] and enter B784 in the Education box to learn more about Saline Nasal Washes: Care Instructions. Current as of: July 17, 2017 Content Version: 11.9 1005-6386 [employer]. Care instructions adapted under license by your healthcare professional. If you have questions about a medical condition or this instruction, always ask your healthcare professional. [employer] disclaims any warranty or liability for your use of this information. in this encounter* Patient Instructions* Brittni Marroquin RN - 05/30/2018 1:25 PM EST Refer to Dr Reese ENT for persistent nose bleeds Obtain labs today and again in 6 months RTC 6 mo in this encounter* Patient Instructions* Laxmi Whitney, [facility],PharmD - 08/01/2018 8:45 AM EDT Clinic and leave your message (include date of ) Follow the dosing instructions printed on your warfarin dose calendar Clinic Hours: Sunday: 8:00 am - 4:15 pm Sunday: 7:00 am - 3:15 pm Sunday: 7:00 am - 3:15 pm : 8:00 am - 4:15 pm Sunday: 7:00 am- 3:15 pm in this encounter* Patient Instructions* Brittni Marroquin RN - 11/28/2018 10:26 AM EDT Obtain labs today Obtain Low dose CT chest in February RTC March documented in this encounter* Patient Instructions* Laxmi Whitney RPh,PharmAngela - 12/12/2018 8:04 AM EDT Clinic and leave your message (include date of ) Follow the dosing instructions printed on your warfarin dose calendar Clinic Hours: Sunday: 8:00 am - 4:15 pm Sunday: 7:00 am - 3:15 pm Sunday: 7:00 am - 3:15 pm : 8:00 am - 4:15 pm Sunday: 7:00 am- 3:15 pm documented in this encounter* Patient Instructions* Brittni Marroquin RN - 04/01/2019 2:33 PM EST Obtain labs this week as well as in 3 mo RTC 3 months documented in this encounter* Patient Instructions* Jesse Leong RPh,PharmD - 05/29/2019 2:50 PM EST Clinic and leave your message (include date of ) Follow the dosing instructions printed on your warfarin dose calendar Clinic Hours: Sunday: 8:00 am - 4:15 pm Ana: 7:00 am - 3:15 pm Sunday: 7:00 am - 3:15 pm : 8:00 am - 4:15 pm Sunday: 7:00 am- 3:15 pm documented in this encounter* Patient Instructions* Jeanna Duff MD - 06/18/2019 7:13 AM EST Problem List Items Addressed This Visit Endocrine Diabetes mellitus (HCC) Chronic, Stable, continue meds, watch diet, increase activity as can tolerate. Monitor BS as instructed. Bring blood sugar log to next visit. Relevant Orders Hemoglobin A1c Cardiovascular and Mediastinum Essential hypertension - Primary Chronic, Stable, continue meds, increase activity as can tolerate, limit salt, and watch diet. Continue to monitor BP at home as instructed. Bring blood pressure log and cuff to next visit. Relevant Orders CBC and Differential Comprehensive Metabolic Panel Microalbumin/Creatinine Ratio, UR Random TSH with Reflex Free T4 Other Mixed hyperlipidemia Chronic, stable, Continue meds as prescribed, watch diet, and increase activity as able to tolerate. Relevant Orders Lipid Panel Other Visit Diagnoses Abnormal PSA Relevant Orders PSA, Total and Free Finger pain, left Acute, XR normal, will try steroids and home stretches, if not better in 7-10 days will need Ortho referral for further finger eval. Relevant Medications methylPREDNISolone (MEDROL DOSEPACK) 4 mg tablet If any referrals were placed at the time of your visit please allow 2 weeks for processing. If you haven't heard from anyone within 2 weeks please contact my office so we can look into the status of your referral. If you were given any labs today please ensure they are completed according to the directions given. Once labs are completed please allow 1-2 weeks for us to receive the results, review them, and letyou know what steps, if any, are needed next. If you haven't heard from us after that please call to inquire. If labs were ordered to be done PRIOR to your next visit we will discuss the results at the time ofyour office visit. If any procedures or imaging studies were ordered that must be prior authorized please give us 2 weeks to get them approved. Once approved someone should call you to schedule them or give you a date and time that they were scheduled for. If you haven't heard anything within 2 weeks of the office visit please call the office so we can look into their status. documented in this encounter* Patient Instructions* Jesse Leong RPh,PharmD - 08/21/2019 2:30 PM EDT Clinic and leave your message (include date of ) Follow the dosing instructions printed on your warfarin dose calendar Clinic Hours: Sunday: 8:00 am - 4:15 pm Sunday: 7:00 am - 3:15 pm Sunday: 7:00 am - 3:15 pm : 8:00 am - 4:15 pm Sunday: 7:00 am- 3:15 pm documented in this encounter* Patient Instructions* Brittni Marroquin RN - 07/01/2019 3:22 PM EDT Obtain labs and RTC 6 mo documented in this encounter* Patient Instructions* Jesse Leong RPh,PharmD - 07/10/2019 2:30 PM EDT Clinic and leave your message (include date of ) Follow the dosing instructions printed on your warfarin dose calendar Clinic Hours: Sunday: 8:00 am - 4:15 pm Sunday: 7:00 am - 3:15 pm Sunday: 7:00 am - 3:15 pm : 8:00 am - 4:15 pm Sunday: 7:00 am- 3:15 pm documented in this encounter* Patient Instructions* Laxmi Whitney RPh,PharmD - 10/02/2019 2:34 PM EDT Clinic and leave your message (include date of ) Follow the dosing instructions printed on your warfarin dose calendar Clinic Hours: Sunday: 8:00 am - 4:15 pm Ana: 7:00 am - 3:15 pm Sunday: 7:00 am - 3:15 pm : 8:00 am - 4:15 pm Sunday: 7:00 am- 3:15 pm documented in this encounter* Patient Instructions* Laxmi Whitney RPh,PharmAngela - 12/25/2019 2:18 PM EDT Clinic and leave your message (include date of ) Follow the dosing instructions printed on your warfarin dose calendar Clinic Hours: Sunday: 8:00 am - 4:15 pm Sunday: 7:00 am - 3:15 pm Sunday: 7:00 am - 3:15 pm : 8:00 am - 4:15 pm Sunday: 7:00 am- 3:15 pm documented in this encounter* Patient Instructions* Danielle Willson MA - 04/05/2020 12:45 PM EST How to contact your Care Team: Provider: Dr. Campoverde Nurse: Tiera Painting RN In case of an emergency please call 911. REFILLS: When in need for refills please call your care team or the office at [phone]. Please include medication name, pharmacy name, and specify 30-day or 90-day supply. Please check with your pharmacy within 24 hours of request for your refill. You must follow up as directed to continue current refills. Thank you! documented in this encounter* Patient Instructions* Jesse Leong RPh,PharmD - 04/22/2020 8:13 AM EST If you experience any of the following symptoms within 24 hours of your next appointment, or you have been in close contact with anyone confirmed or suspected to have coronavirus/COVID-19 in the past10 days please call us to reschedule at Dept: [phone]. ? Fever ? Cough ? Shortness of breath ? Difficulty breathing ? Chills ? Repeated shaking with chills ? Muscle pain ? Headache ? Sore throat ? Any loss of taste or smell ? Nausea, vomiting or diarrhea If you are screened positive for any of the above upon entering the building, please call us at Dept: [phone] for further instructions before you proceed to the clinic. Thank you for adhering to our precautions to keep our patients and providers safe! documented in this encounter* Patient Instructions* Laxmi Whitney RPh,PharmD - 06/03/2020 8:08 AM EST Clinic and leave your message (include date of ) Follow the dosing instructions printed on your warfarin dose calendar Clinic Hours: Sunday: 8:00 am - 4:15 pm Sunday: 7:00 am - 3:15 pm Sunday: 7:00 am - 3:15 pm : 8:00 am - 4:15 pm Sunday: 7:00 am- 3:15 pm documented in this encounter* Patient Instructions* Laxmi Whitney RPh,PharmD - 09/12/2018 8:01 AM EDT Clinic and leave your message (include date of ) Follow the dosing instructions printed on your warfarin dose calendar Clinic Hours: Sunday: 8:00 am - 4:15 pm Sunday: 7:00 am - 3:15 pm Sunday: 7:00 am - 3:15 pm : 8:00 am - 4:15 pm Sunday: 7:00 am- 3:15 pm documented in this encounter* Patient Instructions* Jeanna Duff MD - 06/07/2020 10:09 AM EST Problem List Items Addressed This Visit None Visit Diagnoses Scrotal abscess - Primary Acute,mostly resolved, will give abx to prevent infection, monitor area, if returns then let me know. Relevant Medications cephALEXin (KEFLEX) 500 MG capsule If any referrals were placed at the time of your visit please allow 2 weeks for processing. If you haven't heard from anyone within 2 weeks please contact my office so we can look into the status of your referral. If you were given any labs today please ensure they are completed according to the directions given. Once labs are completed please allow 1-2 weeks for us to receive the results, review them, and letyou know what steps, if any, are needed next. If you haven't heard from us after that please call to inquire. If labs were ordered to be done PRIOR to your next visit we will discuss the results at the time ofyour office visit. If any procedures or imaging studies were ordered that must be prior authorized please give us 2 weeks to get them approved. Once approved someone should call you to schedule them or give you a date and time that they were scheduled for. If you haven't heard anything within 2 weeks of the office visit please call the office so we can look into their status. documented in this encounter* Patient Instructions* Jeanna Duff MD - 06/21/2020 9:22 AM EST Problem List Items Addressed This Visit Endocrine Type 2 diabetes mellitus with diabetic polyneuropathy, without long-term current use of insulin (HCC) Chronic, Stable, continue meds, watch diet, increase activity as can tolerate. Monitor BS as instructed. Bring blood sugar log to next visit. Get A1C drawn 1 week prior to next visit. Relevant Orders POC Glycosylated Hemoglobin (Hb A1C) (Completed) Hemoglobin A1c Respiratory Pulmonary emphysema (HCC) Chronic, stable, Continue inhalers as prescribed, watch diet, and increase activity as able to tolerate. Cardiovascular and Mediastinum Coronary artery disease involving [place] heart without angina pectoris Chronic, stable, asymptomatic no complaints, tolerating well. Essential hypertension Chronic, Stable, continue meds, increase activity as can tolerate, limit salt, and watch diet. Continue to monitor BP at home as instructed. Bring blood pressure log and cuff to next visit. Relevant Orders CBC and Differential Comprehensive Metabolic Panel Microalbumin/Creatinine Ratio, UR Random TSH with Reflex Free T4 PAD (peripheral artery disease) (HCC) Chronic, stable, continue meds, will await testing for routine issue. Musculoskeletal and Integument DDD (degenerative disc disease), lumbosacral Chronic, stable, continue meds and care per Dr. Swan, will monitor and follow. Other Mixed hyperlipidemia Chronic, stable, Continue meds as prescribed, watch diet, and increase activity as able to tolerate. Relevant Orders Lipid Panel Current smoker Chronic, stable, Continue efforts to cut back and quit. Hypercoagulable state (HCC) Chronic, stable, continue Warfarin and Plavix due to issues. Thrombocytopenia (HCC) Chronic, stable continue lab, will monitor along with Dr. Sloan Other Visit Diagnoses General medical exam - Primary Abnormal PSA Relevant Orders PSA, Total and Free If any referrals were placed at the time of your visit please allow 2 weeks for processing. If you haven't heard from anyone within 2 weeks please contact my office so we can look into the status of your referral. If you were given any labs today please ensure they are completed according to the directions given. Once labs are completed please allow 1-2 weeks for us to receive the results, review them, and letyou know what steps, if any, are needed next. If you haven't heard from us after that please call to inquire. If labs were ordered to be done PRIOR to your next visit we will discuss the results at the time ofyour office visit. If any procedures or imaging studies were ordered that must be prior authorized please give us 2 weeks to get them approved. Once approved someone should call you to schedule them or give you a date and time that they were scheduled for. If you haven't heard anything within 2 weeks of the office visit please call the office so we can look into their status. documented in this encounter* Patient Instructions* Laxmi Whitney RPh,PharmD - 03/06/2019 8:05 AM EST Clinic and leave your message (include date of ) Follow the dosing instructions printed on your warfarin dose calendar Clinic Hours: Sunday: 8:00 am - 4:15 pm Sunday: 7:00 am - 3:15 pm Sunday: 7:00 am - 3:15 pm : 8:00 am - 4:15 pm Sunday: 7:00 am- 3:15 pm documented in this encounter* Patient Instructions* Jeanna Duff MD - 06/18/2018 8:45 AM EST Problem List Items Addressed This Visit Essential hypertension - Primary Chronic, Stable, continue meds, increase activity as can tolerate, limit salt, and watch diet. Continue to monitor BP at home as instructed. Bring blood pressure log and cuff to next visit. Relevant Orders CBC and Differential Comprehensive Metabolic Panel Microalbumin, Urine, Random TSH with Reflex Free T4 Mixed hyperlipidemia Chronic, stable, Continue meds as prescribed, watch diet, and increase activity as able to tolerate. Relevant Orders Lipid Panel Current smoker Chronic, Continue efforts to cut back and quit. Pulmonary emphysema (HCC) Chronic, stable, continue inhaler use as directed. Diabetes mellitus (HCC) Chronic, Stable, continue meds, watch diet, increase activity as can tolerate. Monitor BS as instructed. Relevant Orders POC Glycosylated Hemoglobin (Hb A1C) Hemoglobin A1c If any referrals were placed at the time of your visit please allow 2 weeks for processing. If you haven't heard from anyone within 2 weeks please contact my office so we can look into the status of your referral. If you were given any labs today please ensure they are completed according to the directions given. Once labs are completed please allow 1-2 weeks for us to receive the results, review them, and letyou know what steps, if any, are needed next. If you haven't heard from us after that please call to inquire. If labs were ordered to be done PRIOR to your next visit we will discuss the results at the time ofyour office visit. If any procedures or imaging studies were ordered that must be prior authorized please give us 2 weeks to get them approved. Once approved someone should call you to schedule them or give you a date and time that they were scheduled for. If you haven't heard anything within 2 weeks of the office visit please call the office so we can look into their status. in this encounter* Patient Instructions* Jeanna Duff MD - 12/16/2018 10:24 AM EDT Problem List Items Addressed This Visit Endocrine Diabetes mellitus (HCC) Chronic, stable, continue meds, watch diet, increase activity as can tolerate. Monitor BS as instructed. Bring blood sugar log to next visit. Relevant Orders POC Glycosylated Hemoglobin (Hb A1C) (Completed) Respiratory Pulmonary emphysema (HCC) Chronic, stable, continue inhaler use. Relevant Medications VENTOLIN HFA 90 mcg/actuation inhaler Cardiovascular and Mediastinum Coronary artery disease involving [place] heart without angina pectoris Chronic, no symptoms, let me know if get more symptoms. Essential hypertension - Primary Chronic, Stable, continue meds, increase activity as can tolerate, limit salt, and watch diet. Continue to monitor BP at home as instructed. Bring blood pressure log and cuff to next visit. Relevant Orders CBC and Differential Comprehensive Metabolic Panel TSH with Reflex Free T4 Microalbumin, Urine, Random PAD (peripheral artery disease) (HCC) Chronic, stable, continue use of Coumadin. Other Mixed hyperlipidemia Chronic, stable, Continue meds as prescribed, watch diet, and increase activity as able to tolerate. Relevant Orders Lipid Panel Current smoker Chronic, stop Chantix once you fully quit the cigs. If any referrals were placed at the time of your visit please allow 2 weeks for processing. If you haven't heard from anyone within 2 weeks please contact my office so we can look into the status of your referral. If you were given any labs today please ensure they are completed according to the directions given. Once labs are completed please allow 1-2 weeks for us to receive the results, review them, and letyou know what steps, if any, are needed next. If you haven't heard from us after that please call to inquire. If labs were ordered to be done PRIOR to your next visit we will discuss the results at the time ofyour office visit. If any procedures or imaging studies were ordered that must be prior authorized please give us 2 weeks to get them approved. Once approved someone should call you to schedule them or give you a date and time that they were scheduled for. If you haven't heard anything within 2 weeks of the office visit please call the office so we can look into their status. documented in this encounter* Patient Instructions* Jeanna Duff MD - 12/17/2019 7:03 AM EDT Problem List Items Addressed This Visit Endocrine Diabetes mellitus (HCC) Chronic, stable,wellcontrolled, trial off Metformin,watch diet, increase activity as can tolerate. Monitor BS as instructed. Bring blood sugar log to next visit. Relevant Orders POC Glycosylated Hemoglobin (Hb A1C) (Completed) Respiratory Pulmonary emphysema (HCC) Chronic, stable, continue inhaler use, will monitor. Relevant Medications Ventolin HFA 90 mcg/actuation inhaler fluticasone furoate-vilanteroL (Breo Ellipta) 100-25 mcg/dose DsDv fluticasone propion-salmeteroL (ADVAIR DISKUS) 250-50 mcg/dose diskus inhaler Cardiovascular and Mediastinum Coronary artery disease involving [place] heart without angina pectoris Chronic, stable, asymptomatic, will continue to monitor. Essential hypertension - Primary Chronic, Stable, continue meds, increase activity as can tolerate, limit salt, and watch diet. Continue to monitor BP at home as instructed. Bring blood pressure log and cuff to next visit. Other Mixed hyperlipidemia Chronic, stable, Continue meds as prescribed, watch diet, and increase activity as able to tolerate. Current smoker CHronic, low use, try to find something to help control the stress besides cigs. Other Visit Diagnoses Need for vaccination Relevant Medications diptheria, tetanus toxoid, acellular pertusssis (ADACEL) 2 Lf-(2.5-5-3-5 mcg)- 5Lf/0.5 mL injection Other Relevant Orders Tdap vaccine greater than or equal to 7yo IM If any referrals were placed at the time of your visit please allow 2 weeks for processing. If you haven't heard from anyone within 2 weeks please contact my office so we can look into the status of your referral. If you were given any labs today please ensure they are completed according to the directions given. Once labs are completed please allow 1-2 weeks for us to receive the results, review them, and letyou know what steps, if any, are needed next. If you haven't heard from us after that please call to inquire. If labs were ordered to be done PRIOR to your next visit we will discuss the results at the time ofyour office visit. If any procedures or imaging studies were ordered that must be prior authorized please give us 2 weeks to get them approved. Once approved someone should call you to schedule them or give you a date and time that they were scheduled for. If you haven't heard anything within 2 weeks of the office visit please call the office so we can look into their status. documented in this encounter* Patient Instructions* Tha Long DO - 07/12/2020 1:52 PM EDT Diagnoses and all orders for this visit: Epistaxis I removed the rapid rhino pack that was placed today as it was half extruded from the patient's nose. I placed a 8.5cm merocel pack coated in antibiotic ointment in the right nares without difficulty. Follow up in 5 days for packing removal. Bybee saline gel: apply a pea sized amount to both nostrils including packing to keep it moist beforebed and in a.m. Nasal saline spray 4-6 times daily augmentin 875mg one by mouth every 12 hours for 10 days. Follow up in 5 days for packing removal. Chronic anticoagulation documented in this encounter* Patient Instructions* Tha Long DO - 07/12/2020 1:52 PM EDT Diagnoses and all orders for this visit: Epistaxis I removed the rapid rhino pack that was placed today as it was half extruded from the patient's nose. I placed a 8.5cm merocel pack coated in antibiotic ointment in the right nares without difficulty. Follow up in 5 days for packing removal. Bybee saline gel: apply a pea sized amount to both nostrils including packing to keep it moist beforebed and in a.m. Nasal saline spray 4-6 times daily augmentin 875mg one by mouth every 12 hours for 10 days. Follow up in 5 days for packing removal. Chronic anticoagulation documented in this encounter* Patient Instructions* Tha Long DO - 07/12/2020 1:52 PM EDT Diagnoses and all orders for this visit: Epistaxis I removed the rapid rhino pack that was placed today as it was half extruded from the patient's nose. I placed a 8.5cm merocel pack coated in antibiotic ointment in the right nares without difficulty. Follow up in 5 days for packing removal. Bybee saline gel: apply a pea sized amount to both nostrils including packing to keep it moist beforebed and in a.m. Nasal saline spray 4-6 times daily augmentin 875mg one by mouth every 12 hours for 10 days. Follow up in 5 days for packing removal. Chronic anticoagulation documented in this encounter* Patient Instructions* Tha Long DO - 07/12/2020 1:52 PM EDT Diagnoses and all orders for this visit: Epistaxis I removed the rapid rhino pack that was placed today as it was half extruded from the patient's nose. I placed a 8.5cm merocel pack coated in antibiotic ointment in the right nares without difficulty. Follow up in 5 days for packing removal. Bybee saline gel: apply a pea sized amount to both nostrils including packing to keep it moist beforebed and in a.m. Nasal saline spray 4-6 times daily augmentin 875mg one by mouth every 12 hours for 10 days. Follow up in 5 days for packing removal. Chronic anticoagulation documented in this encounter* Patient Instructions* Laxmi Whitney RPh,PharmD - 01/23/2019 8:05 AM EDT Clinic and leave your message (include date of ) Follow the dosing instructions printed on your warfarin dose calendar Clinic Hours: Sunday: 8:00 am - 4:15 pm Sunday: 7:00 am - 3:15 pm Sunday: 7:00 am - 3:15 pm : 8:00 am - 4:15 pm Sunday: 7:00 am- 3:15 pm documented in this encounter* Patient Instructions* Tha Long DO - 07/16/2020 4:05 PM EDT Assessment/Plan: Diagnoses and all orders for this visit: Epistaxis Rigid nasal endoscopy performed in office today bilaterally. The patient's nose was sprayed with afrin and lidocaine spray. The 3mm zero degree endoscope was then advanced first through the right nares. There is evidence of prior cauterization with scant serosanguinous drainage noted. No active bleeding. The scope was withdrawn and the patient tolerated the procedure well. I have advised the patient to use afrin nasal spray apply to each nostril in a.m. and p.m. starting and stopping after evening dose Sunday. Restart blood thinners Sunday. Follow up as previously scheduled. documented in this encounter* Patient Instructions* Laxmi Whitney RPh,PharmD - 10/31/2018 8:04 AM EDT Clinic and leave your message (include date of ) Follow the dosing instructions printed on your warfarin dose calendar Clinic Hours: Sunday: 8:00 am - 4:15 pm Sunday: 7:00 am - 3:15 pm Sunday: 7:00 am - 3:15 pm : 8:00 am - 4:15 pm Sunday: 7:00 am- 3:15 pm documented in this encounter* Patient Instructions* Jesse Leong RPh,PharmD - 03/11/2020 8:16 AM EST If you experience any of the following symptoms within 24 hours of your next appointment, or you have been in close contact with anyone confirmed or suspected to have coronavirus/COVID-19 in the past10 days please call us to reschedule at Dept: [phone]. ? Fever ? Cough ? Shortness of breath ? Difficulty breathing ? Chills ? Repeated shaking with chills ? Muscle pain ? Headache ? Sore throat ? Any loss of taste or smell ? Nausea, vomiting or diarrhea If you are screened positive for any of the above upon entering the building, please call us at Dept: [phone] for further instructions before you proceed to the clinic. Thank you for adhering to our precautions to keep our patients and providers safe! documented in this encounter* Patient Instructions* Jesse Leong [facility],PharmD - 08/05/2020 8:15 AM EDT If you experience any of the following symptoms within 24 hours of your next appointment, or you have been in close contact with anyone confirmed or suspected to have coronavirus/COVID-19 in the past10 days please call us to reschedule at Dept: [phone]. ? Fever ? Cough ? Shortness of breath ? Difficulty breathing ? Chills ? Repeated shaking with chills ? Muscle pain ? Headache ? Sore throat ? Any loss of taste or smell ? Nausea, vomiting or diarrhea If you are screened positive for any of the above upon entering the building, please call us at Dept: [phone] for further instructions before you proceed to the clinic. Thank you for adhering to our precautions to keep our patients and providers safe! documented in this encounter Assessments Diagnosis Thrombocytopenia (HCC) - Cinthya mott Unspecified thrombocytopenia Anticoagulation management e ncounter Encounter for therapeutic drug monitoring Diagnosis PVD (peripheral vascular dis ease) (HCC) - Primary Unspecified peripheral vascular disease History of angioplasty of pe ripheral vessel Tobacco abuse Tobacco use disorder Carotid stenosis, bilateral Occlusion and stenosis of carotid artery without mention of cerebral infarction Diagnosis Tobacco abuse counseling PAD (peripheral artery disea se) (HCC) Unspecified peripheral vascular disease Diagnosis Thrombocytopenia (HCC) - Cinthya mott Unspecified thrombocytopenia Anticoagulation management e ncounter Encounter for therapeutic drug monitoring Diagnosis Thrombocytopenia (HCC) - Cinthya mott Unspecified thrombocytopenia Diagnosis Anticoagulation management e ncounter - Primary Encounter for therapeutic drug monitoring Thrombocytopenia (HCC) Unspecified thrombocytopenia Diagnosis PVD (peripheral vascular dis ease) ([facility]) Unspecified peripheral vascular disease Coronary artery disease invo lving [place] coronary artery of [place] heart without angina pectoris Essential hypertension Unspecified essential hypertension Diagnosis Essential hypertension - Cinthya mott Unspecified essential hypertension Mixed hyperlipidemia Type 2 diabetes mellitus wit hout complication, with long-term current use of insulin (HCC) Hypercoagulable state (HCC) Primary hypercoagulable state Tobacco abuse Tobacco use disorder Coronary artery disease invo lving [place] coronary artery of [place] heart without angina pectoris Diagnosis Bronchitis - Primary Bronchitis, not specified as acute or chronic Diagnosis Anticoagulation management e ncounter - Primary Encounter for therapeutic drug monitoring Diagnosis Thrombocytopenia (HCC) - Cinthya tiera Unspecified thrombocytopenia Anticoagulation management e ncounter Encounter for therapeutic drug monitoring Diagnosis Stenosis of left carotid artery Occlusion and stenosis of carotid artery without mention of cerebral infarction Diagnosis Upper respiratory tract infection, unspecified type- Primary Diagnosis Bleeding nose- Primary Epistaxis Thrombocytopenia (HCC) Unspecified thrombocytopenia Anticoagulation management encounter Encounter for therapeutic drug monitoring Diagnosis Epistaxis- Primary Thrombocytopenia (HCC) Unspecified thrombocytopenia Diagnosis Epistaxis- Primary Diagnosis Epistaxis- Primary Diagnosis Cerebrovascular disease Unspecified cerebrovascular disease PAD (peripheral artery disease) (HCC) Unspecified peripheral vascular disease Diagnosis Thrombocytopenia (HCC)- Primary Unspecified thrombocytopenia Anticoagulation management encounter Encounter for therapeutic drug monitoring Tobacco use Personal history of nicotine dependence Diagnosis Cerebrovascular disease Unspecified cerebrovascular disease PAD (peripheral artery disease) (HCC) Unspecified peripheral vascular disease Diagnosis Personal history of nicotine dependence Thrombocytopenia (HCC) Unspecified thrombocytopenia Anticoagulation management encounter Encounter for therapeutic drug monitoring Tobacco use Diagnosis Thrombocytopenia (HCC) Unspecified thrombocytopenia Anticoagulation management encounter Encounter for therapeutic drug monitoring Diagnosis Cerebrovascular disease Unspecified cerebrovascular disease PAD (peripheral artery disease) ([facility]) Unspecified peripheral vascular disease 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 Diagnosis Pain Generalized pain Diagnosis Cerebrovascular disease Unspecified cerebrovascular disease PAD (peripheral artery disease) ([facility]) Unspecified peripheral vascular disease Diagnosis Essential hypertension Unspecified essential hypertension Mixed hyperlipidemia Type 2 diabetes mellitus without complication, with long-term current use of insulin ([facility]) Abnormal PSA Elevated prostate specific antigen (PSA) Finger pain, left Pain in soft tissues of limb Diagnosis Carotid stenosis, bilateral Occlusion and stenosis of carotid artery without mention of cerebral infarction Diagnosis Thrombocytopenia (HCC) Unspecified thrombocytopenia Tobacco use Recurrent cerebrovascular accidents (CVAs) ([facility]) Diagnosis Primary osteoarthritis of left hand Diagnosis Coronary artery disease, angina presence unspecified, unspecified vessel or lesion type, unspecified whether [place] or transplanted heart Coronary artery disease involving [place] coronary artery of [place] heart without angina pectoris Essential hypertension Unspecified essential hypertension Mixed hyperlipidemia Diagnosis Finger pain, left Pain in soft tissues of limb Rupture of extensor tendon of finger Diagnosis Scrotal abscess- Primary Other inflammatory disorder of male genital organs Diagnosis Coronary artery disease, angina presence unspecified, unspecified vessel or lesion type, unspecified whether [place] or transplanted heart Coronary artery disease involving [place] coronary artery of [place] heart without angina pectoris Mixed hyperlipidemia Diagnosis General medical exam- Primary Unspecified general medical examination Pulmonary emphysema, unspecified emphysema type (HCC) Type 2 diabetes mellitus with diabetic polyneuropathy, without long-term current use of insulin (HCC) PAD (peripheral artery disease) (HCC) Unspecified peripheral vascular disease Thrombocytopenia (HCC) Unspecified thrombocytopenia Essential hypertension Unspecified essential hypertension Mixed hyperlipidemia Current smoker Hypercoagulable state (HCC) Primary hypercoagulable state DDD (degenerative disc disease), lumbosacral Degeneration of lumbar or lumbosacral intervertebral disc Abnormal PSA Elevated prostate specific antigen (PSA) Coronary artery disease involving [place] coronary artery of [place] heart without angina pectoris Diagnosis Cerebrovascular disease Unspecified cerebrovascular disease PAD (peripheral artery disease) ([facility]) Unspecified peripheral vascular disease Diagnosis Thrombocytopenia (HCC) Unspecified thrombocytopenia PVD (peripheral vascular disease) ([facility]) Unspecified peripheral vascular disease Diagnosis Essential hypertension- Primary Unspecified essential hypertension Mixed hyperlipidemia Type 2 diabetes mellitus without complication, with long-term current use of insulin ([facility]) Current smoker Pulmonary emphysema, unspecified emphysema type ([facility]) Diagnosis Essential hypertension- Primary Unspecified essential hypertension Mixed hyperlipidemia Pulmonary emphysema, unspecified emphysema type ([facility]) Coronary artery disease involving [place] coronary artery of [place] heart without angina pectoris Type 2 diabetes mellitus without complication, with long-term current use of insulin ([facility]) Current smoker PAD (peripheral artery disease) ([facility]) Unspecified peripheral vascular disease Diagnosis Essential hypertension- Primary Unspecified essential hypertension Mixed hyperlipidemia Type 2 diabetes mellitus without complication, with long-term current use of insulin ([facility]) Coronary artery disease involving [place] coronary artery of [place] heart without angina pectoris Pulmonary emphysema, unspecified emphysema type ([facility]) Current smoker Need for vaccination Need for prophylactic vaccination and inoculation against unspecified single disease Diagnosis Epistaxis- Primary Chronic anticoagulation Encounter for long-term (current) use of anticoagulants Diagnosis Epistaxis- Primary Diagnosis Epistaxis- Primary Diagnosis Epistaxis Diagnosis Bilateral carotid artery stenosis Occlusion and stenosis of carotid artery without mention of cerebral infarction Diagnosis Personal history of nicotine dependence Anticoagulation management encounter Encounter for therapeutic drug monitoring Diagnosis Cerebrovascular disease Unspecified cerebrovascular disease PAD (peripheral artery disease) ([facility]) Unspecified peripheral vascular disease Diagnosis Anticoagulation management encounter- Primary Encounter for therapeutic drug monitoring Personal history of nicotine dependence Thrombocytopenia ([facility]) Unspecified thrombocytopenia Pulmonary nodules Other diseases of lung, not elsewhere classified Recurrent cerebrovascular accidents (CVAs) ([facility]) Summary Purpose Family History No Family History Records FoundNo Family History Records FoundNo Family History Records FoundNo Family History Records FoundNo Family History Records FoundNo Family History Records FoundNo Family History Records FoundNo Family History Records FoundNo Family History Records FoundNo Family History Records Found Advance Directives No Advanced Directives Records FoundDocuments on File Type Date Recorded Patient Research Clerk Expl anation Advance Directives and Livin g Will 08/01/2018 8:37 AM Documents on File Type Date Recorded Patient Research Clerk Expl anation Advance Directives and Livin g Will 02/28/2019 8:52 AM Documents on File Type Date Recorded Patient Research Clerk Expl anation Advance Directives and Livin g Will 02/28/2019 8:52 AM Documents on File Type Date Recorded Patient Research Clerk Expl anation Advance Directives and Livin g Will 05/22/2019 3:36 PM Documents on File Type Date Recorded Patient Research Clerk Expl anation Advance Directives and Livin g Will 05/22/2019 3:36 PM Documents on File Type Date Recorded Patient Research Clerk Expl anation Advance Directives and Livin g Will 06/25/2019 3:36 PM Documents on File Type Date Recorded Patient Research Clerk Expl anation Advance Directives and Livin g Will 06/25/2019 3:36 PM Documents on File Type Date Recorded Patient Research Clerk Expl anation Advance Directives and Livin g Will 08/01/2018 8:37 AM Documents on File Type Date Recorded Patient Research Clerk Expl anation Advance Directives and Livin g Will 07/12/2020 9:11 AM Documents on File Type Date Recorded Patient Research Clerk Expl anation Advance Directives and Livin g Will 07/14/2020 7:55 AM Documents on File Type Date Recorded Patient Research Clerk Expl anation Advance Directives and Livin g Will 07/16/2020 7:58 AM Documents on File Type Date Recorded Patient Research Clerk Expl anation Advance Directives and Livin g Will 07/16/2020 7:58 AM Documents on File Type Date Recorded Patient Research Clerk Expl anation Advance Directives and Livin g Will 01/20/2021 8:02 AM Documents on File Type Date Recorded Patient Research Clerk Expl anation Advance Directives and Livin g Will 01/20/2021 8:02 AM Documents on File Type Date Recorded Patient Research Clerk Expl anation Advance Directives and Livin g Will 04/14/2021 8:02 AM Documents on File Type Date Recorded Patient Research Clerk Expl anation Advance Directives and Livin g Will 04/14/2021 8:02 AM Documents on File Type Date Recorded Patient Research Clerk Expl anation Advance Directives and Livin g Will 07/14/2021 8:59 AM Documents on File Type Date Recorded Patient Research Clerk Expl anattomasz Advance Directives and Diego hayes Will 07/14/2021 8:59 AM History of Present Illness * Charisse Painting, CLINICAL AUDIOLOGIST - 02/18/2018 1:21 PM EDT Formatting of this note may be different from the original. OFFICE VISIT PROGRESS NOTE HPI Cough/sore throat/runny nose- 1 week cough and wheezing. Started with runny nose, and sore throat but progressed to chest congestion and non-productive dry cough. Dimetapp cough syrup at home with norelief of cough. Cough worse at night causing issues with ability to sleep. Patient requesting cough syrup with codeine. Uses albuterol inhaler with good relief of wheezing. Recently exposed to someone ill. The following portions of the patient's history were reviewed and updated as appropriate: allergies, current medications and problem list. Family History Problem Relation Age of Onset Heart disease Mother Stroke Mother Heart attack Father Stroke Father Heart disease Father Heart disease Sister 8 sisters Heart disease Brother 4 brothers Cancer Brother lung 1 brother Social History Social History Marital status: Spouse name: N/A Number of children: N/A Years of education: N/A Social History Main Topics Smoking status: Former Smoker Packs/day: 1.00 Types: Cigarettes Smokeless tobacco: Never Used Comment: a couple of months now Alcohol use No Drug use: No Sexual activity: Not Asked Other Topics Concern None Social History Narrative None Past Surgical History: Procedure Laterality Date abd angio r/o eriberto newborn hearing screener 2007 L common & external iliac art abd angio r/o newborn hearing screener stent eriberto iliac art 2006 ARTERIAL ANEURYSM REPAIR Lt sideof brain CARDIAC CATHETERIZATION 07/20/2010 EF 35% CARDIAC CATHETERIZATION 11/22/2006 EF 45% CARDIAC CATHETERIZATION 05/11/2004 EF 55% CARDIAC CATHETERIZATION 08/14/2003 EF 55% CARDIAC CATHETERIZATION 07/09/2003 CARDIAC CATHETERIZATION 02/16/2003 CARDIAC CATHETERIZATION 10/03/2002 CARDIAC CATHETERIZATION 11/05/2001 CARDIAC CATHETERIZATION 07/04/2001 CARDIAC CATHETERIZATION 09/19/2000 CARDIAC CATHETERIZATION 05/10/2000 CARDIAC CATHETERIZATION 12/23/1999 CARDIAC CATHETERIZATION 12/06/1995 CARDIAC CATHETERIZATION 12/27/1990 CARDIAC CATHETERIZATION 04/27/1987 CARDIAC CATHETERIZATION 06/16/1986 CARDIAC CATHETERIZATION 11/13/2002 CEREBRAL ANEURYSM REPAIR 2009 CEREBRAL ANGIOGRAM CORONARY ANGIOPLASTY 02/16/2003 SVG to Marginal Proximal CORONARY ANGIOPLASTY 08/23/2000 SVG to Proximal CX CORONARY ANGIOPLASTY 05/10/2000 Proximal SVG to CX-OM CORONARY ANGIOPLASTY WITH STENT PLACEMENT 05/11/2004 RACHELL SVG to CX-OM, SVG to SHARAN, Ostial SVG to OM CORONARY ANGIOPLASTY WITH STENT PLACEMENT 07/09/2003 RACHELL SVG to OM, SVG to CX-OM CORONARY ANGIOPLASTY WITH STENT PLACEMENT 11/13/02 PTCA/Stent of SVG TO CX Proximal CORONARY ANGIOPLASTY WITH STENT PLACEMENT 10/03/2002 RAHCELL Distal LMCA CORONARY ARTERY BYPASS GRAFT 06/23/1986 x2 HERNIA REPAIR 1978 ROTATOR CUFF REPAIR Left 2002 No Known Allergies Review of Systems Review of Systems Constitutional: Negative. Negative for appetite change, chills, fatigue and fever. HENT: Positive for postnasal drip and sore throat. Negative for congestion, ear discharge and ear pain. Eyes: Negative. Negative for pain, discharge and itching. Respiratory: Positive for cough, shortness of breath and wheezing. Negative for chest tightness. Mild shortness of breath. Non-productive dry cough. Chest congestion and wheezing. Cardiovascular: Negative for chest pain. Gastrointestinal: Negative. Negative for abdominal pain, diarrhea, nausea and vomiting. Genitourinary: Negative. Musculoskeletal: Negative. Negative for myalgias. Skin: Negative. Negative for rash. Neurological: Negative. Negative for dizziness, weakness and headaches. Psychiatric/Behavioral: Negative. Vitals: 02/18/18 1309 BP: (!) 159/78 BP Location: Left arm Patient Position: Sitting BP Cuff Size: Adult Pulse: (!) 56 Resp: 16 Temp: 97.8 ?F (36.6 ?C) TempSrc: Oral SpO2: 98% Weight: 61.8 kg (136 lb 3.2 oz) Height: 5' 6 Body mass index is 21.98 kg/m . Physical Exam Physical Exam Constitutional: He is oriented to person, place, and time. He appears well- developed and well-nourished. HENT: Right Ear: External ear normal. Nose: Nose normal. Mouth/Throat: Oropharyngeal exudate present. Small abrasion with old blood dried blood to LT ear canal. May have scratched when cleaning out ears. No signs of infection or active bleeding. Patient is on blood thinners. Eyes: Pupils are equal, round, and reactive to light. Conjunctivae and EOM are normal. Neck: Normal range of motion. Cardiovascular: Normal rate, regular rhythm and normal heart sounds. No murmur heard. Pulmonary/Chest: Effort normal. No respiratory distress. He has wheezes. Scattered expiratory wheezes throughout. Diminished breath sounds ERIBERTO lung carter. Abdominal: Soft. Bowel sounds are normal. He exhibits no distension. There is no tenderness. Musculoskeletal: Normal range of motion. He exhibits no edema, tenderness or deformity. Lymphadenopathy: He has cervical adenopathy. Neurological: He is alert and oriented to person, place, and time. No cranial nerve deficit. Skin: Skin is warm and dry. No rash noted. Psychiatric: He has a normal mood and affect. His behavior is normal. Nursing note and vitals reviewed. No Data Recorded Assessment/Plan Problem List Items Addressed This Visit None Visit Diagnoses Bronchitis - Primary Start the Z-Wendy x5 days. Mucinex OTC to thin the secretions. Delsym cough syrup OTC for cough control twice daily as needed. Use inhaler for wheezing. Relevant Medications azithromycin (Z-WENDY) 5 day dose pack Instructed patient to stop Dimetapp and use Delsym OTC instead for cough. Patient requesting cough syrup with codeine. Instructed patient to take Delsym for the next couple days and if cough does notimprove with ABX, call the office for cough suppressant alternative. Goals None If any referrals were placed at today's visit the patient was instructed to call the office if theyhavn't heard anything about the referral within 2 weeks of today's visit. For any new medications prescribed today, patient was educated about indications for the medication, how to take the medication and potential side effects of the medications. in this encounter* Tanvir Arnett MD - 02/09/2017 10:32 AM EDT Formatting of this note may be different from the original. Clinic follow up note PATIENT: Mata Betts : 1955 AGE: 61 y.o. SEX: male RACE: [1] PCP: Gayatri Burrell MD REFERRAL: No ref. provider found HPI Returns in f/u. Has been on coumadin at least since 2011 secondary to h/o multiple strokes in the past . Is planned to undergo an angiogram for brain aneurysm at [facility] and requests clearance and recommendations for anticoagulation prior to the procedure. HEMATOLOGIC HX Pt has a h/o WA at age 31 , CABG at 31 yrs of age, several ministrokes, stroke post aneurysm clipping in 2008 while on aspirin and plavix. Patient has h/o severe PAD. Is a chronic smoker. Admitted to the hospital in August 2011 with symptoms suggestive of subacute cerebrovascular ischemic accident. 09/10/2011, CT of the brain without contrast demonstrates an area along the right posterior parietal lobe that exhibits loss of gonzalez-white matter differentiation, concerning for acute to subacute infarct, left frontal and temporal postsurgical changes without evidence of acute intracranial hemorrhage. Was initially evaluated in 2011 in the hematology clinic and hypercoagulable workup that was negative .prothrombin gene mutation and factor V Leiden mutation was negative on 09/03/2011, protein C,S and lupus anticoagulant testing was negative. Antithrombin level was slightly lowerthan normal. Given the history, was placed on coumadin in late 2011, since being on coumadin ,has not had any neurologic or cardiovascular event. ALLERGIES Allergies Allergen Reactions Penicillins Unknown MEDS has a current medication list which includes the following prescription(s): aspirin, atenolol,atorvastatin, clopidogrel, ferrous sulfate, fluticasone- salmeterol, insulin detemir, lisinopril, metformin, oxycodone, pregabalin, and warfarin. PMH/PSH Past Medical History: Diagnosis Date Aneurysm (HCC) brain x2 Arteriosclerotic cardiovascular disease direct coronary bypass x 2, 06/23/86 CAD (coronary artery disease) Cerebral aneurysm Cerebral vascular disease Chronic lung disease Deep vein thrombosis (DVT) (HCC) leg, date unknown Diabetes mellitus (HCC) Dyslipidemia Hyperlipidemia Hypertension Ischemic cardiomyopathy Myocardial infarction PAD (peripheral artery disease) (HCC) PAD (peripheral artery disease) (HCC) PVD (peripheral vascular disease) (HCC) Stroke (HCC) Past Surgical History: Procedure Laterality Date abd angio r/o eriberto newborn hearing screener 2006 L common & external iliac art abd angio r/o newborn hearing screener stent eriberto iliac art 2005 ARTERIAL ANEURYSM REPAIR Lt sideof brain CARDIAC CATHETERIZATION 07/20/2010 EF 35% CARDIAC CATHETERIZATION 11/22/2006 EF 45% CARDIAC CATHETERIZATION 05/11/2004 EF 55% CARDIAC CATHETERIZATION 08/14/2003 EF 55% CARDIAC CATHETERIZATION 07/09/2003 CARDIAC CATHETERIZATION 02/16/2003 CARDIAC CATHETERIZATION 10/03/2002 CARDIAC CATHETERIZATION 11/05/2001 CARDIAC CATHETERIZATION 07/04/2001 CARDIAC CATHETERIZATION 09/19/2000 CARDIAC CATHETERIZATION 05/10/2000 CARDIAC CATHETERIZATION 12/23/1999 CARDIAC CATHETERIZATION 12/06/1995 CARDIAC CATHETERIZATION 12/27/1990 CARDIAC CATHETERIZATION 04/27/1987 CARDIAC CATHETERIZATION 06/16/1986 CARDIAC CATHETERIZATION 11/13/2002 CEREBRAL ANEURYSM REPAIR 2009 CORONARY ANGIOPLASTY 02/16/2003 SVG to Marginal Proximal CORONARY ANGIOPLASTY 08/23/2000 SVG to Proximal CX CORONARY ANGIOPLASTY 05/10/2000 Proximal SVG to CX-OM CORONARY ANGIOPLASTY WITH STENT PLACEMENT 05/11/2004 RACHELL SVG to CX-OM, SVG to SHARAN, Ostial SVG to OM CORONARY ANGIOPLASTY WITH STENT PLACEMENT 07/09/2003 RACHELL SVG to OM, SVG to CX-OM CORONARY ANGIOPLASTY WITH STENT PLACEMENT 11/13/02 PTCA/Stent of SVG TO CX Proximal CORONARY ANGIOPLASTY WITH STENT PLACEMENT 10/03/2002 RACHELL Distal LMCA CORONARY ARTERY BYPASS GRAFT 06/23/1986 x2 HERNIA REPAIR 1978 ROTATOR CUFF REPAIR Left 2002 FH Family History Problem Relation Age of Onset Heart disease Mother Stroke Mother Heart attack Father Stroke Father Heart disease Father Heart disease Sister 8 sisters Heart disease Brother 4 brothers Cancer Brother lung 1 brother SH Social History Social History Marital status: Spouse name: N/A Number of children: N/A Years of education: N/A Social History Main Topics Smoking status: Current Every Day Smoker Packs/day: 0.50 Smokeless tobacco: Never Used Alcohol use No Drug use: No Sexual activity: Not Asked Other Topics Concern None Social History Narrative ROS Review of Systems Constitutional: Negative. HENT: Negative. Eyes: Negative. Respiratory: Negative. Cardiovascular: Negative. Gastrointestinal: Negative. Endocrine: Negative. Genitourinary: Negative. Musculoskeletal: Negative. Skin: Negative. Neurological: Negative. Hematological: Negative. Psychiatric/Behavioral: Negative. EXAM BP (!) 148/70 Pulse (!) 57 Ht 5' 7 Wt 62.6 kg (138 lb 1.6 oz) BMI 21.63 kg/m2 Physical Exam Constitutional: He is oriented to person, place, and time. He appears well- developed and well-nourished. HENT: Head: Normocephalic and atraumatic. Eyes: Conjunctivae and EOM are normal. Pupils are equal, round, and reactive to light. Neck: Normal range of motion. Neck supple. Cardiovascular: Normal rate and regular rhythm. Pulmonary/Chest: Effort normal and breath sounds normal. Abdominal: Soft. Bowel sounds are normal. Musculoskeletal: Normal range of motion. Neurological: He is alert and oriented to person, place, and time. He has normal reflexes. Skin: Skin is warm and dry. Psychiatric: He has a normal mood and affect. His behavior is normal. Judgment and thought content normal. LABS / IMAGING March 23, 2015 CT of the chest demonstrates stable pulmonary nodule IMPRESSION 61-year-old chronic smoker, history of cerebral aneurysm status post clipping in 2008, with recent increase in size of the aneurysm, plan for an angiogram, on chronic anticoagulation secondary to history of recurrent stroke and cardiovascular disease, while on Plavix and aspirin. ASSESSMENT / PLAN Discussed discontinuing Coumadin 5 days prior to the procedure, PT INR the day ofthe procedure, initiate Lovenox two days after d/c of coumadin,at 1.5 mg/kg body weight daily until24 hours prior to the procedure after discontinuation of Coumadin and initiate lovenox postprocedure at the direction of the surgeon. Left message at [phone] for Dr. Gillis to review the above and plan further management. Thank you for the privilege of allowing me to participate in the care of Mata Betts. TANVIR ARNETT MD Template Design PNSHETH in this encounter* Tanvir Arnett MD - 03/28/2018 10:08 AM EST Formatting of this note may be different from the original. Clinic follow up note PATIENT: Mata Betts : 1955 AGE: 62 y.o. SEX: male RACE: [1] PCP: Jeanna Duff MD REFERRAL: No ref. provider found HPI Presents in f/u. Reports feeling well, has smoked up to 5-6 cigarettes since [place], motivated to quit. Denies any new complaints. HEMATOLOGIC HX Pt has a h/o WA at age 31 , CABG at 31 yrs of age, several ministrokes, stroke post aneurysm clipping in 2008 while on aspirin and plavix. Patient has h/o severe PAD. Is a chronic smoker. Admitted to the hospital in August 2011 with symptoms suggestive of subacute cerebrovascular ischemic accident. 09/10/2011, CT of the brain without contrast demonstrates an area along the right posterior parietal lobe that exhibits loss of gonzalez-white matter differentiation, concerning for acute to subacute infarct, left frontal and temporal postsurgical changes without evidence of acute intracranial hemorrhage. Was initially evaluated in 2011 in the hematology clinic and hypercoagulable workup that was negative .prothrombin gene mutation and factor V Leiden mutation was negative on 09/03/2011, protein C,S and lupus anticoagulant testing was negative. Antithrombin level was slightly lowerthan normal. Given the history, was placed on coumadin in late 2011, since being on coumadin ,has not had any neurologic or cardiovascular event. 04/30/2017 completely normal total white cell count, H&H, MCV is 100.6, platelet count is 106k. Vitamin B12 and folate within normal limits, peripheral smear evaluation demonstrates granulocytes with pelgeroid changes. 05/08/17- Bone marrow biopsy and aspiration -Normocellular marrow (35%) with trilineage hematopoiesis and neutrophils with Pelgeroid change. Thrombocytopenia and macrocytic RBCs. Cytogenetics demonstrates loss of Y chromosome. No clear evidence of MDS at this time. 03/25/18- Low dose ct scan- 1. Stable bilateral solid lung nodules measuring up to 4 mm in mean diameter. No new or enlarging lung nodules. 2. Mild emphysema. 3. Status post coronary artery bypass grafting. ALLERGIES No Known Allergies [facility] has a current medication list which includes the following prescription(s): aspirin, atenolol,atorvastatin, chantix continuing month box, cialis, clopidogrel, ferrous sulfate, fluticasone-salmeterol, lisinopril, metformin, onetouch delica lancets, onetouch verio flex, onetouch verio, oxycodone, prednisone, proair hfa, and warfarin. PMH/PSH Past Medical History: Diagnosis Date Aneurysm (HCC) brain x2 Arteriosclerotic cardiovascular disease direct coronary bypass x 2, 06/23/86 CAD (coronary artery disease) Cerebral aneurysm Cerebral aneurysm Cerebral vascular disease Chronic lung disease Deep vein thrombosis (DVT) (HCC) leg, date unknown Diabetes mellitus (HCC) Dyslipidemia Hyperlipidemia Hypertension Ischemic cardiomyopathy Myocardial infarction (HCC) PAD (peripheral artery disease) (HCC) PAD (peripheral artery disease) (HCC) PVD (peripheral vascular disease) (HCC) Stroke (HCC) Past Surgical History: Procedure Laterality Date abd angio r/o eriberto newborn hearing screener 2007 L common & external iliac art abd angio r/o newborn hearing screener stent eriberto iliac art 2006 ARTERIAL ANEURYSM REPAIR Lt sideof brain CARDIAC CATHETERIZATION 07/20/2010 EF 35% CARDIAC CATHETERIZATION 11/22/2006 EF 45% CARDIAC CATHETERIZATION 05/11/2004 EF 55% CARDIAC CATHETERIZATION 08/14/2003 EF 55% CARDIAC CATHETERIZATION 07/09/2003 CARDIAC CATHETERIZATION 02/16/2003 CARDIAC CATHETERIZATION 10/03/2002 CARDIAC CATHETERIZATION 11/05/2001 CARDIAC CATHETERIZATION 07/04/2001 CARDIAC CATHETERIZATION 09/19/2000 CARDIAC CATHETERIZATION 05/10/2000 CARDIAC CATHETERIZATION 12/23/1999 CARDIAC CATHETERIZATION 12/06/1995 CARDIAC CATHETERIZATION 12/27/1990 CARDIAC CATHETERIZATION 04/27/1987 CARDIAC CATHETERIZATION 06/16/1986 CARDIAC CATHETERIZATION 11/13/2002 CEREBRAL ANEURYSM REPAIR 2008, 2018 bilateral CEREBRAL ANGIOGRAM CORONARY ANGIOPLASTY 02/16/2003 SVG to Marginal Proximal CORONARY ANGIOPLASTY 08/23/2000 SVG to Proximal CX CORONARY ANGIOPLASTY 05/10/2000 Proximal SVG to CX-OM CORONARY ANGIOPLASTY WITH STENT PLACEMENT 05/11/2004 RACHELL SVG to CX-OM, SVG to SHARAN, Ostial SVG to OM CORONARY ANGIOPLASTY WITH STENT PLACEMENT 07/09/2003 RACHELL SVG to OM, SVG to CX-OM CORONARY ANGIOPLASTY WITH STENT PLACEMENT 11/13/02 PTCA/Stent of SVG TO CX Proximal CORONARY ANGIOPLASTY WITH STENT PLACEMENT 10/03/2002 RCAHELL Distal LMCA CORONARY ARTERY BYPASS GRAFT 06/23/1986 x2 HEMORRHOIDECTOMY HERNIA REPAIR 1978 ROTATOR CUFF REPAIR Left 2002 Family History Problem Relation Age of Onset Heart disease Mother Stroke Mother Heart attack Father Stroke Father Heart disease Father Heart disease Sister 8 sisters Heart disease Brother 4 brothers Cancer Brother lung 1 brother Social History Social History Marital status: Spouse name: N/A Number of children: N/A Years of education: N/A Social History Main Topics Smoking status: Current Some Day Smoker Packs/day: 0.25 Years: 45.00 Types: Cigarettes Smokeless tobacco: Never Used Comment: a couple of months now Alcohol use No Drug use: No Sexual activity: Not Asked Other Topics Concern None Social History Narrative None ROS Review of Systems Constitutional: Negative. Eyes: Negative. Respiratory: Negative. Cardiovascular: Negative. Gastrointestinal: Negative. Endocrine: Negative. Genitourinary: Negative. Musculoskeletal: Negative. Skin: Negative. Neurological: Negative. Hematological: Negative. Psychiatric/Behavioral: Negative. EXAM BP 140/79 Pulse 62 Ht 5' 6 Wt 64.1 kg (141 lb 4.8 oz) SpO2 96% BMI 22.81 kg/m Physical Exam Constitutional: He is oriented to person, place, and time. He appears well- developed and well-nourished. HENT: Head: Normocephalic and atraumatic. Eyes: Pupils are equal, round, and reactive to light. Conjunctivae and EOM are normal. Neck: Normal range of motion. Neck supple. Cardiovascular: Normal rate and regular rhythm. Pulmonary/Chest: Effort normal and breath sounds normal. Abdominal: Soft. Bowel sounds are normal. Musculoskeletal: Normal range of motion. Neurological: He is alert and oriented to person, place, and time. He has normal reflexes. Skin: Skin is warm and dry. Noted small ecchymoses over the right frontal region. Psychiatric: He has a normal mood and affect. His behavior is normal. Judgment and thought content normal. LABS / IMAGING Reviewed IMPRESSION 61-year-old chronic smoker, history of cerebral aneurysm status post clipping in 2008, with recent increase in size of the aneurysm, plan for an angiogram, on chronic anticoagulation secondary to history of recurrent stroke, felt to be embolic , noted to have chronic thrombocytopenia with pelgeroid changes in the granulocytes, bm biopsy and aspiration unremarkable ,s/p aneurysmal clipping, on halfway anticoagulation ASSESSMENT / PLAN 1. Hypercoagulable condition with recurrent episodes of cva, on terminal make up operator anticoagulation, wishes to switch to DOAC. Patient will check with insurance and clarify as to the DOAC of choice. 2. Thrombocytopenia and macrocytosis -MDs ruled out at the current time, discussed the findings, potential evolution in future, cbc with diff prior to next visit. 3. Tobacco use disorder- has set a quit date, low dose ct imaging performed, stable nodules, next due in 03/11. Thank you for the privilege of allowing me to participate in the care of Mata Betts. TANVIR ARNETT MD Template Design PNSHETH in this encounter* Charisse Painting CNP - 04/29/2018 3:27 PM EST Formatting of this note may be different from the original. OFFICE VISIT PROGRESS NOTE HPI Cough/sinus congestion/sore throat- 2 weeks of symptoms that started with throat irritation and progressed to yellow/brown productive cough. Not taking medication OTC. Symptoms worse at night in AM. No fevers. The following portions of the patient's history were reviewed and updated as appropriate: allergies, current medications and problem list. Family History Problem Relation Age of Onset Heart disease Mother Stroke Mother Heart attack Father Stroke Father Heart disease Father Heart disease Sister 8 sisters Heart disease Brother 4 brothers Cancer Brother lung 1 brother Social History Social History Marital status: Spouse name: N/A Number of children: N/A Years of education: N/A Social History Main Topics Smoking status: Current Some Day Smoker Packs/day: 0.25 Years: 45.00 Types: Cigarettes Smokeless tobacco: Never Used Comment: a couple of months now Alcohol use No Drug use: No Sexual activity: Not Asked Other Topics Concern None Social History Narrative None Past Surgical History: Procedure Laterality Date abd angio r/o eriberto newborn hearing screener 2006 L common & external iliac art abd angio r/o newborn hearing screener stent eriberto iliac art 2005 ARTERIAL ANEURYSM REPAIR Lt sideof brain CARDIAC CATHETERIZATION 07/20/2010 EF 35% CARDIAC CATHETERIZATION 11/22/2006 EF 45% CARDIAC CATHETERIZATION 05/11/2004 EF 55% CARDIAC CATHETERIZATION 08/14/2003 EF 55% CARDIAC CATHETERIZATION 07/09/2003 CARDIAC CATHETERIZATION 02/16/2003 CARDIAC CATHETERIZATION 10/03/2002 CARDIAC CATHETERIZATION 11/05/2001 CARDIAC CATHETERIZATION 07/04/2001 CARDIAC CATHETERIZATION 09/19/2000 CARDIAC CATHETERIZATION 05/10/2000 CARDIAC CATHETERIZATION 12/23/1999 CARDIAC CATHETERIZATION 12/06/1995 CARDIAC CATHETERIZATION 12/27/1990 CARDIAC CATHETERIZATION 04/27/1987 CARDIAC CATHETERIZATION 06/16/1986 CARDIAC CATHETERIZATION 11/13/2002 CEREBRAL ANEURYSM REPAIR 2008, 2018 bilateral CEREBRAL ANGIOGRAM CORONARY ANGIOPLASTY 02/16/2003 SVG to Marginal Proximal CORONARY ANGIOPLASTY 08/23/2000 SVG to Proximal CX CORONARY ANGIOPLASTY 05/10/2000 Proximal SVG to CX-OM CORONARY ANGIOPLASTY WITH STENT PLACEMENT 05/11/2004 RACHELL SVG to CX-OM, SVG to SHARAN, Ostial SVG to OM CORONARY ANGIOPLASTY WITH STENT PLACEMENT 07/09/2003 RACHELL SVG to OM, SVG to CX-OM CORONARY ANGIOPLASTY WITH STENT PLACEMENT 11/13/02 PTCA/Stent of SVG TO CX Proximal CORONARY ANGIOPLASTY WITH STENT PLACEMENT 10/03/2002 RACHELL Distal LMCA CORONARY ARTERY BYPASS GRAFT 06/23/1986 x2 HEMORRHOIDECTOMY HERNIA REPAIR 1978 ROTATOR CUFF REPAIR Left 2002 No Known Allergies Review of Systems Review of Systems Constitutional: Negative. HENT: Positive for congestion, postnasal drip, rhinorrhea, sinus pressure and sore throat. Respiratory: Positive for cough and chest tightness. Cardiovascular: Negative. Gastrointestinal: Negative. Musculoskeletal: Negative. Skin: Negative. Neurological: Negative. Psychiatric/Behavioral: Negative. Vitals: 04/29/18 1517 BP: (!) 161/80 BP Location: Left arm Patient Position: Sitting BP Cuff Size: Adult Pulse: 61 Resp: 18 Temp: 98 F (36.7 C) TempSrc: Oral SpO2: 95% Weight: 61.7 kg (136 lb) Height: 5' 6 Body mass index is 21.95 kg/m . Physical Exam Physical Exam Constitutional: He is oriented to person, place, and time. He appears well- developed and well-nourished. HENT: Right Ear: External ear normal. Nose: Nose normal. Mouth/Throat: Oropharynx is clear and moist. No oropharyngeal exudate. Eyes: Pupils are equal, round, and reactive to light. Conjunctivae and EOM are normal. Neck: Normal range of motion. Cardiovascular: Normal rate and normal heart sounds. No murmur heard. Pulmonary/Chest: Effort normal. No respiratory distress. He has wheezes. ERIBERTO Lower Lobe congestion. Abdominal: Soft. Bowel sounds are normal. Musculoskeletal: Normal range of motion. Neurological: He is alert and oriented to person, place, and time. No cranial nerve deficit. Skin: Skin is warm and dry. Psychiatric: He has a normal mood and affect. His behavior is normal. Nursing note and vitals reviewed. OARRS/NARxCHECK Report Received and Assessed: 04/29/18 Assessment/Plan Problem List Items Addressed This Visit None Visit Diagnoses Upper respiratory tract infection, unspecified type - Primary cont. using sinus rinse bottle/netti pot x5 days to help with congestion. Mucinex and Delsym cough syrup OTC for cough and congestion. Relevant Medications azithromycin (Z-WENDY) 5 day dose pack Goals None If any referrals were placed at today's visit the patient was instructed to call the office if theyhavn't heard anything about the referral within 2 weeks of today's visit. For any new medications prescribed today, patient was educated about indications for the medication, how to take the medication and potential side effects of the medications. in this encounter* Tanvir Arnett MD - 05/30/2018 1:14 PM EST Clinic follow up note PATIENT: Mata Betts : 1955 AGE: 62 y.o. SEX: male RACE: [1] PCP: Jeanna Duff MD REFERRAL: No ref. provider found HPI Presents in f/u. Reports feeling well, has decided to stay with coumadin for anticoagulation. Has almost quit smoking. HEMATOLOGIC HX Pt has a h/o WA at age 31 , CABG at 31 yrs of age, several ministrokes, stroke post aneurysm clipping in 2008 while on aspirin and plavix. Patient has h/o severe PAD. Is a chronic smoker. Admitted to the hospital in August 2011 with symptoms suggestive of subacute cerebrovascular ischemic accident. 09/10/2011, CT of the brain without contrast demonstrates an area along the right posterior parietal lobe that exhibits loss of gonzalez-white matter differentiation, concerning for acute to subacute infarct, left frontal and temporal postsurgical changes without evidence of acute intracranial hemorrhage. Was initially evaluated in 2011 in the hematology clinic and hypercoagulable workup that was negative .prothrombin gene mutation and factor V Leiden mutation was negative on 09/03/2011, protein C,S and lupus anticoagulant testing was negative. Antithrombin level was slightly lowerthan normal. Given the history, was placed on coumadin in late 2011, since being on coumadin ,has not had any neurologic or cardiovascular event. 04/30/2017 completely normal total white cell count, H&H, MCV is 100.6, platelet count is 106k. Vitamin B12 and folate within normal limits, peripheral smear evaluation demonstrates granulocytes with pelgeroid changes. 05/08/17- Bone marrow biopsy and aspiration -Normocellular marrow (35%) with trilineage hematopoiesis and neutrophils with Pelgeroid change. Thrombocytopenia and macrocytic RBCs. Cytogenetics demonstrates loss of Y chromosome. No clear evidence of MDS at this time. 03/25/18- Low dose ct scan- 1. Stable bilateral solid lung nodules measuring up to 4 mm in mean diameter. No new or enlarging lung nodules. 2. Mild emphysema. 3. Status post coronary artery bypass grafting. ALLERGIES No Known Allergies MEDS has a current medication list which includes the following prescription(s): albuterol, aspirin, atenolol, atorvastatin, chantix continuing month box, cialis, clopidogrel, ferrous sulfate, fluticasone-salmeterol, fluticasone- vilanterol, lidocaine-prilocaine, lisinopril, metformin, onetouch delica lancets, onetouch verio flex, onetouch verio, oxycodone, tizanidine, ventolin hfa, and warfarin. PMH/PSH Past Medical History: Diagnosis Date Aneurysm (HCC) brain x2 Arteriosclerotic cardiovascular disease direct coronary bypass x 2, 06/23/86 CAD (coronary artery disease) Cerebral aneurysm Cerebral aneurysm Cerebral vascular disease Chronic lung disease Deep vein thrombosis (DVT) ([facility]) leg, date unknown Diabetes mellitus ([facility]) Dyslipidemia Hyperlipidemia Hypertension Ischemic cardiomyopathy Myocardial infarction ([facility]) PAD (peripheral artery disease) ([facility]) PAD (peripheral artery disease) ([facility]) PVD (peripheral vascular disease) ([facility]) Stroke ([facility]) Past Surgical History: Procedure Laterality Date abd angio r/o eriberto newborn hearing screener 2006 L common & external iliac art abd angio r/o newborn hearing screener stent eriberto iliac art 2006 ARTERIAL ANEURYSM REPAIR Lt sideof brain CARDIAC CATHETERIZATION 07/20/2010 EF 35% CARDIAC CATHETERIZATION 11/22/2006 EF 45% CARDIAC CATHETERIZATION 05/11/2004 EF 55% CARDIAC CATHETERIZATION 08/14/2003 EF 55% CARDIAC CATHETERIZATION 07/09/2003 CARDIAC CATHETERIZATION 02/16/2003 CARDIAC CATHETERIZATION 10/03/2002 CARDIAC CATHETERIZATION 11/05/2001 CARDIAC CATHETERIZATION 07/04/2001 CARDIAC CATHETERIZATION 09/19/2000 CARDIAC CATHETERIZATION 05/10/2000 CARDIAC CATHETERIZATION 12/23/1999 CARDIAC CATHETERIZATION 12/06/1995 CARDIAC CATHETERIZATION 12/27/1990 CARDIAC CATHETERIZATION 04/27/1987 CARDIAC CATHETERIZATION 06/16/1986 CARDIAC CATHETERIZATION 11/13/2002 CEREBRAL ANEURYSM REPAIR 2008, 2018 bilateral CEREBRAL ANGIOGRAM CORONARY ANGIOPLASTY 02/16/2003 SVG to Marginal Proximal CORONARY ANGIOPLASTY 08/23/2000 SVG to Proximal CX CORONARY ANGIOPLASTY 05/10/2000 Proximal SVG to CX-OM CORONARY ANGIOPLASTY WITH STENT PLACEMENT 05/11/2004 RACHELL SVG to CX-OM, SVG to SHARAN, Ostial SVG to OM CORONARY ANGIOPLASTY WITH STENT PLACEMENT 07/09/2003 RACHELL SVG to OM, SVG to CX-OM CORONARY ANGIOPLASTY WITH STENT PLACEMENT 11/13/02 PTCA/Stent of SVG TO CX Proximal CORONARY ANGIOPLASTY WITH STENT PLACEMENT 10/03/2002 RACHELL Distal LMCA CORONARY ARTERY BYPASS GRAFT 06/23/1986 x2 HEMORRHOIDECTOMY HERNIA REPAIR 1977 ROTATOR CUFF REPAIR Left 2002 FH Family History Problem Relation Age of Onset Heart disease Mother Stroke Mother Heart attack Father Stroke Father Heart disease Father Heart disease Sister 8 sisters Heart disease Brother 4 brothers Cancer Brother lung 1 brother SH Social History Socioeconomic History Marital status: Spouse name: None Number of children: None Years of education: None Highest education level: None Social Needs Financial resource strain: None Food insecurity - worry: None Food insecurity - inability: None Transportation needs - medical: None Transportation needs - non-medical: None Occupational History None Tobacco Use Smoking status: Current Some Day Smoker Packs/day: 0.25 Years: 45.00 Pack years: 11.25 Types: Cigarettes Smokeless tobacco: Never Used Tobacco comment: a couple of months now Substance and Sexual Activity Alcohol use: No Drug use: No Sexual activity: None Other Topics Concern None Social History Narrative None ROS Review of Systems Constitutional: Negative. HENT: Positive for nosebleeds. Eyes: Negative. Respiratory: Negative. Cardiovascular: Negative. Gastrointestinal: Negative. Endocrine: Negative. Genitourinary: Negative. Musculoskeletal: Negative. Skin: Negative. Neurological: Negative. Hematological: Negative. Psychiatric/Behavioral: Negative. EXAM BP 125/72 Pulse 66 Temp 98 F (36.7 C) Ht 5' 6 Wt 62.6 kg (138 lb 1.6 oz) SpO2 93% BMI 22.29 kg/m Physical Exam Constitutional: He is oriented to person, place, and time. He appears well- developed and well-nourished. HENT: Head: Normocephalic and atraumatic. Eyes: Pupils are equal, round, and reactive to light. Conjunctivae and EOM are normal. Neck: Normal range of motion. Neck supple. Cardiovascular: Normal rate and regular rhythm. Pulmonary/Chest: Effort normal and breath sounds normal. Abdominal: Soft. Bowel sounds are normal. Musculoskeletal: Normal range of motion. Neurological: He is alert and oriented to person, place, and time. He has normal reflexes. Skin: Skin is warm and dry. Psychiatric: He has a normal mood and affect. His behavior is normal. Judgment and thought content normal. 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 Hypercoagulable condition with recurrent episodes of cva, on halfway anticoagulation, wishes to stay on coumadin. 2. Thrombocytopenia and macrocytosis -MDs ruled out at the current time, discussed the findings, potential evolution in future, cbc with diff today and prior to next visit. 3. Tobacco use disorder- has almost quit smoking, low dose ct imaging performed, stable nodules, next due in 03/11. 4. Recurrent epistaxis - on antiplatelet agents as well as anticoagulation, r/o nasal pathology such as polyps ,refer to ENT Thank you for the privilege of allowing me to participate in the care of Mata Betts. TANVIR ARNETT MD Template Design PNSHETH in this encounter* Danielle Son, CLINICAL AUDIOLOGIST - 06/12/2018 11:02 AM EST ENT New Patient Visit Patient Name: Mata Betts MR #: [id number] : 1955 Physicians: Jeanna Duff MD (Family); Jeanna Duff,* (Referring) Chief Complaint/Reason for Visit: Bleeding nose, thrombocytopenia History of Present Illness: Mata Betts is a 62 y.o. y/o male presenting from his primary care provider with c/o bleeding nose, thrombocytopenia. Patient has significant cardiac history, peripheral vascular disease including but not limited to history of [place], CABG at age 31, several mini strokes, stroke post aneurysm clipping in 2008 while on aspirin and Plavix and severe peripheral artery disease. He currently takes a baby aspirin aspirin, Plavix and Coumadin daily. Patient reports for the past year and a half he has been having difficultywith bleeding from the nose. Reports for the last several months he has been having bleeding almoston a daily basis, every morning when he wakes up and blows his nose. States the bleeding lasts for less than 10 minutes most of the time, occasionally longer. Reports the bleeding occurs from both sides of the nose, off and on. States he has been using a humidifier at home. He denies any recent fevers or infections. History: Past Medical History: Diagnosis Date Aneurysm (HCC) brain x2 Arteriosclerotic cardiovascular disease direct coronary bypass x 2, 06/23/86 CAD (coronary artery disease) Cerebral aneurysm Cerebral aneurysm Cerebral vascular disease Chronic lung disease Deep vein thrombosis (DVT) (HCC) leg, date unknown Diabetes mellitus (HCC) Dyslipidemia Hyperlipidemia Hypertension Ischemic cardiomyopathy Myocardial infarction (HCC) PAD (peripheral artery disease) (HCC) PAD (peripheral artery disease) (HCC) PVD (peripheral vascular disease) (HCC) Stroke (HCC) Past Surgical History: Procedure Laterality Date abd angio r/o eriberto newborn hearing screener 2006 L common & external iliac art abd angio r/o newborn hearing screener stent eriberto iliac art 2006 ARTERIAL ANEURYSM REPAIR Lt sideof brain CARDIAC CATHETERIZATION 07/20/2010 EF 35% CARDIAC CATHETERIZATION 11/22/2006 EF 45% CARDIAC CATHETERIZATION 05/11/2004 EF 55% CARDIAC CATHETERIZATION 08/14/2003 EF 55% CARDIAC CATHETERIZATION 07/09/2003 CARDIAC CATHETERIZATION 02/16/2003 CARDIAC CATHETERIZATION 10/03/2002 CARDIAC CATHETERIZATION 11/05/2001 CARDIAC CATHETERIZATION 07/04/2001 CARDIAC CATHETERIZATION 09/19/2000 CARDIAC CATHETERIZATION 05/10/2000 CARDIAC CATHETERIZATION 12/23/1999 CARDIAC CATHETERIZATION 12/06/1995 CARDIAC CATHETERIZATION 12/27/1990 CARDIAC CATHETERIZATION 04/27/1987 CARDIAC CATHETERIZATION 06/16/1986 CARDIAC CATHETERIZATION 11/13/2002 CEREBRAL ANEURYSM REPAIR 2008, 2018 bilateral CEREBRAL ANGIOGRAM CORONARY ANGIOPLASTY 02/16/2003 SVG to Marginal Proximal CORONARY ANGIOPLASTY 08/23/2000 SVG to Proximal CX CORONARY ANGIOPLASTY 05/10/2000 Proximal SVG to CX-OM CORONARY ANGIOPLASTY WITH STENT PLACEMENT 05/11/2004 RACHELL SVG to CX-OM, SVG to SHARAN, Ostial SVG to OM CORONARY ANGIOPLASTY WITH STENT PLACEMENT 07/09/2003 RACHELL SVG to OM, SVG to CX-OM CORONARY ANGIOPLASTY WITH STENT PLACEMENT 11/13/02 PTCA/Stent of SVG TO CX Proximal CORONARY ANGIOPLASTY WITH STENT PLACEMENT 10/03/2002 RACHELL Distal LMCA CORONARY ARTERY BYPASS GRAFT 06/23/1986 x2 HEMORRHOIDECTOMY HERNIA REPAIR 1978 ROTATOR CUFF REPAIR Left 2002 Family History Problem Relation Age of Onset Heart disease Mother Stroke Mother Heart attack Father Stroke Father Heart disease Father Heart disease Sister 8 sisters Heart disease Brother 4 brothers Cancer Brother lung 1 brother Social History Socioeconomic History Marital status: Spouse name: Not on file Number of children: Not on file Years of education: Not on file Highest education level: Not on file Social Needs Financial resource strain: Not on file Food insecurity - worry: Not on file Food insecurity - inability: Not on file Transportation needs - medical: Not on file Transportation needs - non-medical: Not on file Occupational History Not on file Tobacco Use Smoking status: Current Some Day Smoker Packs/day: 0.25 Years: 45.00 Pack years: 11.25 Types: Cigarettes Smokeless tobacco: Never Used Tobacco comment: a couple of months now Substance and Sexual Activity Alcohol use: No Drug use: No Sexual activity: Not on file Other Topics Concern Not on file Social History Narrative Not on file Allergy Information: I have reviewed the patient's allergies. Patient has no known allergies. Home Medications: Outpatient Medications as of 06/12/2018 Order #: [id number]: Historical Med Order #: [id number]: Historical Med Order #: [id number]: Normal Order #: [id number]: Normal Order #: [id number]: Historical Med Order #: [id number]: Historical Med Order #: [id number]: Normal Order #: [id number]: Normal Order #: [id number]: Normal Order #: [id number]: Normal Order #: [id number]: Historical Med Order #: [id number]: Normal Order #: [id number]: Normal Order #: [id number]: Historical Med Order #: [id number]: Historical Med Order #: [id number]: Historical Med Order #: [id number]: Historical Med Order #: [id number]: Historical Med Order #: [id number]: Normal Order #: [id number]: Normal ROS: Review of Systems Constitution: Negative for chills, fever and malaise/fatigue. HENT: Positive for nosebleeds ( Almost every day for the past several months, has been having bloody noses on and off for the past year and a half). Negative for congestion, ear discharge, ear pain, hearing loss, sore throat and tinnitus. Occasional sinus pressure and headache Patient reports he has been having problems with bleeding from the nose on and off for the past year and a half, reports happens from either side, usually occurs first thing in the morning when he blows his nose, the bleeding is lasting less than 10 minutes but has been occurring on a daily basis for the past month and a half Eyes: Negative for discharge, pain, photophobia and redness. Cardiovascular: Negative for chest pain, leg swelling, near-syncope and syncope. Significant cardiac history including but not limited to hypertension, hyperlipidemia, peripheral vascular disease, peripheral arterial disease, [place], CABG at age 31, stents Respiratory: Negative for cough, shortness of breath, sleep disturbances due to breathing and snoring. Endocrine: Negative for cold intolerance and heat intolerance. Hematologic/Lymphatic: Positive for bleeding problem. Negative for adenopathy. Bruises/bleeds easily. Patient is currently on baby aspirin, Plavix and Coumadin. He has history of thrombocytopenia and hypercoagulability Skin: Negative for color change, dry skin, itching and rash. Musculoskeletal: Negative for falls, joint swelling, muscle cramps and muscle weakness. Gastrointestinal: Negative for nausea and vomiting. Neurological: Positive for headaches. Negative for dizziness, light-headedness, loss of balance, numbness, seizures, tremors, vertigo and weakness. History of mini strokes, CVAs, brain aneurysm, aneurysm clipping, brain surgery Psychiatric/Behavioral: Negative for altered mental status and substance abuse. The patient is not nervous/anxious. Allergic/Immunologic: Negative for environmental allergies and persistent infections. Physical Examination: Vital Signs: BP (!) 166/77 Pulse (!) 57 Ht 5' 6 Wt 62.6 kg (138 lb) SpO2 97% BMI 22.27 kg/m Physical Exam Constitutional: He is oriented to person, place, and time and well-developed, well-nourished, and in no distress. Vital signs are normal. He appears healthy. He does not have a sickly appearance. No distress. HENT: Head: Normocephalic and atraumatic. Right Ear: Tympanic membrane, external ear and ear canal normal. No drainage, swelling or tenderness. No foreign bodies ( Scant cerumen noted). No mastoid tenderness. No middle ear effusion. No decreased hearing is noted. Left Ear: Hearing, tympanic membrane, external ear and ear canal normal. No drainage, swelling or tenderness. No foreign bodies ( Scant cerumen noted). No mastoid tenderness. No middle ear effusion. No decreased hearing is noted. Nose: Nose normal. No mucosal edema, rhinorrhea, nose lacerations or sinus tenderness. Right sinus exhibits no maxillary sinus tenderness and no frontal sinus tenderness. Left sinus exhibits no maxillary sinus tenderness and no frontal sinus tenderness. Mouth/Throat: Uvula is midline, oropharynx is clear and moist and mucous membranes are normal. He has dentures. No oropharyngeal exudate. Eyes: Right eye exhibits no discharge. Left eye exhibits no discharge. Neck: Trachea normal. No thyroid mass present. Lymphadenopathy: Head (right side): No submental and no submandibular adenopathy present. Head (left side): No submental and no submandibular adenopathy present. He has no cervical adenopathy. Neurological: He is alert and oriented to person, place, and time. Gait normal. Skin: Skin is warm and dry. He is not diaphoretic. Assessment and Plan: Mata Betts is a 62 y.o. y/o male presenting with bleeding nose, thrombocytopenia. Patient has significant cardiac history, peripheral vascular disease including but not limited to history of [place], CABG at age 31, several mini strokes, stroke post aneurysm clipping in 2008 while on aspirin and Plavix and severe peripheral artery disease. He currently takes a baby aspirin aspirin, Plavix and Coumadin daily. Patient reports for the past year and a half he has been having difficultywith bleeding from the nose. Reports for the last several months he has been having bleeding almoston a daily basis, every morning when he wakes up and blows his nose. States the bleeding lasts for less than 10 minutes most of the time, occasionally longer. Reports the bleeding occurs from both sides of the nose, off and on. States he has been using a humidifier at home. He denies any recent fevers or infections. Nasal dryness and irritation noted along bilateral anterior nasal septum. This is most likely the site of bleeding along bilateral Kiesselbach plexus area. No active bleeding at this time. Due to thepatient being on baby aspirin, Plavix and Coumadin he will be treated conservatively at this time with mupirocin ointment 3 times a day inside the nose for 10 days. He was educated to then transitionto nasal saline gel 2-3 times a day as needed to help prevent nasal dryness and irritation. He may continue to use his humidifier throughout the day at home. He was educated if his bleeding persists in the future possible cautery could be performed if he would be allowed to discontinue the aspirin or other bleeding agents temporarily to have the cautery performed. Follow-up in 3 weeks for evaluation of symptom resolution. 1. Thrombocytopenia (HCC) - Ambulatory referral to ENT 2. Bleeding nose - Ambulatory referral to ENT - mupirocin (BACTROBAN) 2 % ointment; Apply topically 3 (three) times a day Inside both sides of the nose . Dispense: 22 g; Refill: 0 Diagnoses and all orders for this visit: Epistaxis - Ambulatory referral to ENT - mupirocin (BACTROBAN) 2 % ointment; Apply topically 3 (three) times a day Inside both sides of the nose . Thrombocytopenia (HCC) - Ambulatory referral to ENT Danielle Son CNP in this encounter* Danielle Son CNP - 07/08/2018 12:20 PM EDT ENT Clinic Follow up Note History of Present Illness Mata Betts is a 62 y.o. y/o male presents for follow up regarding epistaxis and thrombocytopenia. He is a known patient in our clinic who has significant cardiac history and is currently taking aspirin, Plavix and Coumadin daily. He was seen approximately 3 weeks ago for recurrent epistaxis lasting for less than 10 minutes almost on a daily basis. He was educated to use mupirocin ointment 3 times a day inside the nose for 10 days and transition to nasal saline gel daily, and to use a humidifier at bedtime. Unfortunately, patient continues to have random nosebleeds on a daily basis. Reports they last anywhere from 5-10 minutes and occur from either side of the nose and sometimes both sides. No Known Allergies Past Medical History: Diagnosis Date Aneurysm (HCC) brain x2 Arteriosclerotic cardiovascular disease direct coronary bypass x 2, 06/23/86 CAD (coronary artery disease) Cerebral aneurysm Cerebral aneurysm Cerebral vascular disease Chronic lung disease Deep vein thrombosis (DVT) ([facility]) leg, date unknown Diabetes mellitus (HCC) Dyslipidemia Hyperlipidemia Hypertension Ischemic cardiomyopathy Myocardial infarction (HCC) PAD (peripheral artery disease) ([facility]) PAD (peripheral artery disease) ([facility]) PVD (peripheral vascular disease) (HCC) Stroke (HCC) Social History Socioeconomic History Marital status: Spouse name: Not on file Number of children: Not on file Years of education: Not on file Highest education level: Not on file Social Needs Financial resource strain: Not on file Food insecurity - worry: Not on file Food insecurity - inability: Not on file Transportation needs - medical: Not on file Transportation needs - non-medical: Not on file Occupational History Not on file Tobacco Use Smoking status: Current Some Day Smoker Packs/day: 0.25 Years: 45.00 Pack years: 11.25 Types: Cigarettes Smokeless tobacco: Never Used Tobacco comment: a couple of months now Substance and Sexual Activity Alcohol use: No Drug use: No Sexual activity: Not on file Other Topics Concern Not on file Social History Narrative Not on file Family History Problem Relation Age of Onset Heart disease Mother Stroke Mother Heart attack Father Stroke Father Heart disease Father Heart disease Sister 8 sisters Heart disease Brother 4 brothers Cancer Brother lung 1 brother Past Surgical History: Procedure Laterality Date abd angio r/o eriberto newborn hearing screener 2007 L common & external iliac art abd angio r/o newborn hearing screener stent eriberto iliac art 2006 ARTERIAL ANEURYSM REPAIR Lt sideof brain CARDIAC CATHETERIZATION 07/20/2010 EF 35% CARDIAC CATHETERIZATION 11/22/2006 EF 45% CARDIAC CATHETERIZATION 05/11/2004 EF 55% CARDIAC CATHETERIZATION 08/14/2003 EF 55% CARDIAC CATHETERIZATION 07/09/2003 CARDIAC CATHETERIZATION 02/16/2003 CARDIAC CATHETERIZATION 10/03/2002 CARDIAC CATHETERIZATION 11/05/2001 CARDIAC CATHETERIZATION 07/04/2001 CARDIAC CATHETERIZATION 09/19/2000 CARDIAC CATHETERIZATION 05/10/2000 CARDIAC CATHETERIZATION 12/23/1999 CARDIAC CATHETERIZATION 12/06/1995 CARDIAC CATHETERIZATION 12/27/1990 CARDIAC CATHETERIZATION 04/27/1987 CARDIAC CATHETERIZATION 06/16/1986 CARDIAC CATHETERIZATION 11/13/2002 CEREBRAL ANEURYSM REPAIR 2008, 2018 bilateral CEREBRAL ANGIOGRAM CORONARY ANGIOPLASTY 02/16/2003 SVG to Marginal Proximal CORONARY ANGIOPLASTY 08/23/2000 SVG to Proximal CX CORONARY ANGIOPLASTY 05/10/2000 Proximal SVG to CX-OM CORONARY ANGIOPLASTY WITH STENT PLACEMENT 05/11/2004 RACHELL SVG to CX-OM, SVG to SHARAN, Ostial SVG to OM CORONARY ANGIOPLASTY WITH STENT PLACEMENT 07/09/2003 RACHELL SVG to OM, SVG to CX-OM CORONARY ANGIOPLASTY WITH STENT PLACEMENT 11/13/02 PTCA/Stent of SVG TO CX Proximal CORONARY ANGIOPLASTY WITH STENT PLACEMENT 10/03/2002 RACHELL Distal LMCA CORONARY ARTERY BYPASS GRAFT 06/23/1986 x2 HEMORRHOIDECTOMY HERNIA REPAIR 1978 ROTATOR CUFF REPAIR Left 2002 The following systems were reviewed and revealed the following in addition to any already discussedin the HPI: Review of Systems Constitution: Negative for chills, fever and malaise/fatigue. HENT: Positive for nosebleeds ( Almost every day for the past several months, has been having bloody noses on and off for the past year and a half). Negative for congestion, ear discharge, ear pain, hearing loss, sore throat and tinnitus. Occasional sinus pressure and headache Patient reports he has been having problems with bleeding from the nose on and off for the past year and a half, reports happens from either side, usually occurs first thing in the morning when he blows his nose, the bleeding is lasting less than 10 minutes but has been occurring on a daily basis for the past 2 months Eyes: Negative for discharge, pain, photophobia and redness. Cardiovascular: Negative for chest pain, leg swelling, near-syncope and syncope. Significant cardiac history including but not limited to hypertension, hyperlipidemia, peripheral vascular disease, peripheral arterial disease, [place], CABG at age 31, stents Respiratory: Negative for cough, shortness of breath, sleep disturbances due to breathing and snoring. Endocrine: Negative for cold intolerance and heat intolerance. Hematologic/Lymphatic: Positive for bleeding problem. Negative for adenopathy. Bruises/bleeds easily. Patient is currently on baby aspirin, Plavix and Coumadin. He has history of thrombocytopenia and hypercoagulability Skin: Negative for color change, dry skin, itching and rash. Musculoskeletal: Negative for falls, joint swelling, muscle cramps and muscle weakness. Gastrointestinal: Negative for nausea and vomiting. Neurological: Positive for headaches. Negative for dizziness, light-headedness, loss of balance, numbness, seizures, tremors, vertigo and weakness. History of mini strokes, CVAs, brain aneurysm, aneurysm clipping, brain surgery Psychiatric/Behavioral: Negative for altered mental status and substance abuse. The patient is not nervous/anxious. Allergic/Immunologic: Negative for environmental allergies and persistent infections. Physical Exam Vitals: 07/08/18 1001 BP: (!) 157/68 Pulse: 61 SpO2: 94% Weight: 63.4 kg (139 lb 12.8 oz) Physical Exam Constitutional: He is oriented to person, place, and time and well-developed, well-nourished, and in no distress. Vital signs are normal. He appears healthy. He does not have a sickly appearance. No distress. HENT: Head: Normocephalic and atraumatic. Right Ear: Hearing, tympanic membrane, external ear and ear canal normal. No drainage, swelling or tenderness. No foreign bodies ( Scant cerumen noted). No mastoid tenderness. No middle ear effusion.No decreased hearing is noted. Left Ear: Hearing, tympanic membrane, external ear and ear canal normal. No drainage, swelling or tenderness. No foreign bodies. No mastoid tenderness. No middle ear effusion. No decreased hearing isnoted. Nose: Nose normal. No mucosal edema, rhinorrhea, nose lacerations or sinus tenderness. Right sinus exhibits no maxillary sinus tenderness and no frontal sinus tenderness. Left sinus exhibits no maxillary sinus tenderness and no frontal sinus tenderness. Mouth/Throat: Uvula is midline, oropharynx is clear and moist and mucous membranes are normal. He has dentures. No oropharyngeal exudate. Eyes: Right eye exhibits no discharge. Left eye exhibits no discharge. Neck: Trachea normal. No thyroid mass present. Lymphadenopathy: Head (right side): No submental and no submandibular adenopathy present. Head (left side): No submental and no submandibular adenopathy present. He has no cervical adenopathy. Neurological: He is alert and oriented to person, place, and time. Gait normal. Skin: Skin is warm and dry. He is not diaphoretic. Procedure: After proper anesthesia was obtained using Afrin and lidocaine, light cautery was performed using 3silver nitrate sticks to bilateral anterior kiesselbach plexus area. Surgicel dressing and mupirocin ointment was applied bilaterally. Patient tolerated well. Assessment and Plan: Mata Betts is a 62 y.o. y/o male who presents with epistaxis and thrombocytopenia. He is a known patient in our clinic who has significant cardiac history and is currently taking aspirin, Plavix and Coumadin daily. He was seen approximately 3 weeks ago for recurrent epistaxis lasting for less than 10 minutes almost on a daily basis. He was educated to use mupirocin ointment 3 times a day inside the nose for 10 days and transition to nasal saline gel daily, and to use a humidifier at bedtime. Unfortunately, patient continues to have random nosebleeds on a daily basis. Reports they last anywhere from 5-10 minutes and occur from either side of the nose and sometimes both sides. Due to patient's continued epistaxis despite efforts of mupirocin and nasal saline gel, he requested cautery. He was educated about the risk of cautery while being on the 3 blood thinners. Patient wished to proceed today. Proper anesthesia was obtained using Afrin and lidocaine. Light cautery was performed using 3 silver nitrate sticks to bilateral anterior kiesselbach plexus area. Surgicel dressing and mupirocin ointment was applied bilaterally. Patient tolerated well no active bleeding occurred. Patient was educated to use mupirocin ointment 3 times a day inside both sides and those for 10 days. Then transition back to nasal saline gel. Follow-up in 3 months for evaluation of healing. Diagnoses and all orders for this visit: Epistaxis Danielle Son CNP in this encounter* Danielle Sno CNP - 07/30/2018 9:53 AM EDT ENT Clinic Follow up Note History of Present Illness Mata Betts is a 63 y.o. y/o male presents for follow up regarding epistaxis and thrombocytopenia. He is a known patient our clinic who has significant cardiac history and is currently taking aspirin, Plavix and Coumadin daily. Approximately 3 weeks ago he had light cautery performed of bilateral anterior nasal septum. Patient was educated to use mupirocin ointment 3 times a day for 10 days and then transition to nasal saline gel. He was educated to use a humidifier in his house and especiallyat bedtime. Patient reports he has had 2-3 nosebleeds since his last visit and after cautery. Reports they are brief lasting from 5-10 minutes and able to be resolved quickly. States the bleeding occurs from either side but seems to be more consistent on the left, usually occurs in the morning and u sually after he blows his nose. He does report improvement in the bleeding overall since he had cautery performed. No Known Allergies Past Medical History: Diagnosis Date Aneurysm (HCC) brain x2 Arteriosclerotic cardiovascular disease direct coronary bypass x 2, 06/23/86 CAD (coronary artery disease) Cerebral aneurysm Cerebral aneurysm Cerebral vascular disease Chronic lung disease Deep vein thrombosis (DVT) ([facility]) leg, date unknown Diabetes mellitus (HCC) Dyslipidemia Hyperlipidemia Hypertension Ischemic cardiomyopathy Myocardial infarction (HCC) PAD (peripheral artery disease) ([facility]) PAD (peripheral artery disease) ([facility]) PVD (peripheral vascular disease) ([facility]) Stroke ([facility]) Social History Socioeconomic History Marital status: Spouse name: Not on file Number of children: Not on file Years of education: Not on file Highest education level: Not on file Social Needs Financial resource strain: Not on file Food insecurity - worry: Not on file Food insecurity - inability: Not on file Transportation needs - medical: Not on file Transportation needs - non-medical: Not on file Occupational History Not on file Tobacco Use Smoking status: Current Some Day Smoker Packs/day: 0.25 Years: 45.00 Pack years: 11.25 Types: Cigarettes Smokeless tobacco: Never Used Tobacco comment: a couple of months now Substance and Sexual Activity Alcohol use: No Drug use: No Sexual activity: Not on file Other Topics Concern Not on file Social History Narrative Not on file Family History Problem Relation Age of Onset Heart disease Mother Stroke Mother Heart attack Father Stroke Father Heart disease Father Heart disease Sister 8 sisters Heart disease Brother 4 brothers Cancer Brother lung 1 brother Past Surgical History: Procedure Laterality Date abd angio r/o eriberto newborn hearing screener 2007 L common & external iliac art abd angio r/o newborn hearing screener stent eriberto iliac art 2006 ARTERIAL ANEURYSM REPAIR Lt sideof brain CARDIAC CATHETERIZATION 07/20/2010 EF 35% CARDIAC CATHETERIZATION 11/22/2006 EF 45% CARDIAC CATHETERIZATION 05/11/2004 EF 55% CARDIAC CATHETERIZATION 08/14/2003 EF 55% CARDIAC CATHETERIZATION 07/09/2003 CARDIAC CATHETERIZATION 02/16/2003 CARDIAC CATHETERIZATION 10/03/2002 CARDIAC CATHETERIZATION 11/05/2001 CARDIAC CATHETERIZATION 07/04/2001 CARDIAC CATHETERIZATION 09/19/2000 CARDIAC CATHETERIZATION 05/10/2000 CARDIAC CATHETERIZATION 12/23/1999 CARDIAC CATHETERIZATION 12/06/1995 CARDIAC CATHETERIZATION 12/27/1990 CARDIAC CATHETERIZATION 04/27/1987 CARDIAC CATHETERIZATION 06/16/1986 CARDIAC CATHETERIZATION 11/13/2002 CEREBRAL ANEURYSM REPAIR 2008, 2018 bilateral CEREBRAL ANGIOGRAM CORONARY ANGIOPLASTY 02/16/2003 SVG to Marginal Proximal CORONARY ANGIOPLASTY 08/23/2000 SVG to Proximal CX CORONARY ANGIOPLASTY 05/10/2000 Proximal SVG to CX-OM CORONARY ANGIOPLASTY WITH STENT PLACEMENT 05/11/2004 RACHELL SVG to CX-OM, SVG to SHARAN, Ostial SVG to OM CORONARY ANGIOPLASTY WITH STENT PLACEMENT 07/09/2003 RACHELL SVG to OM, SVG to CX-OM CORONARY ANGIOPLASTY WITH STENT PLACEMENT 11/13/02 PTCA/Stent of SVG TO CX Proximal CORONARY ANGIOPLASTY WITH STENT PLACEMENT 10/03/2002 RACHELL Distal LMCA CORONARY ARTERY BYPASS GRAFT 06/23/1986 x2 HEMORRHOIDECTOMY HERNIA REPAIR 1978 ROTATOR CUFF REPAIR Left 2002 The following systems were reviewed and revealed the following in addition to any already discussedin the HPI: Review of Systems Constitution: Negative for chills, fever and malaise/fatigue. HENT: Positive for nosebleeds (Pt reports 2-3 nose bleeds since his last visit when he had cautery performed, report they only last 5-10 minutes and are not as severe as prior to cautery ). Negative for congestion, ear discharge, ear pain, hearing loss, sore throat and tinnitus. Occasional sinus pressure and headache Patient reports he has been having problems with bleeding from the nose on and off for the past year and a half, reports happens from either side, usually occurs first thing in the morning when he blows his nose, the bleeding is lasting less than 10 minutes but has been occurring on a daily basis for the past 2 months Eyes: Negative for discharge, pain, photophobia and redness. Cardiovascular: Negative for chest pain, leg swelling, near-syncope and syncope. Significant cardiac history including but not limited to hypertension, hyperlipidemia, peripheral vascular disease, peripheral arterial disease, [place], CABG at age 31, stents Respiratory: Negative for cough, shortness of breath, sleep disturbances due to breathing and snoring. Endocrine: Negative for cold intolerance and heat intolerance. Hematologic/Lymphatic: Positive for bleeding problem. Negative for adenopathy. Bruises/bleeds easily. Patient is currently on baby aspirin, Plavix and Coumadin. He has history of thrombocytopenia and hypercoagulability Skin: Negative for color change, dry skin, itching and rash. Musculoskeletal: Negative for falls, joint swelling, muscle cramps and muscle weakness. Gastrointestinal: Negative for nausea and vomiting. Neurological: Positive for headaches. Negative for dizziness, light-headedness, loss of balance, numbness, seizures, tremors, vertigo and weakness. History of mini strokes, CVAs, brain aneurysm, aneurysm clipping, brain surgery Psychiatric/Behavioral: Negative for altered mental status and substance abuse. The patient is not nervous/anxious. Allergic/Immunologic: Negative for environmental allergies and persistent infections. Physical Exam Vitals: 07/30/18 0905 BP: 136/71 Pulse: (!) 59 SpO2: 96% Weight: 62 kg (136 lb 9.6 oz) Height: 5' 6 Physical Exam Constitutional: He is oriented to person, place, and time and well-developed, well-nourished, and in no distress. Vital signs are normal. He appears healthy. He does not have a sickly appearance. No distress. HENT: Head: Normocephalic and atraumatic. Right Ear: Hearing, tympanic membrane, external ear and ear canal normal. No drainage, swelling or tenderness. No foreign bodies ( Scant cerumen noted). No mastoid tenderness. No middle ear effusion.No decreased hearing is noted. Left Ear: Hearing, tympanic membrane, external ear and ear canal normal. No drainage, swelling or tenderness. No foreign bodies. No mastoid tenderness. No middle ear effusion. No decreased hearing isnoted. Nose: Nose normal. No mucosal edema, rhinorrhea, nose lacerations or sinus tenderness. Right sinus exhibits no maxillary sinus tenderness and no frontal sinus tenderness. Left sinus exhibits no maxillary sinus tenderness and no frontal sinus tenderness. Mouth/Throat: Uvula is midline, oropharynx is clear and moist and mucous membranes are normal. He has dentures. No oropharyngeal exudate. Eyes: Right eye exhibits no discharge. Left eye exhibits no discharge. Neck: Trachea normal. No thyroid mass present. Lymphadenopathy: Head (right side): No submental and no submandibular adenopathy present. Head (left side): No submental and no submandibular adenopathy present. He has no cervical adenopathy. Neurological: He is alert and oriented to person, place, and time. Gait normal. Skin: Skin is warm and dry. He is not diaphoretic. Procedure: After adequate anesthesia was obtained using Lidocaine and Afrine, light cautery was performed using 1 silver nitrate stick to the left anterior kiesselbach plexus area. Surgicel dressing and mupirocin ointment was applied to left nostril. Patient tolerated well. Assessment and Plan: Mata Betts is a 63 y.o. y/o male who presents with epistaxis and thrombocytopenia. He is a known patient our clinic who has significant cardiac history and is currently taking aspirin, Plavix and Coumadin daily. Approximately 3 weeks ago he had light cautery performed of bilateral anterior nasal septum. Patient was educated to use mupirocin ointment 3 times a day for 10 days and then transition to nasal saline gel. He was educated to use a humidifier in his house and especiallyat bedtime. Patient reports he has had 2-3 nosebleeds since his last visit and after cautery. Reports they are brief lasting from 5-10 minutes and able to be resolved quickly. States the bleeding occurs from either side but seems to be more consistent on the left, usually occurs in the morning and u sually after he blows his nose. He does report improvement in the bleeding overall since he had cautery performed. Light cautery was performed using 1 silver nitrate stick to the left anterior kiesselbach plexus area. Surgicel dressing and mupirocin ointment was applied to left nostril. Patient tolerated well. Hewas instructed to continue to use mupirocin ointment 3 times a day for 10 days, the left side and then transition to nasal saline gel. Follow-up as needed for any related or not related problems or concerns. Diagnoses and all orders for this visit: Epistaxis Danielle Son CNP in this encounter* Laxmi Whitney RPh,PharmD - 08/01/2018 8:47 AM EDT Anticoagulation Progress Note Date of Visit: August 01, 2018 Patient Name: Mata Betts : 1955 Age: 63 y.o. Mata Betts is here for an anticoagulation follow-up visit. INR obtained via POC finger stick device. Anticoagulation Summary As of 08/01/2018 INR goal: 2.0-3.0 TTR: INR used for dosin.1 (08/01/2018) Warfarin maintenance plan: 2.5 mg (5 mg x 0.5) on Sun, Sat; 5 mg (5 mg x 1) all other days Weekly warfarin total: 30 mg Plan last modified: Laxmi Whitney RPh,PharmD (08/01/2018) Next INR check: 09/12/2018 Priority: Maintenance Target end date: Indefinite Indications Cerebrovascular disease [I67.9] PAD (peripheral artery disease) (HCC) [I73.9] Lab Results Component Value Date WBC 5.9 05/30/2018 HGB 14.5 05/30/2018 HCT 44.7 05/30/2018 EXTMCV 100.2 (H) 05/30/2018 PLT 144 05/30/2018 RBC 4.15 (A) 05/12/2004 Encounter Summary: ASSESSMENT: Patient Findings Negatives: Patient Reported Falls, Signs/symptoms of thrombosis, Signs/symptoms of bleeding, Laboratory test error suspected, Change in health, Change in alcohol use, Change in activity, Upcoming invasive procedure, Emergency department visit, Upcoming dental procedure, Missed doses, Extra doses, Change in medications, Change in diet/appetite, Hospital admission, Bruising, Other complaints Warfarin taken in the previous 7 days: 30 mg INR is therapeutic today. PLAN: 1. Will continue weekly warfarin dose of 30 mg/week. Will check next INR in 6+ weeks unless there are any changes before then. 2. Encouraged patient to contact clinic with any changes. Laxmi Whitney RPh,PharmD [facility] Dept: [phone] in this encounter* Tanvir Arnett MD - 11/28/2018 10:15 AM EDT Clinic follow up note PATIENT: Mata Betts : 1955 AGE: 63 y.o. SEX: male RACE: [1] PCP: Jeanna Duff MD REFERRAL: No ref. provider found HPI Presents in f/u. Reports feeling well, epistaxis has resolved, continues to smoke few cigarettes a day. Denies any new systemic complaints. HEMATOLOGIC HX Pt has a h/o [place] at age 31 , CABG at 31 yrs of age, several ministrokes, stroke post aneurysm clipping in 2008 while on aspirin and plavix. Patient has h/o severe PAD. Is a chronic smoker. Admitted to the hospital in August 2011 with symptoms suggestive of subacute cerebrovascular ischemic accident. 09/10/2011, CT of the brain without contrast demonstrates an area along the right posterior parietal lobe that exhibits loss of gonzalez-white matter differentiation, concerning for acute to subacute infarct, left frontal and temporal postsurgical changes without evidence of acute intracranial hemorrhage. Was initially evaluated in 2011 in the hematology clinic and hypercoagulable workup that was negative .prothrombin gene mutation and factor V Leiden mutation was negative on 09/03/2011, protein C,S and lupus anticoagulant testing was negative. Antithrombin level was slightly lowerthan normal. Given the history, was placed on coumadin in late 2011, since being on coumadin ,has not had any neurologic or cardiovascular event. 04/30/2017 completely normal total white cell count, H&H, MCV is 100.6, platelet count is 106k. Vitamin B12 and folate within normal limits, peripheral smear evaluation demonstrates granulocytes with pelgeroid changes. 05/08/17- Bone marrow biopsy and aspiration -Normocellular marrow (35%) with trilineage hematopoiesis and neutrophils with Pelgeroid change. Thrombocytopenia and macrocytic RBCs. Cytogenetics demonstrates loss of Y chromosome. No clear evidence of MDS at this time. 03/25/18- Low dose ct scan- 1. Stable bilateral solid lung nodules measuring up to 4 mm in mean diameter. No new or enlarging lung nodules. 2. Mild emphysema. 3. Status post coronary artery bypass grafting. ALLERGIES No Known Allergies [facility] has a current medication list which includes the following prescription(s): albuterol, aspirin, atenolol, atorvastatin, chantix continuing month box, cialis, clopidogrel, ferrous sulfate, fluticasone furoate-vilanterol, fluticasone propion-salmeterol, lidocaine-prilocaine, lisinopril, metformin, mupirocin, onetouch delica lancets, onetouch verio flex, onetouch verio, oxycodone, tizanidine, ventolin hfa, and warfarin. PMH/PSH Past Medical History: Diagnosis Date Aneurysm (HCC) brain x2 Arteriosclerotic cardiovascular disease direct coronary bypass x 2, 06/23/86 CAD (coronary artery disease) Cerebral aneurysm Cerebral aneurysm Cerebral vascular disease Chronic lung disease Deep vein thrombosis (DVT) (HCC) leg, date unknown Diabetes mellitus (HCC) Dyslipidemia Hyperlipidemia Hypertension Ischemic cardiomyopathy Myocardial infarction (HCC) PAD (peripheral artery disease) (HCC) PAD (peripheral artery disease) (HCC) PVD (peripheral vascular disease) (HCC) Stroke (HCC) Past Surgical History: Procedure Laterality Date abd angio r/o eriberto newborn hearing screener 2007 L common & external iliac art abd angio r/o newborn hearing screener stent eriberto iliac art 2006 ARTERIAL ANEURYSM REPAIR Lt sideof brain CARDIAC CATHETERIZATION 07/20/2010 EF 35% CARDIAC CATHETERIZATION 11/22/2006 EF 45% CARDIAC CATHETERIZATION 05/11/2004 EF 55% CARDIAC CATHETERIZATION 08/14/2003 EF 55% CARDIAC CATHETERIZATION 07/09/2003 CARDIAC CATHETERIZATION 02/16/2003 CARDIAC CATHETERIZATION 10/03/2002 CARDIAC CATHETERIZATION 11/05/2001 CARDIAC CATHETERIZATION 07/04/2001 CARDIAC CATHETERIZATION 09/19/2000 CARDIAC CATHETERIZATION 05/10/2000 CARDIAC CATHETERIZATION 12/23/1999 CARDIAC CATHETERIZATION 12/06/1995 CARDIAC CATHETERIZATION 12/27/1990 CARDIAC CATHETERIZATION 04/27/1987 CARDIAC CATHETERIZATION 06/16/1986 CARDIAC CATHETERIZATION 11/13/2002 CEREBRAL ANEURYSM REPAIR 2008, 2018 bilateral CEREBRAL ANGIOGRAM CORONARY ANGIOPLASTY 02/16/2003 SVG to Marginal Proximal CORONARY ANGIOPLASTY 08/23/2000 SVG to Proximal CX CORONARY ANGIOPLASTY 05/10/2000 Proximal SVG to CX-OM CORONARY ANGIOPLASTY WITH STENT PLACEMENT 05/11/2004 RACHELL SVG to CX-OM, SVG to SHARAN, Ostial SVG to OM CORONARY ANGIOPLASTY WITH STENT PLACEMENT 07/09/2003 RACHELL SVG to OM, SVG to CX-OM CORONARY ANGIOPLASTY WITH STENT PLACEMENT 11/13/02 PTCA/Stent of SVG TO CX Proximal CORONARY ANGIOPLASTY WITH STENT PLACEMENT 10/03/2002 RACHELL Distal LMCA CORONARY ARTERY BYPASS GRAFT 06/23/1986 x2 HEMORRHOIDECTOMY HERNIA REPAIR 1977 ROTATOR CUFF REPAIR Left 2002 Family History Problem Relation Age of Onset Heart disease Mother Stroke Mother Heart attack Father Stroke Father Heart disease Father Heart disease Sister 8 sisters Heart disease Brother 4 brothers Cancer Brother lung 1 brother Social History Socioeconomic History Marital status: Spouse name: Not on file Number of children: Not on file Years of education: Not on file Highest education level: Not on file Occupational History Not on file Social Needs Financial resource strain: Not on file Food insecurity: Worry: Not on file Inability: Not on file Transportation needs: Medical: Not on file Non-medical: Not on file Tobacco Use Smoking status: Current Some Day Smoker Packs/day: 0.25 Years: 45.00 Pack years: 11.25 Types: Cigarettes Smokeless tobacco: Never Used Tobacco comment: a couple of months now Substance and Sexual Activity Alcohol use: No Drug use: No Sexual activity: Not on file Lifestyle Physical activity: Days per week: Not on file Minutes per session: Not on file Stress: Not on file Relationships Social connections: Talks on phone: Not on file Gets together: Not on file Attends congregation service: Not on file Active member of club or organization: Not on file Attends meetings of clubs or organizations: Not on file Relationship status: Not on file Other Topics Concern Not on file Social History Narrative Not on file ROS Review of Systems Constitutional: Negative. HENT: Negative. Eyes: Negative. Respiratory: Negative. Cardiovascular: Negative. Gastrointestinal: Negative. Endocrine: Negative. Genitourinary: Negative. Musculoskeletal: Negative. Skin: Negative. Neurological: Negative. Hematological: Negative. Psychiatric/Behavioral: Negative. EXAM BP 135/77 (BP Location: Right arm) Pulse (!) 57 Temp 97.9 F (36.6 C) (Oral) Wt 61.3 kg (135 lb 1.6 oz) SpO2 97% BMI 21.81 kg/m Physical Exam Constitutional: He is oriented to person, place, and time. He appears well- developed and well-nourished. HENT: Head: Normocephalic and atraumatic. Eyes: Pupils are equal, round, and reactive to light. Conjunctivae and EOM are normal. Neck: Normal range of motion. Neck supple. Cardiovascular: Normal rate and regular rhythm. Pulmonary/Chest: Effort normal and breath sounds normal. Abdominal: Soft. Bowel sounds are normal. Musculoskeletal: Normal range of motion. Neurological: He is alert and oriented to person, place, and time. He has normal reflexes. Skin: Skin is warm and dry. Psychiatric: He has a normal mood and affect. His behavior is normal. Judgment and thought content normal. LABS / IMAGING Reviewed labs obtained after visit. IMPRESSION 63-year-old chronic smoker, history of cerebral aneurysm status post clipping in 2008, with recent increase in size of the aneurysm, plan for an angiogram, on chronic anticoagulation secondary to history of recurrent stroke, felt to be embolic , noted to have chronic thrombocytopenia with pelgeroid changes in the granulocytes, bm biopsy and aspiration unremarkable ,s/p aneurysmal clipping, on terminal make up operator anticoagulation ASSESSMENT / PLAN 1. Hypercoagulable condition with recurrent episodes of cva, on halfway anticoagulation, wishes to stay on coumadin. 2. Thrombocytopenia and macrocytosis -MDs ruled out at the current time, discussed the findings, potential evolution in future, cbc with diff today and prior to next visit. Labs reviewed after the visit demonstrate normalized platelet count, macrocytosis has resolved however he is noted to have iron deficient status, will initiate iron replacement therapy and reevaluate with counts. History of recurrent epistaxis in the past 3. Tobacco use disorder- has almost quit smoking, low dose ct imaging performed, stable nodules, next due in 03/11. Thank you for the privilege of allowing me to participate in the care of Mata Betts. TANVIR ARNETT MD [employer] documented in this encounter* Laxmi Whitney RPh,PharmD - 12/12/2018 8:06 AM EDT Anticoagulation Progress Note Date of Visit: December 12, 2018 Patient Name: Mata Betts : 1955 Age: 63 y.o. Mata Betts is here for an anticoagulation follow-up visit. INR obtained via POC finger stick device. Anticoagulation Summary As of 12/12/2018 INR goal: 2.0-3.0 TTR: 100.0 % (4.4 mo) INR used for dosin.4 (12/12/2018) Warfarin maintenance plan: 2.5 mg (5 mg x 0.5) every Tue, Sat; 5 mg (5 mg x 1) all other days Weekly warfarin total: 30 mg Plan last modified: Laxmi Whitney RPh,PharmD (08/01/2018) Next INR check: 01/23/2019 Priority: Maintenance Target end date: Indefinite Indications Cerebrovascular disease [I67.9] PAD (peripheral artery disease) (HCC) [I73.9] Lab Results Component Value Date WBC 5.91 11/28/2018 HGB 13.6 11/28/2018 HCT 41.2 11/28/2018 MCV 99.8 11/28/2018 EXTMCV 100.2 (H) 05/30/2018 PLT 151 11/28/2018 RBC 4.13 (L) 11/28/2018 Encounter Summary: ASSESSMENT: Patient Findings Negatives: Patient Reported Falls, Signs/symptoms of thrombosis, Signs/symptoms of bleeding, Laboratory test error suspected, Change in health, Change in alcohol use, Change in activity, Upcoming invasive procedure, Emergency department visit, Upcoming dental procedure, Missed doses, Extra doses, Change in medications, Change in diet/appetite, Hospital admission, Bruising, Other complaints Warfarin taken in the previous 7 days: 30 mg INR is therapeutic today. PLAN: 1. Will continue weekly warfarin dose of 30 mg/week. 2. Will check next INR in 6+ weeks unless there are any changes before then. 3. Encouraged patient to contact clinic with any changes. Laxmi Whitney RPh,PharmD [facility] Dept: [phone] documented in this encounter* Tanvir Arnett MD - 04/01/2019 2:13 PM EST Clinic follow up note PATIENT: Mata Betts : 1955 AGE: 63 y.o. SEX: male RACE: [1] PCP: Jeanna Duff MD REFERRAL: No ref. provider found HPI Presents in f/u. Reports feeling well, epistaxis has resolved, continues to smoke few cigarettes a day. Denies any new systemic complaints. Compliant with oral iron supplementation. Reports appetite being good. Has chronic back pain ,on opioids throgh Dr Swan. HEMATOLOGIC HX Pt has a h/o WA at age 31 , CABG at 31 yrs of age, several ministrokes, stroke post aneurysm clipping in 2008 while on aspirin and plavix. Patient has h/o severe PAD. Is a chronic smoker. Admitted to the hospital in August 2011 with symptoms suggestive of subacute cerebrovascular ischemic accident. 09/10/2011, CT of the brain without contrast demonstrates an area along the right posterior parietal lobe that exhibits loss of gonzalez-white matter differentiation, concerning for acute to subacute infarct, left frontal and temporal postsurgical changes without evidence of acute intracranial hemorrhage. Was initially evaluated in 2011 in the hematology clinic and hypercoagulable workup that was negative .prothrombin gene mutation and factor V Leiden mutation was negative on 09/03/2011, protein C,S and lupus anticoagulant testing was negative. Antithrombin level was slightly lowerthan normal. Given the history, was placed on coumadin in late 2011, since being on coumadin ,has not had any neurologic or cardiovascular event. 04/30/2017 completely normal total white cell count, H&H, MCV is 100.6, platelet count is 106k. Vitamin B12 and folate within normal limits, peripheral smear evaluation demonstrates granulocytes with pelgeroid changes. 05/08/17- Bone marrow biopsy and aspiration -Normocellular marrow (35%) with trilineage hematopoiesis and neutrophils with Pelgeroid change. Thrombocytopenia and macrocytic RBCs. Cytogenetics demonstrates loss of Y chromosome. No clear evidence of MDS at this time. 03/25/18- Low dose ct scan- 1. Stable bilateral solid lung nodules measuring up to 4 mm in mean diameter. No new or enlarging lung nodules. 2. Mild emphysema. 3. Status post coronary artery bypass grafting. 02/28/19- Low dose ct chest- 1. No new or enlarging pulmonary nodules are present. Stable subcentimeter pulmonary nodules are again identified. 2. Mild emphysema. Lung-RADs 2 ALLERGIES No Known Allergies [facility] has a current medication list which includes the following prescription(s): aspirin, atenolol,atorvastatin, chantix continuing month box, cialis, clopidogrel, ferrous sulfate, fluticasone furoate-vilanterol, fluticasone propion-salmeterol, lisinopril, metformin, mupirocin, onetouch delica lancets, onetouch verio flex, onetouch verio, oxycodone, tizanidine, ventolin hfa, and warfarin. PMH/PSH Past Medical History: Diagnosis Date Aneurysm (HCC) brain x2 Arteriosclerotic cardiovascular disease direct coronary bypass x 2, 06/23/86 CAD (coronary artery disease) Cerebral aneurysm Cerebral aneurysm Cerebral vascular disease Chronic lung disease Deep vein thrombosis (DVT) (HCC) leg, date unknown Diabetes mellitus (HCC) Dyslipidemia Hyperlipidemia Hypertension Ischemic cardiomyopathy Myocardial infarction (HCC) PAD (peripheral artery disease) (HCC) PAD (peripheral artery disease) (HCC) PVD (peripheral vascular disease) (HCC) Stroke (HCC) Past Surgical History: Procedure Laterality Date abd angio r/o eriberto newborn hearing screener 2007 L common & external iliac art abd angio r/o newborn hearing screener stent eriberto iliac art 2006 ARTERIAL ANEURYSM REPAIR Lt sideof brain CARDIAC CATHETERIZATION 07/20/2010 EF 35% CARDIAC CATHETERIZATION 11/22/2006 EF 45% CARDIAC CATHETERIZATION 05/11/2004 EF 55% CARDIAC CATHETERIZATION 08/14/2003 EF 55% CARDIAC CATHETERIZATION 07/09/2003 CARDIAC CATHETERIZATION 02/16/2003 CARDIAC CATHETERIZATION 10/03/2002 CARDIAC CATHETERIZATION 11/05/2001 CARDIAC CATHETERIZATION 07/04/2001 CARDIAC CATHETERIZATION 09/19/2000 CARDIAC CATHETERIZATION 05/10/2000 CARDIAC CATHETERIZATION 12/23/1999 CARDIAC CATHETERIZATION 12/06/1995 CARDIAC CATHETERIZATION 12/27/1990 CARDIAC CATHETERIZATION 04/27/1987 CARDIAC CATHETERIZATION 06/16/1986 CARDIAC CATHETERIZATION 11/13/2002 CEREBRAL ANEURYSM REPAIR 2008, 2018 bilateral CEREBRAL ANGIOGRAM CORONARY ANGIOPLASTY 02/16/2003 SVG to Marginal Proximal CORONARY ANGIOPLASTY 08/23/2000 SVG to Proximal CX CORONARY ANGIOPLASTY 05/10/2000 Proximal SVG to CX-OM CORONARY ANGIOPLASTY WITH STENT PLACEMENT 05/11/2004 RACHELL SVG to CX-OM, SVG to SHARAN, Ostial SVG to OM CORONARY ANGIOPLASTY WITH STENT PLACEMENT 07/09/2003 RACHELL SVG to OM, SVG to CX-OM CORONARY ANGIOPLASTY WITH STENT PLACEMENT 11/13/02 PTCA/Stent of SVG TO CX Proximal CORONARY ANGIOPLASTY WITH STENT PLACEMENT 10/03/2002 RACHELL Distal LMCA CORONARY ARTERY BYPASS GRAFT 06/23/1986 x2 HEMORRHOIDECTOMY HERNIA REPAIR 1978 ROTATOR CUFF REPAIR Left 2002 FH Family History Problem Relation Age of Onset Heart disease Mother Stroke Mother Heart attack Father Stroke Father Heart disease Father Heart disease Sister 8 sisters Heart disease Brother 4 brothers Cancer Brother lung 1 brother SH Social History Socioeconomic History Marital status: Spouse name: Not on file Number of children: Not on file Years of education: Not on file Highest education level: Not on file Occupational History Not on file Social Needs Financial resource strain: Not on file Food insecurity Worry: Not on file Inability: Not on file Transportation needs Medical: Not on file Non-medical: Not on file Tobacco Use Smoking status: Current Some Day Smoker Packs/day: 0.25 Years: 45.00 Pack years: 11.25 Types: Cigarettes Smokeless tobacco: Never Used Tobacco comment: a couple of months now Substance and Sexual Activity Alcohol use: No Drug use: No Sexual activity: Not on file Lifestyle Physical activity Days per week: Not on file Minutes per session: Not on file Stress: Not on file Relationships Social connections Talks on phone: Not on file Gets together: Not on file Attends congregation service: Not on file Active member of club or organization: Not on file Attends meetings of clubs or organizations: Not on file Relationship status: Not on file Other Topics Concern Not on file Social History Narrative Not on file ROS Review of Systems Constitutional: Negative. HENT: Negative. Eyes: Negative. Respiratory: Negative. Cardiovascular: Negative. Gastrointestinal: Negative. Endocrine: Negative. Genitourinary: Negative. Musculoskeletal: Negative. Skin: Negative. Neurological: Negative. Hematological: Negative. Psychiatric/Behavioral: Negative. EXAM BP 125/66 (BP Location: Right arm) Pulse (!) 56 Temp 98.3 F (36.8 C) (Oral) Ht 5' 7 Wt 60.3 kg (132 lb 14.4 oz) SpO2 94% BMI 20.82 kg/m Physical Exam Constitutional: He is oriented to person, place, and time. He appears well- developed and well-nourished. HENT: Head: Normocephalic and atraumatic. Eyes: Pupils are equal, round, and reactive to light. Conjunctivae and EOM are normal. Neck: Normal range of motion. Neck supple. Cardiovascular: Normal rate and regular rhythm. Pulmonary/Chest: Effort normal and breath sounds normal. Abdominal: Soft. Bowel sounds are normal. Musculoskeletal: Normal range of motion. Neurological: He is alert and oriented to person, place, and time. He has normal reflexes. Skin: Skin is warm and dry. Psychiatric: He has a normal mood and affect. His behavior is normal. Judgment and thought content normal. LABS / IMAGING Reviewed labs obtained after visit. IMPRESSION 63-year-old chronic smoker, history of cerebral aneurysm status post clipping in 2008, with recent increase in size of the aneurysm, plan for an angiogram, on chronic anticoagulation secondary to history of recurrent stroke, felt to be embolic , noted to have chronic thrombocytopenia with pelgeroid changes in the granulocytes, bm biopsy and aspiration unremarkable ,s/p aneurysmal clipping, on terminal make up operator anticoagulation ASSESSMENT / PLAN 1. 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 2. Thrombocytopenia and macrocytosis -MDs ruled out at the current time, discussed the findings, potential evolution in future, cbc with diff today and prior to next visit. 3. Tobacco use disorder- has almost quit smoking, low dose ct imaging performed, stable nodules, next due in 02/2020 Thank you for the privilege of allowing me to participate in the care of Mata Betts. TANVIR ARNETT MD [employer] documented in this encounter* India Coronado [facility],PharmD - 04/17/2019 1:21 PM EST Anticoagulation Progress Note Date of Visit: April 17, 2019 Patient Name: Mata Betts : 1955 Age: 63 y.o. Mata Betts is here for an anticoagulation follow-up visit. INR obtained via POC finger stick device. Anticoagulation Summary As of 04/17/2019 INR goal: 2.0-3.0 TTR: 100.0 % (8.6 mo) INR used for dosin.7 (04/17/2019) Warfarin maintenance plan: 2.5 mg (5 mg x 0.5) every Tue, Sat; 5 mg (5 mg x 1) all other days Weekly warfarin total: 30 mg Plan last modified: Laxmi Whitney [facility],PharmD (08/01/2018) Next INR check: 05/29/2019 Priority: Maintenance Target end date: Indefinite Indications Cerebrovascular disease [I67.9] PAD (peripheral artery disease) (HCC) [I73.9] Lab Results Component Value Date WBC 6.15 04/02/2019 HGB 13.7 04/02/2019 HCT 41.8 04/02/2019 MCV 99.1 04/02/2019 EXTMCV 100.2 (H) 05/30/2018 PLT 113 (L) 04/02/2019 RBC 4.22 (L) 04/02/2019 Encounter Summary: ASSESSMENT: Patient Findings Positives: Missed doses (patient skipped 2 doses in the last 2 weeks due to cutting head open) Negatives: Patient Reported Falls, Signs/symptoms of thrombosis, Signs/symptoms of bleeding, Laboratory test error suspected, Change in health, Change in alcohol use, Change in activity, Upcoming invasive procedure, Emergency department visit, Upcoming dental procedure, Extra doses, Change in medications, Change in diet/appetite, Hospital admission, Bruising, Other complaints INR today is: Therapeutic at 2.7. Patient reports missing 2 doses ~2 weeks ago due to hitting his head on the garage door and cutting open his forehead on the right side. He states he held his warfarin on his own for 2 days to minimize bleeding. He did not go to the ED but denies issues of LOC, N/V, lightheadedness or headache. He was educated on the need to go to the ED if he hits his head hard enough due to risk of hemorrhage. Patient denies changes in diet, medications or lifestyle. He denies upcoming procedures or issues with bruising or bleeding aside from bleed from laceration. Plan: Continue 5 mg daily except 2.5 mg Sunday, Sunday. Recheck INR in 6 weeks PLAN: 1. Warfarin dose: no changel continue 30 mg/week 2. Next INR: 6+ weeks 3. Encouraged patient to contact clinic with any changes India Coronado RPh,PharmD [facility] Dept: [phone] documented in this encounter* Jesse Leong RPh,PharmD - 05/29/2019 2:57 PM EST Anticoagulation Progress Note Date of Visit: May 29, 2019 Patient Name: Mata Betts : 1955 Age: 63 y.o. Mata Betts is here for an anticoagulation follow-up visit. INR obtained via POC finger stick device. Anticoagulation Summary As of 05/29/2019 INR goal: 2.0-3.0 TTR: 100.0 % (10 mo) INR used for dosin.3 (05/29/2019) Warfarin maintenance plan: 2.5 mg (5 mg x 0.5) every e, Sat; 5 mg (5 mg x 1) all other days Weekly warfarin total: 30 mg Plan last modified: Laxmi Whitney RPh,PharmD (08/01/2018) Next INR check: 07/10/2019 Priority: Maintenance Target end date: Indefinite Indications Cerebrovascular disease [I67.9] PAD (peripheral artery disease) (HCC) [I73.9] Lab Results Component Value Date WBC 6.15 04/02/2019 HGB 13.7 04/02/2019 HCT 41.8 04/02/2019 MCV 99.1 04/02/2019 EXTMCV 100.2 (H) 05/30/2018 PLT 113 (L) 04/02/2019 RBC 4.22 (L) 04/02/2019 Encounter Summary: ASSESSMENT: Patient Findings Positives: Missed doses (few days about a month ago) Negatives: Patient Reported Falls, Signs/symptoms of thrombosis, Signs/symptoms of bleeding, Changein health, Change in alcohol use, Change in activity, Upcoming invasive procedure, Emergency department visit, Upcoming dental procedure, Extra doses, Change in medications, Change in diet/appetite, Hospital admission, Bruising Warfarin taken in the previous 7 days: 30 mg INR is therapeutic today.. PLAN: 1. Will continue weekly warfarin dose of 30 mg/week. 2. Will check next INR in another 6 weeks unless there are any changes before then. Has been very stable on this dose. 3. Encouraged patient to contact clinic with any changes. Jesse Leong RPh,PharmD [facility] Dept: [phone] documented in this encounter* Jeanna Duff MD - 06/18/2019 7:10 AM EST OFFICE VISIT PROGRESS NOTE HPI HTN/HLD - Says hasn't taken meds yet. Doesn't check real frequently, but usually in range when doestake it. Taking meds, no complaints, tolerating well, no side effects. No change to diet or exercise regimen. DM - BS at home was in the 90-110 range. Taking med, no complaints. Watching sugar. A1C today 5.9. Hand pain - Says 6 weeks hit the 4th finger on the left hand. Says was working in the basement and fell over and hit hand on the wall. Says has been swollen, can bend it, did get XR but no findings. No redness, drainage, tenderness, or cuts on it. The following portions of the patient's history were reviewed and updated as appropriate: allergies, current medications and problem list. The patient's surgical, family, and social history was reviewed and updated as appropriate. Review of Systems Review of Systems Constitutional: Negative for activity change and fatigue. Respiratory: Negative for chest tightness, shortness of breath and wheezing. Cardiovascular: Negative for chest pain and palpitations. Skin: Pain in left 4th finger Psychiatric/Behavioral: Negative for agitation and dysphoric mood. Vitals: 06/18/19 0704 06/18/19 0716 BP: (!) 193/76 145/62 BP Location: Left arm Left arm Patient Position: Sitting Sitting BP Cuff Size: Adult Adult Pulse: 74 (!) 57 Resp: 16 Temp: 98 F (36.7 C) TempSrc: Oral SpO2: 97% 96% Weight: 60.4 kg (133 lb 3.2 oz) Height: 5' 7 Body mass index is 20.86 kg/m . Physical Exam Physical Exam Constitutional: He is oriented to person, place, and time. He appears well- developed and well-nourished. HENT: Head: Normocephalic and atraumatic. Cardiovascular: Normal rate, regular rhythm and intact distal pulses. No murmur heard. Pulmonary/Chest: Effort normal and breath sounds normal. No respiratory distress. He has no wheezes. Musculoskeletal: Hands: Neurological: He is alert and oriented to person, place, and time. No cranial nerve deficit. Skin: Skin is warm and dry. Psychiatric: He has a normal mood and affect. His behavior is normal. Nursing note and vitals reviewed. No data recorded Assessment/Plan Problem List Items Addressed This Visit Endocrine Diabetes mellitus (HCC) Chronic, Stable, continue meds, watch diet, increase activity as can tolerate. Monitor BS as instructed. Bring blood sugar log to next visit. Relevant Orders Hemoglobin A1c Cardiovascular and Mediastinum Essential hypertension - Primary Chronic, Stable, continue meds, increase activity as can tolerate, limit salt, and watch diet. Continue to monitor BP at home as instructed. Bring blood pressure log and cuff to next visit. Relevant Orders CBC and Differential Comprehensive Metabolic Panel Microalbumin/Creatinine Ratio, UR Random TSH with Reflex Free T4 Other Mixed hyperlipidemia Chronic, stable, Continue meds as prescribed, watch diet, and increase activity as able to tolerate. Relevant Orders Lipid Panel Other Visit Diagnoses Abnormal PSA Relevant Orders PSA, Total and Free Finger pain, left Acute, XR normal, will try steroids and home stretches, if not better in 7-10 days will need Ortho referral for further finger eval. Relevant Medications methylPREDNISolone (MEDROL DOSEPACK) 4 mg tablet Goals None If any referrals were placed at today's visit the patient was instructed to call the office if theyhavn't heard anything about the referral within 2 weeks of today's visit. For any new medications prescribed today, patient was educated about indications for the medication, how to take the medication and potential side effects of the medications. documented in this encounter* eJsse Leong [facility],PharmD - 08/21/2019 2:33 PM EDT Anticoagulation Progress Note Date of Visit: August 21, 2019 Patient Name: Mata Betts : 1955 Age: 64 y.o. Mata Betts is here for an anticoagulation follow-up visit. INR obtained via POC finger stick device. Anticoagulation Summary As of 08/21/2019 INR goal: 2.0-3.0 TTR: 88.0 % (1.1 y) INR used for dosin.2 (08/21/2019) Warfarin maintenance plan: 2.5 mg (5 mg x 0.5) every Tue, Sat; 5 mg (5 mg x 1) all other days Weekly warfarin total: 30 mg Plan last modified: Laxmi Whitney RPh,PharmD (08/01/2018) Next INR check: 10/02/2019 Priority: Maintenance Target end date: Indefinite Indications Cerebrovascular disease [I67.9] PAD (peripheral artery disease) (HCC) [I73.9] Lab Results Component Value Date WBC 6.15 04/02/2019 HGB 13.7 04/02/2019 HCT 41.8 04/02/2019 MCV 99.1 04/02/2019 EXTMCV 100.2 (H) 05/30/2018 PLT 113 (L) 04/02/2019 RBC 4.22 (L) 04/02/2019 Encounter Summary: ASSESSMENT: Patient Findings Negatives: Patient Reported Falls, Signs/symptoms of thrombosis, Signs/symptoms of bleeding, Changein health, Change in alcohol use, Change in activity, Upcoming invasive procedure, Emergency department visit, Upcoming dental procedure, Missed doses, Extra doses, Change in medications, Change in di et/appetite, Hospital admission, Bruising Warfarin taken in the previous 7 days: 30 mg INR is therapeutic today.. PLAN: 1. Will continue weekly warfarin dose of 30 mg/week. 2. Will check next INR in 6 weeks again unless there are any changes before then. 3. Encouraged patient to contact clinic with any changes. Jesse Leong RPh,PharmD [facility] Dept: [phone] documented in this encounter* Tanvir Arnett MD - 07/01/2019 3:10 PM EDT Clinic follow up note PATIENT: Mata Betts : 1955 AGE: 63 y.o. SEX: male RACE: [1] PCP: Jeanna Duff MD REFERRAL: No ref. provider found HPI Presents in f/u. Continues to follow with neurosurgery at [facility]. Nosebleeds have resolved. continues to smoke few cigarettes a day. Denies any new systemic complaints. Compliant with oral iron supplementation. Eats red meat twice a month. Reports appetite being good. Has chronic back pain ,on opioids throgh Dr Swan. HEMATOLOGIC HX Pt has a h/o WA at age 31 , CABG at 31 yrs of age, several ministrokes, stroke post aneurysm clipping in 2008 while on aspirin and plavix. Patient has h/o severe PAD. Is a chronic smoker. Admitted to the hospital in August 2011 with symptoms suggestive of subacute cerebrovascular ischemic accident. 09/10/2011, CT of the brain without contrast demonstrates an area along the right posterior parietal lobe that exhibits loss of gonzalez-white matter differentiation, concerning for acute to subacute infarct, left frontal and temporal postsurgical changes without evidence of acute intracranial hemorrhage. Was initially evaluated in 2011 in the hematology clinic and hypercoagulable workup that was negative .prothrombin gene mutation and factor V Leiden mutation was negative on 09/03/2011, protein C,S and lupus anticoagulant testing was negative. Antithrombin level was slightly lowerthan normal. Given the history, was placed on coumadin in late 2011, since being on coumadin ,has not had any neurologic or cardiovascular event. 04/30/2017 completely normal total white cell count, H&H, MCV is 100.6, platelet count is 106k. Vitamin B12 and folate within normal limits, peripheral smear evaluation demonstrates granulocytes with pelgeroid changes. 05/08/17- Bone marrow biopsy and aspiration -Normocellular marrow (35%) with trilineage hematopoiesis and neutrophils with Pelgeroid change. Thrombocytopenia and macrocytic RBCs. Cytogenetics demonstrates loss of Y chromosome. No clear evidence of MDS at this time. 03/25/18- Low dose ct scan- 1. Stable bilateral solid lung nodules measuring up to 4 mm in mean diameter. No new or enlarging lung nodules. 2. Mild emphysema. 3. Status post coronary artery bypass grafting. 02/28/19- Low dose ct chest- 1. No new or enlarging pulmonary nodules are present. Stable subcentimeter pulmonary nodules are again identified. 2. Mild emphysema. Lung-RADs 2 11/18/2015- Colonoscopy- Diverticulosis and external hemorrhoids. ALLERGIES No Known Allergies [facility] has a current medication list which includes the following prescription(s): aspirin, atenolol,atorvastatin, cialis, clopidogrel, ferrous sulfate, fluticasone furoate-vilanterol, fluticasone propion-salmeterol, lisinopril, metformin, onetouch delica lancets, onetouch verio flex, onetouch verio, oxycodone, tizanidine, ventolin hfa, and warfarin. PMH/PSH Past Medical History: Diagnosis Date Aneurysm (HCC) brain x2 Arteriosclerotic cardiovascular disease direct coronary bypass x 2, 06/23/86 CAD (coronary artery disease) Cerebral aneurysm Cerebral aneurysm Cerebral vascular disease Chronic lung disease Deep vein thrombosis (DVT) (HCC) leg, date unknown Diabetes mellitus (HCC) Dyslipidemia Hyperlipidemia Hypertension Ischemic cardiomyopathy Myocardial infarction (HCC) PAD (peripheral artery disease) (HCC) PAD (peripheral artery disease) (HCC) PVD (peripheral vascular disease) (HCC) Stroke (HCC) Past Surgical History: Procedure Laterality Date abd angio r/o eriberto newborn hearing screener 2006 L common & external iliac art abd angio r/o newborn hearing screener stent eriberto iliac art 2006 ARTERIAL ANEURYSM REPAIR Lt sideof brain CARDIAC CATHETERIZATION 07/20/2010 EF 35% CARDIAC CATHETERIZATION 11/22/2006 EF 45% CARDIAC CATHETERIZATION 05/11/2004 EF 55% CARDIAC CATHETERIZATION 08/14/2003 EF 55% CARDIAC CATHETERIZATION 07/09/2003 CARDIAC CATHETERIZATION 02/16/2003 CARDIAC CATHETERIZATION 10/03/2002 CARDIAC CATHETERIZATION 11/05/2001 CARDIAC CATHETERIZATION 07/04/2001 CARDIAC CATHETERIZATION 09/19/2000 CARDIAC CATHETERIZATION 05/10/2000 CARDIAC CATHETERIZATION 12/23/1999 CARDIAC CATHETERIZATION 12/06/1995 CARDIAC CATHETERIZATION 12/27/1990 CARDIAC CATHETERIZATION 04/27/1987 CARDIAC CATHETERIZATION 06/16/1986 CARDIAC CATHETERIZATION 11/13/2002 CEREBRAL ANEURYSM REPAIR 2008, 2018 bilateral CEREBRAL ANGIOGRAM CORONARY ANGIOPLASTY 02/16/2003 SVG to Marginal Proximal CORONARY ANGIOPLASTY 08/23/2000 SVG to Proximal CX CORONARY ANGIOPLASTY 05/10/2000 Proximal SVG to CX-OM CORONARY ANGIOPLASTY WITH STENT PLACEMENT 05/11/2004 RACHELL SVG to CX-OM, SVG to SHARAN, Ostial SVG to OM CORONARY ANGIOPLASTY WITH STENT PLACEMENT 07/09/2003 RACHELL SVG to OM, SVG to CX-OM CORONARY ANGIOPLASTY WITH STENT PLACEMENT 11/13/02 PTCA/Stent of SVG TO CX Proximal CORONARY ANGIOPLASTY WITH STENT PLACEMENT 10/03/2002 RACHELL Distal LMCA CORONARY ARTERY BYPASS GRAFT 06/23/1986 x2 HEMORRHOIDECTOMY HERNIA REPAIR 1977 ROTATOR CUFF REPAIR Left 2002 Family History Problem Relation Age of Onset Heart disease Mother Stroke Mother Heart attack Father Stroke Father Heart disease Father Heart disease Sister 8 sisters Heart disease Brother 4 brothers Cancer Brother lung 1 brother SH Social History Socioeconomic History Marital status: Spouse name: Not on file Number of children: Not on file Years of education: Not on file Highest education level: Not on file Occupational History Not on file Social Needs Financial resource strain: Not on file Food insecurity Worry: Not on file Inability: Not on file Transportation needs Medical: Not on file Non-medical: Not on file Tobacco Use Smoking status: Current Some Day Smoker Packs/day: 0.25 Years: 45.00 Pack years: 11.25 Types: Cigarettes Smokeless tobacco: Never Used Tobacco comment: a couple of months now Substance and Sexual Activity Alcohol use: No Drug use: No Sexual activity: Not on file Lifestyle Physical activity Days per week: Not on file Minutes per session: Not on file Stress: Not on file Relationships Social connections Talks on phone: Not on file Gets together: Not on file Attends congregation service: Not on file Active member of club or organization: Not on file Attends meetings of clubs or organizations: Not on file Relationship status: Not on file Other Topics Concern Not on file Social History Narrative Not on file ROS Review of Systems Constitutional: Negative. HENT: Negative. Eyes: Negative. Respiratory: Negative. Cardiovascular: Negative. Gastrointestinal: Negative. Endocrine: Negative. Genitourinary: Negative. Musculoskeletal: Negative. Skin: Negative. Neurological: Negative. Hematological: Negative. Psychiatric/Behavioral: Negative. EXAM BP (!) 151/77 (BP Location: Right arm) Pulse 70 Temp 98.1 F (36.7 C) (Oral) Ht 5' 7 Wt 60.2 kg (132 lb 12.8 oz) SpO2 95% BMI 20.80 kg/m Physical Exam Constitutional: He is oriented to person, place, and time. He appears well- developed and well-nourished. HENT: Head: Normocephalic and atraumatic. Eyes: Pupils are equal, round, and reactive to light. Conjunctivae and EOM are normal. Neck: Normal range of motion. Neck supple. Cardiovascular: Normal rate and regular rhythm. Pulmonary/Chest: Effort normal and breath sounds normal. Abdominal: Soft. Bowel sounds are normal. Musculoskeletal: Normal range of motion. Neurological: He is alert and oriented to person, place, and time. He has normal reflexes. Skin: Skin is warm and dry. Psychiatric: He has a normal mood and affect. His behavior is normal. Judgment and thought content normal. 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 2. Thrombocytopenia and macrocytosis -MDs ruled out at the current time, discussed the findings, potential evolution in future, cbc with diff today and prior to next visit. Macrocytosis resolved. 3. Tobacco use disorder- has almost quit smoking, low dose ct imaging performed, stable nodules, next due in 02/2020 Thank you for the privilege of allowing me to participate in the care of Mata Betts. TANVIR ARNETT MD [employer] Design [employer] documented in this encounter* Jesse eLong RP,PharmD - 07/10/2019 2:32 PM EDT Anticoagulation Progress Note Date of Visit: July 10, 2019 Patient Name: Mata Betts : 1955 Age: 63 y.o. Mata Betts is here for an anticoagulation follow-up visit. INR obtained via POC finger stick device. Anticoagulation Summary As of 07/10/2019 INR goal: 2.0-3.0 TTR: 93.9 % (11.4 mo) INR used for dosin.7! (07/10/2019) Warfarin maintenance plan: 2.5 mg (5 mg x 0.5) every Tue, Sat; 5 mg (5 mg x 1) all other days Weekly warfarin total: 30 mg Plan last modified: Laxmi Whitney RPh,PharmD (08/01/2018) Next INR check: 08/21/2019 Priority: Maintenance Target end date: Indefinite Indications Cerebrovascular disease [I67.9] PAD (peripheral artery disease) (HCC) [I73.9] Lab Results Component Value Date WBC 6.15 04/02/2019 HGB 13.7 04/02/2019 HCT 41.8 04/02/2019 MCV 99.1 04/02/2019 EXTMCV 100.2 (H) 05/30/2018 PLT 113 (L) 04/02/2019 RBC 4.22 (L) 04/02/2019 Encounter Summary: ASSESSMENT: Patient Findings Positives: Change in medications (steroid course about 3 weeks ago), Change in diet/appetite (increased dark salad recently) Negatives: Patient Reported Falls, Signs/symptoms of thrombosis, Signs/symptoms of bleeding, Changein health, Change in alcohol use, Change in activity, Upcoming invasive procedure, Emergency department visit, Upcoming dental procedure, Missed doses, Extra doses, Hospital admission, Bruising Warfarin taken in the previous 7 days: 30 mg INR is subtherapeutic today. This is secondary to increased vitamin K intake. Patient denies any missed doses. PLAN: 1. Will continue weekly warfarin dose of 30 mg/week. 2. Will check next INR in another 6 weeks unless there are any changes before then. Has been very stable on this dose. 3. Encouraged patient to contact clinic with any changes. Jesse Leong RPh,PharmD [facility] Dept: [phone] documented in this encounter* Laxmi Whitney RPh,PharmD - 10/02/2019 2:38 PM EDT Anticoagulation Progress Note Date of Visit: October 02, 2019 Patient Name: Mata Betts : 1955 Age: 64 y.o. Mata Betts is here for an anticoagulation follow-up visit. INR obtained via POC finger stick device. Anticoagulation Summary As of 10/02/2019 INR goal: 2.0-3.0 TTR: 89.2 % (1.2 y) INR used for dosin.7 (10/02/2019) Warfarin maintenance plan: 2.5 mg (5 mg x 0.5) every Tue, Sat; 5 mg (5 mg x 1) all other days Weekly warfarin total: 30 mg Plan last modified: Laxmi Whitney RPh,PharmD (08/01/2018) Next INR check: 11/13/2019 Priority: Maintenance Target end date: Indefinite Indications Cerebrovascular disease [I67.9] PAD (peripheral artery disease) (HCC) [I73.9] Lab Results Component Value Date WBC 6.15 04/02/2019 HGB 13.7 04/02/2019 HCT 41.8 04/02/2019 MCV 99.1 04/02/2019 EXTMCV 100.2 (H) 05/30/2018 PLT 113 (L) 04/02/2019 RBC 4.22 (L) 04/02/2019 Encounter Summary: ASSESSMENT: Patient Findings Positives: Upcoming invasive procedure (finger surgery, not yet scheduled) Negatives: Patient Reported Falls, Signs/symptoms of thrombosis, Signs/symptoms of bleeding, Laboratory test error suspected, Change in health, Change in alcohol use, Change in activity, Emergency department visit, Upcoming dental procedure, Missed doses, Extra doses, Change in medications, Change in diet/appetite, Hospital admission, Bruising, Other complaints Warfarin taken in the previous 7 days: 30 mg INR is therapeutic today.. PLAN: 1. Will continue weekly warfarin dose of 30 mg/week. 2. Will check next INR in 6+ weeks unless there are any changes before then. 3. Encouraged patient to contact clinic with any changes. Laxmi Whitney RPh,PharmAngela [facility] Dept: [phone] documented in this encounter* Devyn Will MD - 10/15/2019 4:17 PM EDT 10/15/19 Mata Betts 1955 CHIEF COMPLAINT Left ring finger pain. HISTORY Mr. Betts is a 64 y.o. [id number]-tuaznbqa male who presents for evaluation of left ring finger pain. He localizes the pain to the PIP joint. He has been symptomatic for 4 to 5 months but is not sure whether or not he injured this. Patient notes stiffness as well. He denies treatment for this issue. REVIEW OF SYSTEMS Patient denies any recent fever, chills or skin changes. PAST MEDICAL HISTORY The patient's Medications, Allergies, Past Surgical History, Medical History, Family History and Social History were reviewed and can be found in their online medical record. PHYSICAL EXAM General: Patient is well developed, well nourished in no apparent distress. They are awake and oriented x 3. Appropriate mood and affect. Pt ambulates with a normal gait. Appropriate balance. Inspection: Left ring finger reveals the skin to be intact with localized edema at PIP joint. Thereis no obvious deformity. Palpation: Left Ring finger: Tender to palpation at PIP joint. Triggering: No. ROM:Left Hand: Full ROM of the digits with flexion to the distal palmar crease. Strength: Normal strength against resistance. Instability: None. Neurovascular: Left: Sensation is intact to light touch in median, radial, and ulnar nerve distributions. Firing EPL, FPL, finger flexors, and interossei muscles. Fingers are pink and well-perfused with brisk capillary refill. No skin changes are noted. IMAGING X-Rays of the Left Hand from 05/22/19 on [facility] are independently reviewed and demonstrate mild degenerative changes of ring finger PIP joint. Negative for acute osseous abnormality. ASSESSMENT Left ring finger PIP joint osteoarthritis. PLAN I thoroughly reviewed diagnosis and treatment options with patient, and patient was provided educational materials from [facility] regarding hand arthritis. I recommend utilizing heat in the form of paraffin wax baths or warm compresses. Patient was offered a cortisone injection today but declined. I will have him follow-up as needed should he have worsening pain. Patient was amenable to the plan as stated. X-rays upon next visit:No. Thank you for allowing me to participate in his care. Devyn Will MD Orthopedic Hand & Upper Extremity Surgeon Note: To expedite correspondence this note was generated by [employer] recognition software. Somegrammatical or spelling errors may occur using the system. documented in this encounter* Jesse Leong RPh,PharmD - 11/13/2019 2:33 PM EDT Anticoagulation Progress Note Date of Visit: November 13, 2019 Patient Name: Mata Betts : 1955 Age: 64 y.o. Mata Betts is here for an anticoagulation follow-up visit. INR obtained via POC finger stick device. Anticoagulation Summary As of 11/13/2019 INR goal: 2.0-3.0 TTR: 85.7 % (1.3 y) INR used for dosin.3! (11/13/2019) Warfarin maintenance plan: 2.5 mg (5 mg x 0.5) every Tue, Sat; 5 mg (5 mg x 1) all other days Weekly warfarin total: 30 mg Plan last modified: Laxmi Whitnye RPh,PharmD (08/01/2018) Next INR check: 12/25/2019 Priority: Maintenance Target end date: Indefinite Indications Cerebrovascular disease [I67.9] PAD (peripheral artery disease) (HCC) [I73.9] Lab Results Component Value Date WBC 6.15 04/02/2019 HGB 13.7 04/02/2019 HCT 41.8 04/02/2019 MCV 99.1 04/02/2019 EXTMCV 100.2 (H) 05/30/2018 PLT 113 (L) 04/02/2019 RBC 4.22 (L) 04/02/2019 Encounter Summary: ASSESSMENT: Patient Findings Positives: Missed doses (not sure but thinks could have missed one about a week ago), Change in medications (started a month ago on new multivitamin, thinks it has VitK), Change in diet/appetite (fewmore greens than normal recently) Negatives: Patient Reported Falls, Signs/symptoms of thrombosis, Signs/symptoms of bleeding, Changein health, Change in alcohol use, Change in activity, Upcoming invasive procedure, Emergency department visit, Upcoming dental procedure, Extra doses, Hospital admission, Bruising Warfarin taken in the previous 7 days: 30 mg ? INR is subtherapeutic today. This is secondary to missed warfarin dose(s), increased vitamin K intake. PLAN: 1. Will give a onetime dose of 7.5 mg today and then continue weekly warfarin dose of 30 mg/week. Has been very stable on this dose. 2. Will check next INR in 6 weeks again unless there are any changes before then. 3. Patient will check to make sure new multivite does have vitamin K, and if so will stop it. 4. Encouraged patient to contact clinic with any changes. Jesse Leong [facility],PharmD [facility] Dept: [phone] documented in this encounter* Laxmi Whitney [facility],PharmD - 12/25/2019 2:22 PM EDT Anticoagulation Progress Note Date of Visit: December 25, 2019 Patient Name: Mata Betts : 1955 Age: 64 y.o. Mata Betts is here for an anticoagulation follow-up visit. INR obtained via POC finger stick device. Anticoagulation Summary As of 12/25/2019 INR goal: 2.0-3.0 TTR: 81.1 % (1.4 y) INR used for dosin.3 (12/25/2019) Warfarin maintenance plan: 2.5 mg (5 mg x 0.5) every Tue, Sat; 5 mg (5 mg x 1) all other days Weekly warfarin total: 30 mg Plan last modified: Laxmi Whitney RPh,PharmD (08/01/2018) Next INR check: 02/05/2020 Priority: Maintenance Target end date: Indefinite Indications Cerebrovascular disease [I67.9] PAD (peripheral artery disease) (HCC) [I73.9] Lab Results Component Value Date WBC 5.55 12/17/2019 HGB 15.3 12/17/2019 HCT 46.7 12/17/2019 MCV 104.2 (H) 12/17/2019 EXTMCV 100.2 (H) 05/30/2018 PLT 101 (L) 12/17/2019 RBC 4.48 (L) 12/17/2019 Encounter Summary: ASSESSMENT: Patient Findings Negatives: Patient Reported Falls, Signs/symptoms of thrombosis, Signs/symptoms of bleeding, Laboratory test error suspected, Change in health, Change in alcohol use, Change in activity, Upcoming invasive procedure, Emergency department visit, Upcoming dental procedure, Missed doses, Extra doses, Change in medications, Change in diet/appetite, Hospital admission, Bruising, Other complaints Warfarin taken in the previous 7 days: 30 mg INR is therapeutic today.. PLAN: 1. Will continue weekly warfarin dose of 30 mg/week. 2. Will check next INR in 6+ weeks unless there are any changes before then. 3. Encouraged patient to contact clinic with any changes. Laxmi Whitney RPh,PharmD [facility] Dept: [phone] documented in this encounter* Mejia Campoverde MD - 04/05/2020 1:07 PM EST Patient Name: Mata Betts MR #: [id number] Interventional Cardiology Mejia Campoverde MD, [facility] 04/05/20 Dear Jeanna Duff MD, Mata Betts was seen in follow up for : Problem Essential Hypertension Mixed Hyperlipidemia Coronary Artery Disease Involving [place] Heart Without Angina Pectoris 1987-CABG x 2-[place] and SVG to OM 1988,90,91,2000 caths ok 2001 stent to SVG-om, later it thrombosed and PTCA,2002 cath ok 2002-proximall svg-om stent, and l main stent 2003- distal svg-om stent 2007-Occluded SVG to om, 2011 cath stable Assessment and Plan Coronary artery disease involving [place] heart without angina pectoris No angina, active Doing well, Medications reviewed and will continue current meds Followup 1 year Essential hypertension Fluctuates at home and will monitor at home Mixed hyperlipidemia Excellent profile in november Thank you or allowing me to participate in the care of your patients. No orders of the defined types were placed in this encounter. Return in about 1 year (around 04/05/2021). EKG:Normal sinus rhythm., old septal infarct and LVH with St abn Subjective: Mata Betts is a 64 y.o. y/o male : No complaints Denies chest discomfort, sob, palpitations, pnd, orthopnea,edema or syncope. Past History and Exam PMH: Past Medical History: Diagnosis Date Aneurysm ([facility]) brain x2 Arteriosclerotic cardiovascular disease direct coronary bypass x 2, 06/23/86 CAD (coronary artery disease) Cerebral aneurysm Cerebral aneurysm Cerebral vascular disease Chronic lung disease Deep vein thrombosis (DVT) ([facility]) leg, date unknown Diabetes mellitus ([facility]) Dyslipidemia Hyperlipidemia Hypertension Ischemic cardiomyopathy Myocardial infarction ([facility]) PAD (peripheral artery disease) ([facility]) PAD (peripheral artery disease) ([facility]) PVD (peripheral vascular disease) ([facility]) Stroke ([facility]) Physical exam: BP (!) 151/61 (BP Location: Right arm, Patient Position: Sitting) Pulse (!) 54 Ht 5' 7 Wt 61.2 kg (135 lb) SpO2 95% BMI 21.14 kg/m General: No acute distress, alert, and oriented x3. HEENT: Normocephalic, nl conjunctiva Neck: Supple, no gross thyromegaly,no palpable neck adenopathy Cardiovascular: Regular rate and rhythm. no murmurs, .No JVD, No Carotid Bruits, no LE edema :Respiratory: Clear to auscultation bilaterally without wheezes, rhonchi, or rales Abdominal: soft, nontender, nondistended,no gross HSM or masses noted. Skin: Normal turgor,no major peripheral rashes noted. Extremities : No clubbing, cyanosis l wrist in brace Neurological: Cranial nerves 2 through 12 intact grossly. No focal neurological deficits noted. Psych: Normal mood and affect. ROS/MA were reviewed Home Medications: Patient's Medications New Prescriptions No medications on file Previous Medications ASPIRIN 81 MG EC TABLET Take 81 mg by mouth daily. CIALIS 5 MG TABLET Take 10 mg by mouth daily as needed. FERROUS SULFATE 325 (65 FE) MG TABLET Take 1 (one) tablet (325 mg total) by mouth daily. FLUTICASONE FUROATE-VILANTEROL (BREO ELLIPTA) 100-25 MCG/DOSE DSDV 1 (one) puff by Oral Inhalation route daily . FLUTICASONE PROPION-SALMETEROL (ADVAIR DISKUS) 250-50 MCG/DOSE DISKUS INHALER Inhale 1 (one) puff 2(two) times a day . ONETOUCH DELICA LANCETS 33 GAUGE MISC USE TO CHECK FOR BLOOD SUGAR 2 TIMES A DAY ONETOUCH VERIO FLEX MISC 2 (two) times a day as directed . ONETOUCH VERIO STRIPS USE TO CHECK FOR BLOOD SUGAR 2 TIMES A DAY OXYCODONE (ROXICODONE) 5 MG IMMEDIATE RELEASE TABLET take 1 and 1/2 tablets by mouth three times a day if needed TIZANIDINE (ZANAFLEX) 4 MG TABLET VENTOLIN HFA 90 MCG/ACTUATION INHALER Inhale 2 (two) puffs every 6 (six) hours as needed for wheezing . WARFARIN (COUMADIN) 5 MG TABLET Coumadin clinic/Dr Arnett . Modified Medications Modified Medication Previous Medication ATENOLOL (TENORMIN) 50 MG TABLET atenoloL (TENORMIN) 50 MG tablet Take 1 (one) tablet (50 mg total) by mouth daily . Take 1 (one) tablet (50 mg total) by mouth daily. ATORVASTATIN (LIPITOR) 80 MG TABLET atorvastatin (LIPITOR) 80 MG tablet Take 1 (one) tablet (80 mg total) by mouth daily . Take 1 (one) tablet (80 mg total) by mouth daily. CLOPIDOGREL (PLAVIX) 75 MG TABLET clopidogreL (PLAVIX) 75 mg tablet Take 1 (one) tablet (75 mg total) by mouth daily . Take 1 (one) tablet (75 mg total) by mouth daily. LISINOPRIL (PRINIVIL,ZESTRIL) 10 MG TABLET lisinopril (PRINIVIL,ZESTRIL) 10 MG tablet Take 1 (one) tablet (10 mg total) by mouth daily . Take 1 (one) tablet (10 mg total) by mouth daily. Discontinued Medications No medications on file * Danielle Willson MA - 04/05/2020 12:49 PM EST Review of Systems Constitution: Negative for diaphoresis, malaise/fatigue, weight gain and weight loss. HENT: Negative for hearing loss, nosebleeds and tinnitus. Eyes: Negative for blurred vision and visual disturbance. Cardiovascular: Negative for chest pain, claudication, cyanosis, dyspnea on exertion, irregular heartbeat, leg swelling, near-syncope, orthopnea, palpitations, paroxysmal nocturnal dyspnea and syncope. Respiratory: Negative for hemoptysis, shortness of breath and snoring. Endocrine: Negative for cold intolerance and heat intolerance. Hematologic/Lymphatic: Does not bruise/bleed easily. Skin: Negative for flushing, poor wound healing and rash. Musculoskeletal: Negative for back pain, muscle weakness and myalgias. Gastrointestinal: Negative for abdominal pain, change in bowel habit, melena, nausea and vomiting. Genitourinary: Negative for decreased libido and hematuria. Neurological: Negative for loss of balance and numbness. Psychiatric/Behavioral: Negative for memory loss. The patient is not nervous/anxious. documented in this encounter* Jesse Leong [facility],PharmD - 04/22/2020 8:20 AM EST Anticoagulation Progress Note Date of Visit: April 22, 2020 Patient Name: Mata Betts : 1955 Age: 64 y.o. Mata Betts is here for an anticoagulation follow-up visit. INR obtained via POC finger stick device. Anticoagulation Summary As of 04/22/2020 INR goal: 2.0-3.0 TTR: 81.2 % (1.7 y) INR used for dosin.1 (04/22/2020) Warfarin maintenance plan: 2.5 mg (5 mg x 0.5) every Tue, Sat; 5 mg (5 mg x 1) all other days Weekly warfarin total: 30 mg Plan last modified: Laxmi Whitney [facility],PharmD (08/01/2018) Next INR check: 06/03/2020 Priority: Maintenance Target end date: Indefinite Indications Cerebrovascular disease [I67.9] PAD (peripheral artery disease) (HCC) [I73.9] Lab Results Component Value Date WBC 5.55 12/17/2019 HGB 15.3 12/17/2019 HCT 46.7 12/17/2019 MCV 104.2 (H) 12/17/2019 EXTMCV 100.2 (H) 05/30/2018 PLT 101 (L) 12/17/2019 RBC 4.48 (L) 12/17/2019 Encounter Summary: ASSESSMENT: Patient Findings Negatives: Patient Reported Falls, Signs/symptoms of thrombosis, Signs/symptoms of bleeding, Changein health, Change in alcohol use, Change in activity, Upcoming invasive procedure, Emergency department visit, Upcoming dental procedure, Missed doses, Extra doses, Change in medications, Change in di et/appetite, Hospital admission, Bruising Warfarin taken in the previous 7 days: 30 mg INR is therapeutic today, stable in lower range. PLAN: 1. Will continue weekly warfarin dose of 30 mg/week. 2. Will check next INR in 6 weeks again as he has been doing unless there are any changes before then. 3. Encouraged patient to contact clinic with any changes. Jesse Leong [facility],PharmD [facility] Dept: [phone] Electronically signed by Jesse Leong [facility],PharmD at 04/22/2020 8:21 AM EST documented in this encounter* Destinee Sotelo CNP - 10/01/2019 2:30 PM EDT Mata Betts 1955 CC: 64 y.o. is a he with Chief Complaint Patient presents with Left Ring Finger - Pain . Patient presents for evaluation of left hand/finger pain. Onset was 4 months ago when he hyperextended his finger carrying something in his basement and he fell onto it as well. . The pain is moderate, worsens with movement, and is relieved by rest. Rates the pain 8/10 today. There is no associatednumbness, tingling in his hand. 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 Evaluation to date: plain films: normal. Treatment to date: nothing specific. Patient states his finger will not move with out effort and has been stuck in a bent position at the PIP joint since the day he wasinjured. PMH: No Known Allergies Current Outpatient Medications: aspirin 81 MG EC tablet, Take 81 mg by mouth daily., Disp: , Rfl: atenoloL (TENORMIN) 50 MG tablet, Take 1 (one) tablet (50 mg total) by mouth daily ., Disp: 90 tablet, Rfl: 3 atorvastatin (LIPITOR) 80 MG tablet, Take 1 (one) tablet (80 mg total) by mouth daily ., Disp: 90 tablet, Rfl: 3 CIALIS 5 mg tablet, Take 10 mg by mouth daily as needed., Disp: , Rfl: 0 clopidogreL (PLAVIX) 75 mg tablet, Take 1 (one) tablet (75 mg total) by mouth daily ., Disp: 90 tablet, Rfl: 3 ferrous sulfate 325 (65 FE) MG tablet, Take 1 (one) tablet (325 mg total) by mouth daily., Disp: 30tablet, Rfl: 3 fluticasone furoate-vilanterol (Breo Ellipta) 100-25 mcg/dose DsDv, 1 (one) puff by Oral Inhalationroute daily ., Disp: 30 each, Rfl: 11 fluticasone-salmeterol (ADVAIR DISKUS) 250-50 mcg/dose diskus inhaler, Inhale 1 (one) puff 2 (two) times a day ., Disp: 1 Inhaler, Rfl: 11 lisinopril (PRINIVIL,ZESTRIL) 10 MG tablet, Take 1 (one) tablet (10 mg total) by mouth daily ., Disp: 90 tablet, Rfl: 3 metFORMIN (GLUCOPHAGE) 500 MG tablet, take 1 tablet by mouth twice a day with meals, Disp: 180 tablet, Rfl: 3 ONETOUCH DELICA LANCETS 33 gauge Misc, USE TO CHECK FOR BLOOD SUGAR 2 TIMES A DAY, Disp: , Rfl: 0 ONETOUCH VERIO FLEX Misc, 2 (two) times a day as directed ., Disp: , Rfl: 0 ONETOUCH VERIO strips, USE TO CHECK FOR BLOOD SUGAR 2 TIMES A DAY, Disp: , Rfl: 0 oxyCODONE (ROXICODONE) 5 MG immediate release tablet, take 1 and 1/2 tablets by mouth three times aday if needed, Disp: , Rfl: 0 tiZANidine (ZANAFLEX) 4 MG tablet, , Disp: , Rfl: Ventolin HFA 90 mcg/actuation inhaler, Inhale 2 (two) puffs every 6 (six) hours as needed for wheezing ., Disp: 1 Inhaler, Rfl: 5 warfarin (COUMADIN) 5 MG tablet, Coumadin clinic/Dr Arnett ., Disp: 30 tablet, Rfl: 6 Past Medical History: Diagnosis Date Aneurysm (HCC) brain x2 Arteriosclerotic cardiovascular disease direct coronary bypass x 2, 06/23/86 CAD (coronary artery disease) Cerebral aneurysm Cerebral aneurysm Cerebral vascular disease Chronic lung disease Deep vein thrombosis (DVT) ([facility]) leg, date unknown Diabetes mellitus ([facility]) Dyslipidemia Hyperlipidemia Hypertension Ischemic cardiomyopathy Myocardial infarction ([facility]) PAD (peripheral artery disease) ([facility]) PAD (peripheral artery disease) ([facility]) PVD (peripheral vascular disease) ([facility]) Stroke ([facility]) Past Surgical History: Procedure Laterality Date abd angio r/o eriberto newborn hearing screener 2006 L common & external iliac art abd angio r/o newborn hearing screener stent eriberto iliac art 2006 ARTERIAL ANEURYSM REPAIR Lt sideof brain CARDIAC CATHETERIZATION 07/20/2010 EF 35% CARDIAC CATHETERIZATION 11/22/2006 EF 45% CARDIAC CATHETERIZATION 05/11/2004 EF 55% CARDIAC CATHETERIZATION 08/14/2003 EF 55% CARDIAC CATHETERIZATION 07/09/2003 CARDIAC CATHETERIZATION 02/16/2003 CARDIAC CATHETERIZATION 10/03/2002 CARDIAC CATHETERIZATION 11/05/2001 CARDIAC CATHETERIZATION 07/04/2001 CARDIAC CATHETERIZATION 09/19/2000 CARDIAC CATHETERIZATION 05/10/2000 CARDIAC CATHETERIZATION 12/23/1999 CARDIAC CATHETERIZATION 12/06/1995 CARDIAC CATHETERIZATION 12/27/1990 CARDIAC CATHETERIZATION 04/27/1987 CARDIAC CATHETERIZATION 06/16/1986 CARDIAC CATHETERIZATION 11/13/2002 CEREBRAL ANEURYSM REPAIR 2008, 2018 bilateral CEREBRAL ANGIOGRAM CORONARY ANGIOPLASTY 02/16/2003 SVG to Marginal Proximal CORONARY ANGIOPLASTY 08/23/2000 SVG to Proximal CX CORONARY ANGIOPLASTY 05/10/2000 Proximal SVG to CX-OM CORONARY ANGIOPLASTY WITH STENT PLACEMENT 05/11/2004 RACHELL SVG to CX-OM, SVG to SHARAN, Ost[place] SVG to OM CORONARY ANGIOPLASTY WITH STENT PLACEMENT 07/09/2003 RACHELL SVG to OM, SVG to CX-OM CORONARY ANGIOPLASTY WITH STENT PLACEMENT 11/13/02 PTCA/Stent of SVG TO CX Proximal CORONARY ANGIOPLASTY WITH STENT PLACEMENT 10/03/2002 RACHELL Distal LMCA CORONARY ARTERY BYPASS GRAFT 06/23/1986 x2 HEMORRHOIDECTOMY HERNIA REPAIR 1978 ROTATOR CUFF REPAIR Left 2003 Social History Socioeconomic History Marital status: Spouse name: Not on file Number of children: Not on file Years of education: Not on file Highest education level: Not on file Occupational History Not on file Social Needs Financial resource strain: Not on file Food insecurity Worry: Not on file Inability: Not on file Transportation needs Medical: Not on file Non-medical: Not on file Tobacco Use Smoking status: Current Some Day Smoker Packs/day: 0.25 Years: 45.00 Pack years: 11.25 Types: Cigarettes Smokeless tobacco: Never Used Tobacco comment: a couple of months now Substance and Sexual Activity Alcohol use: No Drug use: No Sexual activity: Not on file Lifestyle Physical activity Days per week: Not on file Minutes per session: Not on file Stress: Not on file Relationships Social connections Talks on phone: Not on file Gets together: Not on file Attends congregation service: Not on file Active member of club or organization: Not on file Attends meetings of clubs or organizations: Not on file Relationship status: Not on file Other Topics Concern Not on file Social History Narrative Not on file ROS: Review of Systems Constitutional: Negative for activity change and fatigue. HENT: Negative. Eyes: Negative. Respiratory: Negative for chest tightness and shortness of breath. Cardiovascular: Negative for chest pain. Gastrointestinal: Negative. Endocrine: Negative. Genitourinary: Negative. Musculoskeletal: Positive for arthralgias. Skin: Negative for color change. Allergic/Immunologic: Negative. Neurological: Negative for dizziness, light-headedness and numbness. Hematological: Negative. Psychiatric/Behavioral: Negative for agitation. PE: Physical Exam Constitutional: He is oriented to person, place, and time. He appears well- developed and well-nourished. HENT: Head: Normocephalic and atraumatic. Eyes: Pupils are equal, round, and reactive to light. Neck: Normal range of motion. Neck supple. Cardiovascular: Normal rate and regular rhythm. Pulmonary/Chest: Effort normal and breath sounds normal. Abdominal: Soft. Musculoskeletal: General: Tenderness present. Neurological: He is alert and oriented to person, place, and time. Skin: Skin is warm and dry. Psychiatric: He has a normal mood and affect. His behavior is normal. Left Hand Exam Tenderness The patient is experiencing tenderness in the palmar area and dorsal area (ring finger ). Range of Motion Hand MP Ring: abnormal PIP Ring: abnormal DIP Ring: abnormal Muscle Strength Wrist extension: 5/5 Wrist flexion: 5/5 Lip Cutter And Scorer: 3/5 Tests Phalen s Sign: negative Tinel's sign (median nerve): negative Tanja's test: negative Other Erythema: absent Scars: absent Sensation: normal Pulse: present Comments: Ring finger is stuck in a bent position, difficult to lift and extend, never releases, swollen PIP joint No pain or popping sensation at A1 mayur of ring finger Pain radiates from the tip of his ring finger up into his forearm Imaging: Xray was normal Diagnosis: Problem List Items Addressed This Visit None Visit Diagnoses Rupture of extensor tendon of finger - Primary Relevant Orders Ambulatory referral to Orthopedics Finger pain, left Relevant Orders Ambulatory referral to Orthopedics Plan: Discussed patient's symptoms and my physical exam. I debated between trigger finger and a tendon issue, but the fact that he has no pain at the A1 mayur, I didn't feel any popping sensation upon exam over the A1 mayur, his finger is stuck in a partially flexed position and wont move, he has difficulty with flexing and extending, swollen PIP joint, and his mechanism of injury, I think he has a possible ruptured tendon. . I am going to refer him to Dr. Will for further evaluation of this. Patient understands and agrees to proceed. Follow Up: Return if symptoms worsen or fail to improve. Destinee Sotelo CNP documented in this encounter* Laxmi Whitney RPh,PharmD - 06/03/2020 8:09 AM EST Anticoagulation Progress Note Date of Visit: June 03, 2020 Patient Name: Mata Betts : 1955 Age: 64 y.o. Mata Betts is here for an anticoagulation follow-up visit. INR obtained via POC finger stick device. Anticoagulation Summary As of 06/03/2020 INR goal: 2.0-3.0 TTR: 82.3 % (1.8 y) INR used for dosin.1 (06/03/2020) Warfarin maintenance plan: 2.5 mg (5 mg x 0.5) every Tue, Sat; 5 mg (5 mg x 1) all other days Weekly warfarin total: 30 mg Plan last modified: Laxmi Whitney RPh,PharmAngela (08/01/2018) Next INR check: 07/15/2020 Priority: Maintenance Target end date: Indefinite Indications Cerebrovascular disease [I67.9] PAD (peripheral artery disease) (HCC) [I73.9] Lab Results Component Value Date WBC 5.55 12/17/2019 HGB 15.3 12/17/2019 HCT 46.7 12/17/2019 MCV 104.2 (H) 12/17/2019 EXTMCV 100.2 (H) 05/30/2018 PLT 101 (L) 12/17/2019 RBC 4.48 (L) 12/17/2019 Encounter Summary: ASSESSMENT: Patient Findings Negatives: Patient Reported Falls, Signs/symptoms of thrombosis, Signs/symptoms of bleeding, Laboratory test error suspected, Change in health, Change in alcohol use, Change in activity, Upcoming invasive procedure, Emergency department visit, Upcoming dental procedure, Missed doses, Extra doses, Change in medications, Change in diet/appetite, Hospital admission, Bruising, Other complaints Warfarin taken in the previous 7 days: 30 mg INR is therapeutic today. PLAN: 1. Will continue weekly warfarin dose of 30 mg/week. 2. Will check next INR in 6+ weeks unless there are any changes before then. 3. Encouraged patient to contact clinic with any changes. Laxmi Whitney RPh,PharmD [facility] Dept: [phone] documented in this encounter* Laxmi Whitney RPh,LeslyeD - 09/12/2018 8:02 AM EDT Anticoagulation Progress Note Date of Visit: September 12, 2018 Patient Name: Mata Betts : 1955 Age: 63 y.o. Mata Betts is here for an anticoagulation follow-up visit. INR obtained via POC finger stick device. Anticoagulation Summary As of 09/12/2018 INR goal: 2.0-3.0 TTR: 100.0 % (1.4 mo) INR used for dosin.5 (09/12/2018) Warfarin maintenance plan: 2.5 mg (5 mg x 0.5) every Tue, Sat; 5 mg (5 mg x 1) all other days Weekly warfarin total: 30 mg Plan last modified: Laxmi Whitney RPh,PharmD (08/01/2018) Next INR check: 10/31/2018 Priority: Maintenance Target end date: Indefinite Indications Cerebrovascular disease [I67.9] PAD (peripheral artery disease) (HCC) [I73.9] Lab Results Component Value Date WBC 5.9 05/30/2018 HGB 14.5 05/30/2018 HCT 44.7 05/30/2018 EXTMCV 100.2 (H) 05/30/2018 PLT 144 05/30/2018 RBC 4.15 (A) 05/12/2004 Encounter Summary: ASSESSMENT: Patient Findings Positives: Bruising (had a bruise) Negatives: Patient Reported Falls, Signs/symptoms of thrombosis, Signs/symptoms of bleeding, Laboratory test error suspected, Change in health, Change in alcohol use, Change in activity, Upcoming invasive procedure, Emergency department visit, Upcoming dental procedure, Missed doses, Extra doses, Change in medications, Change in diet/appetite, Hospital admission, Other complaints Warfarin taken in the previous 7 days: 30 mg INR is therapeutic today. PLAN: 1. Will continue weekly warfarin dose of 30 mg/week. 2. Will check next INR in 6+ weeks (will be 7 weeks due to holiday) unless there are any changes before then. 3. Encouraged patient to contact clinic with any changes. Laxmi Whitney RPh,PharmD [facility] Dept: [phone] documented in this encounter* Jeanna Duff MD - 06/07/2020 10:09 AM EST OFFICE VISIT PROGRESS NOTE HPI Boil - Says he has had a spot on the left side of the scrotum for the past several years. Recently,about 1 week go he developed it getting bigger, red, tender, and eventually busted open yesterday and drained a little blood, liquid, and white substance as well that was thick. No other systemic symptoms. No new scrapes, bumps or injuries recently. Since rupturing he has less pain but still with abnormal look. No about 1/4 size of what it was. The following portions of the patient's history were reviewed and updated as appropriate: allergies, current medications and problem list. The patient's surgical, family, and social history was reviewed and updated as appropriate. Review of Systems Review of Systems Constitutional: Negative for activity change and fatigue. Respiratory: Negative for chest tightness, shortness of breath and wheezing. Cardiovascular: Negative for chest pain and palpitations. Skin: Perineal lesion Psychiatric/Behavioral: Negative for agitation and dysphoric mood. Vitals: 06/07/20 1011 06/07/20 1016 BP: (!) 163/69 (!) 163/69 BP Location: Left arm Right arm Patient Position: Sitting Sitting BP Cuff Size: Adult Adult Pulse: (!) 59 Temp: 97.4 F (36.3 C) TempSrc: Oral SpO2: 97% Weight: 65.9 kg (145 lb 3.2 oz) Height: 5' 7 Body mass index is 22.74 kg/m . Physical Exam Physical Exam Constitutional: He is oriented to person, place, and time. He appears well- developed and well-nourished. HENT: Head: Normocephalic and atraumatic. Cardiovascular: Normal rate, regular rhythm and intact distal pulses. No murmur heard. Pulmonary/Chest: Effort normal and breath sounds normal. No respiratory distress. He has no wheezes. Genitourinary: Neurological: He is alert and oriented to person, place, and time. No cranial nerve deficit. Skin: Skin is warm and dry. Psychiatric: He has a normal mood and affect. His behavior is normal. Nursing note and vitals reviewed. OARRS/NARxCHECK Report Received and Assessed: 04/29/2018 Date controlled substance agreement signed: No data found Date of last drug screen: No data found Functional Assessment: No data found Assessment/Plan Problem List Items Addressed This Visit None Visit Diagnoses Scrotal abscess - Primary Acute,mostly resolved, will give abx to prevent infection, monitor area, if returns then let me know. Relevant Medications cephALEXin (KEFLEX) 500 MG capsule Goals None If any referrals were placed at today's visit the patient was instructed to call the office if theyhavn't heard anything about the referral within 2 weeks of today's visit. For any new medications prescribed today, patient was educated about indications for the medication, how to take the medication and potential side effects of the medications. documented in this encounter* Mejia Campoverde MD - 05/12/2019 2:02 PM EST Patient Name: Mata Betts MR #: [id number] Interventional Cardiology Mejia Campoverde MD, [facility] 05/12/19 Dear Jeanna Duff MD, Mata Betts was seen in follow up for : Problem Mixed Hyperlipidemia Coronary Artery Disease Involving [place] Heart Without Angina Pectoris 1987-CABG x 2-[place] and SVG to OM 1987,,,1999 caths ok 2000 stent to SVG-om, later it thrombosed and PTCA,2001 cath ok 2002-proximall svg-om stent, and l main stent 2003- distal svg-om stent 2006-Occluded SVG to om, 2010 cath stable Assessment and Plan Coronary artery disease involving [place] heart without angina pectoris Had some continuous numbness in l arm and hand Doing well, Medications reviewed and will continue current meds Followup 1 year Mixed hyperlipidemia Great last labs in December Thank you or allowing me to participate in the care of your patients. No orders of the defined types were placed in this encounter. Return in about 1 year (around 05/12/2020). EKG:Normal sinus rhythm., Old septal WA and NS ST T Subjective: Denies chest discomfort, sob, palpitations, pnd, orthopnea,edema or syncope. Past HistoryandExam PMH: Past Medical History: Diagnosis Date Aneurysm (HCC) brain x2 Arteriosclerotic cardiovascular disease direct coronary bypass x 2, 06/23/86 CAD (coronary artery disease) Cerebral aneurysm Cerebral aneurysm Cerebral vascular disease Chronic lung disease Deep vein thrombosis (DVT) (HCC) leg, date unknown Diabetes mellitus (HCC) Dyslipidemia Hyperlipidemia Hypertension Ischemic cardiomyopathy Myocardial infarction (HCC) PAD (peripheral artery disease) (HCC) PAD (peripheral artery disease) (HCC) PVD (peripheral vascular disease) (HCC) Stroke (HCC) Physical exam: BP 148/69 (BP Location: Left arm, Patient Position: Sitting) Pulse (!) 58 Ht 5' 7 Wt 60.6 kg(133 lb 8 oz) SpO2 96% BMI 20.91 kg/m General: No acute distress, alert, and oriented x3. HEENT: Normocephalic, normal oral mucosa, nl conjunctiva Neck: Supple, no gross thyromegaly,no palpable adenopathy Cardiovascular: Regular rate and rhythm. no murmurs, .No JVD, No Carotid Bruits, no LE edema :Respiratory: Clear to auscultation bilaterally without wheezes, rhonchi, or rales Abdominal: soft, nontender, nondistended,no gross HSM or masses noted. Skin: Normal turgor, well-hydrated, no rashes noted. Extremities : No clubbing cyanosis Neurological: Cranial nerves 2 through 12 intact grossly. No focal neurological deficits noted. Psych: Normal mood and affect. ROS/MA were reviewed Home Medications: Patient's Medications New Prescriptions No medications on file Previous Medications ASPIRIN 81 MG EC TABLET Take 81 mg by mouth daily. ATENOLOL (TENORMIN) 50 MG TABLET take 1 tablet by mouth once daily ATORVASTATIN (LIPITOR) 80 MG TABLET take 1 tablet by mouth once daily CIALIS 5 MG TABLET Take 10 mg by mouth daily as needed. CLOPIDOGREL (PLAVIX) 75 MG TABLET take 1 tablet by mouth once daily FERROUS SULFATE 325 (65 FE) MG TABLET Take 1 (one) tablet (325 mg total) by mouth daily. FLUTICASONE FUROATE-VILANTEROL (BREO ELLIPTA) 100-25 MCG/DOSE DSDV 1 (one) puff by Oral Inhalation route daily . FLUTICASONE-SALMETEROL (ADVAIR DISKUS) 250-50 MCG/DOSE DISKUS INHALER Inhale 1 (one) puff 2 (two) times a day . LISINOPRIL (PRINIVIL,ZESTRIL) 10 MG TABLET take 1 tablet by mouth once daily METFORMIN (GLUCOPHAGE) 500 MG TABLET take 1 tablet by mouth twice a day with meals ONETOUCH DELICA LANCETS 33 GAUGE MISC USE TO CHECK FOR BLOOD SUGAR 2 TIMES A DAY ONETOUCH VERIO FLEX MISC 2 (two) times a day as directed . ONETOUCH VERIO STRIPS USE TO CHECK FOR BLOOD SUGAR 2 TIMES A DAY OXYCODONE (ROXICODONE) 5 MG IMMEDIATE RELEASE TABLET take 1 and 1/2 tablets by mouth three times a day if needed TIZANIDINE (ZANAFLEX) 4 MG TABLET VENTOLIN HFA 90 MCG/ACTUATION INHALER Inhale 2 (two) puffs every 6 (six) hours as needed for wheezing . WARFARIN (COUMADIN) 5 MG TABLET Coumadin clinic/Dr Arnett . Modified Medications No medications on file Discontinued Medications CHANTIX CONTINUING MONTH BOX 1 MG TABLET MUPIROCIN (BACTROBAN) 2 % OINTMENT Apply topically 3 (three) times a day Inside both sides of the nose . * Danielle Willson MA - 05/12/2019 1:50 PM EST Review of Systems Constitution: Positive for malaise/fatigue. Negative for diaphoresis, weight gain and weight loss. HENT: Negative for hearing loss, nosebleeds and tinnitus. Eyes: Negative for blurred vision and visual disturbance. Cardiovascular: Positive for chest pain, dyspnea on exertion, orthopnea and palpitations. Negative for claudication, cyanosis, irregular heartbeat, leg swelling, near-syncope, paroxysmal nocturnal dyspnea and syncope. Respiratory: Positive for shortness of breath and snoring. Negative for hemoptysis. Endocrine: Positive for cold intolerance and heat intolerance. Hematologic/Lymphatic: Bruises/bleeds easily. Skin: Positive for poor wound healing and rash. Negative for flushing. Musculoskeletal: Positive for back pain. Negative for muscle weakness and myalgias. Gastrointestinal: Negative for abdominal pain, change in bowel habit, melena, nausea and vomiting. Genitourinary: Negative for decreased libido and hematuria. Neurological: Positive for numbness. Negative for loss of balance. Psychiatric/Behavioral: Negative for memory loss. The patient is not nervous/anxious. documented in this encounter* Jeanna Duff MD - 06/21/2020 9:20 AM EST OFFICE VISIT PROGRESS NOTE HPI HTN/HLD/CAD - Says does not regularly check, when he does it can be quite fluctuant, usually about this. No cardiac symptoms. No diet changes. DM - Says doing ok, no complaints, takes meds, no complaint,s when checks <100 he says. COPD/Tobacco - Says sees to be doing ok, no complaints, using inhalers regularly. Uses the rescue hardly at all. Still smoking, doing <1/2 ppd. Say >5 cigs per day. Stuck on the habit. PAD - Taking blood thinner, no complaint,s no new concerns, no other issue. Sees Jori regularly. DDD - Say sees Dr. Swan for pain med and injections. No complaints, doing ok on the meds. The following portions of the patient's history were reviewed and updated as appropriate: allergies, current medications and problem list. The patient's surgical, family, and social history was reviewed and updated as appropriate. Review of Systems Review of Systems Constitutional: Negative for activity change and fatigue. Respiratory: Negative for chest tightness, shortness of breath and wheezing. Cardiovascular: Negative for chest pain and palpitations. Psychiatric/Behavioral: Negative for agitation and dysphoric mood. Vitals: 06/21/20 0903 BP: 144/60 BP Location: Left arm Patient Position: Sitting BP Cuff Size: Adult Pulse: (!) 56 Resp: 16 Temp: 98.6 F (37 C) TempSrc: Oral SpO2: 95% Weight: 63.5 kg (140 lb) Height: 5' 7 Body mass index is 21.93 kg/m . Physical Exam Physical Exam Constitutional: He is oriented to person, place, and time. He appears well- developed and well-nourished. HENT: Head: Normocephalic and atraumatic. Cardiovascular: Normal rate, regular rhythm and intact distal pulses. No murmur heard. Pulmonary/Chest: Effort normal and breath sounds normal. No respiratory distress. He has no wheezes. Neurological: He is alert and oriented to person, place, and time. No cranial nerve deficit. Skin: Skin is warm and dry. Psychiatric: He has a normal mood and affect. His behavior is normal. Nursing note and vitals reviewed. OARRS/NARxCHECK Report Received and Assessed: 04/29/2018 Date controlled substance agreement signed: No data found Date of last drug screen: No data found Functional Assessment: No data found Assessment/Plan Problem List Items Addressed This Visit Endocrine Type 2 diabetes mellitus with diabetic polyneuropathy, without long-term current use of insulin (HCC) Chronic, Stable, continue meds, watch diet, increase activity as can tolerate. Monitor BS as instructed. Bring blood sugar log to next visit. Get A1C drawn 1 week prior to next visit. Relevant Orders POC Glycosylated Hemoglobin (Hb A1C) (Completed) Hemoglobin A1c Respiratory Pulmonary emphysema (HCC) Chronic, stable, Continue inhalers as prescribed, watch diet, and increase activity as able to tolerate. Cardiovascular and Mediastinum Coronary artery disease involving [place] heart without angina pectoris Chronic, stable, asymptomatic no complaints, tolerating well. Essential hypertension Chronic, Stable, continue meds, increase activity as can tolerate, limit salt, and watch diet. Continue to monitor BP at home as instructed. Bring blood pressure log and cuff to next visit. Relevant Orders CBC and Differential Comprehensive Metabolic Panel Microalbumin/Creatinine Ratio, UR Random TSH with Reflex Free T4 PAD (peripheral artery disease) (HCC) Chronic, stable, continue meds, will await testing for routine issue. Musculoskeletal and Integument DDD (degenerative disc disease), lumbosacral Chronic, stable, continue meds and care per Dr. Swan, will monitor and follow. Other Mixed hyperlipidemia Chronic, stable, Continue meds as prescribed, watch diet, and increase activity as able to tolerate. Relevant Orders Lipid Panel Current smoker Chronic, stable, Continue efforts to cut back and quit. Hypercoagulable state (HCC) Chronic, stable, continue Warfarin and Plavix due to issues. Thrombocytopenia (HCC) Chronic, stable continue lab, will monitor along with Dr. Sloan Other Visit Diagnoses General medical exam - Primary Abnormal PSA Relevant Orders PSA, Total and Free Goals None If any referrals were placed at today's visit the patient was instructed to call the office if theyhavn't heard anything about the referral within 2 weeks of today's visit. For any new medications prescribed today, patient was educated about indications for the medication, how to take the medication and potential side effects of the medications. * Jeanna Duff MD - 06/21/2020 9:19 AM EST Depression Screening 12/17/2019 06/21/2020 Little interest or pleasure in doing things 0 0 Feeling down, depressed, or hopeless 0 0 PHQ-2 Total Score 0 0 Trouble falling or staying asleep, or sleeping too much 0 0 Feeling tired or having little energy 0 3 Poor appetite or overeating 0 0 Feeling bad about yourself - or that you are a failure or have let yourself or your family down 0 0 Trouble concentrating on things, such as reading the newspaper or watching television 0 0 Moving or speaking so slowly that other people could have noticed. Or the opposite - being so fidgety or restless that you have been moving around a lot more than usual 0 0 Thoughts that you would be better off , or of hurting yourself in some way 0 0 PHQ-9 Total Score 0 3 If you checked off any problems, how difficult have these problems made it for you to do your work,take care of things at home, or get along with other people? Not difficult at all Not difficult at all Subjective Mata Betts is a 64 y.o. male who presents for a Medicare Wellness Visit. Medicare Risk Assessment Do you have an Advanced Directive (Living Will and/or Durable Power of Hse Manager for Health Care)?: Not interested What is your exercise level?: Moderate What is your diet?: Diabetic Can you prepare your own meals?: Yes Do you have trouble with finding transportation?: No Because of any health problems, do you need the help of another person with your personal care needs? (For example, eating, bathing, dressing, or getting around the house.): No Does your home have throw rugs, poor lighting or slippery bathtub or shower?: No Does your home have grab bars in bathrooms or handrails on stairs and steps?: Yes During the past four weeks, how would you rate your health in general?: Good Whether or not you use a hearing aid, do you think you have a hearing problem or do others think you have a hearing problem?: No Whether or not you use glasses or contacts, do you have difficulty driving, watching television, reading, or doing any of your daily activities because of your eyesight?: No In the past six months, have you had an unexplained weight loss of 10 pounds or more?: No How often do you have trouble taking medicines the way you have been told to take them?: I always take as prescribed Falls Risk Assessment Fell in past year: 2 (Yes) How many falls in the past year?: 1 Did any of these falls result in an injury?: No Unsteady when walks: 0 (No) Worried about fallin (No) Advised to use cane/walker?: 0 (No) Holds onto furniture/solano: 0 (No) Uses hands to stand up from a chair: 0 (No) Trouble stepping onto curb: 0 (No) Rushes to toilet: 0 (No) Lost feeling in feet: 0 (No) Medicine makes me light-headed: 0 (No) Medicine for sleep or mood: 0 (No) Often feel sad/depressed: 0 (No) Patient Self Risk Assessment Score: 2 Medicare Mini Cog Step 1: Three Word Registration Version Used: Version 3: Ornis, Kitchen, Baby Step 2: Clock Drawing Step 2 score: Normal clock - 2 points Clock has all numbers placed in the correct sequence & position (e.g., 12, 3, 6 and 9 are in anchor positions) with no missing or duplicate numbers. Hands are pointing to the 11 & 2 (11:10). Hand length is not scored. Step 3: Three Word Recall Say: What were the three words I asked you to remember? : Village, Kitchen , Baby Step 3: Three Word Recall Score: 3 Words Recalled Total score = Word Recall score + Clock Draw score A cut point of <3 on the Mini-Cog has been validated for dementia screening, but many individuals with clinically meaningful cognitive impairment will score higher. A cut point of <4 may indicate a need for further evaluation of cognitive status.: 5 PHQ2 (and 9, if needed) Little interest or pleasure in doing things: 0 Feeling down, depressed, or hopeless: 0 PHQ-2 Total Score: 0 Trouble falling or staying asleep, or sleeping too much: 0 Feeling tired or having little energy: 3 Poor appetite or overeatin Feeling bad about yourself - or that you are a failure or have let yourself or your family down: 0 Trouble concentrating on things, such as reading the newspaper or watching television: 0 Moving or speaking so slowly that other people could have noticed. Or the opposite - being so fidgety or restless that you have been moving around a lot more than usual: 0 Thoughts that you would be better off , or of hurting yourself in some way: 0 PHQ-9 Total Score: 3 If you checked off any problems, how difficult have these problems made it for you to do your work,take care of things at home, or get along with other people?: Not difficult at all Comprehensive Medical and Social History: Patient Active Problem List Diagnosis Coronary artery disease involving yavapai-apache heart without angina pectoris Essential hypertension PAD (peripheral artery disease) ([facility]) Mixed hyperlipidemia Current smoker Carotid stenosis, bilateral Pulmonary emphysema ([facility]) Hypercoagulable state ([facility]) Type 2 diabetes mellitus with diabetic polyneuropathy, without long-term current use of insulin ([facility]) Cerebrovascular disease DDD (degenerative disc disease), lumbosacral Thrombocytopenia ([facility]) Past Medical History: Diagnosis Date Aneurysm ([facility]) brain x2 Arteriosclerotic cardiovascular disease direct coronary bypass x 2, 06/23/86 CAD (coronary artery disease) Cerebral aneurysm Cerebral aneurysm Cerebral vascular disease Chronic lung disease Deep vein thrombosis (DVT) ([facility]) leg, date unknown Diabetes mellitus ([facility]) Dyslipidemia Hyperlipidemia Hypertension Ischemic cardiomyopathy Myocardial infarction (HCC) PAD (peripheral artery disease) ([facility]) PAD (peripheral artery disease) ([facility]) PVD (peripheral vascular disease) ([facility]) Stroke ([facility]) Past Surgical History: Procedure Laterality Date abd angio r/o eriberto newborn hearing screener 2006 L common & external iliac art abd angio r/o newborn hearing screener stent eriberto iliac art 2006 ARTERIAL ANEURYSM REPAIR Lt sideof brain CARDIAC CATHETERIZATION 07/20/2010 EF 35% CARDIAC CATHETERIZATION 11/22/2006 EF 45% CARDIAC CATHETERIZATION 05/11/2004 EF 55% CARDIAC CATHETERIZATION 08/14/2003 EF 55% CARDIAC CATHETERIZATION 07/09/2003 CARDIAC CATHETERIZATION 02/16/2003 CARDIAC CATHETERIZATION 10/03/2002 CARDIAC CATHETERIZATION 11/05/2001 CARDIAC CATHETERIZATION 07/04/2001 CARDIAC CATHETERIZATION 09/19/2000 CARDIAC CATHETERIZATION 05/10/2000 CARDIAC CATHETERIZATION 12/23/1999 CARDIAC CATHETERIZATION 12/06/1995 CARDIAC CATHETERIZATION 12/27/1990 CARDIAC CATHETERIZATION 04/27/1987 CARDIAC CATHETERIZATION 06/16/1986 CARDIAC CATHETERIZATION 11/13/2002 CEREBRAL ANEURYSM REPAIR 2008, 2018 bilateral CEREBRAL ANGIOGRAM CORONARY ANGIOPLASTY 02/16/2003 SVG to Marginal Proximal CORONARY ANGIOPLASTY 08/23/2000 SVG to Proximal CX CORONARY ANGIOPLASTY 05/10/2000 Proximal SVG to CX-OM CORONARY ANGIOPLASTY WITH STENT PLACEMENT 05/11/2004 RACHELL SVG to CX-OM, SVG to SHARAN, Ostial SVG to OM CORONARY ANGIOPLASTY WITH STENT PLACEMENT 07/09/2003 RACHELL SVG to OM, SVG to CX-OM CORONARY ANGIOPLASTY WITH STENT PLACEMENT 11/13/02 PTCA/Stent of SVG TO CX Proximal CORONARY ANGIOPLASTY WITH STENT PLACEMENT 10/03/2002 RACHELL Distal LMCA CORONARY ARTERY BYPASS GRAFT 06/23/1986 x2 HEMORRHOIDECTOMY HERNIA REPAIR 1978 ROTATOR CUFF REPAIR Left 2002 Current Outpatient Medications Medication Sig Dispense Refill aspirin 81 MG EC tablet Take 81 mg by mouth daily. atenoloL (TENORMIN) 50 MG tablet Take 1 (one) tablet (50 mg total) by mouth daily . 90 tablet 3 atorvastatin (LIPITOR) 80 MG tablet Take 1 (one) tablet (80 mg total) by mouth daily . 90 tablet 3 clopidogreL (PLAVIX) 75 mg tablet Take 1 (one) tablet (75 mg total) by mouth daily . 90 tablet 3 ferrous sulfate 325 (65 FE) MG tablet Take 1 (one) tablet (325 mg total) by mouth daily. 30 tablet 3 fluticasone furoate-vilanteroL (Breo Ellipta) 100-25 mcg/dose DsDv 1 (one) puff by Oral Inhalation route daily . 30 each 11 fluticasone propion-salmeteroL (ADVAIR DISKUS) 250-50 mcg/dose diskus inhaler Inhale 1 (one) puff 2(two) times a day . 1 Inhaler 11 lisinopriL (PRINIVIL,ZESTRIL) 10 MG tablet Take 1 (one) tablet (10 mg total) by mouth daily . 90 tablet 3 ONETOUCH DELICA LANCETS 33 gauge Misc USE TO CHECK FOR BLOOD SUGAR 2 TIMES A DAY 0 ONETOUCH VERIO FLEX Misc 2 (two) times a day as directed . 0 ONETOUCH VERIO strips USE TO CHECK FOR BLOOD SUGAR 2 TIMES A DAY 0 oxyCODONE (ROXICODONE) 5 MG immediate release tablet take 1 and 1/2 tablets by mouth three times a day if needed 0 tadalafiL (CIALIS) 10 MG tablet Take 10 mg by mouth 2 (two) times a day . Ventolin HFA 90 mcg/actuation inhaler Inhale 2 (two) puffs every 6 (six) hours as needed for wheezing . 1 Inhaler 5 warfarin (COUMADIN) 5 MG tablet [facility]/Dr Arnett . 30 tablet 6 No current facility-administered medications for this visit. Social History Socioeconomic History Marital status: Spouse name: [place] Number of children: 5 Years of education: Not on file Highest education level: 10th grade Occupational History Not on file Social Needs Financial resource strain: Not hard at all Food insecurity Worry: Never true Inability: Never true Transportation needs Medical: No Non-medical: No Tobacco Use Smoking status: Current Every Day Smoker Packs/day: 0.25 Years: 45.00 Pack years: 11.25 Types: Cigarettes Smokeless tobacco: Never Used Substance and Sexual Activity Alcohol use: No Drug use: No Sexual activity: Not Currently Partners: Female Lifestyle Physical activity Days per week: 7 days Minutes per session: 30 min Stress: Not at all Relationships Social connections Talks on phone: Not on file Gets together: Not on file Attends congregation service: Not on file Active member of club or organization: Not on file Attends meetings of clubs or organizations: Not on file Relationship status: Other Topics Concern Not on file Social History Narrative Not on file Allergies: No Known Allergies Care Team Patient Care Team: Jeanna Duff MD as PCP - General (Family Medicine) Pharmacy / Equipment Co. (DME) [id number] - [place], [place] - [address] [facility] [address] [facility] [id number] Objective Blood pressure 144/60, pulse (!) 56, temperature 98.6 F (37 C), temperature source Oral, resp. rate16, height 5' 7 , weight 63.5 kg (140 lb), SpO2 95 %. Body mass index is 21.93 kg/m . Vitals: PACU Vitals 06/21/20 0903 BP: 144/60 Pulse: (!) 56 Resp: 16 Temp: 98.6 F (37 C) SpO2: 95% PainSc: 2 PainLoc: Generalized Vision and Hearing Screen: Hearing Screening 125Hz 250Hz 500Hz 1000Hz 2000Hz 3000Hz 4000Hz 6000Hz 8000Hz Right ear: Left ear: Visual Acuity Screening Right eye Left eye Both eyes Without correction: With correction: 20/20 20/20 20/20 Assessment: The primary encounter diagnosis was General medical exam. Diagnoses of Pulmonary emphysema, unspecified emphysema type (HCC), Type 2 diabetes mellitus with diabetic polyneuropathy, without long-term current use of insulin (HCC), PAD (peripheral artery disease) (HCC), Thrombocytopenia (HCC), Essential hypertension, Mixed hyperlipidemia, Current smoker, Hypercoagulable state (HCC), DDD (degenerative disc disease), lumbosacral, Abnormal PSA, and Coronary artery disease involving yavap[place]-apache coronary artery of yavapai-apache heart without angina pectoris were also pertinent to this visit. Plan: During the course of the visit the patient was educated and counseled about appropriate screening and preventive services includin-Year Plan: Health Maintenance Topic Date Due Foot Exam 07/26/1967 Ophthalmology Exam 07/26/1967 COVID-19 Vaccine (1 of 2) 1973 Urine Microalbumin 12/16/2020 A1C 12/22/2020 Depression Screening (PHQ9) 06/21/2021 Wellness Visit 06/21/2021 PSA Level 12/16/2021 Colorectal Cancer Screening 11/17/2025 Tetanus: Every 10yrs 12/16/2029 Hepatitis C Screening Completed Zoster Vaccines Completed Sequential Influenza Vaccine Completed HIV Screening Discontinued documented in this encounter* Laxmi Whitney RPh,PharmD - 03/06/2019 8:06 AM EST Anticoagulation Progress Note Date of Visit: March 06, 2019 Patient Name: Mata Betts : 1955 Age: 63 y.o. Mata Betts is here for an anticoagulation follow-up visit. INR obtained via POC finger stick device. Anticoagulation Summary As of 03/06/2019 INR goal: 2.0-3.0 TTR: 100.0 % (7.2 mo) INR used for dosin.1 (03/06/2019) Warfarin maintenance plan: 2.5 mg (5 mg x 0.5) every Tue, Sat; 5 mg (5 mg x 1) all other days Weekly warfarin total: 30 mg Plan last modified: Laxmi Whitney RPh,PharmD (08/01/2018) Next INR check: 04/17/2019 Priority: Maintenance Target end date: Indefinite Indications Cerebrovascular disease [I67.9] PAD (peripheral artery disease) (HCC) [I73.9] Lab Results Component Value Date WBC 5.08 12/30/2018 HGB 15.0 12/30/2018 HCT 44.7 12/30/2018 MCV 98.9 12/30/2018 EXTMCV 100.2 (H) 05/30/2018 PLT 122 (L) 12/30/2018 RBC 4.52 12/30/2018 Encounter Summary: ASSESSMENT: Patient Findings Negatives: Patient Reported Falls, Signs/symptoms of thrombosis, Signs/symptoms of bleeding, Laboratory test error suspected, Change in health, Change in alcohol use, Change in activity, Upcoming invasive procedure, Emergency department visit, Upcoming dental procedure, Missed doses, Extra doses, Change in medications, Change in diet/appetite, Hospital admission, Bruising, Other complaints Warfarin taken in the previous 7 days: 30 mg INR is therapeutic today. PLAN: 1. Will continue weekly warfarin dose of 30 mg/week. 2. Will check next INR in 6+ weeks unless there are any changes before then. 3. Encouraged patient to contact clinic with any changes. Laxmi Whitney RPh,PharmD [facility] Dept: [phone] documented in this encounter* Jeanna Duff MD - 06/18/2018 8:44 AM EST OFFICE VISIT PROGRESS NOTE HPI HTN/HLD - Not routinely checking BP. Says no complaints, taking meds, tolerating well. No change todiet or activity level. DM - BS at home running in the 90-120 range. Didn't take meds or eat yet. Tolerates meds, tries to watch diet. COPD/Tobacco - Says doing ok, tolerating inhaler, some SOB with activity that's intense. No complaints. Using his rescue only with severe activity. Only smoking 1 per day or so. Not sure why he can'tput it down. The following portions of the patient's history were reviewed and updated as appropriate: allergies, current medications and problem list. The patient's surgical, family, and social history was reviewed and updated as appropriate. Review of Systems Review of Systems Constitutional: Negative for activity change and fatigue. Respiratory: Negative for chest tightness, shortness of breath and wheezing. Cardiovascular: Negative for chest pain and palpitations. Psychiatric/Behavioral: Negative for agitation and dysphoric mood. Vitals: 06/18/18 0822 06/18/18 0826 BP: 145/80 (!) 150/74 BP Location: Left arm Patient Position: Sitting BP Cuff Size: Adult Pulse: 67 Temp: 98.7 F (37.1 C) TempSrc: Oral SpO2: 97% Weight: 63.5 kg (140 lb) Height: 5' 6 Body mass index is 22.6 kg/m . Physical Exam Physical Exam Constitutional: He is oriented to person, place, and time. He appears well- developed and well-nourished. HENT: Head: Normocephalic and atraumatic. Cardiovascular: Normal rate, regular rhythm and intact distal pulses. No murmur heard. Pulmonary/Chest: Effort normal and breath sounds normal. No respiratory distress. He has no wheezes. Neurological: He is alert and oriented to person, place, and time. No cranial nerve deficit. Skin: Skin is warm and dry. Psychiatric: He has a normal mood and affect. His behavior is normal. Nursing note and vitals reviewed. POC A1C: 6.0 OARRS/Katie Report Received and Assessed: 04/29/18 Assessment/Plan Problem List Items Addressed This Visit Essential hypertension - Primary Chronic, Stable, continue meds, increase activity as can tolerate, limit salt, and watch diet. Continue to monitor BP at home as instructed. Bring blood pressure log and cuff to next visit. Relevant Orders CBC and Differential Comprehensive Metabolic Panel Microalbumin, Urine, Random TSH with Reflex Free T4 Mixed hyperlipidemia Chronic, stable, Continue meds as prescribed, watch diet, and increase activity as able to tolerate. Relevant Orders Lipid Panel Current smoker Chronic, Continue efforts to cut back and quit. Pulmonary emphysema (HCC) Chronic, stable, continue inhaler use as directed. Diabetes mellitus (HCC) Chronic, Stable, continue meds, watch diet, increase activity as can tolerate. Monitor BS as instructed. Relevant Orders POC Glycosylated Hemoglobin (Hb A1C) Hemoglobin A1c Goals None If any referrals were placed at today's visit the patient was instructed to call the office if theyhavn't heard anything about the referral within 2 weeks of today's visit. For any new medications prescribed today, patient was educated about indications for the medication, how to take the medication and potential side effects of the medications. in this encounter* Jeanna Duff MD - 12/16/2018 10:23 AM EDT OFFICE VISIT PROGRESS NOTE HPI HTN/HLD/PAD - At home when checks he says runs pretty good, no complaints. No log today. Taking med, no complaints, no side effects. No change to diet or exercise. Going [facility] for PAD needs. DM - BS intermittently in the 90-110 range. No complaints, tolerating meds. Not strictly watching diet. COPD/Tobacco - Taking inhalers, no complaints, does well with them. Still smoking about 0-5 cigs a day depending. Chantix helping. The following portions of the patient's history were reviewed and updated as appropriate: allergies, current medications and problem list. The patient's surgical, family, and social history was reviewed and updated as appropriate. Review of Systems Review of Systems Constitutional: Negative for activity change and fatigue. Respiratory: Negative for chest tightness, shortness of breath and wheezing. Cardiovascular: Negative for chest pain and palpitations. Psychiatric/Behavioral: Negative for agitation and dysphoric mood. Vitals: 12/16/18 1016 BP: 126/70 BP Location: Left arm Patient Position: Sitting BP Cuff Size: Adult Pulse: 64 Temp: 98 F (36.7 C) TempSrc: Oral SpO2: 96% Weight: 61 kg (134 lb 6.4 oz) Height: 5' 7 Body mass index is 21.05 kg/m . Physical Exam Physical Exam Constitutional: He is oriented to person, place, and time. He appears well- developed and well-nourished. HENT: Head: Normocephalic and atraumatic. Cardiovascular: Normal rate, regular rhythm and intact distal pulses. No murmur heard. Pulmonary/Chest: Effort normal and breath sounds normal. No respiratory distress. He has no wheezes. Neurological: He is alert and oriented to person, place, and time. No cranial nerve deficit. Skin: Skin is warm and dry. Psychiatric: He has a normal mood and affect. His behavior is normal. Nursing note and vitals reviewed. SILASS/Katie Report Received and Assessed: 04/29/18 POC A1C: 5.3 Assessment/Plan Problem List Items Addressed This Visit Endocrine Diabetes mellitus (HCC) Chronic, stable, continue meds, watch diet, increase activity as can tolerate. Monitor BS as instructed. Bring blood sugar log to next visit. Relevant Orders POC Glycosylated Hemoglobin (Hb A1C) (Completed) Respiratory Pulmonary emphysema (HCC) Chronic, stable, continue inhaler use. Relevant Medications VENTOLIN HFA 90 mcg/actuation inhaler Cardiovascular and Mediastinum Coronary artery disease involving [place]ap[place]-apache heart without angina pectoris Chronic, no symptoms, let me know if get more symptoms. Essential hypertension - Primary Chronic, Stable, continue meds, increase activity as can tolerate, limit salt, and watch diet. Continue to monitor BP at home as instructed. Bring blood pressure log and cuff to next visit. Relevant Orders CBC and Differential Comprehensive Metabolic Panel TSH with Reflex Free T4 Microalbumin, Urine, Random PAD (peripheral artery disease) (HCC) Chronic, stable, continue use of Coumadin. Other Mixed hyperlipidemia Chronic, stable, Continue meds as prescribed, watch diet, and increase activity as able to tolerate. Relevant Orders Lipid Panel Current smoker Chronic, stop Chantix once you fully quit the cigs. Goals None If any referrals were placed at today's visit the patient was instructed to call the office if theyhavn't heard anything about the referral within 2 weeks of today's visit. For any new medications prescribed today, patient was educated about indications for the medication, how to take the medication and potential side effects of the medications. documented in this encounter* Jeanna Duff MD - 12/17/2019 7:01 AM EDT OFFICE VISIT PROGRESS NOTE HPI HTN/HLD - Says his BP at home it fluctuates. Can range from 130-150 over 70-90 range. Different witstress and activity. Tolerating meds. No change to diet or activity. DM - Says BS is running in the 90-110 range. Tolerated med. Says watches diet and is very active. Walks a lot. COPD/Tob - Says doing ok, working well, no complaints, tolerating well. No new symptoms. Down to 3-4 cigs a day. The following portions of the patient's history were reviewed and updated as appropriate: allergies, current medications and problem list. The patient's surgical, family, and social history was reviewed and updated as appropriate. Review of Systems Review of Systems Constitutional: Negative for activity change and fatigue. Respiratory: Negative for chest tightness, shortness of breath and wheezing. Cardiovascular: Negative for chest pain and palpitations. Psychiatric/Behavioral: Negative for agitation and dysphoric mood. Vitals: 12/17/19 0656 12/17/19 0659 BP: 145/63 149/85 BP Location: Left arm Patient Position: Sitting BP Cuff Size: Youth Pulse: (!) 55 Resp: 16 Temp: 97.5 F (36.4 C) TempSrc: Oral SpO2: 97% Weight: 60.3 kg (133 lb) Height: 5' 7 Body mass index is 20.83 kg/m . Physical Exam Physical Exam Constitutional: He is oriented to person, place, and time. He appears well- developed and well-nourished. HENT: Head: Normocephalic and atraumatic. Cardiovascular: Normal rate, regular rhythm and intact distal pulses. No murmur heard. Pulmonary/Chest: Effort normal and breath sounds normal. No respiratory distress. He has no wheezes. Neurological: He is alert and oriented to person, place, and time. No cranial nerve deficit. Skin: Skin is warm and dry. Psychiatric: He has a normal mood and affect. His behavior is normal. Nursing note and vitals reviewed. OARRS/NARxCHECK Report Received and Assessed: 04/29/2018 Date controlled substance agreement signed: No data found Date of last drug screen: No data found Functional Assessment: No data found Assessment/Plan Problem List Items Addressed This Visit Endocrine Diabetes mellitus (HCC) Chronic, stable,wellcontrolled, trial off Metformin,watch diet, increase activity as can tolerate. Monitor BS as instructed. Bring blood sugar log to next visit. Relevant Orders POC Glycosylated Hemoglobin (Hb A1C) (Completed) Respiratory Pulmonary emphysema (HCC) Chronic, stable, continue inhaler use, will monitor. Relevant Medications Ventolin HFA 90 mcg/actuation inhaler fluticasone furoate-vilanteroL (Breo Ellipta) 100-25 mcg/dose DsDv fluticasone propion-salmeteroL (ADVAIR DISKUS) 250-50 mcg/dose diskus inhaler Cardiovascular and Mediastinum Coronary artery disease involving [place]-apache heart without angina pectoris Chronic, stable, asymptomatic, will continue to monitor. Essential hypertension - Primary Chronic, Stable, continue meds, increase activity as can tolerate, limit salt, and watch diet. Continue to monitor BP at home as instructed. Bring blood pressure log and cuff to next visit. Other Mixed hyperlipidemia Chronic, stable, Continue meds as prescribed, watch diet, and increase activity as able to tolerate. Current smoker CHronic, low use, try to find something to help control the stress besides cigs. Other Visit Diagnoses Need for vaccination Relevant Medications diptheria, tetanus toxoid, acellular pertusssis (ADACEL) 2 Lf-(2.5-5-3-5 mcg)- 5Lf/0.5 mL injection Other Relevant Orders Tdap vaccine greater than or equal to 7yo IM Goals None If any referrals were placed at today's visit the patient was instructed to call the office if theyhavn't heard anything about the referral within 2 weeks of today's visit. For any new medications prescribed today, patient was educated about indications for the medication, how to take the medication and potential side effects of the medications. * Jeanna Duff MD - 12/17/2019 7:01 AM EDT Depression Screening 12/17/2019 Little interest or pleasure in doing things 0 Feeling down, depressed, or hopeless 0 PHQ-2 Total Score 0 Trouble falling or staying asleep, or sleeping too much 0 Feeling tired or having little energy 0 Poor appetite or overeating 0 Feeling bad about yourself - or that you are a failure or have let yourself or your family down 0 Trouble concentrating on things, such as reading the newspaper or watching television 0 Moving or speaking so slowly that other people could have noticed. Or the opposite - being so fidgety or restless that you have been moving around a lot more than usual 0 Thoughts that you would be better off , or of hurting yourself in some way 0 PHQ-9 Total Score 0 If you checked off any problems, how difficult have these problems made it for you to do your work,take care of things at home, or get along with other people? Not difficult at all documented in this encounter* Tha Long DO - 07/12/2020 2:03 PM EDT Associated Order(s): Control of epistaxis Post-Procedure Diagnose(s): Epistaxis Control of epistaxis Date/Time: 07/12/2020 2:03 PM Performed by: Tha Long DO Authorized by: Tha Long DO Verbal consent: obtained Consent given by: patient Preparation: Patient was prepped and draped in usual sterile fashion Local anesthesia used?: Yes Local anesthetic: Lidocaine sprayPatient sedated: no Patient tolerance: Patient tolerated the procedure well with no immediate complications See note details * Tha Long DO - 07/12/2020 1:00 PM EDT Subjective Patient ID: Mata Betts is a 64 y.o. male. Patient is here for epistaxis. Right side. Went to ED, clot removed and nose clamp applied. He continues to drip. Patient is on Warfarin, Plavix and Asa. The following portions of the patient's history were reviewed and updated as appropriate: allergies, current medications, past family history, past medical history, past social history, past surgicalhistory and problem list. Review of Systems Constitutional: Negative for chills and diaphoresis. HENT: Positive for nosebleeds. Negative for ear discharge and ear pain. Eyes: Negative for discharge and redness. Respiratory: Negative for apnea and cough. Cardiovascular: Negative for chest pain and palpitations. Musculoskeletal: Negative for neck pain and neck stiffness. Skin: Negative for color change and pallor. Allergic/Immunologic: Negative for immunocompromised state. Neurological: Negative for facial asymmetry and numbness. Hematological: Does not bruise/bleed easily. Psychiatric/Behavioral: Negative for agitation and confusion. Objective Physical Exam Vitals signs and nursing note reviewed. Constitutional: Appearance: Normal appearance. He is well-developed. Comments: The patient is well-developed and well-nourished without obvious deformity. HENT: Head: Normocephalic and atraumatic. Right Ear: Tympanic membrane, ear canal and external ear normal. Left Ear: Tympanic membrane, ear canal and external ear normal. Nose: Right Nostril: Epistaxis present. Mouth/Throat: Mouth: Mucous membranes are moist. Eyes: General: Lids are normal. Conjunctiva/sclera: Conjunctivae normal. Left eye: No chemosis. Pupils: Pupils are equal, round, and reactive to light. Neck: Musculoskeletal: Normal range of motion and neck supple. Thyroid: No thyromegaly. Trachea: No tracheal deviation. Cardiovascular: Rate and Rhythm: Normal rate and regular rhythm. Heart sounds: Normal heart sounds. Pulmonary: Effort: Pulmonary effort is normal. Breath sounds: Normal breath sounds. No stridor. Lymphadenopathy: Head: Right side of head: No submental, submandibular, preauricular, posterior auricular or occipital adenopathy. Left side of head: No submental, submandibular, preauricular, posterior auricular or occipital adenopathy. Cervical: No cervical adenopathy. Right cervical: No superficial cervical adenopathy. Left cervical: No superficial or deep cervical adenopathy. Skin: General: Skin is warm and dry. Neurological: Mental Status: He is alert and oriented to person, place, and time. Coordination: Coordination normal. Gait: Gait normal. Comments: III, IV, : EOM normal V: 1,2,3: normal sensation VII: Normal strength in all divisions. IX, X: Normal voice, palatal elevation and sensation XI: Shoulder strength normal XII: Tongue mobility normal Psychiatric: Mood and Affect: Mood is not anxious. Affect is not angry. Speech: Speech is not delayed or slurred. Behavior: Behavior normal. Behavior is not agitated or aggressive. Assessment/Plan: Diagnoses and all orders for this visit: Epistaxis I removed the rapid rhino pack that was placed today as it was half extruded from the patient's nose. I placed a 8.5cm merocel pack coated in antibiotic ointment in the right nares without difficulty. Follow up in 5 days for packing removal. Bybee saline gel: apply a pea sized amount to both nostrils including packing to keep it moist beforebed and in a.m. Nasal saline spray 4-6 times daily augmentin 875mg one by mouth every 12 hours for 10 days. Follow up in 5 days for packing removal. Chronic anticoagulation documented in this encounter* Tha Long DO - 07/12/2020 2:03 PM EDT Associated Order(s): Control of epistaxis Post-Procedure Diagnose(s): Epistaxis Control of epistaxis Date/Time: 07/12/2020 2:03 PM Performed by: Tha Long DO Authorized by: Tha Long DO Verbal consent: obtained Consent given by: patient Preparation: Patient was prepped and draped in usual sterile fashion Local anesthesia used?: Yes Local anesthetic: Lidocaine sprayPatient sedated: no Patient tolerance: Patient tolerated the procedure well with no immediate complications See note details * Tha Long DO - 07/12/2020 1:00 PM EDT Subjective Patient ID: Mata Betts is a 64 y.o. male. Patient is here for epistaxis. Right side. Went to ED, clot removed and nose clamp applied. He continues to drip. Patient is on Warfarin, Plavix and Asa. The following portions of the patient's history were reviewed and updated as appropriate: allergies, current medications, past family history, past medical history, past social history, past surgicalhistory and problem list. Review of Systems Constitutional: Negative for chills and diaphoresis. HENT: Positive for nosebleeds. Negative for ear discharge and ear pain. Eyes: Negative for discharge and redness. Respiratory: Negative for apnea and cough. Cardiovascular: Negative for chest pain and palpitations. Musculoskeletal: Negative for neck pain and neck stiffness. Skin: Negative for color change and pallor. Allergic/Immunologic: Negative for immunocompromised state. Neurological: Negative for facial asymmetry and numbness. Hematological: Does not bruise/bleed easily. Psychiatric/Behavioral: Negative for agitation and confusion. Objective Physical Exam Vitals signs and nursing note reviewed. Constitutional: Appearance: Normal appearance. He is well-developed. Comments: The patient is well-developed and well-nourished without obvious deformity. HENT: Head: Normocephalic and atraumatic. Right Ear: Tympanic membrane, ear canal and external ear normal. Left Ear: Tympanic membrane, ear canal and external ear normal. Nose: Right Nostril: Epistaxis present. Mouth/Throat: Mouth: Mucous membranes are moist. Eyes: General: Lids are normal. Conjunctiva/sclera: Conjunctivae normal. Left eye: No chemosis. Pupils: Pupils are equal, round, and reactive to light. Neck: Musculoskeletal: Normal range of motion and neck supple. Thyroid: No thyromegaly. Trachea: No tracheal deviation. Cardiovascular: Rate and Rhythm: Normal rate and regular rhythm. Heart sounds: Normal heart sounds. Pulmonary: Effort: Pulmonary effort is normal. Breath sounds: Normal breath sounds. No stridor. Lymphadenopathy: Head: Right side of head: No submental, submandibular, preauricular, posterior auricular or occipital adenopathy. Left side of head: No submental, submandibular, preauricular, posterior auricular or occipital adenopathy. Cervical: No cervical adenopathy. Right cervical: No superficial cervical adenopathy. Left cervical: No superficial or deep cervical adenopathy. Skin: General: Skin is warm and dry. Neurological: Mental Status: He is alert and oriented to person, place, and time. Coordination: Coordination normal. Gait: Gait normal. Comments: III, IV, : EOM normal V: 1,2,3: normal sensation VII: Normal strength in all divisions. IX, X: Normal voice, palatal elevation and sensation XI: Shoulder strength normal XII: Tongue mobility normal Psychiatric: Mood and Affect: Mood is not anxious. Affect is not angry. Speech: Speech is not delayed or slurred. Behavior: Behavior normal. Behavior is not agitated or aggressive. Assessment/Plan: Diagnoses and all orders for this visit: Epistaxis I removed the rapid rhino pack that was placed today as it was half extruded from the patient's nose. I placed a 8.5cm merocel pack coated in antibiotic ointment in the right nares without difficulty. Follow up in 5 days for packing removal. Bybee saline gel: apply a pea sized amount to both nostrils including packing to keep it moist beforebed and in a.m. Nasal saline spray 4-6 times daily augmentin 875mg one by mouth every 12 hours for 10 days. Follow up in 5 days for packing removal. Chronic anticoagulation documented in this encounter* Tha Long DO - 07/12/2020 2:03 PM EDT Associated Order(s): Control of epistaxis Post-Procedure Diagnose(s): Epistaxis Control of epistaxis Date/Time: 07/12/2020 2:03 PM Performed by: Tha Long DO Authorized by: Tha Long DO Verbal consent: obtained Consent given by: patient Preparation: Patient was prepped and draped in usual sterile fashion Local anesthesia used?: Yes Local anesthetic: Lidocaine sprayPatient sedated: no Patient tolerance: Patient tolerated the procedure well with no immediate complications See note details * Tha Long DO - 07/12/2020 1:00 PM EDT Subjective Patient ID: Mata Betts is a 64 y.o. male. Patient is here for epistaxis. Right side. Went to ED, clot removed and nose clamp applied. He continues to drip. Patient is on Warfarin, Plavix and Asa. The following portions of the patient's history were reviewed and updated as appropriate: allergies, current medications, past family history, past medical history, past social history, past surgicalhistory and problem list. Review of Systems Constitutional: Negative for chills and diaphoresis. HENT: Positive for nosebleeds. Negative for ear discharge and ear pain. Eyes: Negative for discharge and redness. Respiratory: Negative for apnea and cough. Cardiovascular: Negative for chest pain and palpitations. Musculoskeletal: Negative for neck pain and neck stiffness. Skin: Negative for color change and pallor. Allergic/Immunologic: Negative for immunocompromised state. Neurological: Negative for facial asymmetry and numbness. Hematological: Does not bruise/bleed easily. Psychiatric/Behavioral: Negative for agitation and confusion. Objective Physical Exam Vitals signs and nursing note reviewed. Constitutional: Appearance: Normal appearance. He is well-developed. Comments: The patient is well-developed and well-nourished without obvious deformity. HENT: Head: Normocephalic and atraumatic. Right Ear: Tympanic membrane, ear canal and external ear normal. Left Ear: Tympanic membrane, ear canal and external ear normal. Nose: Right Nostril: Epistaxis present. Mouth/Throat: Mouth: Mucous membranes are moist. Eyes: General: Lids are normal. Conjunctiva/sclera: Conjunctivae normal. Left eye: No chemosis. Pupils: Pupils are equal, round, and reactive to light. Neck: Musculoskeletal: Normal range of motion and neck supple. Thyroid: No thyromegaly. Trachea: No tracheal deviation. Cardiovascular: Rate and Rhythm: Normal rate and regular rhythm. Heart sounds: Normal heart sounds. Pulmonary: Effort: Pulmonary effort is normal. Breath sounds: Normal breath sounds. No stridor. Lymphadenopathy: Head: Right side of head: No submental, submandibular, preauricular, posterior auricular or occipital adenopathy. Left side of head: No submental, submandibular, preauricular, posterior auricular or occipital adenopathy. Cervical: No cervical adenopathy. Right cervical: No superficial cervical adenopathy. Left cervical: No superficial or deep cervical adenopathy. Skin: General: Skin is warm and dry. Neurological: Mental Status: He is alert and oriented to person, place, and time. Coordination: Coordination normal. Gait: Gait normal. Comments: III, IV, : EOM normal V: 1,2,3: normal sensation VII: Normal strength in all divisions. IX, X: Normal voice, palatal elevation and sensation XI: Shoulder strength normal XII: Tongue mobility normal Psychiatric: Mood and Affect: Mood is not anxious. Affect is not angry. Speech: Speech is not delayed or slurred. Behavior: Behavior normal. Behavior is not agitated or aggressive. Assessment/Plan: Diagnoses and all orders for this visit: Epistaxis I removed the rapid rhino pack that was placed today as it was half extruded from the patient's nose. I placed a 8.5cm merocel pack coated in antibiotic ointment in the right nares without difficulty. Follow up in 5 days for packing removal. Bybee saline gel: apply a pea sized amount to both nostrils including packing to keep it moist beforebed and in a.m. Nasal saline spray 4-6 times daily augmentin 875mg one by mouth every 12 hours for 10 days. Follow up in 5 days for packing removal. Chronic anticoagulation documented in this encounter* Tha Long DO - 07/12/2020 2:03 PM EDT Associated Order(s): Control of epistaxis Post-Procedure Diagnose(s): Epistaxis Control of epistaxis Date/Time: 07/12/2020 2:03 PM Performed by: Tha Long DO Authorized by: Tha Long DO Verbal consent: obtained Consent given by: patient Preparation: Patient was prepped and draped in usual sterile fashion Local anesthesia used?: Yes Local anesthetic: Lidocaine sprayPatient sedated: no Patient tolerance: Patient tolerated the procedure well with no immediate complications See note details * Tha Long DO - 07/12/2020 1:00 PM EDT Subjective Patient ID: Mata Betts is a 64 y.o. male. Patient is here for epistaxis. Right side. Went to ED, clot removed and nose clamp applied. He continues to drip. Patient is on Warfarin, Plavix and Asa. The following portions of the patient's history were reviewed and updated as appropriate: allergies, current medications, past family history, past medical history, past social history, past surgicalhistory and problem list. Review of Systems Constitutional: Negative for chills and diaphoresis. HENT: Positive for nosebleeds. Negative for ear discharge and ear pain. Eyes: Negative for discharge and redness. Respiratory: Negative for apnea and cough. Cardiovascular: Negative for chest pain and palpitations. Musculoskeletal: Negative for neck pain and neck stiffness. Skin: Negative for color change and pallor. Allergic/Immunologic: Negative for immunocompromised state. Neurological: Negative for facial asymmetry and numbness. Hematological: Does not bruise/bleed easily. Psychiatric/Behavioral: Negative for agitation and confusion. Objective Physical Exam Vitals signs and nursing note reviewed. Constitutional: Appearance: Normal appearance. He is well-developed. Comments: The patient is well-developed and well-nourished without obvious deformity. HENT: Head: Normocephalic and atraumatic. Right Ear: Tympanic membrane, ear canal and external ear normal. Left Ear: Tympanic membrane, ear canal and external ear normal. Nose: Right Nostril: Epistaxis present. Mouth/Throat: Mouth: Mucous membranes are moist. Eyes: General: Lids are normal. Conjunctiva/sclera: Conjunctivae normal. Left eye: No chemosis. Pupils: Pupils are equal, round, and reactive to light. Neck: Musculoskeletal: Normal range of motion and neck supple. Thyroid: No thyromegaly. Trachea: No tracheal deviation. Cardiovascular: Rate and Rhythm: Normal rate and regular rhythm. Heart sounds: Normal heart sounds. Pulmonary: Effort: Pulmonary effort is normal. Breath sounds: Normal breath sounds. No stridor. Lymphadenopathy: Head: Right side of head: No submental, submandibular, preauricular, posterior auricular or occipital adenopathy. Left side of head: No submental, submandibular, preauricular, posterior auricular or occipital adenopathy. Cervical: No cervical adenopathy. Right cervical: No superficial cervical adenopathy. Left cervical: No superficial or deep cervical adenopathy. Skin: General: Skin is warm and dry. Neurological: Mental Status: He is alert and oriented to person, place, and time. Coordination: Coordination normal. Gait: Gait normal. Comments: III, IV, : EOM normal V: 1,2,3: normal sensation VII: Normal strength in all divisions. IX, X: Normal voice, palatal elevation and sensation XI: Shoulder strength normal XII: Tongue mobility normal Psychiatric: Mood and Affect: Mood is not anxious. Affect is not angry. Speech: Speech is not delayed or slurred. Behavior: Behavior normal. Behavior is not agitated or aggressive. Assessment/Plan: Diagnoses and all orders for this visit: Epistaxis I removed the rapid rhino pack that was placed today as it was half extruded from the patient's nose. I placed a 8.5cm merocel pack coated in antibiotic ointment in the right nares without difficulty. Follow up in 5 days for packing removal. Bybee saline gel: apply a pea sized amount to both nostrils including packing to keep it moist beforebed and in a.m. Nasal saline spray 4-6 times daily augmentin 875mg one by mouth every 12 hours for 10 days. Follow up in 5 days for packing removal. Chronic anticoagulation documented in this encounter* Laxmi Whitney RPh,PharmD - 01/23/2019 8:07 AM EDT Anticoagulation Progress Note Date of Visit: January 23, 2019 Patient Name: Mata Betts : 1955 Age: 63 y.o. Mata Betts is here for an anticoagulation follow-up visit. INR obtained via POC finger stick device. Anticoagulation Summary As of 01/23/2019 INR goal: 2.0-3.0 TTR: 100.0 % (5.8 mo) INR used for dosin.1 (01/23/2019) Warfarin maintenance plan: 2.5 mg (5 mg x 0.5) every Tue, Sat; 5 mg (5 mg x 1) all other days Weekly warfarin total: 30 mg Plan last modified: Laxmi Whitney RPh,PharmD (08/01/2018) Next INR check: 03/06/2019 Priority: Maintenance Target end date: Indefinite Indications Cerebrovascular disease [I67.9] PAD (peripheral artery disease) (HCC) [I73.9] Lab Results Component Value Date WBC 5.08 12/30/2018 HGB 15.0 12/30/2018 HCT 44.7 12/30/2018 MCV 98.9 12/30/2018 EXTMCV 100.2 (H) 05/30/2018 PLT 122 (L) 12/30/2018 RBC 4.52 12/30/2018 Encounter Summary: ASSESSMENT: Patient Findings Negatives: Patient Reported Falls, Signs/symptoms of thrombosis, Signs/symptoms of bleeding, Laboratory test error suspected, Change in health, Change in alcohol use, Change in activity, Upcoming invasive procedure, Emergency department visit, Upcoming dental procedure, Missed doses, Extra doses, Change in medications, Change in diet/appetite, Hospital admission, Bruising, Other complaints Warfarin taken in the previous 7 days: 30 mg INR is therapeutic today. PLAN: 1. Will continue weekly warfarin dose of 30 mg/week. 2. Will check next INR in 6+ weeks unless there are any changes before then. 3. Encouraged patient to contact clinic with any changes. Laxmi Whitney RPh,PharmD [facility] Dept: [phone] documented in this encounter* Laxmi Whitney RPh,Neda - 07/15/2020 8:14 AM EDT Anticoagulation Progress Note Date of Visit: July 15, 2020 Patient Name: Mata Betts : 1955 Age: 64 y.o. Mata Betts is here for an anticoagulation follow-up visit. INR obtained via POC finger stick device. Anticoagulation Summary As of 07/15/2020 INR goal: 2.0-3.0 TTR: 83.1 % (2 y) INR used for dosin.3 (07/15/2020) Warfarin maintenance plan: 2.5 mg (5 mg x 0.5) every Tue, Sat; 5 mg (5 mg x 1) all other days Weekly warfarin total: 30 mg Plan last modified: Laxmi Whitney RPh,PharmD (08/01/2018) Next INR check: 08/05/2020 Priority: Maintenance Target end date: Indefinite Indications Cerebrovascular disease [I67.9] PAD (peripheral artery disease) (HCC) [I73.9] Lab Results Component Value Date WBC 5.11 07/12/2020 HGB 14.3 07/12/2020 HCT 42.5 07/12/2020 MCV 98.8 07/12/2020 EXTMCV 100.2 (H) 05/30/2018 PLT 109 (L) 07/12/2020 RBC 4.30 (L) 07/12/2020 Encounter Summary: ASSESSMENT: Patient Findings Positives: Signs/symptoms of bleeding (bad nosebleed), Missed doses (off since Sunday), Change in medications (currently on augmentin) Negatives: Patient Reported Falls, Signs/symptoms of thrombosis, Laboratory test error suspected, Change in health, Change in alcohol use, Change in activity, Upcoming invasive procedure, Emergency department visit, Upcoming dental procedure, Extra doses, Change in diet/appetite, Hospital admission, Bruising, Other complaints Warfarin taken in the previous 7 days: 17.5 mg. Patient normally takes 30 mg/week, but has not taken warfarin the past 3 days due to severe nosebleed. He had a procedure done to fix this on Sunday. He has a follow up with Dr. Long later today, at which time he will be told whether or not he can resume warfarin. INR was therapeutic on Sunday when nosebleed began. INR is subtherapeutic today. This is secondary to missed warfarin dose(s). PLAN: 1. Will continue weekly warfarin dose of 30 mg/week whenever patient is cleared to resume warfarin.He has been very stable on this dose. 2. Will check next INR in 3 weeks instead of usual 6 unless there are any changes before then. 3. Encouraged patient to contact clinic with any changes. Laxmi Whitney RPh,PharmD [facility] Dept: [phone] documented in this encounter* Tha Long DO - 07/16/2020 4:06 PM EDT Associated Order(s): Nasal / sinus endoscopy Post-Procedure Diagnose(s): Epistaxis Nasal / sinus endoscopy Date/Time: 07/16/2020 4:06 PM Performed by: Tha Long DO Authorized by: Tha Long DO Verbal consent: obtained Written consent: obtained Consent given by: patient Preparation: Patient was prepped and draped in usual sterile fashion Local anesthesia used?: Yes Local anesthetic: Lidocaine sprayPatient sedated: no Patient tolerance: Patient tolerated the procedure well with no immediate complications See note details * Tha Long DO - 07/16/2020 3:52 PM EDT Subjective Patient ID: Mata Betts is a 64 y.o. male. EP is here for bloody discharged from his right nares. He states it's worse at night and that he has still been using his Bybee Gel. Timin day,location: right nares, severity: med, associated symptoms: bloody discharge. The following portions of the patient's history were reviewed and updated as appropriate: allergies, current medications, past family history, past medical history, past social history, past surgicalhistory and problem list. Review of Systems Constitutional: Negative for chills and diaphoresis. HENT: Positive for nosebleeds. Negative for ear discharge and ear pain. Eyes: Negative for discharge and redness. Respiratory: Negative for apnea and cough. Cardiovascular: Negative for chest pain and palpitations. Musculoskeletal: Negative for neck pain and neck stiffness. Skin: Negative for color change and pallor. Allergic/Immunologic: Negative for immunocompromised state. Neurological: Negative for facial asymmetry and numbness. Hematological: Does not bruise/bleed easily. Psychiatric/Behavioral: Negative for agitation and confusion. Objective Physical Exam Vitals signs and nursing note reviewed. Constitutional: Appearance: Normal appearance. He is well-developed. He is not ill-appearing. HENT: Head: Normocephalic and atraumatic. Right Ear: Tympanic membrane, ear canal and external ear normal. No drainage or swelling. Left Ear: Tympanic membrane, ear canal and external ear normal. No drainage or swelling. Nose: No mucosal edema. Right Nostril: Epistaxis present. Mouth/Throat: Lips: [place]. Mouth: Mucous membranes are moist. Dentition: Normal dentition. Pharynx: Uvula midline. No oropharyngeal exudate or posterior oropharyngeal erythema. Eyes: General: Lids are normal. Left eye: No discharge. Conjunctiva/sclera: Conjunctivae normal. Left eye: No chemosis. Pupils: Pupils are equal, round, and reactive to light. Neck: Musculoskeletal: Normal range of motion and neck supple. Normal range of motion. No edema. Thyroid: No thyroid mass or thyromegaly. Pulmonary: Breath sounds: No stridor. Neurological: Mental Status: He is alert. Psychiatric: Behavior: Behavior is cooperative. Assessment/Plan: Diagnoses and all orders for this visit: Epistaxis Rigid nasal endoscopy performed in office today bilaterally. The patient's nose was sprayed with afrin and lidocaine spray. The 3mm zero degree endoscope was then advanced first through the right nares. There is evidence of prior cauterization with scant serosanguinous drainage noted. No active bleeding. The scope was withdrawn and the patient tolerated the procedure well. I have advised the patient to use afrin nasal spray apply to each nostril in a.m. and p.m. starting and stopping after evening dose Sunday. Restart blood thinners Sunday. Follow up as previously scheduled. documented in this encounter* Laxmi Whitney RPh,PharmD - 10/31/2018 8:05 AM EDT Anticoagulation Progress Note Date of Visit: October 31, 2018 Patient Name: Mata Betts : 1955 Age: 63 y.o. Mata Betts is here for an anticoagulation follow-up visit. INR obtained via POC finger stick device. Anticoagulation Summary As of 10/31/2018 INR goal: 2.0-3.0 TTR: 100.0 % (3 mo) INR used for dosin.7 (10/31/2018) Warfarin maintenance plan: 2.5 mg (5 mg x 0.5) every Tue, Sat; 5 mg (5 mg x 1) all other days Weekly warfarin total: 30 mg Plan last modified: Laxmi Whitney RPh,PharmD (08/01/2018) Next INR check: 12/12/2018 Priority: Maintenance Target end date: Indefinite Indications Cerebrovascular disease [I67.9] PAD (peripheral artery disease) (HCC) [I73.9] Lab Results Component Value Date WBC 5.9 05/30/2018 HGB 14.5 05/30/2018 HCT 44.7 05/30/2018 EXTMCV 100.2 (H) 05/30/2018 PLT 144 05/30/2018 RBC 4.15 (A) 05/12/2004 Encounter Summary: ASSESSMENT: Patient Findings Positives: Change in medications (taking multivitamins) Negatives: Patient Reported Falls, Signs/symptoms of thrombosis, Signs/symptoms of bleeding, Laboratory test error suspected, Change in health, Change in alcohol use, Change in activity, Upcoming invasive procedure, Emergency department visit, Upcoming dental procedure, Missed doses, Extra doses, Change in diet/appetite, Hospital admission, Bruising, Other complaints Warfarin taken in the previous 7 days: 30 mg INR is therapeutic today. PLAN: 1. Will continue weekly warfarin dose of 30 mg/week. 2. Will check next INR in 6+ weeks unless there are any changes before then. 3. Encouraged patient to contact clinic with any changes. Lxami Whitney RPh,PharmD [facility] Dept: [phone] documented in this encounter* Jesse Leong RPh,PharmD - 03/11/2020 8:19 AM EST Anticoagulation Progress Note Date of Visit: March 11, 2020 Patient Name: Mata Betts : 1955 Age: 64 y.o. Mata Betts is here for an anticoagulation follow-up visit. INR obtained via POC finger stick device. Anticoagulation Summary As of 03/11/2020 INR goal: 2.0-3.0 TTR: 79.8 % (1.6 y) INR used for dosin.2 (03/11/2020) Warfarin maintenance plan: 2.5 mg (5 mg x 0.5) every Tue, Sat; 5 mg (5 mg x 1) all other days Weekly warfarin total: 30 mg Plan last modified: Laxmi Whitney RPh,PharmD (08/01/2018) Next INR check: 04/22/2020 Priority: Maintenance Target end date: Indefinite Indications Cerebrovascular disease [I67.9] PAD (peripheral artery disease) ([facility]) [I73.9] Lab Results Component Value Date WBC 5.55 12/17/2019 HGB 15.3 12/17/2019 HCT 46.7 12/17/2019 MCV 104.2 (H) 12/17/2019 EXTMCV 100.2 (H) 05/30/2018 PLT 101 (L) 12/17/2019 RBC 4.48 (L) 12/17/2019 Encounter Summary: ASSESSMENT: Patient Findings Negatives: Patient Reported Falls, Signs/symptoms of thrombosis, Signs/symptoms of bleeding, Changein health, Change in alcohol use, Change in activity, Upcoming invasive procedure, Emergency department visit, Upcoming dental procedure, Missed doses, Extra doses, Change in medications, Change in di et/appetite, Hospital admission, Bruising Warfarin taken in the previous 7 days: 30 mg INR is therapeutic today, back in range with no dose change. PLAN: 1. Will continue weekly warfarin dose of 30 mg/week. 2. Will check next INR in 6 weeks again unless there are any changes before then. 3. Encouraged patient to contact clinic with any changes. Jesse Leong RPh,PharmD [facility] Dept: [phone] documented in this encounter* Tanvir Arnett MD - 07/20/2020 10:45 AM EDT Clinic follow up note PATIENT: Mata Betts : 1955 AGE: 64 y.o. SEX: male RACE: [1] PCP: Jeanna Duff MD REFERRAL: No ref. provider found HPI Presents in f/u. Has had severe nosebleeds that required cauterisation. Coumadin was held for aweek. continues to smoke few cigarettes a day. Denies any new systemic complaints. Compliant with oral iron supplementation. Occasional consumption of red meat. Reports appetite being good. Has chronic back pain ,on opioids throgh Dr Swan. Does not drink alcohol at all. HEMATOLOGIC HX Pt has a h/o WA at age 31 , CABG at 31 yrs of age, several ministrokes, stroke post aneurysm clipping in 2008 while on aspirin and plavix. Patient has h/o severe PAD. Is a chronic smoker. Admitted to the hospital in August 2011 with symptoms suggestive of subacute cerebrovascular ischemic accident. 09/10/2011, CT of the brain without contrast demonstrates an area along the right posterior parietal lobe that exhibits loss of gonzalez-white matter differentiation, concerning for acute to subacute infarct, left frontal and temporal postsurgical changes without evidence of acute intracranial hemorrhage. Was initially evaluated in 2011 in the hematology clinic and hypercoagulable workup that was negative .prothrombin gene mutation and factor V Leiden mutation was negative on 09/03/2011, protein C,S and lupus anticoagulant testing was negative. Antithrombin level was slightly lowerthan normal. Given the history, was placed on coumadin in late 2011, since being on coumadin ,has not had any neurologic or cardiovascular event. 04/30/2017 completely normal total white cell count, H&H, MCV is 100.6, platelet count is 106k. Vitamin B12 and folate within normal limits, peripheral smear evaluation demonstrates granulocytes with pelgeroid changes. 05/08/17- Bone marrow biopsy and aspiration -Normocellular marrow (35%) with trilineage hematopoiesis and neutrophils with Pelgeroid change. Thrombocytopenia and macrocytic RBCs. Cytogenetics demonstrates loss of Y chromosome. No clear evidence of MDS at this time. 03/25/18- Low dose ct scan- 1. Stable bilateral solid lung nodules measuring up to 4 mm in mean diameter. No new or enlarging lung nodules. 2. Mild emphysema. 3. Status post coronary artery bypass grafting. 02/28/19- Low dose ct chest- 1. No new or enlarging pulmonary nodules are present. Stable subcentimeter pulmonary nodules are again identified. 2. Mild emphysema. Lung-RADs 2 11/18/2015- Colonoscopy- Diverticulosis and external hemorrhoids. ALLERGIES No Known Allergies [facility] has a current medication list which includes the following prescription(s): amitriptyline, aspirin, atenolol, atorvastatin, ferrous sulfate, breo ellipta, fluticasone propion-salmeterol, lisinopril, onetouch delica lancets, onetouch verio flex meter, onetouch verio test strips, oxycodone, saline mist, ayr saline, tadalafil, ventolin hfa, warfarin, amoxicillin-clavulanate, and clopidogrel. PMH/PSH Past Medical History: Diagnosis Date Aneurysm (HCC) brain x2 Arteriosclerotic cardiovascular disease direct coronary bypass x 2, 06/23/86 CAD (coronary artery disease) Cerebral aneurysm Cerebral aneurysm Cerebral vascular disease Chronic lung disease Deep vein thrombosis (DVT) (HCC) leg, date unknown Diabetes mellitus (HCC) Dyslipidemia Hyperlipidemia Hypertension Ischemic cardiomyopathy Myocardial infarction (HCC) PAD (peripheral artery disease) (HCC) PAD (peripheral artery disease) (HCC) PVD (peripheral vascular disease) (HCC) Stroke (HCC) Past Surgical History: Procedure Laterality Date abd angio r/o eriberto newborn hearing screener 2006 L common & external iliac art abd angio r/o newborn hearing screener stent eriberto iliac art 2005 ARTERIAL ANEURYSM REPAIR Lt sideof brain CARDIAC CATHETERIZATION 07/20/2010 EF 35% CARDIAC CATHETERIZATION 11/22/2006 EF 45% CARDIAC CATHETERIZATION 05/11/2004 EF 55% CARDIAC CATHETERIZATION 08/14/2003 EF 55% CARDIAC CATHETERIZATION 07/09/2003 CARDIAC CATHETERIZATION 02/16/2003 CARDIAC CATHETERIZATION 10/03/2002 CARDIAC CATHETERIZATION 11/05/2001 CARDIAC CATHETERIZATION 07/04/2001 CARDIAC CATHETERIZATION 09/19/2000 CARDIAC CATHETERIZATION 05/10/2000 CARDIAC CATHETERIZATION 12/23/1999 CARDIAC CATHETERIZATION 12/06/1995 CARDIAC CATHETERIZATION 12/27/1990 CARDIAC CATHETERIZATION 04/27/1987 CARDIAC CATHETERIZATION 06/16/1986 CARDIAC CATHETERIZATION 11/13/2002 CEREBRAL ANEURYSM REPAIR 2008, 2018 bilateral CEREBRAL ANGIOGRAM CORONARY ANGIOPLASTY 02/16/2003 SVG to Marginal Proximal CORONARY ANGIOPLASTY 08/23/2000 SVG to Proximal CX CORONARY ANGIOPLASTY 05/10/2000 Proximal SVG to CX-OM CORONARY ANGIOPLASTY WITH STENT PLACEMENT 05/11/2004 RACHELL SVG to CX-OM, SVG to SHARAN, Ostial SVG to OM CORONARY ANGIOPLASTY WITH STENT PLACEMENT 07/09/2003 RACHELL SVG to OM, SVG to CX-OM CORONARY ANGIOPLASTY WITH STENT PLACEMENT 11/13/02 PTCA/Stent of SVG TO CX Proximal CORONARY ANGIOPLASTY WITH STENT PLACEMENT 10/03/2002 RACHELL Distal LMCA CORONARY ARTERY BYPASS GRAFT 06/23/1986 x2 EPISTAXIS N/A 07/12/2020 Procedure: CONTROL OF EPISTAXIS; Surgeon: Tha Long DO; Location: Main OR; Service: Otolaryngology HEMORRHOIDECTOMY HERNIA REPAIR 1977 ROTATOR CUFF REPAIR Left 2002 FH Family History Problem Relation Age of Onset Heart disease Mother Stroke Mother Hyperlipidemia Mother Hypertension Mother Coronary artery disease Mother Heart attack Father Stroke Father Heart disease Father Coronary artery disease Father Hyperlipidemia Father Hypertension Father Heart disease Sister 8 sisters Coronary artery disease Sister Heart disease Brother 4 brothers Cancer Brother lung 1 brother COPD Brother Heart disease Son Cancer Brother Cancer Brother Lug Early Brother Early Brother Mental illness Son SH Social History Socioeconomic History Marital status: Spouse name: [place] Number of children: 5 Years of education: Not on file Highest education level: 10th grade Occupational History Not on file Social Needs Financial resource strain: Not hard at all Food insecurity Worry: Never true Inability: Never true Transportation needs Medical: No Non-medical: No Tobacco Use Smoking status: Current Every Day Smoker Packs/day: 0.25 Years: 45.00 Pack years: 11.25 Types: Cigarettes Smokeless tobacco: Never Used Substance and Sexual Activity Alcohol use: No Drug use: No Sexual activity: Not Currently Partners: Female Lifestyle Physical activity Days per week: 7 days Minutes per session: 30 min Stress: Not at all Relationships Social connections Talks on phone: Not on file Gets together: Not on file Attends congregation service: Not on file Active member of club or organization: Not on file Attends meetings of clubs or organizations: Not on file Relationship status: Other Topics Concern Not on file Social History Narrative Not on file ROS Review of Systems Constitutional: Negative. HENT: Negative. Eyes: Negative. Respiratory: Negative. Cardiovascular: Negative. Gastrointestinal: Negative. Endocrine: Negative. Genitourinary: Negative. Musculoskeletal: Negative. Skin: Negative. Neurological: Negative. Hematological: Negative. Psychiatric/Behavioral: Negative. EXAM BP (!) 169/69 (BP Location: Right arm) Pulse (!) 53 Temp 97.8 F (36.6 C) (Oral) Ht 5' 7 Wt 62.9 kg (138 lb 11.2 oz) SpO2 96% BMI 21.72 kg/m Physical Exam Constitutional: He is oriented to person, place, and time. He appears well- developed and well-nourished. HENT: Head: Normocephalic and atraumatic. Eyes: Pupils are equal, round, and reactive to light. Conjunctivae and EOM are normal. Neck: Normal range of motion. Neck supple. Cardiovascular: Normal rate and regular rhythm. Pulmonary/Chest: Effort normal and breath sounds normal. Abdominal: Soft. Bowel sounds are normal. Musculoskeletal: Normal range of motion. Neurological: He is alert and oriented to person, place, and time. He has normal reflexes. Skin: Skin is warm and dry. Psychiatric: He has a normal mood and affect. His behavior is normal. Judgment and thought content normal. LABS / IMAGING Reviewed prior labs IMPRESSION 64 year-old chronic smoker, history of cerebral aneurysm status post clipping in 2008, with recent increase in size of the aneurysm, plan for an angiogram, on chronic anticoagulation secondary to history of recurrent stroke, felt to be embolic , noted to have chronic thrombocytopenia with pelgeroid changes in the granulocytes, bm biopsy and aspiration unremarkable ,s/p aneurysmal clipping, on terminal make up operator anticoagulation ASSESSMENT / PLAN 1. 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 He will discuss with Dr Muniz regarding dual antiplatelet therapy versus discontinuation of one antiplatelet agent 2. Thrombocytopenia and macrocytosis -MDs ruled out , prior bone marrow biopsy in 2018 , discussed the findings, potential evolution in future, cbc with diff prior to next visit. Intermittent macrocytosis , asymptomatic, preliminary work up negative. Recommend increasing dietary sources of iron. Recent work up demonstrates stability in counts, no nutritional deficiency 3. Tobacco use disorder- continues to smoke few cigarettes a day, completed low dose ct chest on 07/16/2020 - noted stability in the pulmonary nodules Thank you for the privilege of allowing me to participate in the care of Mata Betts. TANVIR ARNETT MD Template Design [place] documented in this encounter* Jesse Leong RPh,PharmD - 08/05/2020 8:17 AM EDT Anticoagulation Progress Note Date of Visit: August 05, 2020 Patient Name: Mata Betts : 1955 Age: 65 y.o. Mata Betts is here for an anticoagulation follow-up visit. INR obtained via POC finger stick device. Anticoagulation Summary As of 08/05/2020 INR goal: 2.0-3.0 TTR: 81.3 % (2 y) INR used for dosin.2 (08/05/2020) Warfarin maintenance plan: 2.5 mg (5 mg x 0.5) every Tue, Sat; 5 mg (5 mg x 1) all other days Weekly warfarin total: 30 mg Plan last modified: Laxmi Whitney RPh,PharmD (08/01/2018) Next INR check: 09/16/2020 Priority: Maintenance Target end date: Indefinite Indications Cerebrovascular disease [I67.9] PAD (peripheral artery disease) (HCC) [I73.9] Lab Results Component Value Date WBC 5.11 07/12/2020 HGB 14.3 07/12/2020 HCT 42.5 07/12/2020 MCV 98.8 07/12/2020 EXTMCV 100.2 (H) 05/30/2018 PLT 109 (L) 07/12/2020 RBC 4.30 (L) 07/12/2020 Encounter Summary: ASSESSMENT: Patient Findings Negatives: Patient Reported Falls, Signs/symptoms of thrombosis, Signs/symptoms of bleeding, Laboratory test error suspected, Change in health, Change in alcohol use, Change in activity, Upcoming invasive procedure, Emergency department visit, Upcoming dental procedure, Missed doses, Extra doses, Change in medications, Change in diet/appetite, Hospital admission, Bruising, Other complaints Warfarin taken in the previous 7 days: 30 mg INR is therapeutic today. Was low last month due to being off warfarin for several days. Has been very stable on this dose. PLAN: 1. Will continue weekly warfarin dose of 30 mg/week. 2. Will check next INR back to 6 weeks as had been doing unless there are any changes before then. 3. Encouraged patient to contact clinic with any changes. Jesse Leong RPh,PharmD [facility] Dept: [phone] documented in this encounter Reason for Referral Status Reason Specialty Diagnoses / Procedures Referred By Contact Referred To Contact Pending Review Cardiology Diagnoses Stenosis of left carotid artery Procedures Carotid Duplex Lara Swan MD [address] [place] [address] Status Reason Specialty Diagnoses / Procedures Referred By Contact Referred To Contact Authorized Specialty Services Required/Patie nt's Best Interest Otolaryngology (ENT) / Otolaryngology Diagnoses Thrombocytopeni a (HCC) Bleeding nose Tanvir Arnett MD [address] [place] [address] Joao Bassett MD [address] [facility] [place] [address] Status Reason Specialty Diagnoses / Procedures Referred By Contact Referred To Contact Closed Specialty Services Required/Patie nt's Best Interest Otolaryngology (ENT) / Otolaryngology Diagnoses Thrombocytopenia (HCC) Bleeding nose Tanvir Arnett MD [address] [place] [address] Joao Bassett MD [address] [facility] [address] [place] [address] Status Reason Specialty Diagnoses / Procedures Referred By Contact Referred To Contact Pending Review Radiology Diagnoses Personal history of nicotine dependence Thrombocytopenia (HCC) Anticoagulation management encounter Tobacco use Procedures CT Lung Cancer Screening Tanvir Arnett MD [address] [place] [id number] Status Reason Specialty Diagnoses / Procedures Referre d By Contact Referred To Contact Closed Radiology Diagnoses Personal history of nicotine dependence Thrombocytopenia (HCC) Anticoagulation management encounter Tobacco use Procedures CT Lung Cancer Screening Tanvir Arnett MD [address] [place] [address] Status Reason Specialty Diagnoses / Procedures Referred By Contact Referred To Contact Pending Review Cardiology Diagnoses Carotid stenosis, bilateral Procedures Ultrasound doppler carotid Elza Dietrich PA-C [address] [place] [address] Status Reason Specialty Diagnoses / Procedures Referred By Contact Referred To Contact Authorized Hand Surgery / Orthopedic Surgery Diagnoses Finger pain, left Rupture of extensor tendon of finger Destinee Sotelo, CLINICAL AUDIOLOGIST [address] [facility] [address] [place] [address] Devyn Will MD [address] [facility] [address] [place] [address] Status Reason Specialty Diagnoses / Procedures Referred By Contact Referred To Contact Pending Review Cardiology Diagnoses Bilateral carotid artery stenosis Procedures Carotid Duplex Lara Swan MD [address] [facility] [address] [place] [address] Status Reason Specialty Diagnoses / Procedures Referre d By Contact Referred To Contact Closed Radiology Diagnoses Personal history of nicotine dependence Anticoagulation management encounter Procedures CT Lung Cancer Screening Tanvir Arnett MD [address] [place] [address] Specialty Diagnoses / Procedures Referred By Contac t Referred To Contact Cardiology Diagnoses PND (paroxysmal nocturnal dyspnea) Procedures [place] [address] [place] [address] Referral ID Status Reason Start Date Expiration Date V isits Requested Visits Authorized [id number] Authorized 04/08/2021 04/08/2022 1 1 Specialty Diagnoses / Procedures Referred By Contac t Referred To Contact Cardiology Diagnoses Essential hypertension Procedures ECG 12 [place] [address] [place] [address] Referral ID Status Reason Start Date Expiration Date V isits Requested Visits Authorized [id number] Authorized 04/07/2021 04/07/2022 3 3 Specialty Diagnoses / Procedures Referred By Contac t Referred To Contact Radiology Diagnoses Coronary artery disease involving [place]-apache coronary artery of [place]-apache heart without angina pectoris Mixed hyperlipidemia Primary hypertension Abnormal EKG Procedures NM Myocardial Perfusion [place] [address] [place] [address] Referral ID Status Reason Start Date Expiration Date V isits Requested Visits Authorized [id number] New Request 04/20/2021 04/20/2022 4 4 Specialty Diagnoses / Procedures Referred By Contac t Referred To Contact Radiology Diagnoses Anticoagulation management encounter Personal history of nicotine dependence Pulmonary nodules Tobacco use Other specified abnormal findings of blood chemistry Procedures CT Lung Cancer Screening Tanvir Arnett MD [address] [place] [address] Referral ID Status Reason Start Date Expiration Date V isits Requested Visits Authorized [id number] New Request 07/14/2021 07/14/2022 1 1 Specialty Diagnoses / Procedures Referred By Contac t Referred To Contact Pain Management Diagnoses Primary osteoarthritis involving multiple joints Jeanna Duff MD [address] [place] [address] Holden Cruz MD [address] [place] [address] Referral ID Status Reason Start Date Expiration Date Visits Requested Visits Authorized [id number] Authorized Specialty Services Required/Pat ient's Best Interest 06/01/2021 06/01/2022 1 1 Specialty Diagnoses / Procedures Referred By Contac t Referred To Contact Radiology Diagnoses Anticoagulation management encounter Pulmonary nodules Personal history of nicotine dependence Tobacco use Tobacco use disorder Screening for malignant neoplasm of respiratory organ Procedures CT Lung Cancer Screening Tanvir Arnett MD [address] [place] [address] Referral ID Status Reason Start Date Expiration Date V isits Requested Visits Authorized [id number] New Request 07/15/2022 07/15/2023 1 1 Specialty Diagnoses / Procedures Referred By Contac t Referred To Contact Cardiology Diagnoses Valvular heart disease Procedures [place]ocardi[place] [address] [place] [address] Referral ID Status Reason Start Date Expiration Date V isits Requested Visits Authorized [id number] New Request 04/10/2022 04/10/2023 1 1 Specialty Diagnoses / Procedures Referred By Contac t Referred To Contact Cardiology Diagnoses Benign essential hypertension Procedures ECG 12 Lead Mejia Campoverde MD [address] [place] [address] Referral ID Status Reason Start Date Expiration Date V isits Requested Visits Authorized [id number] Authorized 04/10/2022 04/10/2023 3 3 Specialty Diagnoses / Procedures Referred By Contac t Referred To Contact Radiology Diagnoses Valvular heart disease Procedures MR Cardiac Morphology With And Without Contrast [place] [address] [place] [address] Referral ID Status Reason Start Date Expiration Date V isits Requested Visits Authorized [id number] New Request 05/12/2022 05/12/2023 1 1 Specialty Diagnoses / Procedures Referred By Contac t Referred To Contact Cardiology Diagnoses Screening for abdominal aortic aneurysm Procedures Ultrasound abd aortic aneurysm screen [employer]isse Painting, JESSI [address] [place] [address] [place] [address] Referral ID Status Reason Start Date Expiration Date V isits Requested Visits Authorized [id number] New Request 12/05/2022 12/05/2023 1 1 Specialty Diagnoses / Procedures Referred By Contac t Referred To Contact Neurology Diagnoses Intracranial vascular stenosis Procedures CONSULT TO NEUROLOGY OFFICE/OUTPATIENT [facility] HIGH MDM 60-74 MINUTES Munir Berrios, CHRISTINE.CLINICAL AUDIOLOGIST [address] [place] [id number] Referral ID Status Reason Start Date Expiration Date Visits Requested Visits Authorized [id number] Pending Review PCP Requested Referral 02/26/2023 02/26/2024 1 1 Specialty Diagnoses / Procedures Referred By Contac t Referred To Contact Rehabilitation Diagnoses Weakness of left lower extremity Pain of left hip Acute pain of left knee Charisse Painting, JESSI [address] [place] [address] [facility] [place] [address] [place] [phone] Referral ID Status Reason Start Date Expiration Date V isits Requested Visits Authorized [id number] Pending Review 03/22/2023 03/21/2024 1 1 Specialty Diagnoses / Procedures Referred By Contac t Referred To Contact Neurology Diagnoses Weakness of left lower extremity Pain of left hip Acute pain of left knee [employer]isse Pain[employer], JESSI [address] [place] [address] Ko Puentes MD [address] [facility] [address] [place] [address] Referral ID Status Reason Start Date Expiration Date V isits Requested Visits Authorized [id number] Authorized 03/22/2023 03/21/2024 1 1 Specialty Diagnoses / Procedures Referred By Contac t Referred To Contact Rehabilitation Diagnoses Low back pain, unspecified back pain laterality, unspecified chronicity, unspecified whether sciatica present Lumbar radiculopathy Lara Swan MD [address] [place] [address] [facility] [address] [facility] [place] [address] Referral ID Status Reason Start Date Expiration Date V isits Requested Visits Authorized [id number] Pending Review 03/29/2023 03/28/2024 1 1 Discharge Instructions * Instructions* Bonny Camacho MD - 07/12/[address] Long's office now. * Attachments The following attachments cannot be sent through Care Everywhere. * Nosebleeds (Bulgarian) documented in this encounter* Discharge Instr - Other Orders* Amira Eddy RN - 07/12/2020 5:14 PM EDT GENERAL POST-OPERATIVE PATIENT INSTRUCTIONS ANESTHESIA PRECAUTIONS: A responsible adult must stay with you for at least 24 hours after surgery. You may feel light headed,, dizzy, or nauseated during this time. 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 Reason Onset Date Comments Medication Refill 02/06/2023 Reason Comments Back Pain Sunday, Picked up sa nd bags, felt something in leg (doesn't know what it was). Had to crawl to his house because he couldn't walk due to pain. Chiropractor yesterday couldn't help him yesterday Can't lay flat. Aleve not helpful. Ice not helpful. Says pain is in left thigh and knee. ED did xr's, were negative. Gap Closure (Health Maintenance) [facility] Visit due on 06/01/2022iabetic Eye Exam due on 07/26/2022OVID-19 Vaccine( season) due on 12/22/2022epression Screening (PHQ-2/9) due on 04/27/2023 Reason Comments Physical Therapy Specialty Diagnoses / Procedures Referred By Dilcia ray Referred To Contact Rehabilitation Diagnoses Low back pain, unspecified back pain laterality, unspecified chronicity, unspecified whether sciatica present Lumbar radiculopathy Lara Swan MD [address] [facility] [address] [place] [address] [facility] [address] [place] [address] Referral ID Status Reason Start Date Expiration Date V isits Requested Visits Authorized [id number] Authorized 03/29/2023 03/28/2024 1 199 Mayi Mitchell RN - 07/12/2020 9:56 AM EDTLMayi posada RN - 07/12/2020 9:07 AM EDT ED Notes (unrecognized secti on and content) Neosynephrine adminisitered, nasal clamp re-applied. Large clot approximatly 2.5-3 inches passed when clamp removed. Nose continues with steady drip of blood. Dr. Camacho notified. Patient reports nose bleeding intermittently since yesterday, beginning again this morning. Unable to control bleeding. Clots noted. Patient reports history of cauterization of nose related to nose bleeds. On coumadin, plavix and 81mg aspirin daily. documented in this encounter Tha Long, DO - 07/12/2020 2:55 PM EDTTha Long, DO - 07/12/2020 3:45 PM EDTTha Long, DO - 07/12/2020 2:55 PM EDT H&P Notes (unrecognized sect ion and content) Subjective Patient ID: Mata Betts is a 64 y.o. male. Patient is here for epistaxis. Right side. Went to ED, clot removed and nose clamp applied. He continues to drip. Patient is on Warfarin, Plavix and Asa. The following portions of the patient's history were reviewed and updated as appropriate: allergies, current medications, past family history, past medical history, past social history, past surgical history and problem list. Review of Systems Constitutional: Negative for chills and diaphoresis. HENT: Positive for nosebleeds. Negative for ear discharge and ear pain. Eyes: Negative for discharge and redness. Respiratory: Negative for apnea and cough. Cardiovascular: Negative for chest pain and palpitations. Musculoskeletal: Negative for neck pain and neck stiffness. Skin: Negative for color change and pallor. Allergic/Immunologic: Negative for immunocompromised state. Neurological: Negative for facial asymmetry and numbness. Hematological: Does not bruise/bleed easily. Psychiatric/Behavioral: Negative for agitation and confusion. Objective Physical Exam Vitals signs and nursing note reviewed. Constitutional: Appearance: Normal appearance. He is well-developed. Comments: The patient is well-developed and well-nourished without obvious deformity. HENT: Head: Normocephalic and atraumatic. Right Ear: Tympanic membrane, ear canal and external ear normal. Left Ear: Tympanic membrane, ear canal and external ear normal. Nose: Right Nostril: Epistaxis present. Mouth/Throat: Mouth: Mucous membranes are moist. Eyes: General: Lids are normal. Conjunctiva/sclera: Conjunctivae normal. Left eye: No chemosis. Pupils: Pupils are equal, round, and reactive to light. Neck: Musculoskeletal: Normal range of motion and neck supple. Thyroid: No thyromegaly. Trachea: No tracheal deviation. Cardiovascular: Rate and Rhythm: Normal rate and regular rhythm. Heart sounds: Normal heart sounds. Pulmonary: Effort: Pulmonary effort is normal. Breath sounds: Normal breath sounds. No stridor. Lymphadenopathy: Head: Right side of head: No submental, submandibular, preauricular, posterior auricular or occipital adenopathy. Left side of head: No submental, submandibular, preauricular, posterior auricular or occipital adenopathy. Cervical: No cervical adenopathy. Right cervical: No superficial cervical adenopathy. Left cervical: No superficial or deep cervical adenopathy. Skin: General: Skin is warm and dry. Neurological: Mental Status: He is alert and oriented to person, place, and time. Coordination: Coordination normal. Gait: Gait normal. Comments: III, IV, : EOM normal V: 1,2,3: normal sensation VII: Normal strength in all divisions. IX, X: Normal voice, palatal elevation and sensation XI: Shoulder strength normal XII: Tongue mobility normal Psychiatric: Mood and Affect: Mood is not anxious. Affect is not angry. Speech: Speech is not delayed or slurred. Behavior: Behavior normal. Behavior is not agitated or aggressive. 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 2, 06/23/86 CAD (coronary artery disease) Cerebral aneurysm Cerebral aneurysm Cerebral vascular disease Chronic lung disease Deep vein thrombosis (DVT) (HCC) leg, date unknown Diabetes mellitus (HCC) Dyslipidemia Hyperlipidemia Hypertension Ischemic cardiomyopathy Myocardial infarction (HCC) PAD (peripheral artery disease) (HCC) PAD (peripheral artery disease) (HCC) PVD (peripheral vascular disease) (HCC) Stroke (HCC) Past Surgical History: Procedure Laterality Date abd angio r/o eriberto newborn hearing screener 2006 L common & external iliac art abd angio r/o newborn hearing screener stent eriberto iliac art 2006 ARTERIAL ANEURYSM REPAIR Lt sideof brain CARDIAC CATHETERIZATION 07/20/2010 EF 35% CARDIAC CATHETERIZATION 11/22/2006 EF 45% CARDIAC CATHETERIZATION 05/11/2004 EF 55% CARDIAC CATHETERIZATION 08/14/2003 EF 55% CARDIAC CATHETERIZATION 07/09/2003 CARDIAC CATHETERIZATION 02/16/2003 CARDIAC CATHETERIZATION 10/03/2002 CARDIAC CATHETERIZATION 11/05/2001 CARDIAC CATHETERIZATION 07/04/2001 CARDIAC CATHETERIZATION 09/19/2000 CARDIAC CATHETERIZATION 05/10/2000 CARDIAC CATHETERIZATION 12/23/1999 CARDIAC CATHETERIZATION 12/06/1995 CARDIAC CATHETERIZATION 12/27/1990 CARDIAC CATHETERIZATION 04/27/1987 CARDIAC CATHETERIZATION 06/16/1986 CARDIAC CATHETERIZATION 11/13/2002 CEREBRAL ANEURYSM REPAIR 2008, 2017 bilateral CEREBRAL ANGIOGRAM CORONARY ANGIOPLASTY 02/16/2003 SVG to Marginal Proximal CORONARY ANGIOPLASTY 08/23/2000 SVG to Proximal CX CORONARY ANGIOPLASTY 05/10/2000 Proximal SVG to CX-OM CORONARY ANGIOPLASTY WITH STENT PLACEMENT 05/11/2004 RACHELL SVG to CX-OM, SVG to SHARAN, Ostial SVG to OM CORONARY ANGIOPLASTY WITH STENT PLACEMENT 07/09/2003 RACHELL SVG to OM, SVG to CX-OM CORONARY ANGIOPLASTY WITH STENT PLACEMENT 11/13/02 PTCA/Stent of SVG TO CX Proximal CORONARY ANGIOPLASTY WITH STENT PLACEMENT 10/03/2002 RACHELL Distal LMCA CORONARY ARTERY BYPASS GRAFT 06/23/1986 x2 HEMORRHOIDECTOMY HERNIA REPAIR 1978 ROTATOR CUFF REPAIR Left 2002 Family History Problem Relation Age of Onset Heart disease Mother Stroke Mother Hyperlipidemia Mother Hypertension Mother Coronary artery disease Mother Heart attack Father Stroke Father Heart disease Father Coronary artery disease Father Hyperlipidemia Father Hypertension Father Heart disease Sister 8 sisters Coronary artery disease Sister Heart disease Brother 4 brothers Cancer Brother lung 1 brother COPD Brother Heart disease Son Cancer Brother Cancer Brother Lug Early Brother Early Brother Mental illness Son Assessment/Plan: Assessment Diagnoses and all orders for this visit: Epistaxis I removed the rapid rhino pack that was placed today as it was half extruded from the patient's nose. I placed a 8.5cm merocel pack coated in antibiotic ointment in the right nares without difficulty. Follow up in 5 days for packing removal. Bybee saline gel: apply a pea sized amount to both nostrils including packing to keep it moist before bed and in a.m. Nasal saline spray 4-6 times daily augmentin 875mg one by mouth every 12 hours for 10 days. Follow up in 5 days for packing removal. Chronic anticoagulation documented in this encounter INTERVAL HISTORY AND PHYSICAL Patient Name: Mata Betts Admit Date: [id number] MR #: [id number] : 1955 The H&P has been reviewed and the patient has been examined. I concur with the findings of the H&P. There are no significant changes. It is appropriate to proceed with the planned procedure. Tha Long DO 07/12/2020 3:45 PM Subjective Patient ID: Mata Betts is a 64 y.o. male. Patient is here for epistaxis. Right side. Went to ED, clot removed and nose clamp applied. He continues to drip. Patient is on Warfarin, Plavix and Asa. The following portions of the patient's history were reviewed and updated as appropriate: allergies, current medications, past family history, past medical history, past social history, past surgical history and problem list. Review of Systems Constitutional: Negative for chills and diaphoresis. HENT: Positive for nosebleeds. Negative for ear discharge and ear pain. Eyes: Negative for discharge and redness. Respiratory: Negative for apnea and cough. Cardiovascular: Negative for chest pain and palpitations. Musculoskeletal: Negative for neck pain and neck stiffness. Skin: Negative for color change and pallor. Allergic/Immunologic: Negative for immunocompromised state. Neurological: Negative for facial asymmetry and numbness. Hematological: Does not bruise/bleed easily. Psychiatric/Behavioral: Negative for agitation and confusion. Objective Physical Exam Vitals signs and nursing note reviewed. Constitutional: Appearance: Normal appearance. He is well-developed. Comments: The patient is well-developed and well-nourished without obvious deformity. HENT: Head: Normocephalic and atraumatic. Right Ear: Tympanic membrane, ear canal and external ear normal. Left Ear: Tympanic membrane, ear canal and external ear normal. Nose: Right Nostril: Epistaxis present. Mouth/Throat: Mouth: Mucous membranes are moist. Eyes: General: Lids are normal. Conjunctiva/sclera: Conjunctivae normal. Left eye: No chemosis. Pupils: Pupils are equal, round, and reactive to light. Neck: Musculoskeletal: Normal range of motion and neck supple. Thyroid: No thyromegaly. Trachea: No tracheal deviation. Cardiovascular: Rate and Rhythm: Normal rate and regular rhythm. Heart sounds: Normal heart sounds. Pulmonary: Effort: Pulmonary effort is normal. Breath sounds: Normal breath sounds. No stridor. Lymphadenopathy: Head: Right side of head: No submental, submandibular, preauricular, posterior auricular or occipital adenopathy. Left side of head: No submental, submandibular, preauricular, posterior auricular or occipital adenopathy. Cervical: No cervical adenopathy. Right cervical: No superficial cervical adenopathy. Left cervical: No superficial or deep cervical adenopathy. Skin: General: Skin is warm and dry. Neurological: Mental Status: He is alert and oriented to person, place, and time. Coordination: Coordination normal. Gait: Gait normal. Comments: III, IV, : EOM normal V: 1,2,3: normal sensation VII: Normal strength in all divisions. IX, X: Normal voice, palatal elevation and sensation XI: Shoulder strength normal XII: Tongue mobility normal Psychiatric: Mood and Affect: Mood is not anxious. Affect is not angry. Speech: Speech is not delayed or slurred. Behavior: Behavior normal. Behavior is not agitated or aggressive. 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 2, 06/23/86 CAD (coronary artery disease) Cerebral aneurysm Cerebral aneurysm Cerebral vascular disease Chronic lung disease Deep vein thrombosis (DVT) (HCC) leg, date unknown Diabetes mellitus (HCC) Dyslipidemia Hyperlipidemia Hypertension Ischemic cardiomyopathy Myocardial infarction (HCC) PAD (peripheral artery disease) ([facility]) PAD (peripheral artery disease) (HCC) PVD (peripheral vascular disease) ([facility]) Stroke ([facility]) Past Surgical History: Procedure Laterality Date abd angio r/o eriberto newborn hearing screener 2007 L common & external iliac art abd angio r/o newborn hearing screener stent eriberto iliac art 2006 ARTERIAL ANEURYSM REPAIR Lt sideof brain CARDIAC CATHETERIZATION 07/20/2010 EF 35% CARDIAC CATHETERIZATION 11/22/2006 EF 45% CARDIAC CATHETERIZATION 05/11/2004 EF 55% CARDIAC CATHETERIZATION 08/14/2003 EF 55% CARDIAC CATHETERIZATION 07/09/2003 CARDIAC CATHETERIZATION 02/16/2003 CARDIAC CATHETERIZATION 10/03/2002 CARDIAC CATHETERIZATION 11/05/2001 CARDIAC CATHETERIZATION 07/04/2001 CARDIAC CATHETERIZATION 09/19/2000 CARDIAC CATHETERIZATION 05/10/2000 CARDIAC CATHETERIZATION 12/23/1999 CARDIAC CATHETERIZATION 12/06/1995 CARDIAC CATHETERIZATION 12/27/1990 CARDIAC CATHETERIZATION 04/27/1987 CARDIAC CATHETERIZATION 06/16/1986 CARDIAC CATHETERIZATION 11/13/2002 CEREBRAL ANEURYSM REPAIR 2008, 2017 bilateral CEREBRAL ANGIOGRAM CORONARY ANGIOPLASTY 02/16/2003 SVG to Marginal Proximal CORONARY ANGIOPLASTY 08/23/2000 SVG to Proximal CX CORONARY ANGIOPLASTY 05/10/2000 Proximal SVG to CX-OM CORONARY ANGIOPLASTY WITH STENT PLACEMENT 05/11/2004 RACHELL SVG to CX-OM, SVG to SHARAN, Ostial SVG to OM CORONARY ANGIOPLASTY WITH STENT PLACEMENT 07/09/2003 RACHELL SVG to OM, SVG to CX-OM CORONARY ANGIOPLASTY WITH STENT PLACEMENT 11/13/02 PTCA/Stent of SVG TO CX Proximal CORONARY ANGIOPLASTY WITH STENT PLACEMENT 10/03/2002 RACHELL Distal LMCA CORONARY ARTERY BYPASS GRAFT 06/23/1986 x2 HEMORRHOIDECTOMY HERNIA REPAIR 1977 ROTATOR CUFF REPAIR Left 2002 Family History Problem Relation Age of Onset Heart disease Mother Stroke Mother Hyperlipidemia Mother Hypertension Mother Coronary artery disease Mother Heart attack Father Stroke Father Heart disease Father Coronary artery disease Father Hyperlipidemia Father Hypertension Father Heart disease Sister 8 sisters Coronary artery disease Sister Heart disease Brother 4 brothers Cancer Brother lung 1 brother COPD Brother Heart disease Son Cancer Brother Cancer Brother Lug Early Brother Early Brother Mental illness Son Assessment/Plan: Assessment Diagnoses and all orders for this visit: Epistaxis I removed the rapid rhino pack that was placed today as it was half extruded from the patient's nose. I placed a 8.5cm merocel pack coated in antibiotic ointment in the right nares without difficulty. Follow up in 5 days for packing removal. Bybee saline gel: apply a pea sized amount to both nostrils including packing to keep it moist before bed and in a.m. Nasal saline spray 4-6 times daily augmentin 875mg one by mouth every 12 hours for 10 days. Follow up in 5 days for packing removal. Chronic anticoagulation documented in this encounter Care Teams (unrecognized sec tion and content) [employer] Business [employer] Officer Relationship Specialty Start Date End Date Jeanna Duff MD [address] [place] [address] PCP - General Family Medicine 10/23/17 [employer] Business Development Officer Relationship Specialty Start Date End Date Jeanna Duff MD [address] [place] [address] PCP - General Family Medicine 10/23/17 [employer] Business Development Officer Relationship Specialty Start Date End Date Jeanna Duff MD [address] [place] [address] PCP - General Family Medicine 10/23/17 S[employer] Business Development Officer Relationship Specialty Start Date End Date Jeanna Duff MD [address] [place] [address] PCP - General Family Medicine 10/23/17 Sba Business Development Officer Relationship Specialty Start Date End Date Jeanna Duff MD [address] [place] [address] PCP - General Family Medicine 10/23/17 S[employer] Business Development Officer Relationship Specialty Start Date End Date Jeanna Duff MD [address] [place] [address] PCP - General Family Medicine 10/23/17 S[employer] Business Development Officer Relationship Specialty Start Date End Date Jeanna Duff MD [address] [place] [address] PCP - General Family Medicine 10/23/17 S[employer] Business Development Officer Relationship Specialty Start Date End Date Jeanna Duff MD [address] [place] [facility] [place] [address] PCP - General Family Medicine 10/23/17 S[employer] Business Development Officer Relationship Specialty Start Date End Date Jeanna Duff MD [address] [place] [facility] [place] [address] PCP - General Family Medicine 10/23/17 Sba Business Development Officer Relationship Specialty Start Date End Date Jeanna Duff MD [address] [place] [facility] [place] [address] PCP - General Family Medicine 10/23/17 [employer] Business Development Officer Relationship Specialty Start Date End Date Jeanna Duff MD [address] [place] [facility] [place] [address] PCP - General Family Medicine 10/23/17 [employer] Business Development Officer Relationship Specialty Start Date End Date Jeanna Duff MD [address] [place] [facility] [place] [address] PCP - General Family Medicine 10/23/17 S[employer] Business Development Officer Relationship Specialty Start Date End Date Jeanna Duff MD [address] [place] [facility] [place] [address] PCP - General Family Medicine 10/23/17 Sba Business Development Officer Relationship Specialty Start Date End Date Jeanna Duff MD [address] [place] [facility] [place] [address] PCP - General Family Medicine 10/23/17 Sba Business Development Officer Relationship Specialty Start Date End Date Jeanna Duff MD [address] [place] [facility] [place] [address] PCP - General Family Medicine 10/23/17 [employer] Business Development Officer Relationship Specialty Start Date End Date Jeanna Duff MD [address] [place] [facility] [place] [address] PCP - General Family Medicine 06/21/21 [employer] Business Development Officer Relationship Specialty Start Date End Date Jeanna Duff MD [address] [place] [facility] [place] [address] PCP - General Family Medicine 10/23/17 [employer]ba Business Development Officer Relationship Specialty Start Date End Date Jeanna Duff MD [address] [place] [facility] [place] [address] PCP - General Family Medicine 10/23/17 Sba Business Development Officer Relationship Specialty Start Date End Date Jeanna Duff MD [address] [place] [facility] [place] [address] PCP - General Family Medicine 10/23/17 Sba Business Development Officer Relationship Specialty Start Date End Date Jeanna Duff MD [address] [place] [facility] [place] [address] PCP - General Family Medicine 10/23/17 Sba Business Development Officer Relationship Specialty Start Date End Date Jeanna Duff MD [address] [place] [facility] [place] [address] PCP - General Family Medicine 10/23/17 [employer] Business Development Officer Relationship Specialty Start Date End Date Jeanna Duff MD [address] [place] [facility] [place] [address] PCP - General Family Medicine 10/23/17 S[employer] Business Development Officer Relationship Specialty Start Date End Date Jeanna Duff MD [address] [place] [facility] [place] [address] PCP - General Family Medicine 10/23/17 [employer] Business Development Officer Relationship Specialty Start Date End Date Jeanna Duff MD [address] [place] [facility] [place] [address] PCP - General Family Medicine 10/23/17 [employer] Business Development Officer Relationship Specialty Start Date End Date Jeanna Duff MD [address] [place] [facility] [place] [address] PCP - General Family Medicine 10/23/17 [employer] Business Development Officer Relationship Specialty Start Date End Date Jeanna Duff MD [address] [place] [address] PCP - General Family Medicine 10/23/17 [employer] Business Development Officer Relationship Specialty Start Date End Date Jeanna Duff MD [address] [place] [address] PCP - General Family Medicine 10/23/17 Meija Campoverde MD [address] [address] Consulting Physician Interventional Cardiology 04/11/22 [employer] Business Development Officer Relationship Specialty Start Date End Date Jeanna Duff MD [address] [place] [address] PCP - General Family Medicine 10/23/17 Mejia Campoverde MD [address] [address] Consulting Physician Interventional Cardiology 04/11/22 [employer] Business Development Officer Relationship Specialty Start Date End Date Jeanna Duff MD [address] [place] [address] PCP - General Family Medicine 10/23/17 Mejia Campoverde MD [address] [address] Consulting Physician Interventional Cardiology 04/11/22 [employer] Business Development Officer Relationship Specialty Start Date End Date Jeanna Duff MD [address] [place] [address] PCP - General Family Medicine 10/23/17 Mejia Campoverde MD [address] [address] Consulting Physician Interventional Cardiology 04/11/22 [employer] Business Development Officer Relationship Specialty Start Date End Date Jeanna Duff MD [address] [place] [address] PCP - General Family Medicine 10/23/17 Mejia Campoverde MD [address] [address] Consulting Physician Interventional Cardiology 04/11/22 [employer] Business Development Officer Relationship Specialty Start Date End Date Jeanna Duff MD [address] [place] [address] PCP - General Family Medicine 10/23/17 Mejia Campoverde MD [address] [address] Consulting Physician Interventional Cardiology 04/11/22 [employer] Business Development Officer Relationship Specialty Start Date End Date Jeanna Duff MD [address] [place] [address] PCP - General Family Medicine 10/23/17 Mejia Campoverde MD [address] [address] Consulting Physician Interventional Cardiology 04/11/22 [employer]ba Business Development Officer Relationship Specialty Start Date End Date Jeanna Duff MD [address] [place] [address] PCP - General Family Medicine 10/23/17 Mejia Campoverde MD [address] [address] Consulting Physician Interventional Cardiology 04/11/22 [employer] Business Development Officer Relationship Specialty Start Date End Date Jeanna Duff MD [address] [place] [address] PCP - General Family Medicine 10/23/17 Mejia Campoverde MD [address] [address] Consulting Physician Interventional Cardiology 04/11/22 [employer] Business Development Officer Relationship Specialty Start Date End Date Jeanna Duff MD [address] [place] [address] PCP - General Family Medicine 10/23/17 Mejia Campoverde MD [address] [address] Consulting Physician Interventional Cardiology 04/11/22 [employer]ba Business Development Officer Relationship Specialty Start Date End Date Jeanna Duff MD [facility] [place] [address] PCP - General Family Medicine 10/23/17 Mejia Campoverde MD [address] [address] Consulting Physician Interventional Cardiology 04/11/22 [employer] Business Development Officer Relationship Specialty Start Date End Date Jeanna Duff MD [facility] [place] [address] PCP - General Family Medicine 10/23/17 Mejia Campoverde MD [address] [address] Consulting Physician Interventional Cardiology 04/11/22 [employer] Business Development Officer Relationship Specialty Start Date End Date Jeanna Duff MD [address] [place] [address] PCP - General Family Medicine 10/23/17 Mejia Campoverde MD [address] [place] [id number] Consulting Physician Interventional Cardiology 04/11/22 [employer] Business Development Officer Relationship Specialty Start Date End Date Charisse Painting CNP [address] [place] [address] PCP - General Nurse Practitioner 10/17/22 Mejia Campoverde MD [address] [place] [address] Consulting Physician Interventional Cardiology 04/11/22 [employer] Business Development Officer Relationship Specialty Start Date End Date Charisse Painting CNP [address] [place], [place] [id number] PCP - General Nurse Practitioner 10/17/22 Mejia Campoverde MD [address] [place] [address] Consulting Physician Interventional Cardiology 04/11/22 [employer] Relationship Specialty Start Date End Date Charisse Painting, JESSI [address] [place] [address] PCP - General Nurse Practitioner 10/17/22 Mejia Campoverde MD [address] [place] [id number] Consulting Physician Interventional Cardiology 04/11/22 [employer] Officer Relationship Specialty Start Date End Date Charisse Painting CNP [address] [place], [place] [phone] PCP - General Nurse Practitioner 10/17/22 Mejia Campoverde MD [address] [address] Consulting Physician Interventional Cardiology 04/11/22 [employer] Officer Relationship Specialty Start Date End Date Charisse Paintinglake JESSI [address] [place] [phone] PCP - General Nurse Practitioner 10/17/22 Mejia Campoverde MD [address] [address] Consulting Physician Interventional Cardiology 04/11/22 [employer] Officer Relationship Specialty Start Date End Date Charisse Painting JESSI [address] [place] [phone] PCP - General Nurse Practitioner 10/17/22 Mejia Campoverde MD [address] [address] Consulting Physician Interventional Cardiology 04/11/22 [employer] Officer Relationship Specialty Start Date End Date Gayatri Burrell MD [address] [phone] PCP - General Cardiology 12/15/08 Mikayla Rosales [address] [place] [address] Primary Staff Physician Cardiology 07/09/18 [employer] Officer Relationship Specialty Start Date End Date Gayatri Burrell MD [address] [place] [address] PCP - General Cardiology 12/15/08 Mikayla Rosales [address] [place] [address] Primary Staff Physician Cardiology 07/09/18 [employer] Officer Relationship Specialty Start Date End Date Gayatri Burrell MD [address] [place] [address] PCP - General Cardiology 12/15/08 Mikayla Rosales [address] [place] [address] Primary Staff Physician Cardiology 07/09/18 [employer] Officer Relationship Specialty Start Date End Date Charisse Painting CNP [address] [place] [address] PCP - General Nurse Practitioner 10/17/22 Mejia Campoverde MD [address] [address] Consulting Physician Interventional Cardiology 04/11/22 [employer] Officer Relationship Specialty Start Date End Date Charisse Painting CNP [address] [place] [phone] PCP - General Nurse Practitioner 10/17/22 Mejia Campoverde MD [address] [address] Consulting Physician Interventional Cardiology 04/11/22 [employer] Officer Relationship Specialty Start Date End Date Charisse Painting CNP [address] [place] [address] PCP - General Nurse Practitioner 10/17/22 Mejia Campoverde MD [address] [address] Consulting Physician Interventional Cardiology 04/11/22 [employer] Officer Relationship Specialty Start Date End Date Charisse Painting CNP [address] [place] [id number] PCP - General 02/06/23 Mikayla Rosales Primary Staff Physician Cardiology 07/09/18 [employer] Officer Relationship Specialty Start Date End Date Charisse PaintingJESSI [address] [place] [address] PCP - General 02/06/23 Mikayla Rosales Primary Staff Physician Cardiology 07/09/18 [employer] Officer Relationship Specialty Start Date End Date Charisse PaintingJESSI bethea [address] [place] [address] PCP - General Nurse Practitioner 10/17/22 Mejia Campoverde MD [address] [place] [address] Consulting Physician Interventional Cardiology 04/11/22 [employer] Officer Relationship Specialty Start Date End Date Charisse PaintingJESSI bethea [address] [place] [address] PCP - General Nurse Practitioner 10/17/22 Mejia Campoverde MD [address] [place] [address] Consulting Physician Interventional Cardiology 04/11/22 [employer] Officer Relationship Specialty Start Date End Date PaintingCharisse CNP [address] [place] [address] PCP - General Nurse Practitioner 10/17/22 Mejia Campoverde MD [address] [address] Consulting Physician Interventional Cardiology 04/11/22 [employer] Officer Relationship Specialty Start Date End Date Charisse Painting CNP [address] [place] [address] PCP - General Nurse Practitioner 10/17/22 Mejia Campoverde MD [address] [address] Consulting Physician Interventional Cardiology 04/11/22 [employer] Officer Relationship Specialty Start Date End Date Charisse Painting CNP [address] [place] [address] PCP - General Nurse Practitioner 10/17/22 Mejia Campoverde MD [address] [address] Consulting Physician Interventional Cardiology 04/11/22 [employer] Officer Relationship Specialty Start Date End Date Charisse Painting CNP [address] [place] [phone] PCP - General Nurse Practitioner 10/17/22 Mejia Campoverde MD [address] [address] Consulting Physician Interventional Cardiology 04/11/22 [employer] Officer Relationship Specialty Start Date End Date Charisse Painting CNP [address] [place] [address] PCP - General Nurse Practitioner 10/17/22 Mejia Campoverde MD [address] [address] Consulting Physician Interventional Cardiology 04/11/22 [employer] Officer Relationship Specialty Start Date End Date Charisse Painting CNP [address] [place] [address] PCP - General Nurse Practitioner 10/17/22 Mejia Campoverde MD [address] [place] [address] Consulting Physician Interventional Cardiology 04/11/22 Scheduled Active and Recently Administ ered Medications (unrecognized section and content) Source Comments (unrecognize d section and content) In the event this informatio n is protected by the Federal Confidentiality of Alcohol and Drug Abuse Patient Records regulations: The Federal rules restrict any use of the information to criminally investigate or prosecute any alcohol or drug abuse patient.[facility] the event this information is protected by the Federal Confidentiality of Alcohol and Drug Abuse Patient Records regulations: The Federal rules restrict any use of the information to criminally investigate or prosecute any alcohol or drug abuse patient.[facility] the event this information is protected by the Federal Confidentiality of Alcohol and Drug Abuse Patient Records regulations: The Federal rules restrict any use of the information to criminally investigate or prosecute any alcohol or drug abuse patient.[facility] the event this information is protected by the Federal Confidentiality of Alcohol and Drug Abuse Patient Records regulations: The Federal rules restrict any use of the information to criminally investigate or prosecute any alcohol or drug abuse patient.[facility] the event this information is protected by the Federal Confidentiality of Alcohol and Drug Abuse Patient Records regulations: The Federal rules restrict any use of the information to criminally investigate or prosecute any alcohol or drug abuse patient.[facility] the event this information is protected by the Federal Confidentiality of Alcohol and Drug Abuse Patient Records regulations: The Federal rules restrict any use of the information to criminally investigate or prosecute any alcohol or drug abuse patient.[facility] FOR RECORDS PERTAINING TO PATIENTS WHO ARE OR HAVE BEEN ENROLLED IN A CHEMICAL DEPENDENCY/SUBSTANCEABUSE PROGRAM, SOME INFORMATION MAY BE OMITTED. This clinical summary was aggregated from multiple sources. Caution should be exercised in using it in the provision of clinical care. This summary normalizes information from multiple sources, and as a consequence, information in this document may materially change the coding, format and clinical context of patient data. In addition, data may be omitted in some cases. CLINICAL DECISIONS SHOULD BE BASED ON THE PRIMARY CLINICAL RECORDS. [facility]. provides no warranty or guarantee of the accuracy or completeness of information in this document.
--- NOTE | 2023-04-20 07:37 | MRI_ITS ---
STUDY: MRI LUMBAR SPINE WITHOUT CONTRAST REASON FOR EXAM: Male, 67 years old. LBP and LLE radicular pain, left leg weakness TECHNIQUE: Standardized fat and water weighted pulse sequences were obtained in the sagittal and axial planes. COMPARISON: None FINDINGS: T11-T12 and T12-L1: (Sagittal only). Normal endplates. Normal disc height, hydration and morphology. No ventral extradural defects. Normal central canal and bilateral intervertebral neural foramina. Straightening of the lumbar spine curvature. There is no substantial scoliosis. Normal conus medullaris that terminates at the upper L1 vertebral body level. L1-2: Normal endplates. Normal disc height, hydration and morphology. Normal bilateral facet joints. Normal central canal and bilateral lateral recesses. Normal bilateral intervertebral neural foramina. L2-3: Normal endplates. Normal disc height, hydration and morphology. Normal bilateral facet joints. Normal central canal and bilateral lateral recesses. Normal bilateral intervertebral neural foramina. L3-4: Normal endplates. Normal disc height, hydration and morphology. Normal bilateral facet joints. Normal central canal and bilateral lateral recesses. Normal bilateral intervertebral neural foramina. L4-5: Normal endplates. Minimal disc space height narrowing. Left posterior cephalad foraminal disc extrusion causing displacement of the left L4 nerve. Normal right intervertebral neural foramen. Normal facet joints. Normal central canal and bilateral lateral recesses. L5-S1: Normal endplates. Normal disc height, hydration and morphology. Normal bilateral facet joints. Normal central canal and bilateral lateral recesses. Normal bilateral intervertebral neural foramina. Normal visualized sacral ala. Normal visualized paraspinous soft tissue structures. MRI/Spine Lumbar (Routine) IMPRESSION: Left L4-L5 posterior cephalad foraminal disc extrusion causing displacement of the left L4 nerve (series 2 and 3, images 3; series 5, image 10; series 6, image 7). Electronically Signed: Prateek Guallpa MD at 12:29 EST ,
== END | disposition home or self-care (01) ==
PROVIDERS: Referring Provider Psychiatry & Neurology Neurology; Visit Provider Psychiatry & Neurology Neurology
DX: M54.16 Radiculopathy, lumbar region (principal); R53.1 Weakness
CPT/HCPCS: 72148

== ENCOUNTER → 2023-08-07 | Outpatient (CLI) | payer MEDICARE, SELFPAY ==
--- NOTE | 2023-08-07 07:40 | CDU_ITS ---
Reason For Study: bilateral carotid bruit Rt. Velocities/BP Lt. Velocities/BP Prox CCA 65.5/10.7 cm/sec. Prox CCA 82.5/10.7 cm/sec. Mid CCA 57.9/13.5 cm/sec. Mid CCA 69.2/13.5 cm/sec. Dist CCA 50.4/13.5 cm/sec. Dist CCA 54.1/10.7 cm/sec. Prox ICA 73.0/19.2 cm/sec. Prox ICA 54.2/12.4 cm/sec. Mid ICA 69.2/17.3 cm/sec. Mid ICA 71.8/21.2 cm/sec. Dist ICA 73.0/18.2 cm/sec. Dist ICA 65.2/15.7 cm/sec. Rt. ICA/CCA = 1.3. Lt. ICA/CCA = 1.0. Prox ECA 83.4/11.6 cm/sec. Prox ECA 358.2/40.4 cm/sec. Rt. Vert. 56.0/9.7 cm/sec. Lt. Vert. 14.2/5.5 cm/sec. Right Extracranial There is homogeneous, smooth atherosclerotic plaque noted in the right common carotid artery. There is heterogeneous, irregular atherosclerotic plaque noted in the right internal carotid artery. There is homogeneous, smooth atherosclerotic plaque noted in the right external carotid artery. Antegrade flow is noted in the right vertebral artery. Left Extracranial There is homogeneous, smooth atherosclerotic plaque noted in the left common carotid artery. There is heterogeneous, irregular atherosclerotic plaque noted in the left internal carotid artery. There is heterogeneous, irregular atherosclerotic plaque noted in the left external carotid artery. Antegrade flow is noted in the left vertebral artery. Procedure Carotid Duplex [id number]. This is a Carotid Duplex examination using B-mode, color flow and specral Doppler. The exam was diagnostic. Exam performed in department. VL/Carotid Duplex Ultrasound Interpretation Summary Mild (<50%) stenosis right extracranial internal carotid. Mild (<50%) stenosis left extracranial internal carotid. Patent and antegrade vertebrals bilaterally. Ordering Physician: Didier Blake Performed By: Warren Patton RVT
== END | disposition home or self-care (01) ==
LOC: CVS 07:39
PROVIDERS: Referring Provider Psychiatry & Neurology Neurology; Visit Provider Psychiatry & Neurology Neurology
DX: R09.89 Other specified symptoms and signs involving the circulatory and respiratory systems (principal)
CPT/HCPCS: 93880